=== PATIENT | female | born 1940 | race Caucasian/White ===

== ENCOUNTER 2016-08-28 13:36 | Inpatient (IN) | payer OTHER ==
[2016-08-28 14:15] VITALS: BMI 33.8
[2016-08-28] MEDS ORDERED: SODIUM CHLORIDE 1,000 ML IV STA (15:21)
--- NOTE | 2016-08-28 15:21 | PDOC ---
History of Present Illness <Malcom Weaver - Last Filed: 08/28/16 16:48> - General History Source: Patient Exam Limitations: No Limitations - History of Present Illness Initial Comments: CHIEF COMPLAINT: 75 y/o afebrile female with PMH HTN, HLD, CAD with previous CABG (on coumadin) c/o fall last night. HISTORY OF PRESENT ILLNESS: The patient states last night she got up to use the bathroom from bed and her legs got weak and she fell. She thinks it happened around 2am. She states she couldn't move and was lying there until this afternoon when her adult son came to check on her. She states she still feels weak and had to lean on her son to walk. She admits to a cold the past few days of runny nose, nasal congestion and cough but denies all other symptoms including f/c, n/v/d, CP, SOB, abd pain, back pain, hematuria, dysuria. She does admit she hasn't drank any fluids in the past few days and since no one lives with her she has been too tired to get them herself. PCP is Dr. Morrow Thermo Cementing Folder Operator is Dr. Yuan Vital signs on arrival are within normal limits. REVIEW OF SYSTEMS: GENERAL/CONSTITUTIONAL: No fever/chills. + weakness. No weight change. HEAD, EYES, EARS, NOSE AND THROAT: No change in vision. No ear pain or discharge. No sore throat. +runny nose and nasal congestion CARDIOVASCULAR: No chest pain or shortness of breath. RESPIRATORY: +dry cough. No wheezing, or hemoptysis. GASTROINTESTINAL: No abd pain, nausea, vomiting, diarrhea. GENITOURINARY: No dysuria, frequency, or change in urination. MUSCULOSKELETAL: No joint or muscle swelling or pain. No neck or back pain. SKIN: No rash or easy bruising. NEUROLOGIC: No headache, vertigo, loss of consciousness, or loss of sensation. PHYSICAL EXAM: GENERAL: The patient is awake, alert, and fully oriented, in no acute distress. She is well appearing. She walks with a cane. HEAD: Normal with no signs of trauma. ENT: Pupils equal, round and reactive to light, extraocular movements intact, sclera anicteric, conjunctiva clear. Neck supple. Lips dry and cracked. LUNGS: Clear to auscultation bilaterally. Normal excursion. No respiratory distress or use of accessory muscles. CV: Irregular rhythm, regular rate. S1/S2, no MRG. Cap refill < 2 sec. ABDOMEN: Soft, non-distended, non-tender even to deep palpation, no hepatomegaly or splenomegaly, no masses. EXTREMITIES: Normal range of motion, no edema. NEUROLOGICAL: Normal speech, normal gait. CN II-XII grossly intact. PSYCH: Normal mood, normal affect. SKIN: Warm, dry, normal turgor, no rashes or lesions noted. <Britany Rolon - Last Filed: 08/28/16 17:48> - General Chief Complaint: Injury Stated Complaint: FALL, BODY ACHES Time Seen by Provider: 08/28/16 14:43 Past History <Malcom Weaver - Last Filed: 08/28/16 16:48> - Past Medical History Cardiac Disorders: Yes (AFIB) CVA: Yes (TIA) GI Disorders: Yes HTN: Yes Hypercholesterolemia: Yes - Surgical History Appendectomy: Yes Cardiac Surgery: Yes (BYPASS) Orthopedic Surgery: Yes (Bilateral Knee Replacement) - Psycho/Social/Smoking Cessation Hx Suicidal Ideation: No Smoking Status: No Smoking History: Never smoked Have you smoked in the past 12 months: No Number of Cigarettes Smoked Daily: 0 If you are a former smoker, when did you quit?: Over 10 years ago Information on smoking cessation initiated: No Hx Alcohol Use: No Drug/Substance Use Hx: No Substance Use Type: None Hx Substance Use Treatment: No <Britany Rolon - Last Filed: 08/28/16 17:48> - Past Medical History Allergies/Adverse Reactions: Allergies Allergy/AdvReac Type Severity Reaction Status Date / Time No Known Allergies Allergy Verified 08/28/16 14:15 Home Medications: Ambulatory Orders Aspirin [ASA -] 81 mg PO DAILY #0 tab.chew 08/06/13 Atorvastatin Ca [Lipitor] 10 mg PO HS #0 tablet 08/06/13 Felodipine [Felodipine ER] 2.5 mg PO DAILY #0 tab.er.24h 08/06/13 Ranolazine [Ranexa -] 1,000 mg PO BID #0 tab 08/06/13 Metoprolol Succinate [Toprol XL -] 100 mg PO BID 08/28/16 Warfarin Na [Coumadin] 4.5 mg PO HS 08/28/16 *Physical Exam - Vital Signs Last Vital Signs Temp Pulse Resp BP Pulse Ox 98.9 F 89 18 145/72 99 08/28/16 14:10 08/28/16 14:10 08/28/16 14:10 08/28/16 14:10 08/28/16 14:10 <Malcom Weaver - Last Filed: 08/28/16 16:48> - Vital Signs Last Vital Signs Temp Pulse Resp BP Pulse Ox 98.9 F 89 18 145/72 99 08/28/16 14:10 08/28/16 14:10 08/28/16 14:10 08/28/16 14:10 08/28/16 14:10 <Britany Rolon - Last Filed: 08/28/16 17:48> ED Treatment Course - LABORATORY CBC & Chemistry Diagram: 08/28/16 15:23 08/28/16 15:23 - ADDITIONAL ORDERS Additional order review: Laboratory Results 08/28/16 08/28/16 15:23 15:21 Sodium 140 Potassium 3.7 Chloride 103 Carbon Dioxide 27 Anion Gap 10 BUN 8 D Creatinine 0.9 Creat Clearance w eGFR > 60 Random Glucose 119 H Calcium 9.1 Total Bilirubin 1.3 H D AST 57 H D ALT 31 D Alkaline Phosphatase 100 D Creatine Kinase 2035 H D CK-MB (CK-2) 6.843 H Troponin I 0.34 H B-Natriuretic Peptide 7922.92 H Total Protein 7.3 Albumin 4.0 Urine Color Yellow Urine Appearance Slcloudy Urine pH 5.0 D Ur Specific [place] 1.014 Urine Protein 1+ H Urine Glucose (UA) Negative Urine Ketones Negative Urine Blood 2+ H Urine Nitrite Negative Urine Bilirubin Negative Urine Urobilinogen Negative Ur Leukocyte Esterase 2+ H Urine RBC 4 Urine WBC 70 Ur Epithelial Cells Rare Hyaline Casts 1 Urine Mucus Rare 08/28/16 15:23 RBC 4.85 MCV 85.5 MCHC 32.5 RDW 13.9 MPV 11.9 H Neutrophils % 70.8 D Lymphocytes % 16.9 D Monocytes % 11.6 H Eosinophils % 0.1 D Basophils % 0.6 - Medications Given in the ED: ED Medications Discontinued Medications Generic Name Dose Route Start Last Admin Trade Name Freq PRN Reason Stop Dose Admin Sodium Chloride 1,000 mls @ 1,000 mls/hr 08/28/16 15:21 08/28/16 15:35 Normal Saline - IV 08/28/16 16:20 1,000 mls/hr ASDIR STA Administration <Malcom Weavere - Last Filed: 08/28/16 16:48> - LABORATORY CBC & Chemistry Diagram: 08/28/16 15:23 08/28/16 15:23 <Britany Rolon - Last Filed: 08/28/16 17:48> Medical Decision Making - Medical Decision Making 08/28/16 16:48 Dr. Morrow was called regarding the patient at 4:40pm <Malcom Weaver - Last Filed: 08/28/16 16:48> - Medical Decision Making A/P: 75 y/o afebrile female whose legs gave out on her yesterday from weakness c/o feeling weak. Plan is as follows: 1. EKG 2. CXR 3. Labs 4. UA/culture 5. IV fluids EkG shows AFIB - unchanged from prior. Laboratory Tests 08/28/16 08/28/16 08/28/16 15:21 15:23 15:23 WBC 10.6 H D Hgb 13.5 D Hct 41.5 Neutrophils % 70.8 D Lymphocytes % 16.9 D Monocytes % 11.6 H Sodium 140 Potassium 3.7 Chloride 103 Carbon Dioxide 27 BUN 8 D Creatinine 0.9 Random Glucose 119 H Total Bilirubin 1.3 H D AST 57 H D Creatine Kinase 2035 H D CK-MB (CK-2) 6.843 H Troponin I 0.34 H B-Natriuretic Peptide 7922.92 H Urine Protein 1+ H Urine Glucose (UA) Negative Urine Ketones Negative Urine Blood 2+ H Urine Nitrite Negative Urine Bilirubin Negative Urine Urobilinogen Negative Ur Leukocyte Esterase 2+ H Urine RBC [address] U[address] Morrow for admission. He states admit to obs with Hospitalist alex in service and he will see her in the morning. SPoke with Dr. Gardner, hospitalist, and she accepts admission but wants full admission to tele. Spoke with Dr. Vargas, covering for patient's print decorator, Dr. Locke, and he will consult. WIll give dose of keflex in the ER for UTI. Informed the patient and her son of the plan and they are amenable. <Britany Rolon - Last Filed: 08/28/16 17:48> *DC/Admit/Observation/Transfer <OwenMalcom Haylie - Last Filed: 08/28/16 16:48> - Discharge Dispostion Admit: Yes <Britany Rolon - Last Filed: 08/28/16 17:48> Diagnosis at time of Disposition: Elevated troponin UTI (urinary tract infection) Qualifiers: Urinary tract infection type: acute cystitis Hematuria presence: with hematuria Qualified Code(s): N30.01 - Acute cystitis with hematuria CHF exacerbation Qualifiers: Congestive heart failure type: unspecified congestive heart failure type Qualified Code(s): I50.9 - Heart failure, unspecified - Discharge Dispostion Condition at time of disposition: Stable - Referrals Referrals: Clemente Morrow MD [Primary Care Provider] -
[2016-08-28 15:29] LABS: BASOPHIL 0.6 % (0-2.0); EOSINOPHIL 0.1 % (0-4.5); MCH 27.8 pg (25.7-33.7); MCHC 32.5 g/dl (32.0-36.0); MEAN CELL VOLUME 85.5 fl (80-96); MEAN PLT VOLUME 11.9 fl (7.5-11.1); NEUTROPHILS 70.8 % (42.8-82.8); PLATELET COUNT 153 K/MM3 (134-434); RDW 13.9 % (11.6-15.6); WHITE BLOOD COUNT 10.6 K/mm3 (4.0-10.0)
[2016-08-28 15:34] LABS: URINE APPEARANCE SLCLOUDY; URINE BILIRUBIN NEGATIVE (NEGATIVE); URINE COLOR YELLOW; URINE GLUCOSE (UA) NEGATIVE (NEGATIVE); URINE KETONE NEGATIVE (NEGATIVE); URINE NITRITE NEGATIVE (NEGATIVE); URINE UROBILINOGEN NEGATIVE E.U./dl (0.2-1.0)
[2016-08-28 15:40] LABS: URINE BLOOD 2+ (NEGATIVE); URINE LEUK ESTERASE 2+ (NEGATIVE); URINE PROTEIN 1+ (NEGATIVE)
[2016-08-28 15:41] LABS: URINE HYALINE CAST 1 /lpf; URINE MUCUS RARE; URINE RBC 4 /hpf (0-3); URINE WBC 70 /hpf (3-5)
[2016-08-28 15:53] LABS: ANION GAP 10 (8-16); BILIRUBIN,TOTAL 1.3 mg/dL (0.2-1.0); CALCIUM 9.1 mg/dL (8.5-10.1); CO2 27 mmol/L (21-32); CREATININE 0.9 mg/dL (0.55-1.02); GLUCOSE,RANDOM 119 mg/dL (74-106); SGOT/AST 57 U/L (15-37); SGPT/ALT 31 U/L (12-78); TOT PROT 7.3 g/dl (6.4-8.2)
[2016-08-28 16:05] LABS: ALK PHOS 100 U/L (45-117); TROPONIN I 0.34 ng/ml (0.00-0.05)
[2016-08-28] MEDS ORDERED: CEPHALEXIN MONOHYDRATE 500 MG CAPSULE (UD) PO ONE (17:34)
[2016-08-28] MEDS ORDERED: CEPHALEXIN MONOHYDRATE 250 MG CAPSULE (FP) ONE (17:42)
--- NOTE | 2016-08-28 19:05 | PN ---
<Julia Perez - Last Filed: 08/28/16 19:05> Teaching Attending Note Name of Resident: Susi Gupta ATTENDING PHYSICIAN STATEMENT I saw and evaluated the patient. I reviewed the resident's note and discussed the case with the resident. I agree with the resident's findings and plan as documented. SUBJECTIVE: OBJECTIVE: ASSESSMENT AND PLAN: <Erlin Ramirezyna - Last Filed: 08/29/16 00:52> Teaching Attending Note ATTENDING PHYSICIAN STATEMENT I saw and evaluated the patient. I reviewed the resident's note and discussed the case with the resident. I agree with the resident's findings and plan as documented. SUBJECTIVE: Patient is a 75 year old female, former smoker(quit 10 years ago, 1-2 packs a day) with significant past medical history of Afib (on Coumadin), HTN, HLD, CAD with previous CABG who presents with fall secondary to weakness. Fall happened at 6 pm last night 08/27 and she was found by her son at 12 pm on 08/28. Patient notes that she fell down because she felt weak she was sitting on the floor. She denies any head trauma or LOC. She reports generalized weakness and muscle pain. She also reports an upper respiratory infection with runny nose, congestion and cough. She denies any cp, SOB, palpitation, dizziness, lightheadedness. She denies urinating on herself. Batter Depositor - Dr. Augustine PCP - Dr. Morrow OBJECTIVE: Physical: VS: Last Vital Signs Temp Pulse Resp BP Pulse Ox 98.9 F 96 H 22 111/61 97 08/28/16 14:10 08/28/16 18:44 08/28/16 18:44 08/28/16 18:44 08/28/16 18:44 GEN: morbidly obese, NAD HEENT: NCAT, PERRL CARD: RRR, S1 S2 RESP: decreased breath sounds at bases ABD: NT, BWS x4 EXT: - CCE LABS: CBCD WBC 10.6 K/mm3 (4.0-10.0) H D 08/28/16 15:23 RBC 4.85 M/mm3 (3.60-5.2) 08/28/16 15:23 Hgb 13.5 GM/dL (10.7-15.3) D 08/28/16 15:23 Hct 41.5 % (32.4-45.2) 08/28/16 15:23 MCV 85.5 fl (80-96) 08/28/16 15:23 MCHC 32.5 g/dl (32.0-36.0) 08/28/16 15:23 RDW 13.9 % (11.6-15.6) 08/28/16 15:23 Plt Count 153 K/MM3 (134-434) 08/28/16 15:23 MPV 11.9 fl (7.5-11.1) H 08/28/16 15:23 CMP Sodium 140 mmol/L (136-145) 08/28/16 15:23 Potassium 3.7 mmol/L (3.5-5.1) 08/28/16 15:23 Chloride 103 mmol/L (98-107) 08/28/16 15:23 Carbon Dioxide 27 mmol/L (21-32) 08/28/16 15:23 Anion Gap 10 (8-16) 08/28/16 15:23 BUN 8 mg/dL (7-18) D 08/28/16 15:23 Creatinine 0.9 mg/dL (0.55-1.02) 08/28/16 15:23 Creat Clearance w eGFR > 60 (>60) 08/28/16 15:23 Calcium 9.1 mg/dL (8.5-10.1) 08/28/16 15:23 Total Bilirubin 1.3 mg/dL (0.2-1.0) H D 08/28/16 15:23 AST 57 U/L (15-37) H D 08/28/16 15:23 ALT 31 U/L (12-78) D 08/28/16 15:23 Alkaline Phosphatase 100 U/L (45-117) D 08/28/16 15:23 Total Protein 7.3 g/dl (6.4-8.2) 08/28/16 15:23 Albumin 4.0 g/dl (3.4-5.0) 08/28/16 15:23 EKG:Rate 89 Afib ASSESSMENT AND PLAN: Patient is a 75 year old female with significant past medical history of Afib ( on Coumadin), HTN, HLD, CAD with previous CABG who presents s/p fall being admitted for rhabdomyolysis and CHF 1. Troponin elevation/Nstemi - Most likely due to demand but with heart score 5 trend troponin - Heart score is 5 - Trend troponin/ ECG - Batter Depositor consult - O2 2L NC - ECHO in AM - Aspirin - Statin - Nitro/Morphine PRN 2.Generalized weakness /rhabdo - Trend CK - Receive 1 L of fluid in ED - Would hold off for further hydration due to CHF 3. CHF - Echo complete - Sodium restrict - Daily weights - Fluid restrict 4. Afib - Continue beta ludmila - Continue Coumadin - Follow up INR - Goal INR 2-3 hold Coumadin 5. CAD/CABG - Continue home meds 6. UTI - Continue Keflex 7. HTN - Continue home meds 8. HLD - Continue home meds 9. DVT ppx - Heparin gtt Admit to Tele. Documentation prepared by Mary Ramirez, acting as biomedical engineering supervisor for Julia Perez D.O.
[2016-08-28 20:51] LABS: INR 2.24 (0.82-1.09)
--- NOTE | 2016-08-28 20:51 | HP ---
CHIEF COMPLAINT: S/p fall, weakness PCP: Dr. Clemente Morrow HISTORY OF PRESENT ILLNESS: 75 year old female with a PMH of ASaulo ( on Coumadin), CAD, CABG, TIA, HTN, HLD presents s/p fall that happened yesterday at 6 PM. She fell down on the floor but was very weak and couldn't get up. She was found by her son at 12 PM today. She denies drinking anything or urinating during that time. She denies feeling dizzy before or after the incident. She didn't hit her head or had any injuries. She denies seizures, urinating, LOC, chest pain, palpitation. The pt is also complaining of having runny nose, cough and throat pain for 2-3 days. She denies burning with urination, urgency, frequency, N/V, diarrhea, constipation. ER course was notable for: (1)Chest X ray (2)Troponins, WBC, CK, CK-MB (3)UA 2+ PAST MEDICAL HISTORY: A.Wili ( on Coumadin), CAD, CABG, TIA, HTN, HLD PAST SURGICAL HISTORY: B/L knee replacement CABG Social History: Smoking:Former smoker, quit 10 years ago, smoked 1-2 packs/day for many years Alcohol: Denies Drugs: Denies Family History: Mother: DM Father:HTN Allergies No Known Allergies Allergy (Verified 08/28/16 14:15) HOME MEDICATIONS: Medication Instructions Recorded Aspirin [ASA -] 81 mg PO DAILY #0 tab.chew 08/06/13 Atorvastatin Ca [Lipitor] 10 mg PO HS #0 tablet 08/06/13 Felodipine [Felodipine ER] 2.5 mg PO DAILY #0 tab.er.24h 08/06/13 Ranolazine [Ranexa -] 1,000 mg PO BID #0 tab 08/06/13 Metoprolol Succinate [Toprol XL -] 100 mg PO BID 08/28/16 Warfarin Na [Coumadin] 4.5 mg PO HS 08/28/16 REVIEW OF SYSTEMS CONSTITUTIONAL: generalized weakness Absent: fever, chills, diaphoresis, malaise, weight change HEENT: rhinorrhea, nasal congestion, throat pain Absent: throat swelling, difficulty swallowing, mouth swelling, ear pain, eye pain, visual changes CARDIOVASCULAR: Absent: chest pain, syncope, palpitations, irregular heart rate, lightheadedness , peripheral edema RESPIRATORY: cough Absent: shortness of breath, dyspnea with exertion, orthopnea, wheezing, stridor , hemoptysis GASTROINTESTINAL: Absent: abdominal pain, abdominal distension, nausea, vomiting, diarrhea, constipation, melena, hematochezia GENITOURINARY: Absent: dysuria, frequency, urgency, hesitancy, hematuria, flank pain, genital pain MUSCULOSKELETAL: myalgia lower extremities Absent: arthralgia, joint swelling, back pain, neck pain SKIN: Absent: rash, itching, pallor HEMATOLOGIC/IMMUNOLOGIC: Absent: easy bleeding, easy bruising, lymphadenopathy, frequent infections ENDOCRINE: Absent: unexplained weight gain, unexplained weight loss, heat intolerance, cold intolerance NEUROLOGIC: Absent: headache, focal weakness or paresthesias, dizziness, seizure, mental status changes, bladder or bowel incontinence PSYCHIATRIC: Absent: anxiety, PHYSICAL EXAMINATION Vital Signs - 24 hr 08/28/16 18:44 Pulse Rate [ 96 H Left Radial] Respiratory 22 Rate Blood Pressure 111/61 [Right Arm] O2 Sat by Pulse 97 Oximetry (%) GENERAL: Awake, alert, and fully oriented, in no acute distress. HEAD: Normal with no signs of trauma. EYES: Pupils equal, round and reactive to light, extraocular movements intact, sclera anicteric, conjunctiva clear. No lid lag. EARS, NOSE, THROAT: Ears normal, nares congested, oropharynx clear without exudates. Moist mucous membranes. NECK: Normal range of motion, supple without lymphadenopathy, JVD, or masses. LUNGS: Breath sounds equal, clear to auscultation bilaterally. No wheezes, and no crackles. No accessory muscle use. HEART: Regular rate and rhythm, normal S1 and S2 without murmur, rub or gallop. ABDOMEN: Obese, soft, nontender, not distended, normoactive bowel sounds, no guarding, no rebound, no masses. No hepatomegaly or splenomegaly. MUSCULOSKELETAL: Normal range of motion at all joints. No bony deformities or tenderness. UPPER EXTREMITIES: 2+ pulses, warm, well-perfused. No cyanosis. No clubbing. Cap refill <2 seconds. No peripheral edema. LOWER EXTREMITIES: 2+ pulses, warm, well-perfused. No calf tenderness. No peripheral edema. NEUROLOGICAL: Cranial nerves II-XII intact. Normal speech. Normal gait. PSYCHIATRIC: Cooperative. Good eye contact. Appropriate mood and affect. SKIN: Warm, dry, normal turgor, no rashes, midline scar in chest. ASSESSMENT/PLAN: 75 year old female with a PMH of [place] ( on Coumadin), CAD, CABG, TIA, HTN, HLD presents s/p fall that happened yesterday at 6 PM. She fell down on the floor. She sat down and was found by her son at 12 PM today. She denies drinking anything or urinating during that time. She denies feeling dizzy before or after the incident. She didn't hit her head or had any injuries. She denies seizures, urinating, LOC, chest pain, palpitation. She is admitted to telemetry for s/p fall, r/o NSTEMI. S/P fall r/o NSTEMI/elevated troponins -HEART score 5 -admission to telemetry -cardiac monitoring -trend troponins -trend EKG -Oxygen Supplementation -BBlockers, Aspirin, Nitro PRN -f/u troponins -Plavix 75 mg starting tomorrow -Heparin UTI: -continue Keflex 500 mg BID -Urine cultures Elevated CK/Rhabdo: -hold fluids due to CHF -observe CHF exacerbation: -hold more fluids, one Liter given in ED -daily weights, -strict I&O A.Fib -hold Coumadin -INR goal 2-3 -f/u PTT CAD/CABG: -continue home medications HLD: -continue Lipitor 10 mg HTN: -continue Metoprolol 100mg BID DVT prophylaxis: -Heparin drip F/E/N; no/no/Low sodium diet Disposition: -admission to telemetry Problem List - Problem (1) CHF exacerbation Code(s): I50.9 - HEART FAILURE, UNSPECIFIED Qualifiers: Congestive heart failure type: unspecified congestive heart failure type Qualified Code(s): I50.9 - Heart failure, unspecified (2) Elevated troponin Code(s): R79.89 - OTHER SPECIFIED ABNORMAL FINDINGS OF BLOOD CHEMISTRY (3) UTI (urinary tract infection) Code(s): N39.0 - URINARY TRACT INFECTION, SITE NOT SPECIFIED Qualifiers: Urinary tract infection type: acute cystitis Hematuria presence: with hematuria Qualified Code(s): N30.01 - Acute cystitis with hematuria Visit type - Emergency Visit Emergency Visit: Yes ED Registration Date: 08/28/16 Care time: The patient presented to the Emergency Department on the above date and was hospitalized for further evaluation of their emergent condition. - New Patient This patient is new to me today: Yes Date on this admission: 08/29/16 - Critical Care Critical Care patient: No
[2016-08-28 20:53] LABS: ACTIVATED PTT 45.1 SECONDS (26.9-34.4)
[2016-08-28] MEDS ORDERED: HEPARIN NA (PORCINE) 5,000 UNITS/ML 1ML VIAL SQ SCH (22:00)
[2016-08-28] MEDS ORDERED: METOPROLOL SUCCINATE 100 MG TAB.SR.24H (FP) PO SCH (23:45)
[2016-08-28] MEDS ORDERED: RANOLAZINE E.R. 1,000 MG TABLET (FP) PO SCH (23:45)
[2016-08-28] MEDS ORDERED: ASPIRIN 81 MG CHEWABLE TABLETS PO ONE (23:55)
[2016-08-29] MEDS ORDERED: ASPIRIN 81 MG CHEWABLE TABLETS ONE (00:08)
[2016-08-29] MEDS ORDERED: amLODIPine BESYLATE 2.5 MG TABLET (FP) PO ONE (00:15)
[2016-08-29] MEDS ORDERED: amLODIPine BESYLATE 5 MG TABLET (FP) ONE (00:34)
[2016-08-29] MEDS ORDERED: HEPARIN NA (PORCINE) 5,000 UNITS/ML 1ML VIAL IVPUSH PRN ×2 (00:49)
[2016-08-29] MEDS ORDERED: HEPARIN INFUSION - 500 ML IVPB SCH (01:00)
[2016-08-29] MEDS ORDERED: HEPARIN INFUSION - 500 ML IVPB ONE (01:18)
[2016-08-29] MEDS ORDERED: CEPHALEXIN MONOHYDRATE 250 MG CAPSULE (FP) ONE (05:33)
[2016-08-29] MEDS: CEPHALEXIN MONOHYDRATE 500 MG CAPSULE (UD) PO SCH ×3 (05:36→22:40)
[2016-08-29 07:58] LABS: INR 2.12 (0.82-1.09); PROTHROMBIN TIME (PATIENT) 23.7 SEC (9.98-11.88)
[2016-08-29 08:22] LABS: ACTIVATED PTT 130.5 SECONDS (26.9-34.4)
[2016-08-29 08:45] LABS: CALCIUM 8.3 mg/dL (8.5-10.1)
[2016-08-29 08:51] LABS: CREATININE 0.7 mg/dL (0.55-1.02)
--- NOTE | 2016-08-29 09:48 | EKG ---
Test Reason : Blood Pressure : / mmHG Vent. Rate : 089 BPM Atrial Rate : 098 BPM P-R Int : 000 ms QRS Dur : 122 ms QT Int : 384 ms P-R-T Axes : 000 053 010 degrees QTc Int : 467 ms ATRIAL FIBRILLATION RIGHT BUNDLE BRANCH BLOCK ABNORMAL ECG WHEN COMPARED WITH ECG OF 05-AUG-2013 08:56, RIGHT BUNDLE BRANCH BLOCK HAS REPLACED RSR' PATTERN IN V1 QRS DURATION HAS WIDENED Confirmed by TEDDY WILKES, CESAR ([id number]) on 08/29/2016 9:48:46 AM Referred By: Overread By: CESAR ESPINAL MD
[2016-08-29] MEDS ORDERED: ENOXAPARIN NA (PORCINE) 80 MG/0.8 ML DISP.SYRIN SQ SCH (10:00)
[2016-08-29] MEDS ORDERED: CLOPIDOGREL BISULFATE 75 MG TABLET (FP) PO SCH (10:00)
[2016-08-29] MEDS ORDERED: METOPROLOL SUCCINATE 100 MG TAB.SR.24H (FP) PO SCH (10:00)
[2016-08-29] MEDS: ASPIRIN COATED 81 MG TABLET.EC PO SCH (10:56)
[2016-08-29] MEDS: RANOLAZINE E.R. 1,000 MG TABLET (FP) PO SCH ×2 (10:57→22:27)
[2016-08-29] MEDS: METOPROLOL SUCCINATE 100 MG TAB.SR.24H (FP) PO SCH ×2 (10:57→22:26)
[2016-08-29] MEDS: amLODIPine BESYLATE 2.5 MG TABLET (FP) PO SCH (10:58)
--- NOTE | 2016-08-29 11:44 | PN ---
Progress Note (short form) - Note Progress Note: Chief Complaint: Events noted notes reviewed, progressive weakness, increasing dyspnea, remains in atrial fibrillation History of Present Illness: Seen and examined in the ER as a telemetry hold. Full consult dictated Medications: Current Medications Amlodipine Besylate (Norvasc -) 2.5 mg PO DAILY [facility] Last Admin: 08/29/16 10:58 Dose: 2.5 mg Aspirin (Ecotrin -) 81 mg PO DAILY [facility] Last Admin: 08/29/16 10:56 Dose: 81 mg Atorvastatin Calcium (Lipitor -) 10 mg PO [facility] Cephalexin HCl (Keflex -) 500 mg PO BID [facility] Last Admin: 08/29/16 10:59 Dose: 500 mg Clopidogrel Bisulfate (Plavix -) 75 mg PO DAILY [facility] Last Admin: 08/29/16 10:55 Dose: 75 mg Metoprolol Succinate (Toprol Xl -) 100 mg PO BID [facility] Last Admin: 08/29/16 10:57 Dose: 100 mg Ranolazine (Ranexa -) 1,000 mg PO BID [facility] Last Admin: 08/29/16 10:57 Dose: 1,000 mg Review of Systems - Review of Systems Constitutional: No symptoms reported Respiratory: denies: Cough or Sputum Production Cardiovascular: As noted above Gastrointestinal: denies Nausea, Vomiting, Diarrhea, Constipation or Abdominal Pain Genitourinary: No symptoms reported Musculoskeletal: Degenerative Joint Disease Endocrine: No symptoms reported Vital Signs: Last Vital Signs Temp Pulse Resp BP Pulse Ox 98.7 F 110 H 24 142/89 100 08/29/16 10:00 08/29/16 10:00 08/29/16 10:00 08/29/16 10:00 08/29/16 06:55 Constitutional: No Distress Neck: Supple Negative JVD No Bruit Respiratory: Clear to A&P Bilaterally Cardiovascular: S1 S2 Irregularly Irregular Gard[place] 1-2/6 LEONID Gastrointestinal: Soft Benign Normal Bowel Sounds Ext: Negative Edema Labs: Troponin, BNP 08/28/16 08/28/16 08/29/16 15:23 21:10 03:00 Troponin I 0.34 H 0.35 H 0.37 H B-Natriuretic Peptide 7922.92 H CBC, BMP 08/28/16 15:23 08/29/16 07:10 Hepatic Panel Total Bilirubin 1.3 mg/dL (0.2-1.0) H D 08/28/16 15:23 AST 57 U/L (15-37) H D 08/28/16 15:23 ALT 31 U/L (12-78) D 08/28/16 15:23 Alkaline Phosphatase 100 U/L (45-117) D 08/28/16 15:23 Albumin 4.0 g/dl (3.4-5.0) 08/28/16 15:23 INR, PTT INR 2.12 (0.82-1.09) H 08/29/16 07:10 Assessment/Plan ASSESSMENT: 1. Dyspnea consistent with acute on chronic diastolic LV dysfunction with class II NYHA classification LV failure 2. CAD post CABG, angina pectoris with evidence of demand ischemic injury 3. Persistent atrial fibrillation [id number] score of 5 on chronic A/C with Coumadin 4. HTN 5. Hypercholesterolemia 6. History of CVA 7. Hypokalemia 8. Progressive lower extremity weakness etiology to be determined PLAN: 1. Continue Lopressor titrate dosage as tolerated 2. Continue Ranexa 3. Add ACEI or ARBS 4. Continue Norvasc 5. Continue Lipitor 6. Add Lasix 7. K supplementation 8. Continue Coumadin and ASA therapies with caution, no indication for Heparin since patient has a therapeutic INR, no indication for Plavix since there is no clinical indication for ACS 9. Echocardiography for evaluation of LV systolic function 10. Neurology evaluation for the above noted presentation with progressive lower extremity weakness Shannan Molina M.D.
[2016-08-29] MEDS ORDERED: POTASSIUM CHLORIDE TABS 20 MEQ TABLET.ER (FP) PO ONE ×2 (11:45→12:37)
--- NOTE | 2016-08-29 12:21 | CONS ---
DATE OF CONSULTATION: 08/29/2016 REQUESTING PHYSICIAN: Clemente Morrow MD CHIEF COMPLAINT: Progressive weakness, dyspnea, cardiovascular evaluation. HISTORY: A 75-year-old morbidly obese female of descent with known history of coronary artery disease status post coronary artery bypass grafting, angina pectoris, diastolic left ventricular dysfunction with chronic class 1 [place] [employer] classification left ventricle failure, persistent atrial fibrillation on chronic anticoagulation therapy with Coumadin, hypertensive cardiovascular disease, hypercholesterolemia, cerebrovascular disease with no residual deficit, and degenerative joint disease who presented to [facility] after sustaining a fall at home subsequent to which she was unable to ambulate. The patient was found by her son stating that she has been reporting increasing bilateral lower extremity weakness, which has been noted since her bypass surgery 2 years ago. The patient in addition reported increasing dyspnea, which is predominantly noted with physical exertion. The patient denied any orthopnea or paroxysmal or nocturnal dyspnea. The patient reported intermittent retrosternal chest discomfort, which is noted at rest and with physical activity. The patient denied any palpitations, dizziness, lightheadedness, or syncope. The patient has been reporting fatigue and tiredness. PAST MEDICAL HISTORY: Coronary artery disease status post coronary artery bypass grafting, angina pectoris, diastolic left ventricular dysfunction with chronic class 1 [place] [employer] classification left ventricular failure, persistent atrial fibrillation, [id number] score of 5 on chronic anticoagulation therapy, hypertensive cardiovascular disease, hypercholesterolemia, cerebrovascular disease with no significant residual deficit, degenerative joint disease, post bilateral knee replacement surgery. SOCIAL HISTORY: Denies smoking. Denies alcohol intake. FAMILY HISTORY: Positive coronary artery disease. ALLERGIES: None reported. MEDICAL THERAPY: Currently includes amlodipine 2.5 mg once a day, Ecotrin 81 mg once a day, Lipitor 10 mg once a day, Plavix 75 mg once a day initiated in the emergency room, Toprol XL 100 mg twice a day, Ranexa 1000 mg twice a day, heparin drip initiated in the emergency room. REVIEW OF SYSTEMS: Head and Neck: Denies headache, photophobia, blurring of vision. Respiratory: Denies cough or sputum production. Cardiovascular: As noted above. Gastrointestinal: Denies nausea, vomiting, diarrhea, abdominal discomfort. Genitourinary: No symptoms reported. Musculoskeletal: History of degenerative joint disease and progressive lower extremity weakness. PHYSICAL EXAMINATION: Vital Signs: Blood pressure 142/89 mmHg, pulse rate 110 beats per minute. Head and Neck: Pupils equal and reactive to light and accommodation. Extraocular muscles are intact. Anicteric sclerae. Negative JVD. No bruits appreciated. Chest: Clear to auscultation and percussion. Cardiovascular: S1, S2. Irregularly irregular. Grade 1/6 to 2/6 systolic ejection murmur. No clicks or gallops. Abdomen: Soft, benign. Normoactive bowel sounds. Extremities: Negative edema. Intact distal pulses. No calf tenderness. Electrocardiogram reveals atrial fibrillation, nonspecific T-wave abnormality. Chest x-ray, increased basal marking. BNP 7922. Troponin I level was noted at 0.34, 0.35, and 0.37. Basic metabolic profile revealed sodium 142, potassium 3.2, BUN 10, creatinine 0.7, glucose 105. CBC revealed white blood cell count 10.6, hemoglobin 13.5, platelets 153. AST 56, ALT 31. ASSESSMENT: 1. Dyspnea consistent with acute on chronic diastolic left ventricular dysfunction with class 2 [place] [employer] classification left ventricle failure. 2. Coronary artery disease post coronary artery bypass grafting and angina pectoris with evidence of demand ischemic injury. 3. Persistent atrial fibrillation, [id number] score of 5 on chronic anticoagulation therapy with Coumadin. 4. Hypertensive cardiovascular disease. 5. Hypercholesterolemia. 6. History of cerebrovascular disease. 7. Hypokalemia. 8. Progressive lower extremity weakness, etiology to be determined. RECOMMENDATION: 1. Continuation of beta-blockers and titration of dosage as tolerated. 2. Continuation of Ranexa therapy. 3. Addition of RAJEEV inhibitors angiotensin receptor blockers. 4. Continuation of Norvasc. 5. Continuation of Lipitor. 6. Addition of Lasix. 7. Potassium supplementation. 8. Continuation of Coumadin and aspirin therapies with caution. No indication for heparin since the patient had a therapeutic exercise INR. In addition, no indication for Plavix since there is no clinical indication for acute coronary syndrome. 9. Echocardiography for evaluation of left ventricular systolic function. 10. Neurology evaluation for the above noted presentation with progressive lower extremity weakness. Thank you for the kind referral. JEN GARDNER M.D. [id number]
[2016-08-29] MEDS ORDERED: FUROSEMIDE 40 MG TABLET (FP) ONE (12:36)
[2016-08-29] MEDS ORDERED: VALSARTAN 80 MG TABLET (UD) ONE (12:37)
[2016-08-29] MEDS: VALSARTAN 80 MG TABLET (UD) PO SCH (12:38)
[2016-08-29] MEDS: FUROSEMIDE 40 MG TABLET (FP) PO SCH (12:38)
--- NOTE | 2016-08-29 12:52 | CONSULT ---
Consult Consult Specialty:: PULMONARY Referred by:: Dr. Perez Reason for Consultation:: shortness of breath - History of Present Illness Chief Complaint: leg weakness History of Present Illness: 75yo female with h/o HTN, hyperlipidemia, atrial fibrillation on anticoagulation , CAD, former smoker who was admitted after a fall from bilateral leg weakness. She denies any numbness or tingling sensation. She does report lower back pain for the past 2-3 months, has not seen a neurologist before. She also reports dyspnea on exertion without chest pain or palpitations. No fevrs, chills or sweats but has a nonproductive cough. - History Source History Provided By: Patient, Medical Record Limitations to Obtaining History: No Limitations - Past Medical History Cardio/Vascular: Yes: AFIB, CAD, HTN, Hyperlipdemia - Alcohol/Substance Use Hx Alcohol Use: No - Smoking History Smoking history: Never smoked Have you smoked in the past 12 months: No Aproximately how many cigarettes per day: 0 If you are a former smoker, when did you quit?: Over 10 years ago Home Medications - Allergies Allergies/Adverse Reactions: Allergies Allergy/AdvReac Type Severity Reaction Status Date / Time No Known Allergies Allergy Verified 08/28/16 14:15 - Home Medications Home Medications: Ambulatory Orders Aspirin [ASA -] 81 mg PO DAILY #0 tab.chew 08/06/13 Atorvastatin Ca [Lipitor] 10 mg PO HS #0 tablet 08/06/13 Felodipine [Felodipine ER] 2.5 mg PO DAILY #0 tab.er.24h 08/06/13 Ranolazine [Ranexa -] 1,000 mg PO BID #0 tab 08/06/13 Metoprolol Succinate [Toprol XL -] 100 mg PO BID 08/28/16 Warfarin Na [Coumadin] 4.5 mg PO HS 08/28/16 Family Disease History - Family Disease History Other Family History: non-contributory Review of Systems - Review of Systems Constitutional: denies: Chills, Fever Eyes: denies: Recent Change in Vision HENT: denies: Nasal Congestion, Throat Pain Neck: denies: Stiffness, Tenderness Cardiovascular: reports: Shortness of Breath. denies: Chest Pain, Edema, Palpitations Respiratory: reports: Cough, Exercise Intolerance, SOB on Exertion. denies: Hemoptysis, Wheezing Gastrointestinal: denies: Abdominal Pain, Nausea, Vomiting Genitourinary: denies: Dysuria, Hematuria Neurological: reports: Weakness (lower extremity). denies: Dizziness, Headache Physical Exam Vital Sings: Vital Signs Temperature 98.7 F 08/29/16 10:00 Pulse Rate 110 H 08/29/16 10:00 Respiratory Rate 24 08/29/16 10:00 Blood Pressure 142/89 08/29/16 10:00 O2 Sat by Pulse Oximetry (%) 100 08/29/16 09:00 Constitutional: Yes: No Distress, Calm Eyes: Yes: Conjunctiva Clear, EOM Intact HENT: Yes: Atraumatic, Normocephalic Neck: Yes: Supple, Trachea Midline Cardiovascular: Yes: Pulse Irregular Respiratory: Yes: Regular, Diminished (decreased breath sounds at the bases) ...Clubbing: No Gastrointestinal: Yes: Normal Bowel Sounds, Soft, Abdomen, Obese. No: Tenderness Edema: No Neurological: Yes: Alert, Oriented Labs: CBC, BMP 08/29/16 07:10 Imaging - Results Chest X-ray: Report Reviewed, Image Reviewed (no infiltrates) Problem List - Problems (1) UTI (urinary tract infection) Code(s): N39.0 - URINARY TRACT INFECTION, SITE NOT SPECIFIED Qualifiers: Urinary tract infection type: acute cystitis Hematuria presence: with hematuria Qualified Code(s): N30.01 - Acute cystitis with hematuria (2) Elevated troponin Code(s): R79.89 - OTHER SPECIFIED ABNORMAL FINDINGS OF BLOOD CHEMISTRY (3) Acute on chronic congestive heart failure with left ventricular diastolic dysfunction Code(s): I50.33 - ACUTE ON CHRONIC DIASTOLIC (CONGESTIVE) HEART FAILURE (4) Bilateral leg weakness Code(s): M62.81 - MUSCLE WEAKNESS (GENERALIZED) (5) Atrial fibrillation Code(s): I48.91 - UNSPECIFIED ATRIAL FIBRILLATION (6) CAD (coronary artery disease) Code(s): I25.10 - ATHSCL HEART DISEASE OF [place] CORONARY ARTERY W/O ANG PCTRS Assessment/Plan Bilateral Leg Weakness r/o Disc disease Acute on Chronic LV Diastolic Heart Failure +Troponins from above CAD s/p CABG Atrial Fibrillation HTN Hyperlipidemia h/o CVA - neurology evaluation - will defer mode of imaging to neuro - lasix - monitor urine output, creatinine - daily weights, I/Os - rate control with metoprolol - echocardiogram - continue anticoagulation Thank you for this consult Matthew Baxter MD
[2016-08-29] MEDS ORDERED: RANOLAZINE E.R. 500 MG TABLET (FP) ONE (21:58)
[2016-08-29] MEDS ORDERED: ATORVASTATIN CA 10 MG TABLET (FP) PO SCH (22:00)
[2016-08-29] MEDS: ATORVASTATIN CA 10 MG TABLET (FP) PO SCH (22:27)
[2016-08-30] MEDS: METOPROLOL SUCCINATE 100 MG TAB.SR.24H (FP) PO SCH ×3 (03:10→22:14)
[2016-08-30 08:21] LABS: ALK PHOS 73 U/L (45-117); ANION GAP 6 (8-16); BILIRUBIN,TOTAL 1.4 mg/dL (0.2-1.0); CALCIUM 8.6 mg/dL (8.5-10.1); CO2 30 mmol/L (21-32); CREATININE 0.9 mg/dL (0.55-1.02); GLUCOSE,RANDOM 92 mg/dL (74-106); MAGNESIUM 1.8 mg/dL (1.8-2.4); PHOSPHOROUS 3.2 mg/dL (2.5-4.9); SGOT/AST 81 U/L (15-37); SGPT/ALT 33 U/L (12-78); TOT PROT 5.7 g/dl (6.4-8.2)
[2016-08-30] MEDS ORDERED: RANOLAZINE E.R. 500 MG TABLET (FP) ONE ×2 (10:04→22:10)
--- NOTE | 2016-08-30 10:06 | CONSULT ---
Consult Consult Specialty:: Neurology Reason for Consultation:: LE weakness with fall - History of Present Illness History of Present Illness: The history provided by the patient and her daughter in law was found to be reliable. The patient noted over the past two weeks her legs have become progressively weaker and was associated with feeling very fatigued. The day of admission she was found on the floor, having been there for nearly 24 hours after falling. She has a history of chronic low back pain but denies radicular pain into the lower extremities and there is no objective sensory loss. - History Source History Provided By: Patient, Family Member Limitations to Obtaining History: No Limitations - Past Medical History Cardio/Vascular: Yes: AFIB, CAD, HTN, Hyperlipdemia - Alcohol/Substance Use Hx Alcohol Use: No - Smoking History Smoking history: Never smoked Have you smoked in the past 12 months: No Aproximately how many cigarettes per day: 0 If you are a former smoker, when did you quit?: Over 10 years ago Home Medications - Allergies Allergies/Adverse Reactions: Allergies Allergy/AdvReac Type Severity Reaction Status Date / Time No Known Allergies Allergy Verified 08/28/16 14:15 - Home Medications Home Medications: Ambulatory Orders Aspirin [ASA -] 81 mg PO DAILY #0 tab.chew 08/06/13 Atorvastatin Ca [Lipitor] 10 mg PO HS #0 tablet 08/06/13 Felodipine [Felodipine ER] 2.5 mg PO DAILY #0 tab.er.24h 08/06/13 Ranolazine [Ranexa -] 1,000 mg PO BID #0 tab 08/06/13 Metoprolol Succinate [Toprol XL -] 100 mg PO BID 08/28/16 Warfarin Na [Coumadin] 4.5 mg PO HS 08/28/16 Family Disease History - Family Disease History Other Family History: non-contributory Physical Exam Vital Signs: Vital Signs Temperature 98 F 08/30/16 08:24 Pulse Rate 111 H 08/30/16 08:24 Respiratory Rate 20 08/30/16 08:24 Blood Pressure 110/63 08/30/16 08:24 O2 Sat by Pulse Oximetry (%) 96 08/29/16 21:00 Constitutional: Yes: Well Nourished, No Distress, Calm Eyes: Yes: WNL, EOM Intact, PERRL. No: Diplopia, Ptosis HENT: Yes: Atraumatic, Normocephalic Neck: Yes: Supple Cardiovascular: Yes: Pulse Irregular Respiratory: Yes: Regular Gastrointestinal: Yes: Soft Neurological: Yes: Alert, Oriented, Cran Nerves II-XII Intact. No: Aphasia, Ataxia, Dysarthria, Facial Droop, Loss of Sensation, Weakness (DTR 1/4 with absent ankle jerks and gait not observed.) Labs: CBC, BMP 08/30/16 05:35 Assessment/Plan Chronic low back pain with documented multi-level disc disease with progressive generalized and lower extremity weakness associated with UTI and CHF with unlikely acute spinal cord etiology with poor general medical conditioning and acute medical problems a likely contributing factor to generalized weakness and fall. MRI of the lumbar spine to evaluate for acute spinal stenosis with increase in subjective LE weakness reported by pt and absent ankle DTR's Have suggested the patient extend the evaluation of lower extremity weakness with EMG/NCVs once discharged from the hospital.
[2016-08-30] MEDS: ASPIRIN COATED 81 MG TABLET.EC PO SCH (10:11)
[2016-08-30] MEDS: amLODIPine BESYLATE 2.5 MG TABLET (FP) PO SCH (10:11)
[2016-08-30] MEDS: FUROSEMIDE 40 MG TABLET (FP) PO SCH (10:13)
[2016-08-30] MEDS: RANOLAZINE E.R. 1,000 MG TABLET (FP) PO SCH ×2 (10:14→22:15)
[2016-08-30] MEDS ORDERED: PT OWN MED DRAWER 7, Y5N ONE (10:17)
[2016-08-30] MEDS: CEPHALEXIN MONOHYDRATE 500 MG CAPSULE (UD) PO SCH ×2 (10:18→22:14)
--- NOTE | 2016-08-30 12:18 | PN ---
Progress Note, Physician History of Present Illness: PULMONARY ALERT,NAD,+WEAKNESS,+CHAMBERS,-CP - Current Medication List Current Medications: Active Medications Amlodipine Besylate (Norvasc -) 2.5 mg PO DAILY [facility] Last Admin: 08/30/16 10:11 Dose: 2.5 mg Aspirin (Ecotrin -) 81 mg PO DAILY [facility] Last Admin: 08/30/16 10:11 Dose: 81 mg Atorvastatin Calcium (Lipitor -) 10 mg PO HS [facility] Last Admin: 08/29/16 22:27 Dose: 10 mg Cephalexin HCl (Keflex -) 500 mg PO BID [facility] Last Admin: 08/30/16 10:18 Dose: 500 mg Furosemide (Lasix -) 40 mg PO DAILY [facility] Last Admin: 08/30/16 10:13 Dose: 40 mg Metoprolol Succinate (Toprol Xl -) 100 mg PO BID [facility] Last Admin: 08/30/16 10:12 Dose: 100 mg Ranolazine (Ranexa -) 1,000 mg PO BID [facility] Last Admin: 08/30/16 10:14 Dose: Not Given Valsartan (Diovan -) 80 mg PO DAILY [facility] Last Admin: 08/29/16 12:38 Dose: 80 mg - Objective Vital Signs: Vital Signs Temperature 98 F 08/30/16 08:24 Pulse Rate 111 H 08/30/16 08:24 Respiratory Rate 20 08/30/16 08:24 Blood Pressure 110/63 08/30/16 08:24 O2 Sat by Pulse Oximetry (%) 96 08/29/16 21:00 Constitutional: Yes: Well Nourished, Calm Eyes: Yes: WNL HENT: Yes: WNL Neck: Yes: WNL Cardiovascular: Yes: Pulse Irregular, S1, S2 Respiratory: Yes: Rales (BIBASILAR CRACKLES) Gastrointestinal: Yes: Normal Bowel Sounds, Soft Extremities: Yes: WNL Edema: No Labs: CBC, BMP 08/30/16 05:35 INR, PTT INR 2.12 (0.82-1.09) H 08/29/16 07:10 Assessment/Plan Problem List - Problems (1) UTI (urinary tract infection) Code(s): N39.0 - URINARY TRACT INFECTION, SITE NOT SPECIFIED Qualifiers: Urinary tract infection type: acute cystitis Hematuria presence: with hematuria Qualified Code(s): N30.01 - Acute cystitis with hematuria (2) Elevated troponin Code(s): R79.89 - OTHER SPECIFIED ABNORMAL FINDINGS OF BLOOD CHEMISTRY (3) Acute on chronic congestive heart failure with left ventricular diastolic dysfunction Code(s): I50.33 - ACUTE ON CHRONIC DIASTOLIC (CONGESTIVE) HEART FAILURE (4) Bilateral leg weakness Code(s): M62.81 - MUSCLE WEAKNESS (GENERALIZED) (5) Atrial fibrillation Code(s): I48.91 - UNSPECIFIED ATRIAL FIBRILLATION (6) CAD (coronary artery disease) Code(s): I25.10 - ATHSCL HEART DISEASE OF [place] CORONARY ARTERY W/O ANG PCTRS Assessment/Plan Bilateral Leg Weakness r/o Disc disease Acute on Chronic LV Diastolic Heart Failure +Troponins from above CAD s/p CABG Atrial Fibrillation HTN Hyperlipidemia h/o CVA - neurology eval pending - imaging as per neuro - lasix - monitor urine output, creatinine - daily weights, I/Os - rate control with metoprolol - continue anticoagulation DR DENG
--- NOTE | 2016-08-30 12:22 | PN ---
Progress Note (short form) - Note Progress Note: S: 75 year old female, with longstanding history of CAD, s/p CABG, angina pectoris , permanent a-fib, s/p CVA, hypercholesterolemia, and hypertension. Was admitted with progressive dyspnea, pedal edema, progressive weakness, especially involving both lower extremities, and history of fall on the day of admission. Admits to poor dietary compliance. No hx of chest pain or discomfort reported. On admission, was found to have elevated CK and Troponin levels. Also had significant elevation of BMP. On admission, she was normotensive, afebrile, and was noted to be in afib with moderate ventricular response. Patient denies having any further dyspnea, still complains of weakness in both lower extremities. No hx of chest pain or discomfort, denies having lightheaded , dizziness, pre-syncope, or syncope. Patient, according to nurse, was noted to have low blood pressure, and refused to take Ranexa. Home Medication List Medication Instructions Recorded Confirmed Type Metoprolol Succinate [Toprol XL -] 100 mg PO BID 08/28/16 08/28/16 History Warfarin Na [Coumadin] 4.5 mg PO HS 08/28/16 08/28/16 History Active Medications Generic Name Dose Route Start Last Admin Trade Name Freq PRN Reason Stop Dose Admin Amlodipine Besylate 2.5 mg 08/29/16 10:00 08/30/16 10:11 Norvasc - PO 2.5 mg DAILY THI Administration Aspirin 81 mg 08/29/16 10:00 08/30/16 10:11 Ecotrin - PO 81 mg DAILY THI Administration Atorvastatin Calcium 10 mg 08/29/16 22:00 08/29/16 22:27 Lipitor - PO 10 mg HS THI Administration Cephalexin HCl 500 mg 08/29/16 05:00 08/30/16 10:18 Keflex - PO 500 mg BID THI Administration Furosemide 40 mg 08/29/16 12:15 08/30/16 10:13 Lasix - PO 40 mg DAILY THI Administration Metoprolol Succinate 100 mg 08/29/16 10:00 08/30/16 10:12 Toprol Xl - PO 100 mg BID THI Administration Ranolazine 1,000 mg 08/29/16 10:00 08/30/16 10:14 Ranexa - PO Not Given BID THI Valsartan 80 mg 08/29/16 12:15 08/29/16 12:38 Diovan - PO 80 mg DAILY THI Administration O: 75 year old obese female was in no distress, no pallor, cyanosis, clubbing or jaundice. Last Vital Signs Temp Pulse Resp BP Pulse Ox 98 F 111 H- Irregularly Irregular 20 110/63 96 08/30/16 08:24 08/30/16 08:24 08/30/16 08:24 08/30/16 08:24 08/29/16 21:00 NECK: Supple, no JVD, negative HJR, carotids were equal and upstrokes were normal, no thyromegaly appreciated. HEART: PMI was in the 5th intercostal space, no heaves or thrills, S1 and S2 were normal. No murmurs or gallops were appreciated. LUNGS: Clear on auscultation bilaterally. ABDOMEN: Soft, nontender, no hepatosplenomegaly appreciated, and no palpable masses were felt. EXTREMITIES: No calf tenderness or dependent edema. Pulses are normal. CBC, BMP 08/28/16 15:23 08/30/16 05:35 Laboratory Results - last 24 hr 08/29/16 08/30/16 14:43 05:35 PTT (Actin FS) 36.6 H D Sodium 141 Potassium 4.4 D Chloride 105 Carbon Dioxide 30 Anion Gap 6 L BUN 14 D Creatinine 0.9 D Creat Clearance w eGFR > 60 Random Glucose 92 Calcium 8.6 Phosphorus 3.2 Magnesium 1.8 Total Bilirubin 1.4 H AST 81 H D ALT 33 Alkaline Phosphatase 73 D Total Protein 5.7 L D Albumin 3.0 L D Impression: 1. CHF, presently compensated. 2. Coronary artery disease, s/p CABG. 3. Elevated Troponin, etiology: A. Secondary to acute coronary event. B. CHF. C. Permanent atrial fibrillation with periods of rapid ventricular response. 4. S/p CVA without residual sequelae. 5. Weakness involving lower extremities, etiology to be determined. 6. Exogenous obesity. 7. Poor compliance. Recommendations: 1. Consider neurological evaluation. 2. In view of low blood pressure, consider reducing dose of diavan to 40 mg PO daily and check BP both supine and standing. 3. Follow CK levels. Prognosis: Guarded. Documentation prepared by Harriet Andino, acting as certified medical aide for Dorian Locke MD. Problem List - Problems (1) Acute on chronic congestive heart failure with left ventricular diastolic dysfunction Code(s): I50.33 - ACUTE ON CHRONIC DIASTOLIC (CONGESTIVE) HEART FAILURE (2) Atrial fibrillation Code(s): I48.91 - UNSPECIFIED ATRIAL FIBRILLATION (3) Bilateral leg weakness Code(s): M62.81 - MUSCLE WEAKNESS (GENERALIZED) (4) CAD (coronary artery disease) Code(s): I25.10 - ATHSCL HEART DISEASE OF [place] CORONARY ARTERY W/O ANG PCTRS (5) CHF exacerbation Code(s): I50.9 - HEART FAILURE, UNSPECIFIED Qualifiers: Congestive heart failure type: unspecified congestive heart failure type Qualified Code(s): I50.9 - Heart failure, unspecified
[2016-08-30] MEDS: VALSARTAN 80 MG TABLET (UD) PO SCH (14:20)
--- NOTE | 2016-08-30 18:56 | PN ---
Physical Exam: SUBJECTIVE: Patient seen and examined. She is oob to chair. She stats her bi lateral groin is tender. Denies back pain OBJECTIVE: Vital Signs Period Temp Pulse Resp BP Sys/Yeager Pulse Ox Last 24 Hr 97.8 F-98.4 F 98-116 20-20 96-120/44-71 94-96 PE Neuro: alert, awake, cn 2-12intact Pulm: CTAB CV: irregular rhythm regular rate sternal scan healed Abd: S nt nd + bs Ext: warm, trace le edema le tenderness to palpation Laboratory Results - last 24 hr 08/30/16 05:35 Sodium 141 Potassium 4.4 D Chloride 105 Carbon Dioxide 30 Anion Gap 6 L BUN 14 D Creatinine 0.9 D Creat Clearance w eGFR > 60 Random Glucose 92 Calcium 8.6 Phosphorus 3.2 Magnesium 1.8 Total Bilirubin 1.4 H AST 81 H D ALT 33 Alkaline Phosphatase 73 D Total Protein 5.7 L D Albumin 3.0 L D Active Medications Generic Name Dose Route Start Last Admin Trade Name Kennethq PRN Reason Stop Dose Admin Amlodipine Besylate 2.5 mg 08/29/16 10:00 08/30/16 10:11 Norvasc - PO 2.5 mg DAILY THI Administration Aspirin 81 mg 08/29/16 10:00 08/30/16 10:11 Ecotrin - PO 81 mg DAILY THI Administration Atorvastatin Calcium 10 mg 08/29/16 22:00 08/29/16 22:27 Lipitor - PO 10 mg HS THI Administration Cephalexin HCl 500 mg 08/29/16 05:00 08/30/16 10:18 Keflex - PO 500 mg BID THI Administration Furosemide 40 mg 08/29/16 12:15 08/30/16 10:13 Lasix - PO 40 mg DAILY THI Administration Metoprolol Succinate 100 mg 08/29/16 10:00 08/30/16 10:12 Toprol Xl - PO 100 mg BID THI Administration Ranolazine 1,000 mg 08/29/16 10:00 08/30/16 10:14 Ranexa - PO Not Given BID [facility] Valsartan 40 mg 08/31/16 10:00 Diovan - PO DAILY [facility] Warfarin Sodium 4.5 mg 08/31/16 18:00 Coumadin - PO DAILY@1800 THI Assessment: 75 year old female with a PMH of A.Fib (on Coumadin), CAD, CABG, TIA , HTN, HLD admitted s/p fall. Plan: 1. s/p fall - Possible due to worsening chronic back pain - MRI lumbar spine - Neuro following 2. Rhabdomylosis - Start NS 75/hr x1L - Monitor resp status d/t chf - CPK in AM 3. Elevated trop - Likely d/t demand ischemia, elevated bnp - Check trop in am 3. UTI - Repeat urine cx - Cont keflex po BID (day 2) 4. Acute on chronic diastolic CHF - ECHO noted, normal LV - Decreased diovan 40mg daily - Cont lasix 40mg daily - Cardiology seeing 5. A fib - INR daily - Coumadn 4.5mg HS 6. CAD s/p CABG/angina pectoris - Cont ASA/lipitor - Cont Renexa 7. HTN - Cont Norvasc 8. DVT - On AC Visit type - Emergency Visit Emergency Visit: Yes ED Registration Date: 08/28/16 Care time: The patient presented to the Emergency Department on the above date and was hospitalized for further evaluation of their emergent condition. - New Patient This patient is new to me today: Yes Date on this admission: 08/30/16 - Critical Care Critical Care patient: No - Discharge Referral Referred to [facility] No
[2016-08-30] MEDS ORDERED: WARFARIN NA 2 MG TABLET (UD) ONE (20:13)
[2016-08-30] MEDS ORDERED: WARFARIN NA 2.5 MG TABLET (FP) ONE (20:14)
[2016-08-30] MEDS: WARFARIN NA 2.5 MG, WARFARIN NA 2 MG PO SCH (20:21)
[2016-08-30] MEDS ORDERED: SODIUM CHLORIDE 1,000 ML IV SCH ×3 (21:15→21:23)
[2016-08-30] MEDS: ATORVASTATIN CA 10 MG TABLET (FP) PO SCH (22:14)
[2016-08-31 07:26] LABS: BASOPHIL 0.4 % (0-2.0); EOSINOPHIL 3.5 % (0-4.5); MCH 28.5 pg (25.7-33.7); MEAN CELL VOLUME 86.2 fl (80-96); NEUTROPHILS 52.1 % (42.8-82.8); PLATELET COUNT 141 K/MM3 (134-434); RDW 14.2 % (11.6-15.6); WHITE BLOOD COUNT 6.5 K/mm3 (4.0-10.0)
[2016-08-31 07:47] LABS: INR 1.54 (0.82-1.09); PROTHROMBIN TIME (PATIENT) 17.1 SEC (9.98-11.88)
[2016-08-31 08:05] LABS: ALBUMIN 2.8 g/dl (3.4-5.0); ANION GAP 7 (8-16); CALCIUM 8.5 mg/dL (8.5-10.1); CO2 29 mmol/L (21-32); CREATININE 0.9 mg/dL (0.55-1.02); GLUCOSE,RANDOM 97 mg/dL (74-106); SGOT/AST 130 U/L (15-37); SGPT/ALT 44 U/L (12-78); TOT PROT 5.6 g/dl (6.4-8.2)
[2016-08-31 08:17] LABS: ALK PHOS 70 U/L (45-117); TROPONIN I 0.33 ng/ml (0.00-0.05)
[2016-08-31] MEDS ORDERED: RANOLAZINE E.R. 500 MG TABLET (FP) ONE (08:43)
--- NOTE | 2016-08-31 09:32 | PN ---
Progress Note, Physician Chief Complaint: Events noted Complains of groin pain and weakness History of Present Illness: Patient was seen and examined. Awake and alert. Chart was reviewed Denies chest pain or palpitation Note elevated CPK - Current Medication List Current Medications: Active Medications Amlodipine Besylate (Norvasc -) 2.5 mg PO DAILY [facility] Last Admin: 08/30/16 10:11 Dose: 2.5 mg Aspirin (Ecotrin -) 81 mg PO DAILY [facility] Last Admin: 08/30/16 10:11 Dose: 81 mg Atorvastatin Calcium (Lipitor -) 10 mg PO HS [facility] Last Admin: 08/30/16 22:14 Dose: 10 mg Cephalexin HCl (Keflex -) 500 mg PO BID [facility] Last Admin: 08/30/16 22:14 Dose: 500 mg Furosemide (Lasix -) 40 mg PO DAILY [facility] Last Admin: 08/30/16 10:13 Dose: 40 mg Sodium Chloride (Normal Saline -) 1,000 mls @ 75 mls/hr IV ASDIR [facility] Stop: 08/31/16 10:36 Last Admin: 08/30/16 22:18 Dose: 75 mls/hr Metoprolol Succinate (Toprol Xl -) 100 mg PO BID [facility] Last Admin: 08/30/16 22:14 Dose: 100 mg Ranolazine (Ranexa -) 1,000 mg PO BID [facility] Last Admin: 08/30/16 22:15 Dose: 1,000 mg Valsartan (Diovan -) 40 mg PO DAILY [facility] Warfarin Sodium 2.5 mg/ (Warfarin Sodium 2 mg) 4.5 mg PO DAILY@1800 [facility] Last Admin: 08/30/16 20:21 Dose: 4.5 mg - Objective Vital Signs: Vital Signs Temperature 98.2 F 08/31/16 06:00 Pulse Rate 88 08/31/16 06:00 Respiratory Rate 18 08/31/16 06:00 Blood Pressure 99/62 08/31/16 06:00 O2 Sat by Pulse Oximetry (%) 96 08/31/16 06:00 Neck: Yes: Supple Cardiovascular: Yes: Pulse Irregular, Murmur (Soft SM), S1, S2 Respiratory: Yes: Diminished Edema: No Additional Findings/Remarks: - Review of Systems Constitutional: No symptoms reported Respiratory: denies: Cough or Sputum Production Cardiovascular: As noted above Gastrointestinal: denies Nausea, Vomiting, Diarrhea, Constipation or Abdominal Pain Genitourinary: No symptoms reported Musculoskeletal: Degenerative Joint Disease Endocrine: No symptoms reported Labs: CBC, BMP 08/31/16 05:35 08/31/16 05:35 INR, PTT INR 1.54 (0.82-1.09) H 08/31/16 05:35 Problem List - Problems (1) Acute on chronic congestive heart failure with left ventricular diastolic dysfunction Code(s): I50.33 - ACUTE ON CHRONIC DIASTOLIC (CONGESTIVE) HEART FAILURE (2) Atrial fibrillation Code(s): I48.91 - UNSPECIFIED ATRIAL FIBRILLATION Qualifiers: Atrial fibrillation type: permanent Qualified Code(s): I48.2 - Chronic atrial fibrillation (3) CAD (coronary artery disease) Code(s): I25.10 - ATHSCL HEART DISEASE OF [place] CORONARY ARTERY W/O ANG PCTRS Qualifiers: Coronary Disease-Associated Artery/Lesion type: [place] artery [place] vs. transplanted heart: [place] heart Associated angina: without angina Qualified Code(s): I25.10 - Atherosclerotic heart disease of [place] coronary artery without angina pectoris (4) CHF exacerbation Code(s): I50.9 - HEART FAILURE, UNSPECIFIED Qualifiers: Congestive heart failure type: unspecified congestive heart failure type Qualified Code(s): I50.9 - Heart failure, unspecified (5) Elevated troponin Code(s): R79.89 - OTHER SPECIFIED ABNORMAL FINDINGS OF BLOOD CHEMISTRY (6) HTN (hypertension) Code(s): I10 - ESSENTIAL (PRIMARY) HYPERTENSION Qualifiers: Hypertension type: essential hypertension Qualified Code(s): I10 - Essential (primary) hypertension (7) Hypercholesterolemia Code(s): E78.0 - PURE HYPERCHOLESTEROLEMIA * DO NOT USE * (8) CVA (cerebral vascular accident) Code(s): I63.9 - CEREBRAL INFARCTION, UNSPECIFIED Qualifiers: CVA mechanism: unspecified Qualified Code(s): I63.9 - Cerebral infarction, unspecified (9) Status post aorto-coronary artery bypass graft Code(s): Z95.1 - PRESENCE OF AORTOCORONARY BYPASS GRAFT Assessment/Plan 1. Dyspnea consistent with acute on chronic diastolic LV dysfunction with class II NYHA classification LV failure 2. CAD post CABG, angina pectoris with evidence of demand ischemic injury 3. Persistent atrial fibrillation [id number] score of 5 on chronic A/C with Coumadin 4. HTN 5. Hypercholesterolemia 6. History of CVA 7. Hypokalemia 8. Progressive lower extremity weakness + elevated CPK due to fall, rule out rhabdo PLAN: 1. Continue Metoprolol ER and Amlodipine 2. Continue Ranexa 3. Continue Valsartan 4. Hold Lipitor until further instruction 5. Continue Furosemide 8. Continue Coumadin and ASA therapies with caution. 9. Neuro input noted 10. Transthoracic echocardiography shows normal left ventricular systolic function, mild MR and mild to moderate TR 11. Lumber MRI noted 12. Gentle fluids with caution and monitor CPK Jm Vargas MD
[2016-08-31] MEDS: VALSARTAN 40 MG TABLET (FP) PO SCH (10:04)
[2016-08-31] MEDS: ASPIRIN COATED 81 MG TABLET.EC PO SCH (10:04)
[2016-08-31] MEDS: RANOLAZINE E.R. 1,000 MG TABLET (FP) PO SCH ×2 (10:05→21:37)
[2016-08-31] MEDS: CEPHALEXIN MONOHYDRATE 500 MG CAPSULE (UD) PO SCH ×2 (10:05→21:37)
[2016-08-31] MEDS: FUROSEMIDE 40 MG TABLET (FP) PO SCH (10:05)
[2016-08-31] MEDS: amLODIPine BESYLATE 2.5 MG TABLET (FP) PO SCH (10:05)
[2016-08-31] MEDS: METOPROLOL SUCCINATE 100 MG TAB.SR.24H (FP) PO SCH (10:05)
[2016-08-31] MEDS ORDERED: SODIUM CHLORIDE 0.45% 1,000 ML IV SCH (11:15)
--- NOTE | 2016-08-31 14:23 | PN ---
Physical Exam: SUBJECTIVE: Patient seen and examined. She still has bilateral groin pain and states she has been urinating since 6am. OBJECTIVE: Vital Signs Period Temp Pulse Resp BP Sys/Yeager Pulse Ox Last 24 Hr 97.5 F-98.2 F 88-106 18-20 99-130/58-85 96-97 PE Neuro: alert, awake, cn 2-12intact Pulm: CTAB CV: Irregular rhythm regular rate sternal scan healed no mrg Abd: s nt nd + bs Ext: warm, no edema MSK: groin tenderness Laboratory Results - last 24 hr 08/31/16 08/31/16 08/31/16 05:35 05:35 05:35 WBC 6.5 D RBC 4.14 Hgb 11.8 D Hct 35.7 MCV 86.2 MCHC 33.0 RDW 14.2 Plt Count 141 MPV 12.0 H Neutrophils % 52.1 D Lymphocytes % 31.8 D Monocytes % 12.2 H Eosinophils % 3.5 D Basophils % 0.4 INR Sodium 141 Potassium 4.3 Chloride 105 Carbon Dioxide 29 Anion Gap 7 L BUN 17 D Creatinine 0.9 Creat Clearance w eGFR > 60 Random Glucose 97 Calcium 8.5 Total Bilirubin 1.0 D Direct Bilirubin AST 130 H D ALT 44 D Alkaline Phosphatase 70 Creatine Kinase Cancelled 3935 H D CK-MB (CK-2) 11.866 H Troponin I 0.33 H Total Protein 5.6 L Albumin 2.8 L 08/31/16 08/31/16 05:35 05:35 WBC RBC Hgb Hct MCV MCHC RDW Plt Count MPV Neutrophils % Lymphocytes % Monocytes % Eosinophils % Basophils % INR 1.54 H Sodium Potassium Chloride Carbon Dioxide Anion Gap BUN Creatinine Creat Clearance w eGFR Random Glucose Calcium Total Bilirubin Direct Bilirubin 0.3 H AST ALT Alkaline Phosphatase Creatine Kinase CK-MB (CK-2) Troponin I Total Protein Albumin Active Medications Generic Name Dose Route Start Last Admin Trade Name Freq PRN Reason Stop Dose Admin Amlodipine Besylate 2.5 mg 08/29/16 10:00 08/31/16 10:05 Norvasc - PO 2.5 mg DAILY [facility] Administration Aspirin 81 mg 08/29/16 10:00 08/31/16 10:04 Ecotrin - PO 81 mg DAILY [facility] Administration Atorvastatin Calcium 10 mg 08/29/16 22:00 08/30/16 22:14 Lipitor - PO 10 mg HS [facility]I Administration Cephalexin HCl 500 mg 08/29/16 05:00 08/31/16 10:05 Keflex - PO 500 mg BID [facility] Administration Furosemide 40 mg 08/29/16 12:15 08/31/16 10:05 Lasix - PO 40 mg DAILY [facility] Administration Sodium Chloride 1,000 mls @ 60 mls/hr 08/31/16 11:15 1/2 Normal Saline IV ASDIR [facility] Metoprolol Succinate 100 mg 08/29/16 10:00 08/31/16 10:05 Toprol Xl - PO 100 mg BID [facility] Administration Ranolazine 1,000 mg 08/29/16 10:00 08/31/16 10:05 Ranexa - PO 1,000 mg BID [facility] Administration Valsartan 40 mg 08/31/16 10:00 08/31/16 10:04 Diovan - PO 40 mg DAILY [facility] Administration Warfarin Sodium 2.5 mg/ 4.5 mg 08/30/16 19:00 08/30/16 20:21 Warfarin Sodium 2 mg PO 4.5 mg DAILY@1800 [facility] Administration Assessment: 75 year old female with a PMH of A.Fib (on Coumadin), CAD, CABG, TIA , HTN, HLD admitted s/p fall. Plan: 1. s/p fall - Possible due to worsening chronic back pain - MRI lumbar spine noted - Neuro recs to follow 2. Sleep Apnea - Pt does report she uses CPAP machine at home, she goes to a sleep clinic 3. Rhabdomylosis - CPK elevated - UA with 4 RBC, +2 blood - Start 1/2 NS 60cc/hr - d/w cardiology, will continue with lasix, will need to find a fine balance d/ t CHF - Trend CPK 3. Elevated trop - Likely d/t demand ischemia, elevated bnp - Trop down trending 3. UTI - Repeat urine cx- uncollected - Cont keflex po BID (day 3) 4. Acute on chronic diastolic CHF - ECHO noted, normal LV - Cont Diovan 40mg daily - Cont Lasix 40mg daily 5. A fib - INR sub therapeutic; monitor INR daily - Coumadn 4.5mg HS 6. CAD s/p CABG/angina pectoris - Cont ASA/lipitor - Cont Renexa 7. HTN - Hypotensive this AM - Decrease toprol xl to 100mg daily - Cont Norvasc 2.5mg daily 8. DVT - On AC Visit type - Emergency Visit Emergency Visit: Yes ED Registration Date: 08/28/16 Care time: The patient presented to the Emergency Department on the above date and was hospitalized for further evaluation of their emergent condition. - New Patient This patient is new to me today: No - Critical Care Critical Care patient: No - Discharge Referral Referred to [facility] Med P.C.: No
--- NOTE | 2016-08-31 15:02 | PN ---
Progress Note (short form) - Note Progress Note: No CP or SOB. Some CHAMBERS. No acute events overnight. Intake & Output 08/28/16 08/29/16 08/30/16 08/31/16 23:59 23:59 23:59 23:59 Intake Total 300 540 720 Balance 300 540 720 Weight 185 lb 185 lb Last Vital Signs Temp Pulse Resp BP Pulse Ox 97.9 F 110 H 20 122/57 97 08/31/16 14:00 08/31/16 14:00 08/31/16 14:00 08/31/16 14:00 08/31/16 09:00 Active Medications Amlodipine Besylate (Norvasc -) 2.5 mg PO DAILY [facility] Last Admin: 08/31/16 10:05 Dose: 2.5 mg Aspirin (Ecotrin -) 81 mg PO DAILY [facility] Last Admin: 08/31/16 10:04 Dose: 81 mg Atorvastatin Calcium (Lipitor -) 10 mg PO HS [facility] Last Admin: 08/30/16 22:14 Dose: 10 mg Cephalexin HCl (Keflex -) 500 mg PO BID [facility] Last Admin: 08/31/16 10:05 Dose: 500 mg Furosemide (Lasix -) 40 mg PO DAILY [facility] Last Admin: 08/31/16 10:05 Dose: 40 mg Sodium Chloride (1/2 Normal Saline) 1,000 mls @ 60 mls/hr IV ASDIR [facility] Metoprolol Succinate (Toprol Xl -) 100 mg PO DAILY [facility] Ranolazine (Ranexa -) 1,000 mg PO BID [facility] Last Admin: 08/31/16 10:05 Dose: 1,000 mg Valsartan (Diovan -) 40 mg PO DAILY [facility] Last Admin: 08/31/16 10:04 Dose: 40 mg Warfarin Sodium 2.5 mg/ (Warfarin Sodium 2 mg) 4.5 mg PO DAILY@1800 [facility] Last Admin: 08/30/16 20:21 Dose: 4.5 mg Constitutional: Yes: NAD Eyes: Yes: WNL HENT: Yes: WNL Neck: Yes: WNL Cardiovascular: Yes: Pulse Irregular, S1, S2 Respiratory: Yes: basilar Rales/rhonchi Gastrointestinal: Yes: Normal Bowel Sounds, Soft Extremities: Yes: WNL Edema: No Labs: Laboratory Results - last 24 hr 08/31/16 08/31/16 08/31/16 05:35 05:35 05:35 WBC 6.5 D RBC 4.14 Hgb 11.8 D Hct 35.7 MCV 86.2 MCHC 33.0 RDW 14.2 Plt Count 141 MPV 12.0 H Neutrophils % 52.1 D Lymphocytes % 31.8 D Monocytes % 12.2 H Eosinophils % 3.5 D Basophils % 0.4 INR Sodium 141 Potassium 4.3 Chloride 105 Carbon Dioxide 29 Anion Gap 7 L BUN 17 D Creatinine 0.9 Creat Clearance w eGFR > 60 Random Glucose 97 Calcium 8.5 Total Bilirubin 1.0 D Direct Bilirubin AST 130 H D ALT 44 D Alkaline Phosphatase 70 Creatine Kinase Cancelled 3935 H D CK-MB (CK-2) 11.866 H Troponin I 0.33 H Total Protein 5.6 L Albumin 2.8 L 08/31/16 08/31/16 05:35 05:35 WBC RBC Hgb Hct MCV MCHC RDW Plt Count MPV Neutrophils % Lymphocytes % Monocytes % Eosinophils % Basophils % INR 1.54 H Sodium Potassium Chloride Carbon Dioxide Anion Gap BUN Creatinine Creat Clearance w eGFR Random Glucose Calcium Total Bilirubin Direct Bilirubin 0.3 H AST ALT Alkaline Phosphatase Creatine Kinase CK-MB (CK-2) Troponin I Total Protein Albumin Assessment/Plan Problem List - Problems (1) UTI (urinary tract infection) Code(s): N39.0 - URINARY TRACT INFECTION, SITE NOT SPECIFIED Qualifiers: Urinary tract infection type: acute cystitis Hematuria presence: with hematuria Qualified Code(s): N30.01 - Acute cystitis with hematuria (2) Elevated troponin Code(s): R79.89 - OTHER SPECIFIED ABNORMAL FINDINGS OF BLOOD CHEMISTRY (3) Acute on chronic congestive heart failure with left ventricular diastolic dysfunction Code(s): I50.33 - ACUTE ON CHRONIC DIASTOLIC (CONGESTIVE) HEART FAILURE (4) Bilateral leg weakness Code(s): M62.81 - MUSCLE WEAKNESS (GENERALIZED) (5) Atrial fibrillation Code(s): I48.91 - UNSPECIFIED ATRIAL FIBRILLATION (6) CAD (coronary artery disease) Code(s): I25.10 - ATHSCL HEART DISEASE OF [place] CORONARY ARTERY W/O ANG PCTRS Assessment/Plan Bilateral Leg Weakness Acute on Chronic LV Diastolic Heart Failure +Troponins from above CAD s/p CABG Atrial Fibrillation HTN Hyperlipidemia h/o CVA - lasix - monitor urine output, creatinine - daily weights, I/Os - Metoprolol - AC Dr Lazar
--- NOTE | 2016-08-31 15:06 | PN ---
Progress Note, Physician History of Present Illness: No complaints at present while sitting in chair, however upon standing felt lightheaded. Cardiac evaluation in process. - Current Medication List Current Medications: Active Medications Amlodipine Besylate (Norvasc -) 2.5 mg PO DAILY [facility] Last Admin: 08/31/16 10:05 Dose: 2.5 mg Aspirin (Ecotrin -) 81 mg PO DAILY [facility] Last Admin: 08/31/16 10:04 Dose: 81 mg Atorvastatin Calcium (Lipitor -) 10 mg PO HS [facility] Last Admin: 08/30/16 22:14 Dose: 10 mg Cephalexin HCl (Keflex -) 500 mg PO BID [facility] Last Admin: 08/31/16 10:05 Dose: 500 mg Furosemide (Lasix -) 40 mg PO DAILY [facility] Last Admin: 08/31/16 10:05 Dose: 40 mg Sodium Chloride (1/2 Normal Saline) 1,000 mls @ 60 mls/hr IV ASDIR [facility] Metoprolol Succinate (Toprol Xl -) 100 mg PO DAILY [facility] Ranolazine (Ranexa -) 1,000 mg PO BID [facility] Last Admin: 08/31/16 10:05 Dose: 1,000 mg Valsartan (Diovan -) 40 mg PO DAILY [facility] Last Admin: 08/31/16 10:04 Dose: 40 mg Warfarin Sodium 2.5 mg/ (Warfarin Sodium 2 mg) 4.5 mg PO DAILY@1800 [facility] Last Admin: 08/30/16 20:21 Dose: 4.5 mg - Objective Vital Signs: Vital Signs Temperature 97.9 F 08/31/16 14:00 Pulse Rate 110 H 08/31/16 14:00 Respiratory Rate 20 08/31/16 14:00 Blood Pressure 122/57 08/31/16 14:00 O2 Sat by Pulse Oximetry (%) 97 08/31/16 09:00 Constitutional: Yes: Well Nourished, No Distress Eyes: Yes: EOM Intact, PERRL. No: Ptosis HENT: Yes: Atraumatic Neck: Yes: Supple Cardiovascular: Yes: Regular Rate and Rhythm Respiratory: Yes: Regular Gastrointestinal: Yes: Soft Neurological: Yes: Alert, Oriented, Cran Nerves II-XII Intact (DTR absent in LE no radicular senosory loss.). No: Aphasia, Dysarthria Labs: CBC, BMP 08/31/16 05:35 08/31/16 05:35 INR, PTT INR 1.54 (0.82-1.09) H 08/31/16 05:35 Assessment/Plan Chronic low back pain with documented multi-level disc disease with progressive generalized and lower extremity weakness associated with UTI and CHF with MRI of the lumbar spine demonstrating multi-facet disease but no disc herniation or nerve impingement. Have suggested the patient extend the evaluation of lower extremity weakness with EMG/NCVs once discharged from the hospital. No evidence of an acute neurological etiology for the patients complaint of lightheadedness and near syncope with cardiac evaluation ongoing.
[2016-08-31] MEDS ORDERED: WARFARIN NA 2.5 MG TABLET (FP) ONE (16:44)
[2016-08-31] MEDS ORDERED: WARFARIN NA 2 MG TABLET (UD) ONE (16:44)
[2016-08-31] MEDS: WARFARIN NA 2.5 MG, WARFARIN NA 2 MG PO SCH (17:23)
[2016-08-31] MEDS ORDERED: WARFARIN NA 2 MG TABLET (UD) PO SCH (18:00)
--- NOTE | 2016-09-01 08:52 | PN ---
Progress Note, Physician Chief Complaint: Events noted Complains of groin pain and weakness otherwise appears comfortable History of Present Illness: Patient was seen and examined. Awake and alert. Chart was reviewed Denies chest pain or palpitation Note elevated CPK - Current Medication List Current Medications: Active Medications Amlodipine Besylate (Norvasc -) 2.5 mg PO DAILY [facility] Last Admin: 08/31/16 10:05 Dose: 2.5 mg Aspirin (Ecotrin -) 81 mg PO DAILY [facility] Last Admin: 08/31/16 10:04 Dose: 81 mg Cephalexin HCl (Keflex -) 500 mg PO BID [facility] Last Admin: 08/31/16 21:37 Dose: 500 mg Furosemide (Lasix -) 40 mg PO DAILY [facility] Last Admin: 08/31/16 10:05 Dose: 40 mg Sodium Chloride (1/2 Normal Saline) 1,000 mls @ 60 mls/hr IV ASDIR [facility] Last Admin: 08/31/16 11:30 Dose: 60 mls/hr Metoprolol Succinate (Toprol Xl -) 100 mg PO DAILY [facility] Ranolazine (Ranexa -) 1,000 mg PO BID [facility] Last Admin: 08/31/16 21:37 Dose: 1,000 mg Valsartan (Diovan -) 40 mg PO DAILY [facility] Last Admin: 08/31/16 10:04 Dose: 40 mg Warfarin Sodium 2.5 mg/ (Warfarin Sodium 2 mg) 4.5 mg PO DAILY@1800 [facility] Last Admin: 08/31/16 17:23 Dose: 4.5 mg - Objective Vital Signs: Vital Signs Temperature 98.1 F 09/01/16 06:00 Pulse Rate 106 H 09/01/16 06:00 Respiratory Rate 20 09/01/16 06:00 Blood Pressure 111/77 09/01/16 06:00 O2 Sat by Pulse Oximetry (%) 95 09/01/16 06:00 Neck: Yes: Supple Cardiovascular: Yes: Tachycardia, Pulse Irregular, Murmur (Soft SM), S1, S2 Respiratory: Yes: Diminished Edema: No Additional Findings/Remarks: - Review of Systems Constitutional: No symptoms reported Respiratory: denies: Cough or Sputum Production Cardiovascular: As noted above Gastrointestinal: denies Nausea, Vomiting, Diarrhea, Constipation or Abdominal Pain Genitourinary: No symptoms reported Musculoskeletal: Degenerative Joint Disease Endocrine: No symptoms reported Labs: CBC, BMP 08/31/16 05:35 INR, PTT INR 1.54 (0.82-1.09) H 08/31/16 05:35 CPK, BMP pending today Problem List - Problems (1) Acute on chronic congestive heart failure with left ventricular diastolic dysfunction Code(s): I50.33 - ACUTE ON CHRONIC DIASTOLIC (CONGESTIVE) HEART FAILURE (2) Atrial fibrillation Code(s): I48.91 - UNSPECIFIED ATRIAL FIBRILLATION Qualifiers: Atrial fibrillation type: permanent Qualified Code(s): I48.2 - Chronic atrial fibrillation (3) CAD (coronary artery disease) Code(s): I25.10 - ATHSCL HEART DISEASE OF [place] CORONARY ARTERY W/O ANG PCTRS Qualifiers: Coronary Disease-Associated Artery/Lesion type: [place] artery [place] vs. transplanted heart: [place] heart Associated angina: without angina Qualified Code(s): I25.10 - Atherosclerotic heart disease of [place] coronary artery without angina pectoris (4) CHF exacerbation Code(s): I50.9 - HEART FAILURE, UNSPECIFIED Qualifiers: Congestive heart failure type: unspecified congestive heart failure type Qualified Code(s): I50.9 - Heart failure, unspecified (5) Elevated troponin Code(s): R79.89 - OTHER SPECIFIED ABNORMAL FINDINGS OF BLOOD CHEMISTRY (6) HTN (hypertension) Code(s): I10 - ESSENTIAL (PRIMARY) HYPERTENSION Qualifiers: Hypertension type: essential hypertension Qualified Code(s): I10 - Essential (primary) hypertension (7) Hypercholesterolemia Code(s): E78.0 - PURE HYPERCHOLESTEROLEMIA * DO NOT USE * (8) CVA (cerebral vascular accident) Code(s): I63.9 - CEREBRAL INFARCTION, UNSPECIFIED Qualifiers: CVA mechanism: unspecified Qualified Code(s): I63.9 - Cerebral infarction, unspecified (9) Status post aorto-coronary artery bypass graft Code(s): Z95.1 - PRESENCE OF AORTOCORONARY BYPASS GRAFT Assessment/Plan 1. Dyspnea consistent with acute on chronic diastolic LV dysfunction with class II NYHA classification LV failure 2. CAD post CABG, angina pectoris with evidence of demand ischemic injury 3. Persistent atrial fibrillation [id number] score of 5 on chronic A/C with Coumadin 4. HTN 5. Hypercholesterolemia 6. History of CVA 7. Hypokalemia 8. Progressive lower extremity weakness + elevated CPK due to fall, rule out rhabdo PLAN: 1. Continue Metoprolol ER and Amlodipine 2. Continue Ranexa 3. Continue Valsartan 4. Hold Lipitor until further instruction 5. Continue Furosemide 8. Continue Coumadin and ASA therapies with caution. 9. Gentle fluids with caution and monitor CPK Jm Vargas MD
[2016-09-01 08:53] LABS: CALCIUM 9.2 mg/dL (8.5-10.1)
[2016-09-01 09:02] LABS: INR 1.91 (0.82-1.09); PROTHROMBIN TIME (PATIENT) 21.3 SEC (9.98-11.88)
[2016-09-01] MEDS: CEPHALEXIN MONOHYDRATE 500 MG CAPSULE (UD) PO SCH ×2 (09:20→21:22)
[2016-09-01] MEDS: FUROSEMIDE 40 MG TABLET (FP) PO SCH (09:20)
[2016-09-01] MEDS: ASPIRIN COATED 81 MG TABLET.EC PO SCH (09:20)
[2016-09-01] MEDS: VALSARTAN 40 MG TABLET (FP) PO SCH (09:20)
[2016-09-01] MEDS: amLODIPine BESYLATE 2.5 MG TABLET (FP) PO SCH (09:21)
[2016-09-01] MEDS: RANOLAZINE E.R. 1,000 MG TABLET (FP) PO SCH ×2 (09:21→21:22)
[2016-09-01] MEDS ORDERED: METOPROLOL SUCCINATE 100 MG TAB.SR.24H (FP) PO SCH (10:00)
[2016-09-01] MEDS ORDERED: SODIUM CHLORIDE 1,000 ML IV SCH (10:30)
--- NOTE | 2016-09-01 11:52 | PN ---
Progress Note, Physician History of Present Illness: PULMONARY ALERT,OOB-CHAIR,+CHAMBERS,-CP - Current Medication List Current Medications: Active Medications Amlodipine Besylate (Norvasc -) 2.5 mg PO DAILY [facility] Last Admin: 09/01/16 09:21 Dose: 2.5 mg Aspirin (Ecotrin -) 81 mg PO DAILY [facility] Last Admin: 09/01/16 09:20 Dose: 81 mg Cephalexin HCl (Keflex -) 500 mg PO BID [facility] Last Admin: 09/01/16 09:20 Dose: 500 mg Furosemide (Lasix -) 40 mg PO DAILY [facility] Last Admin: 09/01/16 09:20 Dose: 40 mg Sodium Chloride (Normal Saline -) 1,000 mls @ 83 mls/hr IV ASDIR [facility] Metoprolol Succinate (Toprol Xl -) 100 mg PO DAILY [facility] Last Admin: 09/01/16 09:21 Dose: 100 mg Ranolazine (Ranexa -) 1,000 mg PO BID [facility] Last Admin: 09/01/16 09:21 Dose: 1,000 mg Valsartan (Diovan -) 40 mg PO DAILY [facility] Last Admin: 09/01/16 09:20 Dose: 40 mg Warfarin Sodium 2.5 mg/ (Warfarin Sodium 2 mg) 4.5 mg PO DAILY@1800 [facility] Last Admin: 08/31/16 17:23 Dose: 4.5 mg - Objective Vital Signs: Vital Signs Temperature 98 F 09/01/16 10:00 Pulse Rate 110 H 09/01/16 10:00 Respiratory Rate 18 09/01/16 10:00 Blood Pressure 96/60 09/01/16 10:00 O2 Sat by Pulse Oximetry (%) 97 09/01/16 09:00 Constitutional: Yes: Well Nourished, Calm Eyes: Yes: WNL HENT: Yes: WNL Neck: Yes: WNL Cardiovascular: Yes: Pulse Irregular, S1, S2 Respiratory: Yes: Rales (FEW BIBASILAR RALES) Gastrointestinal: Yes: Normal Bowel Sounds, Soft Extremities: Yes: WNL Edema: No Labs: CBC, BMP 08/31/16 05:35 09/01/16 06:05 INR, PTT INR 1.91 (0.82-1.09) H 09/01/16 06:05 Assessment/Plan Problem List - Problems (1) UTI (urinary tract infection) Code(s): N39.0 - URINARY TRACT INFECTION, SITE NOT SPECIFIED Qualifiers: Urinary tract infection type: acute cystitis Hematuria presence: with hematuria Qualified Code(s): N30.01 - Acute cystitis with hematuria (2) Elevated troponin Code(s): R79.89 - OTHER SPECIFIED ABNORMAL FINDINGS OF BLOOD CHEMISTRY (3) Acute on chronic congestive heart failure with left ventricular diastolic dysfunction Code(s): I50.33 - ACUTE ON CHRONIC DIASTOLIC (CONGESTIVE) HEART FAILURE (4) Bilateral leg weakness Code(s): M62.81 - MUSCLE WEAKNESS (GENERALIZED) (5) Atrial fibrillation Code(s): I48.91 - UNSPECIFIED ATRIAL FIBRILLATION (6) CAD (coronary artery disease) Code(s): I25.10 - ATHSCL HEART DISEASE OF [place] CORONARY ARTERY W/O ANG PCTRS Assessment/Plan Bilateral Leg Weakness r/o Disc disease Acute on Chronic LV Diastolic Heart Failure +Troponins from above CAD s/p CABG Atrial Fibrillation HTN Hyperlipidemia h/o CVA - lasix - monitor urine output, creatinine - daily weights, I/Os - rate control with metoprolol - continue anticoagulation DR DENG
--- NOTE | 2016-09-01 12:00 | FALL ---
Fall Exam - Event Witnessed fall: No Location of Fall: Bathroom Fall from: While ambulating (stood after using toilet, then felt dizzy and fell) - Pre-Fall Fall Risk: High Risk Current Medications: Current Medications Generic Name Dose Route Start Last Admin Trade Name Tariq PRN Reason Stop Dose Admin Amlodipine Besylate 2.5 mg 08/29/16 10:00 09/01/16 09:21 Norvasc - PO 2.5 mg DAILY THI Administration Aspirin 81 mg 08/29/16 10:00 09/01/16 09:20 Ecotrin - PO 81 mg DAILY THI Administration Cephalexin HCl 500 mg 08/29/16 05:00 09/01/16 09:20 Keflex - PO 500 mg BID THI Administration Furosemide 40 mg 08/29/16 12:15 09/01/16 09:20 Lasix - PO 40 mg DAILY THI Administration Sodium Chloride 1,000 mls @ 83 mls/hr 09/01/16 10:30 Normal Saline - IV ASDIR THI Metoprolol Succinate 100 mg 09/01/16 10:00 09/01/16 09:21 Toprol Xl - PO 100 mg DAILY THI Administration Ranolazine 1,000 mg 08/29/16 10:00 09/01/16 09:21 Ranexa - PO 1,000 mg BID THI Administration Valsartan 40 mg 08/31/16 10:00 09/01/16 09:20 Diovan - PO 40 mg DAILY THI Administration Warfarin Sodium 2.5 mg/ 4.5 mg 08/30/16 19:00 08/31/16 17:23 Warfarin Sodium 2 mg PO 4.5 mg DAILY@1800 THI Administration - Post-Fall Patient Outcome: Pain Only Vital Signs: Vital Signs Temperature 98 F 09/01/16 10:00 Pulse Rate 110 H 09/01/16 10:00 Respiratory Rate 18 09/01/16 10:00 Blood Pressure 96/60 09/01/16 10:00 O2 Sat by Pulse Oximetry (%) 97 09/01/16 09:00 Identify factors for HIGH RISK for Head Injury: Pt on anticoagulant
--- NOTE | 2016-09-01 13:05 | PN ---
Physical Exam: SUBJECTIVE: Patient seen and examined s/p fall. Per pt she finished urinating, and stool to return to bed, she felt dizzy and then fell. Per RN pt was told not to stand on her own OBJECTIVE: Vital Signs Period Temp Pulse Resp BP Sys/Yeager Pulse Ox Last 24 Hr 97.9 F-98.2 F 106-114 18-20 96-128/57-77 95-97 PE Neuro: alert, awake, cn 2-12intact Pulm: CTAB CV: Irregular rhythm, regular rate Abd: s nt nd + bs Ext: warm, no edema MSK: groin tenderness, b/l le weakness Laboratory Results - last 24 hr 09/01/16 09/01/16 09/01/16 06:05 06:05 06:05 INR 1.91 H Sodium 133 L Potassium 4.3 Chloride 102 Carbon Dioxide 29 Anion Gap 2 L BUN 15 Creatinine 1.0 Random Glucose 109 H Calcium 9.2 Creatine Kinase 4031 H CK-MB (CK-2) 8.052 H Active Medications Generic Name Dose Route Start Last Admin Trade Name Tariq PRN Reason Stop Dose Admin Amlodipine Besylate 2.5 mg 08/29/16 10:00 09/01/16 09:21 Norvasc - PO 2.5 mg DAILY THI Administration Aspirin 81 mg 08/29/16 10:00 09/01/16 09:20 Ecotrin - PO 81 mg DAILY THI Administration Cephalexin HCl 500 mg 08/29/16 05:00 09/01/16 09:20 Keflex - PO 500 mg BID THI Administration Furosemide 40 mg 08/29/16 12:15 09/01/16 09:20 Lasix - PO 40 mg DAILY THI Administration Sodium Chloride 1,000 mls @ 83 mls/hr 09/01/16 10:30 Normal Saline - IV ASDIR THI Metoprolol Succinate 75 mg 09/01/16 12:03 Toprol Xl - PO DAILY THI Ranolazine 1,000 mg 08/29/16 10:00 09/01/16 09:21 Ranexa - PO 1,000 mg BID THI Administration Valsartan 40 mg 08/31/16 10:00 09/01/16 09:20 Diovan - PO 40 mg DAILY THI Administration Warfarin Sodium 2.5 mg/ 4.5 mg 08/30/16 19:00 08/31/16 17:23 Warfarin Sodium 2 mg PO 4.5 mg DAILY@1800 [facility] Administration Assessment: 75 year old female with a PMH of A.Fib (on Coumadin), CAD, CABG, CVA (x2), HTN, HLD admitted s/p fall. Plan: 1. s/p fall - Head CT - XRAY lumbar/sacral/coccyx - MRI lumbar spine shows multi-facet disease but no disc herniation or nerve impingement 2. Syncope - Pt felt weak and then dizzy after using toilet, then fell - Carotid dopplers - Neuro aware will see 3. Rhabdomylosis - CPK rising, less that 5k - Will repeat UA monitor for pigment injury - Change fluids NS @83/hr, if worsening resp status will redose lasix this evening - Trend CPK - Renal consult 4. Elevated trop - Likely d/t demand ischemia, elevated bnp 5. UTI - Repeat urine cx pending - Cont keflex po BID (day 4) 6. Acute on chronic diastolic CHF - ECHO noted, normal LV - Cont Diovan 40mg daily - Cont Lasix 40mg daily 7. A fib - INR sub therapeutic; monitor INR daily - Coumadn 4.5mg HS 8. CAD s/p CABG/angina pectoris - Cont ASA/lipitor - Cont Renexa 9. HTN - Hypotensive this AM - Decrease toprol xl to 100mg daily - Cont Norvasc 2.5mg daily 10. DVT - On AC Visit type - Emergency Visit Emergency Visit: Yes ED Registration Date: 08/28/16 Care time: The patient presented to the Emergency Department on the above date and was hospitalized for further evaluation of their emergent condition. - New Patient This patient is new to me today: No - Critical Care Critical Care patient: No
--- NOTE | 2016-09-01 14:20 | PN ---
Progress Note (short form) - Note Progress Note: Renal Consult for Rhabdomyolysis/Pigment injury prophylaxis This is a 75 year old woman with PMhx of CAD s/p CABG, HTN, HLD who presented s/ p fall and found to have rhabdomyolysis. Pt states the had lost her balance and cell. Denies being on floor for prolonged period of time. Was on Lipitor at home ?. Denies any chest pain, sob, abd pain, N/V/D, fever or chills. Pt reports second call as inpatient today. Denies any hx of ckd. No dark urine. No flank pain. PMhx: as above Allergies: NKDA Family Hx: NC Social Hx:No T/A/D ROS: as per HPI, all other ros negative Home Meds: Medication Instructions Recorded Aspirin [ASA -] 81 mg PO DAILY #0 tab.chew 08/06/13 Atorvastatin Ca [Lipitor] 10 mg PO HS #0 tablet 08/06/13 Felodipine [Felodipine ER] 2.5 mg PO DAILY #0 tab.er.24h 08/06/13 Ranolazine [Ranexa -] 1,000 mg PO BID #0 tab 08/06/13 Metoprolol Succinate [Toprol XL -] 100 mg PO BID 08/28/16 Warfarin Na [Coumadin] 4.5 mg PO HS 08/28/16 Vital Signs Temperature 97.9 F 09/01/16 13:55 Pulse Rate 98 H 09/01/16 13:55 Respiratory Rate 20 09/01/16 13:55 Blood Pressure 106/62 09/01/16 13:55 O2 Sat by Pulse Oximetry (%) 97 09/01/16 09:00 Intake & Output 08/29/16 08/30/16 08/31/16 09/01/16 23:59 23:59 23:59 23:59 Intake Total 300 540 960 840 Balance 300 540 960 840 Weight 185 lb Gen: NAD, awake and alert HEENT: NC/AT, MMM, No JVD CVS: RRR, no M/R Lungs: CTA, no rales or wheeze Abd: soft NT/ND Ext: No edema, clubbing or cyanosis : No bladder distension Neuro: AAOx3, no focal defects CBC, BMP 08/31/16 05:35 09/01/16 06:05 Current Medications Amlodipine Besylate (Norvasc -) 2.5 mg PO DAILY [facility] Last Admin: 09/01/16 09:21 Dose: 2.5 mg Aspirin (Ecotrin -) 81 mg PO DAILY [facility] Last Admin: 09/01/16 09:20 Dose: 81 mg Cephalexin HCl (Keflex -) 500 mg PO BID [facility] Last Admin: 09/01/16 09:20 Dose: 500 mg Furosemide (Lasix -) 40 mg PO DAILY [facility] Last Admin: 09/01/16 09:20 Dose: 40 mg Sodium Chloride (Normal Saline -) 1,000 mls @ 83 mls/hr IV ASDIR [facility] Last Admin: 09/01/16 10:30 Dose: 83 mls/hr Metoprolol Succinate (Toprol Xl -) 75 mg PO DAILY [facility] Ranolazine (Ranexa -) 1,000 mg PO BID [facility] Last Admin: 09/01/16 09:21 Dose: 1,000 mg Valsartan (Diovan -) 40 mg PO DAILY [facility] Last Admin: 09/01/16 09:20 Dose: 40 mg Warfarin Sodium 2.5 mg/ (Warfarin Sodium 2 mg) 4.5 mg PO DAILY@1800 [facility] Last Admin: 08/31/16 17:23 Dose: 4.5 mg A/P 75 year old woman with PMhx of CAD s/p CABG, HTN, HLD who presented s/p fall and found to have rhabdomyolysis. #Rhabdomyolysis in setting of recent falls and LE weakness CK less then 5000 so less likely to have pigment injury however CK has been uptrending -> monitor for now off statin on IV NS at this time, could continue for now but if CK downtrends can discontinue and do oral hydration Lasix PRN for SOB Check repeat UA in the am for monitoring of heme pigment No indication for bicarbonate at this time Renal function stable at this time Neurology following for LE weakness #Hx of CHF Appears evolemic at this time on Lasix 40mg Daily Cardiology following #Suspected UTI UA showed elevated WBC and LE Initial Urine culture contaminated, repeat pending Thank you Will follow Terry Peralta DO
[2016-09-01 14:22] LABS: INR 2.15 (0.82-1.09)
[2016-09-01] MEDS ORDERED: WARFARIN NA 2 MG TABLET (UD) ONE (16:54)
[2016-09-01] MEDS ORDERED: WARFARIN NA 2.5 MG TABLET (FP) ONE (16:54)
[2016-09-01] MEDS: WARFARIN NA 2.5 MG, WARFARIN NA 2 MG PO SCH (17:18)
--- NOTE | 2016-09-01 17:50 | PN ---
Progress Note, Physician History of Present Illness: Discussed with hospitalist, the patient while standing in bathroom after urination, became very dizzy and fell. The pat informed me her back hurt and pointed to her coccyx. She had no warning of the event. She described a spinning sensation. She had previous reported the spinning sensation upon standing, and continues to deny any spinning sensation while sitting - Current Medication List Current Medications: Active Medications Amlodipine Besylate (Norvasc -) 2.5 mg PO DAILY [facility] Last Admin: 09/01/16 09:21 Dose: 2.5 mg Aspirin (Ecotrin -) 81 mg PO DAILY [facility] Last Admin: 09/01/16 09:20 Dose: 81 mg Cephalexin HCl (Keflex -) 500 mg PO BID [facility] Last Admin: 09/01/16 09:20 Dose: 500 mg Furosemide (Lasix -) 40 mg PO DAILY [facility] Last Admin: 09/01/16 09:20 Dose: 40 mg Sodium Chloride (Normal Saline -) 1,000 mls @ 83 mls/hr IV ASDIR [facility] Last Admin: 09/01/16 10:30 Dose: 83 mls/hr Metoprolol Succinate (Toprol Xl -) 75 mg PO DAILY [facility] Ranolazine (Ranexa -) 1,000 mg PO BID [facility] Last Admin: 09/01/16 09:21 Dose: 1,000 mg Valsartan (Diovan -) 40 mg PO DAILY [facility] Last Admin: 09/01/16 09:20 Dose: 40 mg Warfarin Sodium 2.5 mg/ (Warfarin Sodium 2 mg) 4.5 mg PO DAILY@1800 [facility] Last Admin: 09/01/16 17:18 Dose: 4.5 mg - Objective Vital Signs: Vital Signs Temperature 97.9 F 09/01/16 13:55 Pulse Rate 98 H 09/01/16 13:55 Respiratory Rate 20 09/01/16 13:55 Blood Pressure 106/62 09/01/16 13:55 O2 Sat by Pulse Oximetry (%) 97 09/01/16 09:00 Constitutional: Yes: No Distress Eyes: Yes: EOM Intact HENT: Yes: Atraumatic Gastrointestinal: Yes: Soft Neurological: Yes: Alert, Oriented, Cran Nerves II-XII Intact. No: Aphasia, Ataxia, Facial Droop, Loss of Sensation Labs: CBC, BMP 08/31/16 05:35 09/01/16 06:05 INR, PTT INR 2.15 (0.82-1.09) H 09/01/16 13:52 Assessment/Plan A Have suggested the patient extend the evaluation of lower extremity weakness with EMG/NCVs once discharged from the hospital. No evidence of an acute neurological etiology for the patients complaint of lightheadedness and near syncope with cardiac evaluation ongoing. Will need evaluation for vasovagal syncope with tilt test and ENT evaluation for peripheral vertigo once discharged and will need evaluated for possible rehab for gait and balance therapy for falls
[2016-09-02] MEDS: VALSARTAN 40 MG TABLET (FP) PO SCH (09:16)
[2016-09-02] MEDS: ASPIRIN COATED 81 MG TABLET.EC PO SCH (09:16)
[2016-09-02] MEDS: CEPHALEXIN MONOHYDRATE 500 MG CAPSULE (UD) PO SCH (09:16)
[2016-09-02] MEDS: FUROSEMIDE 40 MG TABLET (FP) PO SCH (09:16)
[2016-09-02] MEDS: RANOLAZINE E.R. 1,000 MG TABLET (FP) PO SCH ×2 (09:16→22:00)
[2016-09-02] MEDS: amLODIPine BESYLATE 2.5 MG TABLET (FP) PO SCH (09:16)
[2016-09-02] MEDS ORDERED: METOPROLOL SUCCINATE 25 MG TAB.SR.24H (FP) PO SCH (10:00)
--- NOTE | 2016-09-02 10:02 | PN ---
Progress Note, Physician History of Present Illness: PULMONARY ALERT,STILL HAVING EPISODES OF DIZZINESS,FELL YESTERDAY. - Current Medication List Current Medications: Active Medications Acetaminophen (Tylenol -) 650 mg PO Q6H PRN PRN Reason: FEVER OR PAIN Amlodipine Besylate (Norvasc -) 2.5 mg PO DAILY [facility] Last Admin: 09/02/16 09:16 Dose: 2.5 mg Aspirin (Ecotrin -) 81 mg PO DAILY [facility] Last Admin: 09/02/16 09:16 Dose: 81 mg Cephalexin HCl (Keflex -) 500 mg PO BID [facility] Last Admin: 09/02/16 09:16 Dose: 500 mg Furosemide (Lasix -) 40 mg PO DAILY [facility] Last Admin: 09/02/16 09:16 Dose: 40 mg Sodium Chloride (Normal Saline -) 1,000 mls @ 83 mls/hr IV ASDIR [facility] Last Admin: 09/01/16 10:30 Dose: 83 mls/hr Metoprolol Succinate (Toprol Xl -) 75 mg PO DAILY [facility] Last Admin: 09/02/16 09:16 Dose: 75 mg Oxycodone HCl (Roxicodone -) 5 mg PO Q4H PRN PRN Reason: PAIN Ranolazine (Ranexa -) 1,000 mg PO BID [facility] Last Admin: 09/02/16 09:16 Dose: 1,000 mg Valsartan (Diovan -) 40 mg PO DAILY [facility] Last Admin: 09/02/16 09:16 Dose: 40 mg Warfarin Sodium 2.5 mg/ (Warfarin Sodium 2 mg) 4.5 mg PO DAILY@1800 [facility] Last Admin: 09/01/16 17:18 Dose: 4.5 mg - Objective Vital Signs: Vital Signs Temperature 98.6 F 09/02/16 09:00 Pulse Rate 112 H 09/02/16 09:02 Respiratory Rate 18 09/02/16 09:00 Blood Pressure 118/80 09/02/16 09:02 O2 Sat by Pulse Oximetry (%) 97 09/01/16 20:58 Constitutional: Yes: Well Nourished, Calm Eyes: Yes: WNL HENT: Yes: WNL Neck: Yes: WNL Cardiovascular: Yes: Pulse Irregular, S1, S2 Respiratory: Yes: Diminished Gastrointestinal: Yes: Normal Bowel Sounds, Soft Extremities: Yes: WNL Edema: Yes Labs: CBC, BMP 08/31/16 05:35 09/01/16 06:05 INR, PTT INR 2.15 (0.82-1.09) H 09/01/16 13:52 Laboratory Tests 09/02/16 05:00 Creatine Kinase 1817 H D Assessment/Plan Problem List - Problems (1) UTI (urinary tract infection) Code(s): N39.0 - URINARY TRACT INFECTION, SITE NOT SPECIFIED Qualifiers: Urinary tract infection type: acute cystitis Hematuria presence: with hematuria Qualified Code(s): N30.01 - Acute cystitis with hematuria (2) Elevated troponin Code(s): R79.89 - OTHER SPECIFIED ABNORMAL FINDINGS OF BLOOD CHEMISTRY (3) Acute on chronic congestive heart failure with left ventricular diastolic dysfunction Code(s): I50.33 - ACUTE ON CHRONIC DIASTOLIC (CONGESTIVE) HEART FAILURE (4) Bilateral leg weakness Code(s): M62.81 - MUSCLE WEAKNESS (GENERALIZED) (5) Atrial fibrillation Code(s): I48.91 - UNSPECIFIED ATRIAL FIBRILLATION (6) CAD (coronary artery disease) Code(s): I25.10 - ATHSCL HEART DISEASE OF [place] CORONARY ARTERY W/O ANG PCTRS Assessment/Plan Bilateral Leg Weakness r/o Disc disease Acute on Chronic LV Diastolic Heart Failure +Troponins from above CAD s/p CABG Atrial Fibrillation HTN Hyperlipidemia h/o CVA Rhabdomyolysis - lasix - monitor urine output, creatinine - daily weights, I/Os - rate control with metoprolol - continue anticoagulation - orthostatics - monitor ck DR DENG
[2016-09-02 10:38] LABS: URINE APPEARANCE CLEAR; URINE BILIRUBIN NEGATIVE (NEGATIVE); URINE BLOOD NEGATIVE (NEGATIVE); URINE COLOR LTYELLOW; URINE GLUCOSE (UA) NEGATIVE (NEGATIVE); URINE KETONE NEGATIVE (NEGATIVE); URINE LEUK ESTERASE NEGATIVE (NEGATIVE); URINE NITRITE NEGATIVE (NEGATIVE); URINE PROTEIN NEGATIVE (NEGATIVE); URINE UROBILINOGEN NEGATIVE E.U./dl (0.2-1.0)
--- NOTE | 2016-09-02 10:42 | PN ---
Progress Note (short form) - Note Progress Note: Chief Complaint: Events noted notes reviewed, intermittent dizziness with postural changes, dyspnea resolved denies any chest pain, remains in atrial fibrillation History of Present Illness: Seen and examined on telemetry. Events noted notes reviewed, intermittent dizziness with postural changes, dyspnea resolved denies any chest pain, remains in atrial fibrillation Echocardiography revealed normal LV systolic function, mild MR, mild to moderate TR, RVSP of 32 mmHg, and LA dilatation Medications: Current Medications Acetaminophen (Tylenol -) 650 mg PO Q6H PRN PRN Reason: FEVER OR PAIN Amlodipine Besylate (Norvasc -) 2.5 mg PO DAILY [facility] Last Admin: 09/02/16 09:16 Dose: 2.5 mg Aspirin (Ecotrin -) 81 mg PO DAILY [facility] Last Admin: 09/02/16 09:16 Dose: 81 mg Cephalexin HCl (Keflex -) 500 mg PO BID [facility] Last Admin: 09/02/16 09:16 Dose: 500 mg Furosemide (Lasix -) 40 mg PO DAILY [facility] Last Admin: 09/02/16 09:16 Dose: 40 mg Sodium Chloride (Normal Saline -) 1,000 mls @ 83 mls/hr IV ASDIR [facility] Last Admin: 09/01/16 10:30 Dose: 83 mls/hr Metoprolol Succinate (Toprol Xl -) 75 mg PO DAILY [facility] Last Admin: 09/02/16 09:16 Dose: 75 mg Oxycodone HCl (Roxicodone -) 5 mg PO Q4H PRN PRN Reason: PAIN Ranolazine (Ranexa -) 1,000 mg PO BID [facility] Last Admin: 09/02/16 09:16 Dose: 1,000 mg Valsartan (Diovan -) 40 mg PO DAILY [facility] Last Admin: 09/02/16 09:16 Dose: 40 mg Warfarin Sodium 2.5 mg/ (Warfarin Sodium 2 mg) 4.5 mg PO DAILY@1800 [facility] Last Admin: 09/01/16 17:18 Dose: 4.5 mg Review of Systems - Review of Systems Constitutional: No symptoms reported Respiratory: denies: Cough or Sputum Production Cardiovascular: As noted above Gastrointestinal: denies Nausea, Vomiting, Diarrhea, Constipation or Abdominal Pain Genitourinary: No symptoms reported Musculoskeletal: Degenerative Joint Disease Endocrine: No symptoms reported Vital Signs: Last Vital Signs Temp Pulse Resp BP Pulse Ox 98.6 F 112 H 18 118/80 97 09/02/16 09:00 09/02/16 09:02 09/02/16 09:00 09/02/16 09:02 09/01/16 20:58 Constitutional: No Distress Neck: Supple Negative JVD No Bruit Respiratory: Clear to A&P Bilaterally Cardiovascular: S1 S2 Irregularly Irregular [place] 1-2/6 LEONID Gastrointestinal: Soft Benign Normal Bowel Sounds Ext: Negative Edema Labs: CBC, BMP 08/31/16 05:35 09/01/16 06:05 INR, PTT INR 2.15 (0.82-1.09) H 09/01/16 13:52 Assessment/Plan ASSESSMENT: 1. Dyspnea consistent with acute on chronic diastolic LV dysfunction with class II NYHA classification LV failure, resolved 2. CAD post CABG, angina pectoris with evidence of demand ischemic injury 3. Persistent atrial fibrillation [id number] score of 5 on chronic A/C with Coumadin, therapeutic INR 4. HTN 5. Hypercholesterolemia 6. History of CVA 7. Postural dizziness, postural hypotension to be excluded 8. Progressive lower extremity weakness etiology to be determined PLAN: 1. Continue Toprol XL and titrate dosage as tolerated 2. Continue Ranexa 3. Continue Diovan 4. D/C Norvasc 5. Continue Lipitor 6. Continue Lasix 7. Continue Coumadin and ASA 8. Obtain orthostatic measurements 9. D/C planning as per primary team Shannan Molina M.D.
[2016-09-02] MEDS ORDERED: SODIUM CHLORIDE 1,000 ML IV SCH (10:59)
[2016-09-02 11:31] LABS: CALCIUM 9.2 mg/dL (8.5-10.1); CREATININE 0.9 mg/dL (0.55-1.02)
[2016-09-02] MEDS: oxyCODONE HCL 5 MG TABLET PO PRN (13:20)
[2016-09-02] MEDS: ACETAMINOPHEN 325 MG TABLET (FP) PO PRN (13:21)
--- NOTE | 2016-09-02 15:48 | PN ---
Physical Exam: SUBJECTIVE: Patient seen and examined. Per RN she was dizzy with palor this afternoon. States she normally takes 50mg of toprol. Placed back to bed. c/o groin pain continues OBJECTIVE: Vital Signs Period Temp Pulse Resp BP Sys/Yeager Pulse Ox Last 24 Hr 98.1 F-98.6 F 96-112 16-20 100-130/57-84 97 PE Neuro: alert, awake, cn 2-12intact Pulm: CTAB CV: Irregular rhythm, regular rate Abd: s nt nd + bs Ext: warm, no edema MSK: groin tenderness, b/l le weakness Laboratory Results - last 24 hr 09/01/16 09/02/16 09/02/16 02:00 05:00 10:45 Sodium 141 Potassium 4.2 Chloride 101 Carbon Dioxide 30 Anion Gap 10 BUN 9 D Creatinine 0.9 Random Glucose 109 H Calcium 9.2 Creatine Kinase 1817 H D Urine Color Ltyellow Urine Appearance Clear Urine pH 5.0 Ur Specific [place] 1.005 Urine Protein Negative Urine Glucose (UA) Negative Urine Ketones Negative Urine Blood Negative Urine Nitrite Negative Urine Bilirubin Negative Urine Urobilinogen Negative Ur Leukocyte Esterase Negative Active Medications Generic Name Dose Route Start Last Admin Trade Name Freq PRN Reason Stop Dose Admin Acetaminophen 650 mg 09/02/16 09:27 09/02/16 13:21 Tylenol - PO 650 mg Q6H PRN Administration FEVER OR PAIN Aspirin 81 mg 08/29/16 10:00 09/02/16 09:16 Ecotrin - PO 81 mg DAILY [facility] Administration Cephalexin HCl 500 mg 08/29/16 05:00 09/02/16 09:16 Keflex - PO 500 mg BID [facility]I Administration Furosemide 40 mg 08/29/16 12:15 09/02/16 09:16 Lasix - PO 40 mg DAILY [facility] Administration Sodium Chloride 1,000 mls @ 75 mls/hr 09/02/16 10:59 09/02/16 12:12 Normal Saline - IV 75 mls/hr ASDIR [facility]I Administration Metoprolol Succinate 50 mg 09/03/16 10:00 Toprol Xl - PO DAILY [facility] Oxycodone HCl 5 mg 09/02/16 09:28 09/02/16 13:20 Roxicodone - PO 5 mg Q4H PRN Administration PAIN Ranolazine 1,000 mg 08/29/16 10:00 01/07/17 09:16 Ranexa - PO 1,000 mg BID [facility]I Administration Valsartan 40 mg 08/31/16 10:00 09/02/16 09:16 Diovan - PO 40 mg DAILY [facility] Administration Warfarin Sodium 2.5 mg/ 4.5 mg 08/30/16 19:00 09/01/16 17:18 Warfarin Sodium 2 mg PO 4.5 mg DAILY@1800 [facility] Administration Imaging: - MRI lumbar spine shows multi-facet disease but no disc herniation or nerve impingement Assessment: 75 year old female with a PMH of A.Fib (on Coumadin), CAD, CABG, CVA (x2), HTN, HLD admitted s/p fall. Plan: 1. s/p fall - Negative for orthostatics - Old sacral fracture noted in xrays, confirmed by son - Head CT negative for bleed 2. Syncope/dizziness - Dizziness this afternoon, hypotensive - Will decrease bb - Stop norvasc - Vertigo/EMG work up as outpt 3. Rhabdomylosis - CPK improved - UA negative - Continue NS @ 75cc/hr - Trend CPK 4. Elevated trop - Likely d/t demand ischemia, elevated bnp 5. UTI - Complete 5 day course keflex 6. Acute on chronic diastolic CHF - ECHO noted, normal LV - Cont Diovan 40mg daily - Cont Lasix 40mg daily 7. A fib - Coumadin 4.5mg HS 8. CAD s/p CABG/angina pectoris - Cont ASA/lipitor - Cont Renexa 9. HTN - Decrease toprol xl to 50mg daily 10. DVT - On AC Visit type - Emergency Visit Emergency Visit: Yes ED Registration Date: 08/28/16 Care time: The patient presented to the Emergency Department on the above date and was hospitalized for further evaluation of their emergent condition. - New Patient This patient is new to me today: No - Critical Care Critical Care patient: No
--- NOTE | 2016-09-02 16:11 | PN ---
Progress Note, Physician Chief Complaint: Patient in bed Comfortable Good urine output Good appetite. - Current Medication List Current Medications: Active Medications Acetaminophen (Tylenol -) 650 mg PO Q6H PRN PRN Reason: FEVER OR PAIN Last Admin: 09/02/16 13:21 Dose: 650 mg Aspirin (Ecotrin -) 81 mg PO DAILY [facility] Last Admin: 09/02/16 09:16 Dose: 81 mg Furosemide (Lasix -) 40 mg PO DAILY [facility] Last Admin: 09/02/16 09:16 Dose: 40 mg Sodium Chloride (Normal Saline -) 1,000 mls @ 75 mls/hr IV ASDIR [facility] Last Admin: 09/02/16 12:12 Dose: 75 mls/hr Metoprolol Succinate (Toprol Xl -) 50 mg PO DAILY [facility] Oxycodone HCl (Roxicodone -) 5 mg PO Q4H PRN PRN Reason: PAIN Last Admin: 09/02/16 13:20 Dose: 5 mg Ranolazine (Ranexa -) 1,000 mg PO BID [facility] Last Admin: 09/02/16 09:16 Dose: 1,000 mg Valsartan (Diovan -) 40 mg PO DAILY [facility] Last Admin: 09/02/16 09:16 Dose: 40 mg Warfarin Sodium 2.5 mg/ (Warfarin Sodium 2 mg) 4.5 mg PO DAILY@1800 [facility] Last Admin: 09/01/16 17:18 Dose: 4.5 mg - Objective Vital Signs: Vital Signs Temperature 98.2 F 09/02/16 15:10 Pulse Rate 108 H 09/02/16 15:10 Respiratory Rate 20 09/02/16 15:10 Blood Pressure 130/74 09/02/16 15:10 O2 Sat by Pulse Oximetry (%) 97 09/01/16 20:58 Constitutional: Yes: Well Nourished, No Distress, Calm Eyes: Yes: WNL Cardiovascular: Yes: WNL, Pulse Irregular Respiratory: Yes: CTA Bilaterally Gastrointestinal: Yes: Normal Bowel Sounds Musculoskeletal: Yes: Muscle Pain Labs: CBC, BMP 08/31/16 05:35 09/02/16 10:45 INR, PTT INR 2.15 (0.82-1.09) H 09/01/16 13:52 Problem List - Problems (1) Acute on chronic congestive heart failure with left ventricular diastolic dysfunction Code(s): I50.33 - ACUTE ON CHRONIC DIASTOLIC (CONGESTIVE) HEART FAILURE (2) Atrial fibrillation Code(s): I48.91 - UNSPECIFIED ATRIAL FIBRILLATION Qualifiers: Atrial fibrillation type: permanent Qualified Code(s): I48.2 - Chronic atrial fibrillation (3) Bilateral leg weakness Code(s): M62.81 - MUSCLE WEAKNESS (GENERALIZED) (4) CAD (coronary artery disease) Code(s): I25.10 - ATHSCL HEART DISEASE OF [place] CORONARY ARTERY W/O ANG PCTRS Qualifiers: Coronary Disease-Associated Artery/Lesion type: [place] artery [place] vs. transplanted heart: [place] heart Associated angina: without angina Qualified Code(s): I25.10 - Atherosclerotic heart disease of [place] coronary artery without angina pectoris (5) CHF exacerbation Code(s): I50.9 - HEART FAILURE, UNSPECIFIED Qualifiers: Congestive heart failure type: unspecified congestive heart failure type Qualified Code(s): I50.9 - Heart failure, unspecified (6) CVA (cerebral vascular accident) Code(s): I63.9 - CEREBRAL INFARCTION, UNSPECIFIED Qualifiers: CVA mechanism: unspecified Qualified Code(s): I63.9 - Cerebral infarction, unspecified (7) Elevated troponin Code(s): R79.89 - OTHER SPECIFIED ABNORMAL FINDINGS OF BLOOD CHEMISTRY (8) HTN (hypertension) Code(s): I10 - ESSENTIAL (PRIMARY) HYPERTENSION Qualifiers: Hypertension type: essential hypertension Qualified Code(s): I10 - Essential (primary) hypertension (9) Hypercholesterolemia Code(s): E78.0 - PURE HYPERCHOLESTEROLEMIA * DO NOT USE * (10) Status post aorto-coronary artery bypass graft Code(s): Z95.1 - PRESENCE OF AORTOCORONARY BYPASS GRAFT (11) UTI (urinary tract infection) Code(s): N39.0 - URINARY TRACT INFECTION, SITE NOT SPECIFIED Qualifiers: Urinary tract infection type: acute cystitis Hematuria presence: with hematuria Qualified Code(s): N30.01 - Acute cystitis with hematuria Assessment/Plan Patient with h/o syncope/ dizziness. Acute Rhabdomyolysis Good urine output CPK improving Azotemia improving IV fluids to continue. Kelley Barth MD
--- NOTE | 2016-09-02 17:11 | PN ---
Progress Note, Physician History of Present Illness: no new complaints, has not been out of bed so no vertigo son concerned about the patient's cognitive decline over the past year IMP Vertigo and cognitive decline Need rehab placement Need outpatient neurocognitive evaluation prior to treating for dementia - Current Medication List Current Medications: Active Medications Acetaminophen (Tylenol -) 650 mg PO Q6H PRN PRN Reason: FEVER OR PAIN Last Admin: 09/02/16 13:21 Dose: 650 mg Aspirin (Ecotrin -) 81 mg PO DAILY [facility] Last Admin: 09/02/16 09:16 Dose: 81 mg Furosemide (Lasix -) 40 mg PO DAILY [facility] Last Admin: 09/02/16 09:16 Dose: 40 mg Sodium Chloride (Normal Saline -) 1,000 mls @ 75 mls/hr IV ASDIR [facility] Last Admin: 09/02/16 12:12 Dose: 75 mls/hr Metoprolol Succinate (Toprol Xl -) 50 mg PO DAILY [facility] Oxycodone HCl (Roxicodone -) 5 mg PO Q4H PRN PRN Reason: PAIN Last Admin: 09/02/16 13:20 Dose: 5 mg Ranolazine (Ranexa -) 1,000 mg PO BID [facility] Last Admin: 09/02/16 09:16 Dose: 1,000 mg Valsartan (Diovan -) 40 mg PO DAILY [facility] Last Admin: 09/02/16 09:16 Dose: 40 mg Warfarin Sodium 2.5 mg/ (Warfarin Sodium 2 mg) 4.5 mg PO DAILY@1800 [facility] Last Admin: 09/01/16 17:18 Dose: 4.5 mg - Objective Vital Signs: Vital Signs Temperature 98.2 F 09/02/16 15:10 Pulse Rate 100 H 09/02/16 16:00 Respiratory Rate 19 09/02/16 16:00 Blood Pressure 92/50 09/02/16 16:00 O2 Sat by Pulse Oximetry (%) 96 09/02/16 09:00 Labs: CBC, BMP 08/31/16 05:35 09/02/16 10:45 INR, PTT INR 2.15 (0.82-1.09) H 09/01/16 13:52
[2016-09-02 17:14] LABS: URINE APPEARANCE CLEAR; URINE BILIRUBIN NEGATIVE (NEGATIVE); URINE BLOOD NEGATIVE (NEGATIVE); URINE COLOR LTYELLOW; URINE GLUCOSE (UA) NEGATIVE (NEGATIVE); URINE KETONE NEGATIVE (NEGATIVE); URINE LEUK ESTERASE NEGATIVE (NEGATIVE); URINE NITRITE NEGATIVE (NEGATIVE); URINE PROTEIN NEGATIVE (NEGATIVE); URINE UROBILINOGEN NEGATIVE E.U./dl (0.2-1.0)
[2016-09-02] MEDS ORDERED: WARFARIN NA 2.5 MG TABLET (FP) ONE (17:37)
[2016-09-02] MEDS ORDERED: WARFARIN NA 2 MG TABLET (UD) ONE (17:37)
[2016-09-02] MEDS: WARFARIN NA 2.5 MG, WARFARIN NA 2 MG PO SCH (17:44)
--- NOTE | 2016-09-03 10:01 | PN ---
Progress Note, Physician History of Present Illness: pulmonary alert,-resp distress,+vertigo - Current Medication List Current Medications: Active Medications Acetaminophen (Tylenol -) 650 mg PO Q6H PRN PRN Reason: FEVER OR PAIN Last Admin: 09/02/16 13:21 Dose: 650 mg Aspirin (Ecotrin -) 81 mg PO DAILY [facility] Last Admin: 09/02/16 09:16 Dose: 81 mg Furosemide (Lasix -) 40 mg PO DAILY [facility] Last Admin: 09/02/16 09:16 Dose: 40 mg Sodium Chloride (Normal Saline -) 1,000 mls @ 75 mls/hr IV ASDIR [facility] Last Admin: 09/02/16 12:12 Dose: 75 mls/hr Metoprolol Succinate (Toprol Xl -) 50 mg PO DAILY [facility] Oxycodone HCl (Roxicodone -) 5 mg PO Q4H PRN PRN Reason: PAIN Last Admin: 09/02/16 13:20 Dose: 5 mg Ranolazine (Ranexa -) 1,000 mg PO BID [facility] Last Admin: 09/02/16 22:00 Dose: 1,000 mg Valsartan (Diovan -) 40 mg PO DAILY [facility] Last Admin: 09/02/16 09:16 Dose: 40 mg Warfarin Sodium 2.5 mg/ (Warfarin Sodium 2 mg) 4.5 mg PO DAILY@1800 [facility] Last Admin: 09/02/16 17:44 Dose: 4.5 mg - Objective Vital Signs: Vital Signs Temperature 98.1 F 09/03/16 08:58 Pulse Rate 100 H 09/03/16 08:58 Respiratory Rate 20 09/03/16 08:58 Blood Pressure 103/57 09/03/16 08:58 O2 Sat by Pulse Oximetry (%) 95 09/03/16 09:00 Constitutional: Yes: Well Nourished, Calm Eyes: Yes: WNL HENT: Yes: WNL Neck: Yes: WNL Cardiovascular: Yes: Pulse Irregular, S1, S2 Respiratory: Yes: CTA Bilaterally Gastrointestinal: Yes: WNL Extremities: Yes: WNL Edema: Yes Labs: CBC, BMP 08/31/16 05:35 09/02/16 10:45 INR, PTT INR 2.15 (0.82-1.09) H 09/01/16 13:52 Laboratory Tests 09/03/16 05:30 Creatine Kinase 1087 H D Assessment/Plan Problem List - Problems (1) UTI (urinary tract infection) Code(s): N39.0 - URINARY TRACT INFECTION, SITE NOT SPECIFIED Qualifiers: Urinary tract infection type: acute cystitis Hematuria presence: with hematuria Qualified Code(s): N30.01 - Acute cystitis with hematuria (2) Elevated troponin Code(s): R79.89 - OTHER SPECIFIED ABNORMAL FINDINGS OF BLOOD CHEMISTRY (3) Acute on chronic congestive heart failure with left ventricular diastolic dysfunction Code(s): I50.33 - ACUTE ON CHRONIC DIASTOLIC (CONGESTIVE) HEART FAILURE (4) Bilateral leg weakness Code(s): M62.81 - MUSCLE WEAKNESS (GENERALIZED) (5) Atrial fibrillation Code(s): I48.91 - UNSPECIFIED ATRIAL FIBRILLATION (6) CAD (coronary artery disease) Code(s): I25.10 - ATHSCL HEART DISEASE OF [place] CORONARY ARTERY W/O ANG PCTRS Assessment/Plan Bilateral Leg Weakness r/o Disc disease Acute on Chronic LV Diastolic Heart Failure +Troponins from above CAD s/p CABG Atrial Fibrillation HTN Hyperlipidemia h/o CVA Rhabdomyolysis Vertigo - lasix - monitor urine output, creatinine - daily weights, I/Os - rate control with metoprolol - continue anticoagulation - orthostatics - monitor ck DR DENG
--- NOTE | 2016-09-03 10:05 | PN ---
Progress Note (short form) - Note Progress Note: Chief Complaint: Events noted, notes reviewed, continues to report intermittent dizziness with certain movements and postural changes, denies any chest pain, remains in atrial flutter with variable AV-conduction History of Present Illness: Seen and examined on telemetry. Events noted, notes reviewed, continues to report intermittent dizziness with certain movements and postural changes, denies any chest pain, remains in atrial flutter with variable AV-conduction Echocardiography revealed normal LV systolic function, mild MR, mild to moderate TR, RVSP of 32 mmHg, and LA dilatation Medications: Current Medications Acetaminophen (Tylenol -) 650 mg PO Q6H PRN PRN Reason: FEVER OR PAIN Last Admin: 09/02/16 13:21 Dose: 650 mg Aspirin (Ecotrin -) 81 mg PO DAILY [facility] Last Admin: 09/02/16 09:16 Dose: 81 mg Furosemide (Lasix -) 40 mg PO DAILY [facility] Last Admin: 09/02/16 09:16 Dose: 40 mg Sodium Chloride (Normal Saline -) 1,000 mls @ 75 mls/hr IV ASDIR [facility] Last Admin: 09/02/16 12:12 Dose: 75 mls/hr Metoprolol Succinate (Toprol Xl -) 50 mg PO DAILY [facility] Oxycodone HCl (Roxicodone -) 5 mg PO Q4H PRN PRN Reason: PAIN Last Admin: 09/02/16 13:20 Dose: 5 mg Ranolazine (Ranexa -) 1,000 mg PO BID [facility] Last Admin: 09/02/16 22:00 Dose: 1,000 mg Valsartan (Diovan -) 40 mg PO DAILY [facility] Last Admin: 09/02/16 09:16 Dose: 40 mg Warfarin Sodium 2.5 mg/ (Warfarin Sodium 2 mg) 4.5 mg PO DAILY@1800 [facility] Last Admin: 09/02/16 17:44 Dose: 4.5 mg Review of Systems - Review of Systems Constitutional: No symptoms reported Respiratory: denies: Cough or Sputum Production Cardiovascular: As noted above Gastrointestinal: denies Nausea, Vomiting, Diarrhea, Constipation or Abdominal Pain Genitourinary: No symptoms reported Musculoskeletal: Degenerative Joint Disease Endocrine: No symptoms reported Vital Signs: Last Vital Signs Temp Pulse Resp BP Pulse Ox 98.1 F 100 H 20 103/57 95 09/03/16 08:58 09/03/16 08:58 09/03/16 08:58 09/03/16 08:58 09/03/16 09:00 Constitutional: No Distress Neck: Supple Negative JVD No Bruit Respiratory: Clear to A&P Bilaterally Cardiovascular: S1 S2 Irregularly Irregular [place] 1-2/6 LEONID Gastrointestinal: Soft Benign Normal Bowel Sounds Ext: Negative Edema Labs: CBC, BMP 08/31/16 05:35 09/02/16 10:45 INR, PTT INR 2.15 (0.82-1.09) H 09/01/16 13:52 Assessment/Plan ASSESSMENT: 1. Acute on chronic diastolic LV dysfunction with class II NYHA classification LV failure, resolved 2. CAD post CABG, angina pectoris with evidence of demand ischemic injury 3. Persistent atrial fibrillation/atrial flutter [id number] score of 5 on chronic A/C with Coumadin, therapeutic INR 4. HTN 5. Hypercholesterolemia 6. History of CVA 7. Postural dizziness, related to vertigo 8. Progressive lower extremity weakness etiology to be determined PLAN: 1. Continue Toprol XL 2. Continue Ranexa 3. Continue Diovan 4. Continue Lipitor 5. Continue Lasix but decrease dosage 6. Continue Coumadin and ASA with close monitoring of CBC and INR 7. D/C planning as per primary team Shannan Molina M.D.
[2016-09-03] MEDS: ASPIRIN COATED 81 MG TABLET.EC PO SCH (10:46)
[2016-09-03] MEDS: RANOLAZINE E.R. 1,000 MG TABLET (FP) PO SCH ×2 (10:47→21:36)
[2016-09-03] MEDS: METOPROLOL SUCCINATE 50 MG TAB.SR.24H (FP) PO SCH (10:47)
[2016-09-03] MEDS: FUROSEMIDE 20 MG TABLET (FP) PO SCH (10:47)
[2016-09-03] MEDS: VALSARTAN 40 MG TABLET (FP) PO SCH (10:47)
[2016-09-03 11:13] LABS: INR 2.94 (0.82-1.09); PROTHROMBIN TIME (PATIENT) 33.1 SEC (9.98-11.88)
[2016-09-03] MEDS ORDERED: MECLIZINE HCL 12.5 MG TABLET PO PRN (11:35)
[2016-09-03] MEDS: FUROSEMIDE 40 MG TABLET (FP) PO SCH (13:07)
--- NOTE | 2016-09-03 13:15 | PN ---
Progress Note, Physician Chief Complaint: Patient in bed Comfortable Good urine output Good appetite. No specific complaints - Current Medication List Current Medications: Active Medications Acetaminophen (Tylenol -) 650 mg PO Q6H PRN PRN Reason: FEVER OR PAIN Last Admin: 09/02/16 13:21 Dose: 650 mg Aspirin (Ecotrin -) 81 mg PO DAILY [facility] Last Admin: 09/03/16 10:46 Dose: 81 mg Furosemide (Lasix -) 20 mg PO DAILY [facility] Last Admin: 09/03/16 10:47 Dose: 20 mg Sodium Chloride (Normal Saline -) 1,000 mls @ 75 mls/hr IV ASDIR [facility] Last Admin: 09/02/16 12:12 Dose: 75 mls/hr Meclizine HCl (Antivert -) 12.5 mg PO BID [facility] Metoprolol Succinate (Toprol Xl -) 50 mg PO DAILY [facility] Last Admin: 09/03/16 10:47 Dose: 50 mg Oxycodone HCl (Roxicodone -) 5 mg PO Q4H PRN PRN Reason: PAIN Last Admin: 09/02/16 13:20 Dose: 5 mg Ranolazine (Ranexa -) 1,000 mg PO BID [facility] Last Admin: 09/03/16 10:47 Dose: 1,000 mg Valsartan (Diovan -) 40 mg PO DAILY [facility] Last Admin: 09/03/16 10:47 Dose: 40 mg Warfarin Sodium 2.5 mg/ (Warfarin Sodium 2 mg) 4.5 mg PO DAILY@1800 [facility] Last Admin: 09/02/16 17:44 Dose: 4.5 mg - Objective Vital Signs: Vital Signs Temperature 98.1 F 09/03/16 08:58 Pulse Rate 100 H 09/03/16 08:58 Respiratory Rate 20 09/03/16 08:58 Blood Pressure 103/57 09/03/16 08:58 O2 Sat by Pulse Oximetry (%) 95 09/03/16 09:00 Constitutional: Yes: Well Nourished, No Distress, Anxious Eyes: Yes: WNL, Conjunctiva Clear HENT: Yes: WNL Cardiovascular: Yes: WNL Respiratory: Yes: WNL, CTA Bilaterally Gastrointestinal: Yes: WNL, Normal Bowel Sounds Edema: No Neurological: Yes: Alert, Oriented Labs: CBC, BMP 08/31/16 05:35 09/02/16 10:45 INR, PTT INR 2.94 (0.82-1.09) H D 09/03/16 10:46 Problem List - Problems (1) Acute on chronic congestive heart failure with left ventricular diastolic dysfunction Code(s): I50.33 - ACUTE ON CHRONIC DIASTOLIC (CONGESTIVE) HEART FAILURE (2) Atrial fibrillation Code(s): I48.91 - UNSPECIFIED ATRIAL FIBRILLATION Qualifiers: Atrial fibrillation type: permanent Qualified Code(s): I48.2 - Chronic atrial fibrillation (3) Bilateral leg weakness Code(s): M62.81 - MUSCLE WEAKNESS (GENERALIZED) (4) CAD (coronary artery disease) Code(s): I25.10 - ATHSCL HEART DISEASE OF [place] CORONARY ARTERY W/O ANG PCTRS Qualifiers: Coronary Disease-Associated Artery/Lesion type: [place] artery [place] vs. transplanted heart: [place] heart Associated angina: without angina Qualified Code(s): I25.10 - Atherosclerotic heart disease of [place] coronary artery without angina pectoris (5) CHF exacerbation Code(s): I50.9 - HEART FAILURE, UNSPECIFIED Qualifiers: Congestive heart failure type: unspecified congestive heart failure type Qualified Code(s): I50.9 - Heart failure, unspecified (6) CVA (cerebral vascular accident) Code(s): I63.9 - CEREBRAL INFARCTION, UNSPECIFIED Qualifiers: CVA mechanism: unspecified Qualified Code(s): I63.9 - Cerebral infarction, unspecified (7) Elevated troponin Code(s): R79.89 - OTHER SPECIFIED ABNORMAL FINDINGS OF BLOOD CHEMISTRY (8) HTN (hypertension) Code(s): I10 - ESSENTIAL (PRIMARY) HYPERTENSION Qualifiers: Hypertension type: essential hypertension Qualified Code(s): I10 - Essential (primary) hypertension (9) Hypercholesterolemia Code(s): E78.0 - PURE HYPERCHOLESTEROLEMIA * DO NOT USE * (10) Status post aorto-coronary artery bypass graft Code(s): Z95.1 - PRESENCE OF AORTOCORONARY BYPASS GRAFT (11) UTI (urinary tract infection) Code(s): N39.0 - URINARY TRACT INFECTION, SITE NOT SPECIFIED Qualifiers: Urinary tract infection type: acute cystitis Hematuria presence: with hematuria Qualified Code(s): N30.01 - Acute cystitis with hematuria Assessment/Plan Patient with h/o syncope/ dizziness. Acute Rhabdomyolysis. Serum CPK improving Good urine output Azotemia improving and at baseline normal. Will order labs for tomorrow. Kelley Barth MD
--- NOTE | 2016-09-03 14:00 | PN ---
Physical Exam: SUBJECTIVE: Patient seen and examined. She still feels when she changes direction, linda siting to standing. She also has sacral pain and le weakness. OBJECTIVE: Vital Signs Period Temp Pulse Resp BP Sys/Yeager Pulse Ox Last 24 Hr 97.8 F-98.6 F 91-108 16-20 91-130/50-74 95-96 PE Neuro: alert, awake, cn 2-12intact Pulm: CTAB CV: Irregular rhythm, regular rate Abd: s nt nd + bs Ext: warm, no edema MSK: groin tenderness, b/l le weakness Laboratory Results - last 24 hr 09/02/16 09/03/16 09/03/16 02:00 05:30 10:46 INR 2.94 H D Creatine Kinase 1087 H D CK-MB (CK-2) 3.373 Urine Color Ltyellow Urine Appearance Clear Urine pH 5.0 Ur Specific [place] 1.005 Urine Protein Negative Urine Glucose (UA) Negative Urine Ketones Negative Urine Blood Negative Urine Nitrite Negative Urine Bilirubin Negative Urine Urobilinogen Negative Ur Leukocyte Esterase Negative Active Medications Generic Name Dose Route Start Last Admin Trade Name Freq PRN Reason Stop Dose Admin Acetaminophen 650 mg 09/02/16 09:27 09/02/16 13:21 Tylenol - PO 650 mg Q6H PRN Administration FEVER OR PAIN Aspirin 81 mg 08/29/16 10:00 09/03/16 10:46 Ecotrin - PO 81 mg DAILY [facility] Administration Furosemide 20 mg 09/03/16 10:45 09/03/16 10:47 Lasix - PO 20 mg DAILY [facility] Administration Meclizine HCl 12.5 mg 09/03/16 11:36 Antivert - PO BID [facility] Metoprolol Succinate 50 mg 09/03/16 10:00 09/03/16 10:47 Toprol Xl - PO 50 mg DAILY [facility] Administration Oxycodone HCl 5 mg 09/02/16 09:28 09/02/16 13:20 Roxicodone - PO 5 mg Q4H PRN Administration PAIN Ranolazine 1,000 mg 08/29/16 10:00 09/03/16 10:47 Ranexa - PO 1,000 mg BID [facility] Administration Valsartan 40 mg 08/31/16 10:00 09/03/16 10:47 Diovan - PO 40 mg DAILY [facility] Administration Warfarin Sodium 2.5 mg/ 4.5 mg 08/30/16 19:00 09/02/16 17:44 Warfarin Sodium 2 mg PO 4.5 mg DAILY@1800 [facility] Administration Imaging: - MRI lumbar spine shows multi-facet disease but no disc herniation or nerve impingement - Old sacral fracture noted in xrays, confirmed by son Tele: a flutter Assessment: 75 year old female with a PMHx of A.Fib (on Coumadin), CAD, CABG, CVA (x2), HTN, HLD admitted s/p fall. Plan: 1. s/p fall - Consider neuromuscular etiology - Will order EMG as pt still w/ LE weakness - Neuro following 2. Syncope/dizziness - Possibly vertigo, cardiology note reviewed re postural changes - Trial meclazine 12.5mg BID 3. Rhabdomylosis - CPK conitnues to improve - Decrease fluids 60cc/hr - Trend CPK 4. Elevated trop - Likely d/t demand ischemia, elevated bnp 5. UTI - Complete 5 day course keflex 6. Acute on chronic diastolic CHF - ECHO noted, normal LV - Cont Diovan 40mg daily - Cont Lasix 40mg daily 7. A fib - Coumadin 4.5mg HS 8. CAD s/p CABG/angina pectoris - Cont ASA/lipitor - Cont Renexa 9. HTN - Decrease toprol xl to 50mg daily 10. DVT - On AC Visit type - Emergency Visit Emergency Visit: Yes ED Registration Date: 08/28/16 Care time: The patient presented to the Emergency Department on the above date and was hospitalized for further evaluation of their emergent condition. - New Patient This patient is new to me today: No - Critical Care Critical Care patient: No
[2016-09-03] MEDS: SODIUM CHLORIDE 1,000 ML IV SCH (14:54)
[2016-09-03] MEDS ORDERED: WARFARIN NA 2.5 MG TABLET (FP) ONE (17:03)
[2016-09-03] MEDS ORDERED: WARFARIN NA 2 MG TABLET (UD) ONE (17:03)
[2016-09-03] MEDS: WARFARIN NA 2.5 MG, WARFARIN NA 2 MG PO SCH (17:05)
[2016-09-03] MEDS: MECLIZINE HCL 12.5 MG TABLET PO SCH (21:36)
[2016-09-04 07:24] LABS: BASOPHIL 0.4 % (0-2.0); EOSINOPHIL 1.4 % (0-4.5); MCH 28.8 pg (25.7-33.7); MCHC 33.9 g/dl (32.0-36.0); MEAN CELL VOLUME 85.1 fl (80-96); MEAN PLT VOLUME 12.2 fl (7.5-11.1); NEUTROPHILS 61.5 % (42.8-82.8); PLATELET COUNT 171 K/MM3 (134-434); RDW 14.4 % (11.6-15.6); WHITE BLOOD COUNT 7.8 K/mm3 (4.0-10.0)
[2016-09-04 07:35] LABS: INR 3.75 (0.82-1.09); PROTHROMBIN TIME (PATIENT) 42.4 SEC (9.98-11.88)
[2016-09-04 07:47] LABS: CALCIUM 8.7 mg/dL (8.5-10.1); CREATININE 0.8 mg/dL (0.55-1.02)
[2016-09-04] MEDS: VALSARTAN 40 MG TABLET (FP) PO SCH (10:20)
[2016-09-04] MEDS: ASPIRIN COATED 81 MG TABLET.EC PO SCH (10:20)
[2016-09-04] MEDS: RANOLAZINE E.R. 1,000 MG TABLET (FP) PO SCH ×2 (10:20→21:28)
[2016-09-04] MEDS: MECLIZINE HCL 12.5 MG TABLET PO SCH ×2 (10:21→21:28)
[2016-09-04] MEDS: METOPROLOL SUCCINATE 50 MG TAB.SR.24H (FP) PO SCH (10:21)
[2016-09-04] MEDS: FUROSEMIDE 20 MG TABLET (FP) PO SCH (10:21)
--- NOTE | 2016-09-04 10:34 | PN ---
Progress Note, Physician History of Present Illness: PULMONARY ALERT,-SOB,+DIZZINESS WHEN STANDING - Current Medication List Current Medications: Active Medications Acetaminophen (Tylenol -) 650 mg PO Q6H PRN PRN Reason: FEVER OR PAIN Last Admin: 09/02/16 13:21 Dose: 650 mg Aspirin (Ecotrin -) 81 mg PO DAILY [facility] Last Admin: 09/04/16 10:20 Dose: 81 mg Furosemide (Lasix -) 20 mg PO DAILY [facility] Last Admin: 09/04/16 10:21 Dose: 20 mg Sodium Chloride (Normal Saline -) 1,000 mls @ 60 mls/hr IV ASDIR [facility] Last Admin: 09/03/16 14:54 Dose: 60 mls/hr Meclizine HCl (Antivert -) 12.5 mg PO BID [facility] Last Admin: 09/04/16 10:21 Dose: 12.5 mg Metoprolol Succinate (Toprol Xl -) 50 mg PO DAILY [facility] Last Admin: 09/04/16 10:21 Dose: 50 mg Oxycodone HCl (Roxicodone -) 5 mg PO Q4H PRN PRN Reason: PAIN Last Admin: 09/02/16 13:20 Dose: 5 mg Ranolazine (Ranexa -) 1,000 mg PO BID [facility] Last Admin: 09/04/16 10:20 Dose: 1,000 mg Valsartan (Diovan -) 40 mg PO DAILY [facility] Last Admin: 09/04/16 10:20 Dose: 40 mg Warfarin Sodium 2.5 mg/ (Warfarin Sodium 2 mg) 4.5 mg PO DAILY@1800 [facility] Last Admin: 09/03/16 17:05 Dose: 4.5 mg - Objective Vital Signs: Vital Signs Temperature 98.2 F 09/04/16 10:00 Pulse Rate 106 H 09/04/16 10:00 Respiratory Rate 16 09/04/16 10:00 Blood Pressure 104/56 09/04/16 10:00 O2 Sat by Pulse Oximetry (%) 97 09/03/16 21:00 Constitutional: Yes: Well Nourished, Calm Eyes: Yes: WNL HENT: Yes: WNL Neck: Yes: WNL Cardiovascular: Yes: Pulse Irregular, S1, S2 Respiratory: Yes: Diminished Gastrointestinal: Yes: Normal Bowel Sounds, Soft Extremities: Yes: WNL Edema: No Labs: CBC, BMP 09/04/16 05:35 09/04/16 05:35 INR, PTT INR 3.75 (0.82-1.09) H 09/04/16 05:35 Assessment/Plan Problem List - Problems (1) UTI (urinary tract infection) Code(s): N39.0 - URINARY TRACT INFECTION, SITE NOT SPECIFIED Qualifiers: Urinary tract infection type: acute cystitis Hematuria presence: with hematuria Qualified Code(s): N30.01 - Acute cystitis with hematuria (2) Elevated troponin Code(s): R79.89 - OTHER SPECIFIED ABNORMAL FINDINGS OF BLOOD CHEMISTRY (3) Acute on chronic congestive heart failure with left ventricular diastolic dysfunction Code(s): I50.33 - ACUTE ON CHRONIC DIASTOLIC (CONGESTIVE) HEART FAILURE (4) Bilateral leg weakness Code(s): M62.81 - MUSCLE WEAKNESS (GENERALIZED) (5) Atrial fibrillation Code(s): I48.91 - UNSPECIFIED ATRIAL FIBRILLATION (6) CAD (coronary artery disease) Code(s): I25.10 - ATHSCL HEART DISEASE OF [place] CORONARY ARTERY W/O ANG PCTRS Assessment/Plan Bilateral Leg Weakness r/o Disc disease Acute on Chronic LV Diastolic Heart Failure +Troponins from above CAD s/p CABG Atrial Fibrillation HTN Hyperlipidemia h/o CVA Rhabdomyolysis Vertigo - lasix - monitor urine output, creatinine - daily weights, I/Os - rate control with metoprolol - continue anticoagulation - orthostatics - monitor ck DR DENG
--- NOTE | 2016-09-04 10:42 | PN ---
Progress Note, Physician Chief Complaint: Events noted Complains of groin pain otherwise appears comfortable Wanting to go home History of Present Illness: Patient was seen and examined. Awake and alert. Chart was reviewed Denies chest pain or palpitation - Current Medication List Current Medications: Active Medications Acetaminophen (Tylenol -) 650 mg PO Q6H PRN PRN Reason: FEVER OR PAIN Last Admin: 09/02/16 13:21 Dose: 650 mg Aspirin (Ecotrin -) 81 mg PO DAILY [facility] Last Admin: 09/04/16 10:20 Dose: 81 mg Furosemide (Lasix -) 20 mg PO DAILY [facility] Last Admin: 09/04/16 10:21 Dose: 20 mg Sodium Chloride (Normal Saline -) 1,000 mls @ 60 mls/hr IV ASDIR [facility] Last Admin: 09/03/16 14:54 Dose: 60 mls/hr Meclizine HCl (Antivert -) 12.5 mg PO BID [facility] Last Admin: 09/04/16 10:21 Dose: 12.5 mg Metoprolol Succinate (Toprol Xl -) 50 mg PO DAILY [facility] Last Admin: 09/04/16 10:21 Dose: 50 mg Oxycodone HCl (Roxicodone -) 5 mg PO Q4H PRN PRN Reason: PAIN Last Admin: 09/02/16 13:20 Dose: 5 mg Ranolazine (Ranexa -) 1,000 mg PO BID [facility] Last Admin: 09/04/16 10:20 Dose: 1,000 mg Valsartan (Diovan -) 40 mg PO DAILY [facility] Last Admin: 09/04/16 10:20 Dose: 40 mg Warfarin Sodium 2.5 mg/ (Warfarin Sodium 2 mg) 4.5 mg PO DAILY@1800 [facility] Last Admin: 09/03/16 17:05 Dose: 4.5 mg - Objective Vital Signs: Vital Signs Temperature 98.2 F 09/04/16 10:00 Pulse Rate 106 H 09/04/16 10:00 Respiratory Rate 16 09/04/16 10:00 Blood Pressure 104/56 09/04/16 10:00 O2 Sat by Pulse Oximetry (%) 97 09/03/16 21:00 Neck: Yes: Supple Cardiovascular: Yes: Pulse Irregular, Murmur (Soft SM), S1, S2 Respiratory: Yes: CTA Bilaterally Gastrointestinal: Yes: Normal Bowel Sounds, Soft. No: Tenderness Edema: No Additional Findings/Remarks: - Review of Systems Constitutional: No symptoms reported Respiratory: denies: Cough or Sputum Production Cardiovascular: As noted above Gastrointestinal: denies Nausea, Vomiting, Diarrhea, Constipation or Abdominal Pain Genitourinary: No symptoms reported Musculoskeletal: Degenerative Joint Disease Endocrine: No symptoms reported Labs: CBC, BMP 09/04/16 05:35 09/04/16 05:35 INR, PTT INR 3.75 (0.82-1.09) H 09/04/16 05:35 Problem List - Problems (1) Acute on chronic congestive heart failure with left ventricular diastolic dysfunction Code(s): I50.33 - ACUTE ON CHRONIC DIASTOLIC (CONGESTIVE) HEART FAILURE (2) Atrial fibrillation Code(s): I48.91 - UNSPECIFIED ATRIAL FIBRILLATION Qualifiers: Atrial fibrillation type: permanent Qualified Code(s): I48.2 - Chronic atrial fibrillation (3) CAD (coronary artery disease) Code(s): I25.10 - ATHSCL HEART DISEASE OF [place] CORONARY ARTERY W/O ANG PCTRS Qualifiers: Coronary Disease-Associated Artery/Lesion type: [place] artery Circle vs. transplanted heart: [place] heart Associated angina: without angina Qualified Code(s): I25.10 - Atherosclerotic heart disease of [place] coronary artery without angina pectoris (4) CHF exacerbation Code(s): I50.9 - HEART FAILURE, UNSPECIFIED Qualifiers: Congestive heart failure type: unspecified congestive heart failure type Qualified Code(s): I50.9 - Heart failure, unspecified (5) Elevated troponin Code(s): R79.89 - OTHER SPECIFIED ABNORMAL FINDINGS OF BLOOD CHEMISTRY (6) HTN (hypertension) Code(s): I10 - ESSENTIAL (PRIMARY) HYPERTENSION Qualifiers: Hypertension type: essential hypertension Qualified Code(s): I10 - Essential (primary) hypertension (7) Hypercholesterolemia Code(s): E78.0 - PURE HYPERCHOLESTEROLEMIA * DO NOT USE * (8) CVA (cerebral vascular accident) Code(s): I63.9 - CEREBRAL INFARCTION, UNSPECIFIED Qualifiers: CVA mechanism: unspecified Qualified Code(s): I63.9 - Cerebral infarction, unspecified (9) Status post aorto-coronary artery bypass graft Code(s): Z95.1 - PRESENCE OF AORTOCORONARY BYPASS GRAFT Assessment/Plan 1. Dyspnea consistent with acute on chronic diastolic LV dysfunction with class II NYHA classification LV failure 2. CAD post CABG, angina pectoris with evidence of demand ischemic injury 3. Persistent atrial fibrillation/flutter [id number] score of 5 on chronic A/C with Coumadin 4. HTN 5. Hypercholesterolemia 6. History of CVA 7. Hypokalemia 8. Progressive lower extremity weakness + elevated CPK due to fall PLAN: 1. Continue Metoprolol ER 2. Continue Ranexa 3. Continue Valsartan 4. Restart Lipitor once CK improves 5. Continue Furosemide 6. Continue Coumadin and ASA therapies with caution. Discharge planning Jm Vargas MD
--- NOTE | 2016-09-04 11:15 | PN ---
Progress Note (short form) - Note Progress Note: Neurology Progress Note, Physician History of Present Illness: Patient previously seen by Dr. Lan No new complaints, has not been out of bed so no vertigo symptoms On ASA 81mg for CVA prevention Advised slow head movements Active Medications Acetaminophen (Tylenol -) 650 mg PO Q6H PRN PRN Reason: FEVER OR PAIN Last Admin: 09/02/16 13:21 Dose: 650 mg Aspirin (Ecotrin -) 81 mg PO DAILY [facility] Last Admin: 09/04/16 10:20 Dose: 81 mg Furosemide (Lasix -) 20 mg PO DAILY [facility] Last Admin: 09/04/16 10:21 Dose: 20 mg Sodium Chloride (Normal Saline -) 1,000 mls @ 60 mls/hr IV ASDIR [facility] Last Admin: 09/03/16 14:54 Dose: 60 mls/hr Meclizine HCl (Antivert -) 12.5 mg PO BID [facility] Last Admin: 09/04/16 10:21 Dose: 12.5 mg Metoprolol Succinate (Toprol Xl -) 50 mg PO DAILY [facility] Last Admin: 09/04/16 10:21 Dose: 50 mg Oxycodone HCl (Roxicodone -) 5 mg PO Q4H PRN PRN Reason: PAIN Last Admin: 09/02/16 13:20 Dose: 5 mg Ranolazine (Ranexa -) 1,000 mg PO BID [facility] Last Admin: 09/04/16 10:20 Dose: 1,000 mg Valsartan (Diovan -) 40 mg PO DAILY [facility] Last Admin: 09/04/16 10:20 Dose: 40 mg Warfarin Sodium 2.5 mg/ (Warfarin Sodium 2 mg) 4.5 mg PO DAILY@1800 [facility] Last Admin: 09/03/16 17:05 Dose: 4.5 mg - Objective Vital Signs: Vital Signs Temperature 98.2 F 09/02/16 15:10 Pulse Rate 100 H 09/02/16 16:00 Respiratory Rate 19 09/02/16 16:00 Blood Pressure 92/50 09/02/16 16:00 O2 Sat by Pulse Oximetry (%) 96 09/02/16 09:00 Labs: CBCD WBC 7.8 K/mm3 (4.0-10.0) 09/04/16 05:35 RBC 3.79 M/mm3 (3.60-5.2) 09/04/16 05:35 Hgb 10.9 GM/dL (10.7-15.3) 09/04/16 05:35 Hct 32.3 % (32.4-45.2) L 09/04/16 05:35 MCV 85.1 fl (80-96) 09/04/16 05:35 MCHC 33.9 g/dl (32.0-36.0) 09/04/16 05:35 RDW 14.4 % (11.6-15.6) 09/04/16 05:35 Plt Count 171 K/MM3 (134-434) D 09/04/16 05:35 MPV 12.2 fl (7.5-11.1) H 09/04/16 05:35 CMP Sodium 141 mmol/L (136-145) 09/04/16 05:35 Potassium 3.9 mmol/L (3.5-5.1) 09/04/16 05:35 Chloride 104 mmol/L (98-107) 09/04/16 05:35 Carbon Dioxide 30 mmol/L (21-32) 09/04/16 05:35 Anion Gap 7 (8-16) L 09/04/16 05:35 BUN 6 mg/dL (7-18) L D 09/04/16 05:35 Creatinine 0.8 mg/dL (0.55-1.02) 09/04/16 05:35 Creat Clearance w eGFR > 60 (>60) 08/31/16 05:35 Calcium 8.7 mg/dL (8.5-10.1) 09/04/16 05:35 Total Bilirubin 1.0 mg/dL (0.2-1.0) D 08/31/16 05:35 AST 130 U/L (15-37) H D 08/31/16 05:35 ALT 44 U/L (12-78) D 08/31/16 05:35 Alkaline Phosphatase 70 U/L (45-117) 08/31/16 05:35 Total Protein 5.6 g/dl (6.4-8.2) L 08/31/16 05:35 Albumin 2.8 g/dl (3.4-5.0) L 08/31/16 05:35 plan: Vertigo Meclezine as needed Advised slow head movements Increased hydration On ASA 81mg for CVA prevention Can follow up outpatient
[2016-09-04] MEDS: POLYETHYLENE GLYCOL 3350 119 GM BTL PO SCH (12:56)
[2016-09-04] MEDS: DOCUSATE SODIUM 100 MG CAPSULE (FP) PO SCH ×2 (12:57→21:28)
--- NOTE | 2016-09-04 13:44 | PN ---
Physical Exam: SUBJECTIVE: Patient seen and examined. She was sitting in the chair, in no acute distress. She was later seen walking with physical therapy using a rolling walker. She denied dizziness when ambulating but did need the support of the rolling walker for balance. Her gait was steady. She states she wants to go to short term rehab to get stronger. Her family, whom I also spoke to. is in agreement about short term rehab. OBJECTIVE: Vital Signs Period Temp Pulse Resp BP Sys/Yeager Pulse Ox Last 24 Hr 97.8 F-98.8 F 100-107 16-22 104-132/56-89 97 GENERAL: The patient is awake, alert, and fully oriented, in no acute distress. HEAD: Normal with no signs of trauma. EYES: PERRL, extraocular movements intact, sclera anicteric, conjunctiva clear. No ptosis. ENT: Ears normal, nares patent, moist mucous membranes. NECK: Trachea midline, full range of motion, supple. LUNGS: Breath sounds equal, clear to auscultation bilaterally HEART: site monitor: sinus tachycardia 115 ABDOMEN: Soft, nontender, nondistended, normoactive bowel sounds, no guarding, no rebound, no hepatosplenomegaly, no masses. EXTREMITIES: 2+ pulses, warm, well-perfused, no edema, LE weakness, relies on walker for support, fall risk NEUROLOGICAL: Normal speech, steady gait with rolling walker PSYCH: Normal mood, normal affect. SKIN: Warm, dry, normal turgor, no rashes or lesions noted Laboratory Results - last 24 hr 09/04/16 09/04/16 09/04/16 05:35 05:35 05:35 WBC 7.8 RBC 3.79 Hgb 10.9 Hct 32.3 L MCV 85.1 MCHC 33.9 RDW 14.4 Plt Count 171 D MPV 12.2 H Neutrophils % 61.5 Lymphocytes % 28.2 Monocytes % 8.5 Eosinophils % 1.4 Basophils % 0.4 INR 3.75 H Sodium 141 Potassium 3.9 Chloride 104 Carbon Dioxide 30 Anion Gap 7 L BUN 6 L D Creatinine 0.8 Random Glucose 91 Calcium 8.7 Active Medications Generic Name Dose Route Start Last Admin Trade Name Freq PRN Reason Stop Dose Admin Acetaminophen 650 mg 09/02/16 09:27 09/02/16 13:21 Tylenol - PO 650 mg Q6H PRN Administration FEVER OR PAIN Aspirin 81 mg 08/29/16 10:00 09/04/16 10:20 Ecotrin - PO 81 mg DAILY [facility] Administration Docusate Sodium 100 mg 09/04/16 12:30 09/04/16 12:57 Colace - PO 100 mg BID [facility] Administration Furosemide 20 mg 09/03/16 10:45 09/04/16 10:21 Lasix - PO 20 mg DAILY [facility] Administration Sodium Chloride 1,000 mls @ 60 mls/hr 09/03/16 13:59 09/03/16 14:54 Normal Saline - IV 60 mls/hr ASDIR [facility] Administration Meclizine HCl 12.5 mg 09/03/16 11:36 09/04/16 10:21 Antivert - PO 12.5 mg BID [facility] Administration Metoprolol Succinate 50 mg 09/03/16 10:00 09/04/16 10:21 Toprol Xl - PO 50 mg DAILY [facility] Administration Oxycodone HCl 5 mg 09/02/16 09:28 09/02/16 13:20 Roxicodone - PO 5 mg Q4H PRN Administration PAIN Polyethylene Glycol 17 gm 09/04/16 12:30 09/04/16 12:56 Miralax (For Daily Use) - PO Not Given DAILY [facility] Ranolazine 1,000 mg 08/29/16 10:00 09/04/16 10:20 Ranexa - PO 1,000 mg BID [facility] Administration Valsartan 40 mg 08/31/16 10:00 09/04/16 10:20 Diovan - PO 40 mg DAILY [facility] Administration Warfarin Sodium 2.5 mg/ 4.5 mg 08/30/16 19:00 09/03/16 17:05 Warfarin Sodium 2 mg PO 4.5 mg DAILY@1800 [facility] Administration ASSESSMENT/PLAN: Patient is a 75 year old female with a significant past medical history of atrial fibrillation (On Coumadin), CAD, CABG, CVA, hypertension, and hyperlipidemia. She presented to the ER on 08/28/2016 with a fall at home. Muscular Skeletal Fall - acute Assessment/Plan: S/p fall at home and also had a another fall during hospitalization. She is at high risk for injury secondary to her history of falls and being on an anticoagulant. She also lives alone. She has agreed to a short term rehab for lower ext. weakness. She denies hitting her head when she fell at home and during hospitalization. During the home fall, she denied feeling dizzy before or after the incident and denies hitting her head or any other injuries. She denied chest pain, palpitations or shortness of breath. Physical therapy following Fall precuations with bed alarm to avoid any further falls, Rhabdo - acute Assessment/Plan: CPK trending down with gentle hydration CPK 1087, BUN and Creatinine stable, Good urine output Monitor I&O, Monitor closely Gentle IV hydration of NS @ 60cc/hr, avoid fluid overload with CHF Monitor CPK with a.m. labs Neurology: Syncope after dizziness - acute Assessment/Plan: Cat scan 09/01/16 no evidence of acute intracranial pathology Carotid doppler with some moderate sized plaques and the left common carotid bifur. and bulb as well as mod sized plaques. Continue Meclizine BID and monitor for response Cardiology: CHF - chronic Assessment/Plan: On Lasix 20mg daily, monitor intake and output Echo with moderate mv thickening, mod to severe mitral calcifications, mod to sev. aortic sclerosis, mild to mod tricuspid regurg. Elevated Troponins: 0.34, 0.35, 0.37, 0.33, likely due to demand ischemia? Cardiology following Continue beta blockers, ASA 81mg and cardiac monitoring Atrial Fibrillation - chronic Assessment/Plan: On Coumadin 4.5mg daily. Coumadin on hold today for elevated INR On Metoprolol 50mg daily which was reduced form home dose of Metoprolol 100mg BID Monitor response to reduced Metoprolol with atrial fib. Hypertension - chronic Assessment/Plan: Hypertension controlled on Metoprolol, was hypotensive today Monitor BPs Hypotension - acute Assessment/Plan: Noted to be hypotensive today Monitor BPs F.E.N. Fluid: NS @60cc/hr Electrolytes: within normal limits Nutrition: Ensure TID, low sodium diet Prophylaxis: DVT Proph: ambulation with rolling walker, fall risk On Coumadin GI: Colace, Miralax Physical therapy following Disposition: Requires inpatient hospitalization. Anticipate discharge to [facility] tomorrow. Full Code. Visit type - Emergency Visit Emergency Visit: Yes ED Registration Date: 08/28/16 Care time: The patient presented to the Emergency Department on the above date and was hospitalized for further evaluation of their emergent condition. - New Patient This patient is new to me today: Yes Date on this admission: 09/04/16 - Critical Care Critical Care patient: No - Discharge Referral Referred to [facility] No
[2016-09-04] MEDS: SODIUM CHLORIDE 1,000 ML IV SCH (14:05)
[2016-09-04] MEDS ORDERED: LIDOCAINE 5% TOPICAL PATCH TP ONE (15:22)
--- NOTE | 2016-09-04 18:10 | PN ---
Progress Note (short form) - Note Progress Note: Renal Follow up for Rhabdomyolysis Pt seen and examined at the bedside complains of lower back pain no chest pain, fever, chills, N/V/D Vital Signs Temperature 98.0 F 09/04/16 14:45 Pulse Rate 113 H 09/04/16 14:45 Respiratory Rate 20 09/04/16 14:45 Blood Pressure 98/66 09/04/16 14:45 O2 Sat by Pulse Oximetry (%) 96 09/04/16 09:00 Gen: NAD, awake and alert CVS: RRR, no M/R Lungs: CTA, no rales or wheeze Abd: soft NT/ND Ext: No edema, clubbing or cyanosis CBC, BMP 09/04/16 05:35 09/04/16 05:35 Current Medications Acetaminophen (Tylenol -) 650 mg PO Q6H PRN PRN Reason: FEVER OR PAIN Last Admin: 09/02/16 13:21 Dose: 650 mg Aspirin (Ecotrin -) 81 mg PO DAILY [facility] Last Admin: 09/04/16 10:20 Dose: 81 mg Docusate Sodium (Colace -) 100 mg PO BID [facility] Last Admin: 09/04/16 12:57 Dose: 100 mg Furosemide (Lasix -) 20 mg PO DAILY [facility] Last Admin: 09/04/16 10:21 Dose: 20 mg Meclizine HCl (Antivert -) 12.5 mg PO BID [facility] Last Admin: 09/04/16 10:21 Dose: 12.5 mg Metoprolol Succinate (Toprol Xl -) 50 mg PO DAILY [facility] Last Admin: 09/04/16 10:21 Dose: 50 mg Oxycodone HCl (Roxicodone -) 5 mg PO Q4H PRN PRN Reason: PAIN Last Admin: 09/02/16 13:20 Dose: 5 mg Polyethylene Glycol (Miralax (For Daily Use) -) 17 gm PO DAILY [facility] Last Admin: 09/04/16 12:56 Dose: Not Given Ranolazine (Ranexa -) 1,000 mg PO BID [facility] Last Admin: 09/04/16 10:20 Dose: 1,000 mg Valsartan (Diovan -) 40 mg PO DAILY [facility] Last Admin: 09/04/16 10:20 Dose: 40 mg A/P 75 year old woman with PMhx of CAD s/p CABG, HTN, HLD who presented s/p fall and found to have rhabdomyolysis. #Rhabdomyolysis in setting of recent falls and LE weakness CK levels improving encorged oral hydation can d/c IVF in am if ck continues to improve #Hx of CHF Appears evolemic at this time on Lasix 20g daily Terry Peralta DO
[2016-09-05 07:16] LABS: EOSINOPHIL 1.7 % (0-4.5); MCH 28.3 pg (25.7-33.7); MCHC 33.3 g/dl (32.0-36.0); MEAN CELL VOLUME 85.1 fl (80-96); MEAN PLT VOLUME 12.2 fl (7.5-11.1); NEUTROPHILS 50.8 % (42.8-82.8); PLATELET COUNT 178 K/MM3 (134-434); RDW 14.3 % (11.6-15.6); WHITE BLOOD COUNT 6.3 K/mm3 (4.0-10.0)
[2016-09-05 07:30] LABS: INR 3.27 (0.82-1.09); PROTHROMBIN TIME (PATIENT) 36.8 SEC (9.98-11.88)
--- NOTE | 2016-09-05 07:39 | PN ---
Progress Note (short form) - Note Progress Note: Chief Complaint: Events noted, notes reviewed, dizziness with certain movements and postural changes have improved, denies any chest pain, remains in atrial flutter with variable AV-conduction History of Present Illness: Seen and examined on telemetry. Events noted, notes reviewed, dizziness with certain movements and postural changes have improved, denies any chest pain, remains in atrial flutter with variable AV-conduction Echocardiography revealed normal LV systolic function, mild MR, mild to moderate TR, RVSP of 32 mmHg, and LA dilatation Medications: Current Medications Acetaminophen (Tylenol -) 650 mg PO Q6H PRN PRN Reason: FEVER OR PAIN Last Admin: 09/05/16 09:33 Dose: 650 mg Aspirin (Ecotrin -) 81 mg PO DAILY [facility] Last Admin: 09/05/16 09:28 Dose: 81 mg Atorvastatin Calcium (Lipitor -) 80 mg PO HS [facility] Docusate Sodium (Colace -) 100 mg PO BID [facility] Last Admin: 09/05/16 09:27 Dose: 100 mg Furosemide (Lasix -) 20 mg PO DAILY [facility] Last Admin: 09/05/16 09:28 Dose: 20 mg Meclizine HCl (Antivert -) 12.5 mg PO BID [facility] Last Admin: 09/05/16 09:27 Dose: 12.5 mg Metoprolol Succinate (Toprol Xl -) 50 mg PO DAILY [facility] Last Admin: 09/05/16 09:27 Dose: 50 mg Oxycodone HCl (Roxicodone -) 5 mg PO Q4H PRN PRN Reason: PAIN Last Admin: 09/05/16 09:35 Dose: 5 mg Polyethylene Glycol (Miralax (For Daily Use) -) 17 gm PO DAILY [facility] Last Admin: 09/05/16 09:28 Dose: 17 gm Ranolazine (Ranexa -) 1,000 mg PO BID [facility] Last Admin: 09/05/16 09:28 Dose: 1,000 mg Valsartan (Diovan -) 40 mg PO DAILY [facility] Last Admin: 09/05/16 09:27 Dose: 40 mg Review of Systems - Review of Systems Constitutional: No symptoms reported Respiratory: denies: Cough or Sputum Production Cardiovascular: As noted above Gastrointestinal: denies Nausea, Vomiting, Diarrhea, Constipation or Abdominal Pain Genitourinary: No symptoms reported Musculoskeletal: Degenerative Joint Disease Endocrine: No symptoms reported Vital Signs: Last Vital Signs Temp Pulse Resp BP Pulse Ox 97.9 F 110 H 19 126/72 96 09/05/16 06:55 09/05/16 06:55 09/05/16 06:55 09/05/16 06:55 09/05/16 06:55 Constitutional: No Distress Neck: Supple Negative JVD No Bruit Respiratory: Clear to A&P Bilaterally Cardiovascular: S1 S2 Irregularly Irregular Gard[place] 1-2/6 LEONID Gastrointestinal: Soft Benign Normal Bowel Sounds Ext: Negative Edema Labs: CBC, BMP 09/05/16 05:35 09/05/16 05:35 INR, PTT INR 3.27 (0.82-1.09) H 09/05/16 05:35 Assessment/Plan ASSESSMENT: 1. Acute on chronic diastolic LV dysfunction with class I-II NYHA classification LV failure, resolved 2. CAD post CABG, angina pectoris with evidence of demand ischemic injury 3. Persistent atrial fibrillation/atrial flutter [id number] score of 5 on chronic A/C with Coumadin, supra-therapeutic INR 4. HTN 5. Hypercholesterolemia 6. History of CVA 7. Postural dizziness, related to vertigo 8. Progressive lower extremity weakness etiology to be determined PLAN: 1. Continue Toprol XL 2. Continue Ranexa 3. Continue Diovan 4. Continue Lipitor 5. Continue Lasix 6. Continue Coumadin and ASA with close monitoring of CBC and INR 7. D/C planning as per primary team Advised to F/U in the office post D/C from acute rehab Shannan Molina M.D.
[2016-09-05 07:56] LABS: ALBUMIN 2.9 g/dl (3.4-5.0); ALK PHOS 66 U/L (45-117); ANION GAP 8 (8-16); CALCIUM 8.6 mg/dL (8.5-10.1); CO2 30 mmol/L (21-32); CREATININE 0.8 mg/dL (0.55-1.02); GLUCOSE,RANDOM 90 mg/dL (74-106); MAGNESIUM 1.6 mg/dL (1.8-2.4); SGOT/AST 46 U/L (15-37); SGPT/ALT 37 U/L (12-78); TOT PROT 5.3 g/dl (6.4-8.2)
[2016-09-05] MEDS ORDERED: MAGNESIUM SULF 50% (8.12 MEQ/2 ML-1 GM VIAL) IVPB ONE ×2 (08:21)
[2016-09-05] MEDS ORDERED: LIDOCAINE 5% TOPICAL PATCH TP ONE ×2 (08:40→09:00)
[2016-09-05] MEDS ORDERED: MAGNESIUM OXIDE 400 MG TABLET (FP) PO ONE (09:00)
[2016-09-05] MEDS ORDERED: ATORVASTATIN CA 80 MG TABLET (FP) PO ONE (09:00)
--- NOTE | 2016-09-05 09:05 | DS ---
Physical Exam: SUBJECTIVE: Patient seen and examined. She states that the dizziness/vertigo is improving with slower postural movements. She denies chest pain, shortness of breath. Verbalizes pain on coccyx area. OBJECTIVE: GENERAL: The patient is awake, alert, and fully oriented, in no acute distress. HEAD: Normal with no signs of trauma - intermittent dizziness/vertigo EYES: PERRL, extraocular movements intact, sclera anicteric, conjunctiva clear. No ptosis. ENT: Ears normal, nares patent, moist mucous membranes. NECK: Trachea midline, full range of motion, supple. LUNGS: Breath sounds equal, clear to auscultation bilaterally HEART: pantomimist: atrial flutter 98-115 ABDOMEN: Soft, nontender, nondistended, normoactive bowel sounds, no guarding, no rebound, no hepatosplenomegaly, no masses. EXTREMITIES: 2+ pulses, warm, well-perfused, no edema, LE weakness, relies on walker for support, fall risk NEUROLOGICAL: Normal speech, steady gait with rolling walker PSYCH: Normal mood, normal affect. SKIN: Warm, dry, normal turgor, no rashes or lesions noted Vital Signs Period Temp Pulse Resp BP Sys/Yeager Pulse Ox Last 24 Hr 97.4 F-98.2 F 104-121 16-20 93-141/53-74 95-96 PHYSICAL EXAM LABS Laboratory Results - last 24 hr 09/05/16 09/05/16 09/05/16 05:35 05:35 05:35 WBC 6.3 RBC 3.87 Hgb 11.0 Hct 32.9 MCV 85.1 MCHC 33.3 RDW 14.3 Plt Count 178 MPV 12.2 H Neutrophils % 50.8 Lymphocytes % 36.4 D Monocytes % 10.1 Eosinophils % 1.7 Basophils % 1.0 INR 3.27 H Sodium 142 Potassium 4.0 Chloride 104 Carbon Dioxide 30 Anion Gap 8 BUN 7 Creatinine 0.8 Creat Clearance w eGFR > 60 Random Glucose 90 Calcium 8.6 Magnesium 1.6 L Total Bilirubin 1.0 AST 46 H D ALT 37 Alkaline Phosphatase 66 Creatine Kinase 631 H D Total Protein 5.3 L Albumin 2.9 L 09/05/16 07:15 WBC RBC Hgb Hct MCV MCHC RDW Plt Count MPV Neutrophils % Lymphocytes % Monocytes % Eosinophils % Basophils % INR Sodium Potassium Chloride Carbon Dioxide Anion Gap BUN Creatinine Creat Clearance w eGFR Random Glucose Calcium Magnesium Total Bilirubin AST ALT Alkaline Phosphatase Creatine Kinase Cancelled Total Protein Albumin HOSPITAL COURSE: Date of Admission:08/28/16 Date of Discharge: 09/05/16 ASSESSMENT/PLAN: Patient is a 75 year old female with a significant past medical history of atrial fibrillation (On Coumadin), CAD, CABG, CVA, hypertension, and hyperlipidemia. She presented to the ER on 08/28/2016 with a fall at home. Her hospitalization was further complicated with another fall during hospitalization as well as intermittent episodes of vertigo. Heart rate remains in Atrial flutter between 98-115. Muscular Skeletal Rhabdomyolysis in the setting of multiple falls and lower extremity weakness - improving Assessment/Plan: CPK improving now 631, encourage PO hydration, BUN/Creatinine stable, adequate I&Os S/p fall at home and also had a another fall during hospitalization. She has agreed to a short term rehab for lower ext. weakness. Lumbar spine MRI: L3-L4 with no evidence of disc herniation - mod degen. facet joint anthropathy L4-L5 - Moderate severe deg. facet joint anthropath. enlarged facet joints L5-S1 - No evidence of disc herniation Needs EMG/NCVs as outpatient ENT evaluation as outpatient Cardiology and Neurology follow up as outpatient Neurology: Syncope after dizziness - improving Assessment/Plan: Cat scan 09/01/16 no evidence of acute intracranial pathology Carotid doppler with some moderate sized plaques and the left common carotid bifur. and bulb as well as mod sized plaques. Continue Meclizine BID and monitor for response Started on Lipitor 80mg @[facility] Cardiology: CHF - chronic Assessment/Plan: On Lasix 20mg daily, monitor intake and output Echo with moderate mv thickening, mod to severe mitral calcifications, mod to sev. aortic sclerosis, mild to mod tricuspid regurg. Elevated Troponins: 0.34, 0.35, 0.37, 0.33, likely due to demand ischemia? Cardiology following, Continue beta blockers, ASA 81mg and cardiac monitoring Atrial Fibrillation/Atrial flutter - chronic Assessment/Plan: On Coumadin 4.5mg daily. Coumadin on hold again today for elevated INR On Metoprolol 50mg daily which was reduced form home dose of Metoprolol 100mg BID To follow up with her House Builder as outpt for close monitoring Hypertension - chronic Hypotension - acute vs. chronic Assessment/Plan: Hypertension controlled on Metoprolol, was mildly hypotensive overnight Monitor BPs F.E.N. Fluid: Tolerating PO intake Electrolytes: Hypomagnesium repleted with PO Mag 800mg x 1 Nutrition: Ensure TID, low sodium diet Prophylaxis: DVT Proph: ambulation with rolling walker, fall risk On Coumadin - HOLD today for elevated INR. Restart on 09/06/2015 GI: Colace, Miralax Physical therapy following Disposition: Discharge today to short term rehab. Full Code. Minutes to complete discharge: 45 Discharge Summary Reason For Visit: UTI, CHF Current Active Problems Acute on chronic congestive heart failure with left ventricular diastolic dysfunction (Acute) Atrial fibrillation (Acute) Bilateral leg weakness (Acute) CAD (coronary artery disease) (Acute) CHF exacerbation (Acute) CVA (cerebral vascular accident) (Acute) Elevated troponin (Acute) HTN (hypertension) (Acute) Hypercholesterolemia (Acute) Status post aorto-coronary artery bypass graft (Acute) UTI (urinary tract infection) (Acute) Condition: Stable - Instructions Diet, Activity, Other Instructions: Please follow up with Dr Lan as outpatient for further workup. I have also referred you to another neurologist: Dr. Hector Hill DO [phone]. Please follow up with Dr. Morrow within 3-5 days of discharge for discharge follow up as well as follow up of INR. You were also referred for an ENT evaluation as outpt as well as an EMG/NCVs test with the neurologist. Your INR (3.27) is still elevated today; do not start Coumadin until tomorrow 06/2016 and please have your INR checked with Dr. Morrow. Please return to the ER if you experience any of the following: Chest pain Racing heart Shortness of breath Worsening dizziness Referrals: Clemente Morrow MD [Primary Care Provider] - Muna Lan MD [Staff Physician] - Francisco Hill DO [Staff Physician] - - Home Medications Comprehensive Discharge Medication List: Ambulatory Orders Aspirin [ASA -] 81 mg PO DAILY #0 tab.chew 08/06/13 Felodipine [Felodipine ER] 2.5 mg PO DAILY #0 tab.er.24h 08/06/13 Ranolazine [Ranexa -] 1,000 mg PO BID #0 tab 08/06/13 Warfarin Na [Coumadin] 4.5 mg PO HS 08/28/16 Atorvastatin Ca [Lipitor] 80 mg PO HS #30 tablet 09/05/16 Furosemide [Lasix -] 20 mg PO DAILY #30 tablet 09/05/16 Meclizine HCl [Antivert -] 12.5 mg PO BID #60 tablet 09/05/16 Metoprolol Succinate [Toprol XL -] 50 mg PO DAILY #30 tab.sr.24h 09/05/16 Valsartan [Diovan] 40 mg PO DAILY #30 tablet 09/05/16 This patient is new to me today: No Emergency Visit: Yes ED Registration Date: 08/28/16 Care time: The patient presented to the Emergency Department on the above date and was hospitalized for further evaluation of their emergent condition. Critical Care patient: No - Discharge Referral Referred to [facility] Med [facility].: No
[2016-09-05] MEDS: METOPROLOL SUCCINATE 50 MG TAB.SR.24H (FP) PO SCH (09:27)
[2016-09-05] MEDS: DOCUSATE SODIUM 100 MG CAPSULE (FP) PO SCH (09:27)
[2016-09-05] MEDS: MECLIZINE HCL 12.5 MG TABLET PO SCH (09:27)
[2016-09-05] MEDS: VALSARTAN 40 MG TABLET (FP) PO SCH (09:27)
[2016-09-05] MEDS: ASPIRIN COATED 81 MG TABLET.EC PO SCH (09:28)
[2016-09-05] MEDS: RANOLAZINE E.R. 1,000 MG TABLET (FP) PO SCH (09:28)
[2016-09-05] MEDS: POLYETHYLENE GLYCOL 3350 119 GM BTL PO SCH (09:28)
[2016-09-05] MEDS: FUROSEMIDE 20 MG TABLET (FP) PO SCH (09:28)
[2016-09-05] MEDS: ACETAMINOPHEN 325 MG TABLET (FP) PO PRN (09:33)
[2016-09-05] MEDS: oxyCODONE HCL 5 MG TABLET PO PRN (09:35)
[2016-09-05 10:34] VITALS: BP 107/65; PULSE 106; TEMP 97.7
--- NOTE | 2016-09-05 10:42 | PN ---
Progress Note (short form) - Note Progress Note: Neurology Progress Note, Physician History of Present Illness: Patient previously seen by Dr. Lan No new complaints, has not been out of bed so no vertigo symptoms On ASA 81mg for CVA prevention Advised slow head movements Ambulating and getting PT during my visit Having some knee discomfort but neurologically appears at baseline Active Medications Acetaminophen (Tylenol -) 650 mg PO Q6H PRN PRN Reason: FEVER OR PAIN Last Admin: 09/05/16 09:33 Dose: 650 mg Aspirin (Ecotrin -) 81 mg PO DAILY [facility] Last Admin: 09/05/16 09:28 Dose: 81 mg Atorvastatin Calcium (Lipitor -) 80 mg PO [facility] Docusate Sodium (Colace -) 100 mg PO BID [facility] Last Admin: 09/05/16 09:27 Dose: 100 mg Furosemide (Lasix -) 20 mg PO DAILY [facility] Last Admin: 09/05/16 09:28 Dose: 20 mg Meclizine HCl (Antivert -) 12.5 mg PO BID [facility] Last Admin: 09/05/16 09:27 Dose: 12.5 mg Metoprolol Succinate (Toprol Xl -) 50 mg PO DAILY [facility] Last Admin: 09/05/16 09:27 Dose: 50 mg Oxycodone HCl (Roxicodone -) 5 mg PO Q4H PRN PRN Reason: PAIN Last Admin: 09/05/16 09:35 Dose: 5 mg Polyethylene Glycol (Miralax (For Daily Use) -) 17 gm PO DAILY [facility] Last Admin: 09/05/16 09:28 Dose: 17 gm Ranolazine (Ranexa -) 1,000 mg PO BID [facility] Last Admin: 09/05/16 09:28 Dose: 1,000 mg Valsartan (Diovan -) 40 mg PO DAILY [facility] Last Admin: 09/05/16 09:27 Dose: 40 mg Vital Signs Period Temp Pulse Resp BP Sys/Yeager Pulse Ox Last 24 Hr 97.4 F-98.2 F 104-121 18-20 93-141/53-74 95-96 Labs: CBCD WBC 7.8 K/mm3 (4.0-10.0) 09/04/16 05:35 RBC 3.79 M/mm3 (3.60-5.2) 09/04/16 05:35 Hgb 10.9 GM/dL (10.7-15.3) 09/04/16 05:35 Hct 32.3 % (32.4-45.2) L 09/04/16 05:35 MCV 85.1 fl (80-96) 09/04/16 05:35 MCHC 33.9 g/dl (32.0-36.0) 09/04/16 05:35 RDW 14.4 % (11.6-15.6) 09/04/16 05:35 Plt Count 171 K/MM3 (134-434) D 09/04/16 05:35 MPV 12.2 fl (7.5-11.1) H 09/04/16 05:35 CMP Sodium 141 mmol/L (136-145) 09/04/16 05:35 Potassium 3.9 mmol/L (3.5-5.1) 09/04/16 05:35 Chloride 104 mmol/L (98-107) 09/04/16 05:35 Carbon Dioxide 30 mmol/L (21-32) 09/04/16 05:35 Anion Gap 7 (8-16) L 09/04/16 05:35 BUN 6 mg/dL (7-18) L D 09/04/16 05:35 Creatinine 0.8 mg/dL (0.55-1.02) 09/04/16 05:35 Creat Clearance w eGFR > 60 (>60) 08/31/16 05:35 Calcium 8.7 mg/dL (8.5-10.1) 09/04/16 05:35 Total Bilirubin 1.0 mg/dL (0.2-1.0) D 08/31/16 05:35 AST 130 U/L (15-37) H D 08/31/16 05:35 ALT 44 U/L (12-78) D 08/31/16 05:35 Alkaline Phosphatase 70 U/L (45-117) 08/31/16 05:35 Total Protein 5.6 g/dl (6.4-8.2) L 08/31/16 05:35 Albumin 2.8 g/dl (3.4-5.0) L 08/31/16 05:35 plan: Vertigo Meclezine as needed Advised slow head movements Increased hydration On ASA 81mg for CVA prevention Ambulating and getting PT during my visit Having some knee discomfort but neurologically appears at baseline Can follow up outpatient
[2016-09-06] MEDS ORDERED: ATORVASTATIN CA 80 MG TABLET (FP) PO SCH (22:00)
== END 2016-09-05 11:54 | DRG 557 ==
LOC: JER 13:36 → UNDOADMIN 18:12 → JERBED 18:12 → J4W 08-29 15:13
PROVIDERS: ADMIT Internal Medicine; ATTEND Nurse Practitioner Family
DX: M62.82 Rhabdomyolysis (principal); I50.33 Acute on chronic diastolic (congestive) heart failure; N30.01 Acute cystitis with hematuria; I48.1 Persistent atrial fibrillation; I48.92 Unspecified atrial flutter; I24.8 Other forms of acute ischemic heart disease; I10 Essential (primary) hypertension; E78.5 Hyperlipidemia, unspecified; I25.119 Atherosclerotic heart disease of native coronary artery with unspecified angina pectoris; Z95.1 Presence of aortocoronary bypass graft; I48.91 Unspecified atrial fibrillation; Z86.73 Personal history of transient ischemic attack (TIA), and cerebral infarction without residual deficits; Z96.653 Presence of artificial knee joint, bilateral; Z79.01 Long term (current) use of anticoagulants; E87.6 Hypokalemia; E86.0 Dehydration; M54.5 Low back pain; Z87.891 Personal history of nicotine dependence; W18.39XA Other fall on same level, initial encounter; Y92.002 Bathroom of unspecified non-institutional (private) residence as the place of occurrence of the external cause; R79.89 Other specified abnormal findings of blood chemistry; E66.09 Other obesity due to excess calories; Z68.33 Body mass index [BMI] 33.0-33.9, adult; H81.399 Other peripheral vertigo, unspecified ear
CPT/HCPCS: 36415; 70450-TC; 71020-TC; 72100-TC; 72148-TC; 72220-TC; 80048; 80053; 80061; 81003; 81015; 82248; 82550; 82553; 83721; 83735; 83880; 84100; 84484; 85025; 85610; 85730; 87086; 93005; 93010; 93306-TC; 93880-TC; 97116-GP; 97163-GP; 99285-25; J1644

== ENCOUNTER 2017-11-04 17:48 | Inpatient (IN) | payer OTHER ==
[2017-11-04 17:55] VITALS: BMI 29.9
[2017-11-04] MEDS ORDERED: MECLIZINE HCL 25 MG TABLET (FP) PO ONE (18:13)
--- NOTE | 2017-11-04 18:13 | PDOC ---
History of Present Illness - General History Source: Patient Exam Limitations: No Limitations - History of Present Illness Initial Comments: 11/04/17 18:14 The patient is a 77 year old female with history of hypertension, hyperlipidemia , a. fib, CAD s/p NM s/p CABG, stroke, brought in by her son for approximately 1 week of altered mental status. The son reports he first noticed that the patient seemed confused approximately 2 days ago. She has appeared to have not taken her home medications for approximately 1 week. He also believes she has not been eating well. Today, the patient complains of some lower back pain. No fever or chills. No headache or numbness or tingling. No chest pain or shortness of breath. No urinary complaints. PCP: Dr. Clemente Morrow <Rachel Joyner - Last Filed: 11/04/17 23:02> <Afua Soto - Last Filed: 11/04/17 23:59> - General Chief Complaint: Altered Mental Status Stated Complaint: SHORTNESS OF BREATH Time Seen by Provider: 11/04/17 18:07 Past History <Rachel Joyner - Last Filed: 11/04/17 23:02> - Past Medical History Cardiac Disorders: Yes (AFIB) CVA: Yes (TIA) COPD: No GI Disorders: Yes HTN: Yes Hypercholesterolemia: Yes - Surgical History Appendectomy: Yes Cardiac Surgery: Yes (BYPASS) Orthopedic Surgery: Yes (Bilateral Knee Replacement) - Suicide/Smoking/Psychosocial Hx Smoking Status: No Smoking History: Never smoked Have you smoked in the past 12 months: No Number of Cigarettes Smoked Daily: 0 If you are a former smoker, when did you quit?: Over 10 years ago Hx Alcohol Use: No Drug/Substance Use Hx: No Substance Use Type: None Hx Substance Use Treatment: No <Afua Soto - Last Filed: 11/04/17 23:59> - Past Medical History Allergies/Adverse Reactions: Allergies Allergy/AdvReac Type Severity Reaction Status Date / Time No Known Allergies Allergy Verified 11/04/17 17:55 Home Medications: Ambulatory Orders Aspirin [ASA -] 81 mg PO DAILY #0 tab.chew 08/06/13 Atorvastatin Ca [Lipitor] 80 mg PO HS #30 tablet 09/05/16 Apixaban [Eliquis] 5 mg PO DAILY 11/04/17 Digoxin [Lanoxin -] 0.125 mg PO ASDIR 11/04/17 Digoxin [Lanoxin -] 0.25 mg PO Q3D 11/04/17 Metoprolol Succinate [Toprol XL -] 25 mg PO DAILY 11/04/17 Review of Systems - Review of Systems Able to Perform ROS?: Yes Comments:: 11/04/17 18:25 GENERAL/CONSTITUTIONAL: No fever or chills. No weakness. HEAD, EYES, EARS, NOSE AND THROAT: No change in vision. No ear pain or discharge. No sore throat. CARDIOVASCULAR: No chest pain or shortness of breath. RESPIRATORY: No cough, wheezing, or hemoptysis. GASTROINTESTINAL: No nausea, vomiting, diarrhea or constipation. GENITOURINARY: No dysuria, frequency, or change in urination. MUSCULOSKELETAL: +Lower back pain. No joint or muscle swelling or pain. No neck pain. SKIN: No rash NEUROLOGIC: No headache, vertigo, loss of consciousness, or change in strength/ sensation. ENDOCRINE: No increased thirst. No abnormal weight change. HEMATOLOGIC/LYMPHATIC: No anemia, easy bleeding, or history of blood clots. ALLERGIC/IMMUNOLOGIC: No hives or skin allergy. <Rachel Joyner - Last Filed: 11/04/17 23:02> *Physical Exam - Vital Signs Last Vital Signs Temp Pulse Resp BP Pulse Ox 98.1 F 39 L 18 189/64 99 11/04/17 17:50 11/04/17 17:50 11/04/17 17:50 11/04/17 17:50 11/04/17 17:50 - Physical Exam Comments: 11/04/17 20:00 GENERAL: Awake, alert. Oriented to self and place but not time. No acute distress. HEAD: No signs of trauma EYES: PERRLA, EOMI, sclera anicteric, conjunctiva clear ENT: Auricles normal inspection, nares patent. Moist mucosa NECK: Normal ROM, supple, no JVD, or masses LUNGS: Breath sounds equal, clear to auscultation bilaterally. No wheezes, and no crackles HEART: Irregularly irregular rate and rhythm. +murmur. ABDOMEN: Soft, nontender, normoactive bowel sounds. No guarding, no rebound. No masses. +L flank ttp. EXTREMITIES: Normal range of motion, no edema. No clubbing or cyanosis. No cords, erythema, or tenderness NEUROLOGICAL: Alert and oriented x 3. Moves all extremities. Face is symmetric. See NIHSS. SKIN: Warm, Dry, normal turgor, no rashes or lesions noted. <Rachel Joyner - Last Filed: 11/04/17 23:02> - Vital Signs Last Vital Signs Temp Pulse Resp BP Pulse Ox 98.1 F 39 L 18 189/64 99 11/04/17 17:50 11/04/17 17:50 11/04/17 17:50 11/04/17 17:50 11/04/17 17:50 <Afua Soto - Last Filed: 11/04/17 23:59> Heart Score/ECG Review #1 11/04/17 20:21 EKG obtained 18:33. Idioventricular rhythm at 40 bpm. Right bundle branch block. T wave abnormality, consider inferolateral ischemia. Comparison study obtained 11/03/2016. Atrial fibrillation at 62 bpm. Right bundle branch block. T wave abnormality, consider lateral ischemia. Abnormal EKG. <Rachel Joyner - Last Filed: 11/04/17 23:02> - History History: Slightly suspicious - Electrocardiogram EKG: Non specific repolarization disturbance - Age Age: >/= 65 - Risk Factors Risk Factors Heart Score: Yes Hx Hypertension, Yes Hx Diabetes Based on the list above the patient has:: 1-2 risk factors - Troponin Troponin: </= normal limit - Score Heart Score - Total: 4 - ECG Intrepretation Rhythm: Irregularly Irregular - P and SC Delta Wave(s) Present: No WPW: No - QRS Widened: RBBB - ECG Impressions Bradycardia: Yes <Afua Soto - Last Filed: 11/04/17 23:59> ED Treatment Course - LABORATORY CBC & Chemistry Diagram: 11/04/17 18:40 11/04/17 18:40 <Rachel Joyner - Last Filed: 11/04/17 23:02> - LABORATORY CBC & Chemistry Diagram: 11/04/17 18:40 11/04/17 18:40 <Afua Soto - Last Filed: 11/04/17 23:59> Medical Decision Making - Medical Decision Making 11/04/17 22:[address], read and reviewed by Imaging Automobile Mechanic Radiator. IMPRESSION: No acute intracranial abnormality. Age related involutional changes. Micro- angiopathic changes: Severe. THIS DOCUMENT HAS BEEN ELECTRONICALLY SIGNED Florida Olson MD 11/04/17 23:03 Placed call to patient's overhead cleaner maintainer, Dr. Locke, at [phone]. Awaiting call back from Dr. Silva 11/04/17 23:[address] Silva. <Rachel Joyner - Last Filed: 11/04/17 23:02> - Medical Decision Making 11/04/17 23:07 77-year-old female brought in by son because she seems to be altered. She is not taking any medications since last Sunday and they feel that she's not been eating. It was noted that she was very bradycardic with a pulse of 39 upon arrival. Patient denied any chest pain. Patient has a history of atrial fibrillation and is and is on [place]. Past medical history includes hypertension, hyperlipidemia, A. fib, coronary artery disease status post NM, status post CABG, stroke CAT scan of the head was negative for any acute intracranial pathology First troponin was 0.12 and will be trended Pipe Jeeper is Dr. Locke and Dr. Leyva was covering and I spoke with her dig level was notified of the patient's ER visit 11/04/17 23:58 <Afua Soto - Last Filed: 11/04/17 23:59> *DC/Admit/Observation/Transfer - Attestations Scribe Attestion: 11/04/17 18:25 Documentation prepared by Rachel Joyner, acting as emergency medical technician/driver for Afua Soto MD. <Rachel Joyner - Last Filed: 11/04/17 23:02> - Discharge Dispostion Admit: Yes <Afua Soto - Last Filed: 11/04/17 23:59> Diagnosis at time of Disposition: Bradycardia Atrial fibrillation Qualifiers: Atrial fibrillation type: chronic Qualified Code(s): I48.2 - Chronic atrial fibrillation CAD (coronary artery disease) Qualifiers: Coronary Disease-Associated Artery/Lesion type: unspecified vessel or lesion type [place] vs. transplanted heart: [place] heart Associated angina: without angina Qualified Code(s): I25.10 - Atherosclerotic heart disease of [place] coronary artery without angina pectoris HTN (hypertension) Qualifiers: Hypertension type: essential hypertension Qualified Code(s): I10 - Essential ( primary) hypertension - Referrals Referrals: Clemente Morrow MD [Primary Care Provider] - NIH Stroke Scale - Last Known Well Date/Time & Onset Date Last Known Well: 10/30/17 Time Last Known Well: 12:00 - Initial Evaluation Level of consciousness: Alert Ask patient the month and their age: Answers one correctly Ask patient to open & close eyes; make fist and let go: Obeys both correctly Best gaze (horizontal eye movement): Normal Visual field testing: No visual field loss Facial paresis (Show teeth/raise eyebrows/close eyes tight): Normal symmetrical movement Motor Function: Left Arm: Normal Motor Function: Right Arm: Normal (extends arm 90 (or 45) degrees for 10 seconds without drift Motor Function: Left Leg: Normal (extends leg 30 degrees for 5 seconds without drift) Motor Function: Right Leg: Normal (extends leg 30 degrees for 5 seconds without drift) Limb Ataxia: No ataxia Sensory(Use pinprick test arms,legs,trunk,face/side to side): Normal Best language (Describe picture, name items, read sentences): No Aphasia Dysarthria (read several words): Normal articulation Extinction and Inattention: No abnormality - Total Score NIH Stroke Scale Score: 1 <Rachel Joyner - Last Filed: 11/04/17 23:02>
[2017-11-04] MEDS ORDERED: MECLIZINE HCL 25 MG TABLET (FP) ONE (18:37)
[2017-11-04 18:45] LABS: BASO % 1.1 % (0-2.0); HEMATOCRIT 35.2 % (32.4-45.2); HEMOGLOBIN 11.9 GM/dL (10.7-15.3); LYMPH % 30.6 % (8-40); MCH 29.2 pg (25.7-33.7); MCHC 33.8 g/dl (32.0-36.0); MEAN CELL VOLUME 86.4 fl (80-96); MEAN PLT VOLUME 12.2 fl (7.5-11.1); MONO % 8.1 % (3.8-10.2); NEUT % 59.2 % (42.8-82.8); PLATELET COUNT 163 K/MM3 (134-434); RBC 4.07 M/mm3 (3.60-5.2); RDW 14.6 % (11.6-15.6); WHITE BLOOD COUNT 8.8 K/mm3 (4.0-10.0)
[2017-11-04 19:32] LABS: URINE APPEARANCE CLEAR; URINE BILIRUBIN NEGATIVE (NEGATIVE); URINE BLOOD 1+ (NEGATIVE); URINE COLOR YELLOW; URINE GLUCOSE (UA) NEGATIVE (NEGATIVE); URINE KETONE NEGATIVE (NEGATIVE); URINE LEUK ESTERASE NEGATIVE (NEGATIVE); URINE NITRITE NEGATIVE (NEGATIVE); URINE UROBILINOGEN NEGATIVE mg/dL (0.2-1.0)
[2017-11-04 19:33] LABS: URINE PROTEIN 1+ (NEGATIVE)
[2017-11-04 19:35] LABS: ALBUMIN 3.7 g/dl (3.4-5.0); ANION GAP 10 (8-16); BILIRUBIN,TOTAL 1.2 mg/dL (0.2-1.0); BLOOD UREA NITROGEN 15 mg/dL (7-18); CALCIUM 8.6 mg/dL (8.5-10.1); CHLORIDE 105 mmol/L (98-107); CO2 23 mmol/L (21-32); CREATININE 1.1 mg/dL (0.55-1.02); GLUCOSE,RANDOM 104 mg/dL (74-106); LIPASE 76 U/L (73-393); POTASSIUM 4.1 mmol/L (3.5-5.1); SGOT/AST 17 U/L (15-37); SGPT/ALT 25 U/L (12-78); SODIUM 138 mmol/L (136-145); TOT PROT 6.7 g/dl (6.4-8.2)
[2017-11-04 19:37] LABS: ALK PHOS 88 U/L (45-117)
[2017-11-04 19:47] LABS: EPI CELLS RARE /HPF (FEW); GRANULAR CASTS 6 /lpf; URINE BACTERIA RARE /hpf (NONE SEEN); URINE HYALINE CAST 2 /lpf; URINE MUCUS RARE
[2017-11-04 22:47] LABS: INR 1.26 (0.82-1.09); PROTHROMBIN TIME (PATIENT) 14.2 SEC (9.98-11.88)
--- NOTE | 2017-11-04 23:28 | PN ---
Teaching Attending Note Name of Resident: Avis Leong ATTENDING PHYSICIAN STATEMENT I saw and evaluated the patient. I reviewed the resident's note and discussed the case with the resident. I agree with the resident's findings and plan as documented. SUBJECTIVE: 77 F with pmhx of smoking (quit 10 years ago, 1-2ppd), A-Fib (on Coumadin), HTN , HLD, CAD hx. of CABG, who is brought in by son for 1 week history of altered mental status. Her son noticed she did not take her meds for one week duration. He also reports she has been confused around two days agp. States she has low back pain. No fevers or chills. No chest pain or pressure. ED Course: Found to be Bradycardic OBJECTIVE: Physical: VS: Vital Signs Period Temp Pulse Resp BP Sys/Yeager Pulse Ox Last 24 Hr 98.1 F 39 18 189/64 99 GEN: NAD, Resting in bed, AA0X3 HEENT: NCAT, PERRL, Throat without erythema or exudates CARD: Sinus Kevyn S1, S2 RESP: CTAB ABD: BSX4, NTD to palpation EXT: - C/C/E CBCD WBC 8.8 K/mm3 (4.0-10.0) 11/04/17 18:40 RBC 4.07 M/mm3 (3.60-5.2) 11/04/17 18:40 Hgb 11.9 GM/dL (10.7-15.3) 11/04/17 18:40 Hct 35.2 % (32.4-45.2) 11/04/17 18:40 MCV 86.4 fl (80-96) 11/04/17 18:40 MCHC 33.8 g/dl (32.0-36.0) 11/04/17 18:40 RDW 14.6 % (11.6-15.6) 11/04/17 18:40 Plt Count 163 K/MM3 (134-434) 11/04/17 18:40 MPV 12.2 fl (7.5-11.1) H 11/04/17 18:40 CMP Sodium 138 mmol/L (136-145) 11/04/17 18:40 Potassium 4.1 mmol/L (3.5-5.1) 11/04/17 18:40 Chloride 105 mmol/L (98-107) 11/04/17 18:40 Carbon Dioxide 23 mmol/L (21-32) 11/04/17 18:40 Anion Gap 10 (8-16) 11/04/17 18:40 BUN 15 mg/dL (7-18) 11/04/17 18:40 Creatinine 1.1 mg/dL (0.55-1.02) H 11/04/17 18:40 Creat Clearance w eGFR 48.29 (>60) 11/04/17 18:40 Random Glucose 104 mg/dL (74-106) 11/04/17 18:40 Calcium 8.6 mg/dL (8.5-10.1) 11/04/17 18:40 Total Bilirubin 1.2 mg/dL (0.2-1.0) H 11/04/17 18:40 AST 17 U/L (15-37) 11/04/17 18:40 ALT 25 U/L (12-78) 11/04/17 18:40 Alkaline Phosphatase 88 U/L (45-117) 11/04/17 18:40 Total Protein 6.7 g/dl (6.4-8.2) 11/04/17 18:40 Albumin 3.7 g/dl (3.4-5.0) 11/04/17 18:40 CARDIAC ENZYMES Creatine Kinase 113 IU/L (26-192) 11/04/17 18:40 Troponin I 0.12 ng/ml (0.00-0.05) H 11/04/17 18:40 CXR: No Acute Proces EKG: Idioventricular Rythem 40 Qtc 449 Ambulatory Orders Aspirin [ASA -] 81 mg PO DAILY #0 tab.chew 08/06/13 Atorvastatin Ca [Lipitor] 80 mg PO HS #30 tablet 09/05/16 Apixaban [Eliquis] 5 mg PO DAILY 11/04/17 Digoxin [Lanoxin -] 0.125 mg PO ASDIR 11/04/17 Digoxin [Lanoxin -] 0.25 mg PO Q3D 11/04/17 Metoprolol Succinate [Toprol XL -] 25 mg PO DAILY 11/04/17 CT HEAD- No Acute Process ASSESSMENT AND PLAN: 77 F with pmhx of smoking (quit 10 years ago, 1-2ppd), A-Fib (on Eliquis), HTN, HLD, CAD hx. of CABG, who is brought in by son for 1 week history of altered mental status. 1.) Altered Mental Status - DDx: Acute Metbolic Encephalopathy, TGA (less likley given timefram), CVA/TIA - U tox - Digoxin level - B12, Folate, TSH - UCx - Neuro consult- consider MRI/MRA tomorrow 2.) Sinus Kveyn - Hold BB - Echo - Transcutaneus pacer pads - Trend Trop/EKG - Cardio Consult 3.) A-Fib - Hold BB - C/W Eliquis - Hold Digoxin, Await Level 4.) CAD s/P CABG - C/W Asa - Statin 5.) HTN Urgency - Hold BB - Amlodipine 6.) HLD - C?W Statin 7.) ARF - U lytes - Avoid nephrotoxins - Trend 8.) Dvt Ppx - On Eliquis Place [place]
--- NOTE | 2017-11-04 23:32 | HP ---
CHIEF COMPLAINT: AMS x 1 week PCP: Dr Corbett Cardiol: Dr Locke HISTORY OF PRESENT ILLNESS: 77 yo F with PMHx of HTN, HLD, Afib, CAD s/p AL s/ p CABG, stroke, spondylosis, brought in by son for AMS. The pt lives alone, and has her son visit her several times a week. At baseline, the pt had independent ADLs, cooked, walked mostly without a walker and was able to administer her medications by herself from her pill box. This week, the son seemed to notice that she had not taken any of her medications, and had not been eating well and had started to be "disconnected from reality". For instance she was "chasing after her young children that were missing"- she currently has no young children and would not be chasing her grandchildren. Also she appears to be having conversations he described as "non existent" or with people that were not there. Pt's son noted that she had a similar presentation of bizarre conversations, about a year ago, when she was also noted to be bradycardic. Over the years though, pt's son notes that she has become increasingly forgetful but with this dramatic downward trend in the last week. It is unknown if she had a fall, ingested any substances or wrongly took her medications. No hx of fevers, no cough, SOB, syncopal attacks, or recent weakness of body prior to presentation. Pt says she feels fine and only has pain in back and knees today. She assumed she had been brought to get an EKG done. Pt was found to be bradycardic in the ED ER course was notable for: (1) HR-39, BP-189/64, trops-0.12, BNP-2638.79, cr-1.1 (2) UA-1+ Pr, Urine -1+, (3) EKG- Not formally read-idioventricular rhythm, Vent 40, RBBB, QTc-449 (4) CT Head: No acute intracranial abnormality. Age related microangioangiopathy changes Recent Travel: None PAST MEDICAL HISTORY: HTN, HLD, Afib, CAD s/p AL s/p CABG, stroke, spondylosis PAST SURGICAL HISTORY: CABG Bilateral knee surgery Social History: Smoking:Quit 20 years ago Alcohol: Never Drugs: Family History: Allergies No Known Allergies Allergy (Verified 11/04/17 17:55) HOME MEDICATIONS: Home Medications Medication Instructions Recorded Aspirin [ASA -] 81 mg PO DAILY #0 tab.chew 08/06/13 Atorvastatin Ca [Lipitor] 80 mg PO HS #30 tablet 09/05/16 Apixaban [Eliquis] 5 mg PO DAILY 11/04/17 Digoxin [Lanoxin -] 0.125 mg PO ASDIR 11/04/17 Digoxin [Lanoxin -] 0.25 mg PO Q3D 11/04/17 Metoprolol Succinate [Toprol XL -] 25 mg PO DAILY 11/04/17 REVIEW OF SYSTEMS CONSTITUTIONAL: Absent: fever, chills, diaphoresis, generalized weakness, malaise, loss of appetite, weight change HEENT: Absent: rhinorrhea, nasal congestion, throat pain, throat swelling, difficulty swallowing, mouth swelling, ear pain, eye pain, visual changes CARDIOVASCULAR: Absent: chest pain, syncope, palpitations, irregular heart rate, lightheadedness , peripheral edema RESPIRATORY: Absent: cough, shortness of breath, dyspnea with exertion, orthopnea, wheezing, stridor, hemoptysis GASTROINTESTINAL: Absent: abdominal pain, abdominal distension, nausea, vomiting, diarrhea, constipation, melena, hematochezia GENITOURINARY: Absent: dysuria, frequency, urgency, hesitancy, hematuria, flank pain, genital pain MUSCULOSKELETAL: Absent: myalgia, arthralgia, joint swelling, back pain, neck pain SKIN: Absent: rash, itching, pallor HEMATOLOGIC/IMMUNOLOGIC: Absent: easy bleeding, easy bruising, lymphadenopathy, frequent infections ENDOCRINE: Absent: unexplained weight gain, unexplained weight loss, heat intolerance, cold intolerance NEUROLOGIC: Absent: headache, focal weakness or paresthesias, dizziness, unsteady gait, seizure, mental status changes, bladder or bowel incontinence PSYCHIATRIC: Absent: anxiety, depression, suicidal or homicidal ideation, hallucinations. PHYSICAL EXAMINATION Vital Signs - 24 hr 11/04/17 17:50 Temperature 98.1 F Pulse Rate 39 L Respiratory 18 Rate Blood Pressure 189/64 O2 Sat by Pulse 99 Oximetry (%) GENERAL: Pleasant lady, Awake, alert, confused, oriented to person but not to place and time, in no acute distress. HEAD: Normal with no signs of trauma. EYES: Pupils equal, round and reactive to light, extraocular movements intact, sclera anicteric, conjunctiva clear. EARS, NOSE, THROAT: Oropharynx clear without exudates. Moist mucous membranes. NECK: Normal range of motion, supple without lymphadenopathy, JVD, or masses. LUNGS: Breath sounds equal, clear to auscultation bilaterally. No wheezes, and no crackles. HEART: Bradycardic, irregular, S1 and S2 ABDOMEN: Soft, nontender, not distended, normoactive bowel sounds, no guarding, no rebound, no masses. MUSCULOSKELETAL: Normal range of motion at all joints. No bony deformities or tenderness. No CVA tenderness. UPPER EXTREMITIES: 2+ pulses, warm, well-perfused. No cyanosis. No clubbing. No peripheral edema. LOWER EXTREMITIES: 2+ pulses, warm, well-perfused. No calf tenderness. No peripheral edema. NEUROLOGICAL: Cranial nerves II-XII intact. Normal speech. gait not observed. PSYCHIATRIC: Cooperative. Good eye contact. Confused Laboratory Results - last 24 hr 11/04/17 11/04/17 11/04/17 18:10 18:21 18:40 WBC 8.8 RBC 4.07 Hgb 11.9 Hct 35.2 MCV 86.4 MCH 29.2 MCHC 33.8 RDW 14.6 Plt Count 163 MPV 12.2 H Neutrophils % 59.2 D Lymphocytes % 30.6 D Monocytes % 8.1 Eosinophils % 1.0 D Basophils % 1.1 PT with INR INR Sodium Potassium Chloride Carbon Dioxide Anion Gap BUN Creatinine Creat Clearance w eGFR Random Glucose Calcium Total Bilirubin AST ALT Alkaline Phosphatase Creatine Kinase Troponin I B-Natriuretic Peptide 2638.79 H Total Protein Albumin Lipase Urine Color Yellow Urine Appearance Clear Urine pH 5.0 Ur Specific Jewett 1.018 Urine Protein 1+ H Urine Glucose (UA) Negative Urine Ketones Negative Urine Blood 1+ H Urine Nitrite Negative Urine Bilirubin Negative Urine Urobilinogen Negative Ur Leukocyte Esterase Negative Urine WBC (Auto) 2 Urine RBC (Auto) 4 Ur Epithelial Cells Rare Urine Bacteria Rare Hyaline Casts 2 Granular Casts 6 Urine Mucus Rare 11/04/17 11/04/17 18:40 22:20 WBC RBC Hgb Hct MCV MCH MCHC RDW Plt Count MPV Neutrophils % Lymphocytes % Monocytes % Eosinophils % Basophils % PT with INR 14.20 H INR 1.26 H D Sodium 138 Potassium 4.1 Chloride 105 Carbon Dioxide 23 Anion Gap 10 BUN 15 Creatinine 1.1 H Creat Clearance w eGFR 48.29 Random Glucose 104 Calcium 8.6 Total Bilirubin 1.2 H AST 17 ALT 25 Alkaline Phosphatase 88 Creatine Kinase 113 Troponin I 0.12 H B-Natriuretic Peptide Total Protein 6.7 Albumin 3.7 Lipase 76 Urine Color Urine Appearance Urine pH Ur Specific Jewett Urine Protein Urine Glucose (UA) Urine Ketones Urine Blood Urine Nitrite Urine Bilirubin Urine Urobilinogen Ur Leukocyte Esterase Urine WBC (Auto) Urine RBC (Auto) Ur Epithelial Cells Urine Bacteria Hyaline Casts Granular Casts Urine Mucus ASSESSMENT/PLAN: 77 yo F with PMHx of HTN, HLD, Afib, CAD s/p AL s/p CABG, stroke, spondylosis brought in by son for AMS and found to be bradycardic in the ED. AMS: R/O Drug overdose vs poor perfusion 2/2 bradycarda vs dementia (likely vascular) Chronic forgetfulness Digoxin level Utox EKG Folate, B12, TSH, Ammonia CT head- no acute pathology Neurology consult- Dr Gregorio UA, Ucx, CXR Bradycardia: HR <40 Repeat EKG ECHO Percutaneous pacemaker Cardiac monitoring Cardiology consult-Dr Locke Trend trops Digoxin level Hypertension: Hold toprolol with bradycardia Tabs amlodipine Cardiac monitoring Afib hx: Now in idioventricular rhythm Cont eliquis Hold toprol CAD s/p AL s/p CABG/Stroke: Cont Eliquis- No acute intracranial pathology on CT head ASA 81 daily ALLISON: Could be prerenal due to dehydration from reduced intake liberal oral fluids HLD: Atorvastatin 80 HS Spondylosis: Monitor may benefit from tylenol PO FEN: No IV fluids at this time Monitor lytes and replete as needed Low sodium diet PPx: Continue eliquis Dispo: Tele Visit type - Emergency Visit Emergency Visit: Yes ED Registration Date: 11/04/17 Care time: The patient presented to the Emergency Department on the above date and was hospitalized for further evaluation of their emergent condition. - New Patient This patient is new to me today: Yes Date on this admission: 11/05/17 - Critical Care Critical Care patient: No Hospitalist Screening - Colonoscopy Questionnaire Colonoscopy Questionnaire: Colonoscopy Questionnaire - Patient: 50 - 75 years old and never had a screening colonoscopy: No History of colon or rectal polyps, or CA: Unknown History of IBD, Crohn's disease or UC: Unknown History of abdominal radiation therapy as a child: Unknown - Relative: 1 with colon or rectal CA, or polyps at age 60 or younger: Unknown Colon or rectal CA diagnosed at age 45 or younger: Unknown Multiple relatives with colon or rectal CA: Unknown - Outcome: Screening Result: Negative Screen
[2017-11-05] MEDS ORDERED: amLODIPine BESYLATE 5 MG TABLET (FP) PO ONE (00:47)
[2017-11-05 07:16] LABS: COCAINE, UR NEGATIVE ng/ml (CUTOFF=300); METHADONE, UR NEGATIVE ng/ml (CUTOFF=300); OPIATES, URI NEGATIVE ng/ml (CUTOFF=300); PHENCYCLIDINE,URINE NEGATIVE ng/ml (CUTOFF=25); URINE AMPHETAMINES NEGATIVE ng/ml (CUTOFF=500); URINE BARBITURATES NEGATIVE ng/ml (CUTOFF=200); URINE BENZODIAZEPINES NEGATIVE ng/ml (CUTOFF=200)
[2017-11-05 07:20] LABS: BASO % 0.5 % (0-2.0); EOS % 1.1 % (0-4.5); HEMATOCRIT 35.7 % (32.4-45.2); HEMOGLOBIN 11.9 GM/dL (10.7-15.3); LYMPH % 36.3 % (8-40); MCH 28.8 pg (25.7-33.7); MCHC 33.3 g/dl (32.0-36.0); MEAN CELL VOLUME 86.4 fl (80-96); MEAN PLT VOLUME 12.6 fl (7.5-11.1); MONO % 9.5 % (3.8-10.2); NEUT % 52.6 % (42.8-82.8); PLATELET COUNT 155 K/MM3 (134-434); RBC 4.13 M/mm3 (3.60-5.2); RDW 15.1 % (11.6-15.6); WHITE BLOOD COUNT 8.5 K/mm3 (4.0-10.0)
[2017-11-05 07:29] LABS: INR 1.22 (0.82-1.09); PROTHROMBIN TIME (PATIENT) 13.8 SEC (9.98-11.88)
[2017-11-05 07:30] LABS: ALBUMIN 3.5 g/dl (3.4-5.0); ANION GAP 7 (8-16); BLOOD UREA NITROGEN 13 mg/dL (7-18); CALCIUM 8.6 mg/dL (8.5-10.1); CHLORIDE 106 mmol/L (98-107); CO2 27 mmol/L (21-32); GLUCOSE,RANDOM 93 mg/dL (74-106); POTASSIUM 4.2 mmol/L (3.5-5.1); SODIUM 140 mmol/L (136-145)
[2017-11-05 07:32] LABS: ACTIVATED PTT 33.2 SECONDS (26.9-34.4)
[2017-11-05 07:36] LABS: ALK PHOS 83 U/L (45-117); BILIRUBIN,TOTAL 1.3 mg/dL (0.2-1.0); CREATININE 0.9 mg/dL (0.55-1.02); PHOSPHOROUS 3.1 mg/dL (2.5-4.9); SGOT/AST 18 U/L (15-37); SGPT/ALT 27 U/L (12-78); TOT PROT 6.4 g/dl (6.4-8.2)
--- NOTE | 2017-11-05 08:14 | PN ---
Physical Exam: SUBJECTIVE: Patient seen and examined. Offers on complaints. Denies sob, cp, chest palpitations, dizziness, fever, chills, n/v. OBJECTIVE: Vital Signs Period Temp Pulse Resp BP Sys/Yeager Pulse Ox Last 24 Hr 98 F-98.4 F 35-58 18-18 152-189/64-82 99-99 GENERAL: aaox1, nad HEENT: EOMI, sclera anicteric, conjunctiva clear, MMM, neck supple LUNGS: CTAB HEART: bradycardia, irregular, normal s1/s2, no m/r/g ABDOMEN: soft, ntnd, normoactive BS LOWER EXTREMITIES: 2+ DP pulses, wwp, no edema NEUROLOGICAL: Cranial nerves II through XII grossly intact. Normal speech, gait not observed. CBC, BMP 11/05/17 06:34 11/05/17 06:34 Troponin, BNP 11/05/17 11/05/17 06:34 14:40 Troponin I 0.13 H 0.11 H INR 1.22 (0.82-1.09) H 11/05/17 06:34 Digoxin: 0.2842 L TSH: 5.04 H Utox: Negative IMAGING: Head CT (11/04): No e/o acute intracranial hemorrhage, edema, midline shift, mass effect or skull fracture; chronic R occipital lobe cortical infarct, moderate degree supratentorial chronic white matter microangiopathic ischemic changes, gliosis CXR (11/04): enlarged cardiac silhouette, no focal consolidations or pleural effusions Active Medications Apixaban (Eliquis -) 5 mg PO DAILY [facility] Aspirin (Asa -) 81 mg PO DAILY [facility] Last Admin: 11/05/17 09:10 Dose: 81 mg Atorvastatin Calcium (Lipitor -) 80 mg PO HS [facility] ASSESSMENT/PLAN: 77yo F with PMH of Afib (onn Eliquis), HTN, HLD, CAD s/p MS, CABG, and prior TIA who was brought in by son for AMS and found to be in bradycardia. #acute AMS of unclear etiology, neg w/u thus far (Head CT neg, UA neg for UTI, UTox neg, digoxin level low) -Neuro consulted -f/u TSH -f/u ECHO #bradycardia, idioventricular rhythm on tele, Troponins trending flat w/o EKG ischemic changes or CP -Cardiology consulted, appreciate recomendations -ECHO completed, results pending -possible consideration for pacemaker #HTN -Norvasc -hold home BB while bradycardic #CAD s/p MS s/p CABG - c/w ASA and Lipitor #Afib - c/w Eliquis #FEN: PO fluids/ lytes wnl / Na controlled diet #DVT PPX- on Eliquis #Dispo: continue tele d/w Dr. Mason Mitchell MD PGY1 - Internal Medicine Visit type - Emergency Visit Emergency Visit: No - New Patient This patient is new to me today: Yes Date on this admission: 11/05/17 - Critical Care Critical Care patient: No
[2017-11-05] MEDS ORDERED: PT OWN MED DRAWER 7, Y5N ONE (08:49)
--- NOTE | 2017-11-05 09:43 | CONSULT ---
Consult - text type - Consultation Consultation Note: Neurology HISTORY OF PRESENT ILLNESS: 77 yo F with PMHx of HTN, HLD, Afib, CAD s/p MS s/ p CABG, stroke, spondylosis, brought in by son for AMS. The pt lives alone, and has her son visit her several times a week. At baseline, the pt has independent ADLs, cooks, walks mostly without a walker and was able to administer her medications by herself from her pill box. Reported week prior to admission, the son seemed to notice that she had not taken any of her medications, and had not been eating well and had started to be "disconnected from reality". For instance she was "chasing after her young children that were missing"- she currently has no young children and would not be chasing her grandchildren. Also she appeared to be having conversations he described as "non existent" or with people that were not there. Pt's son noted that she had a similar presentation of bizarre conversations, about a year ago, when she was also noted to be bradycardic. Over the years though, pt's son notes that she has become increasingly forgetful and with this dramatic downward trend in the last week. Pt was found to be bradycardic in the ED. CT head compelted and reviewed and no acute changes not, old R occipital infarct noted. Microvascular disease and atrophy noted. During my eval, she was able to tell me it's October and at first said 2009 but then said 2018. Caroline Torres is President. Recent Travel: None PAST MEDICAL HISTORY: HTN, HLD, Afib, CAD s/p MS s/p CABG, stroke, spondylosis PAST SURGICAL HISTORY: CABG Bilateral knee surgery Social History: Smoking:Quit 20 years ago Alcohol: Never Drugs: Family History: Allergies No Known Allergies Allergy (Verified 11/04/17 17:55) HOME MEDICATIONS: Home Medications Medication Instructions Recorded Aspirin [ASA -] 81 mg PO DAILY #0 tab.chew 08/06/13 Atorvastatin Ca [Lipitor] 80 mg PO HS #30 tablet 09/05/16 Apixaban [Eliquis] 5 mg PO DAILY 11/04/17 Digoxin [Lanoxin -] 0.125 mg PO ASDIR 11/04/17 Digoxin [Lanoxin -] 0.25 mg PO Q3D 11/04/17 Metoprolol Succinate [Toprol XL -] 25 mg PO DAILY 11/04/17 REVIEW OF SYSTEMS CONSTITUTIONAL: Absent: fever, chills, diaphoresis, generalized weakness, malaise, loss of appetite, weight change HEENT: Absent: rhinorrhea, nasal congestion, throat pain, throat swelling, difficulty swallowing, mouth swelling, ear pain, eye pain, visual changes CARDIOVASCULAR: Absent: chest pain, syncope, palpitations, irregular heart rate, lightheadedness , peripheral edema RESPIRATORY: Absent: cough, shortness of breath, dyspnea with exertion, orthopnea, wheezing, stridor, hemoptysis GASTROINTESTINAL: Absent: abdominal pain, abdominal distension, nausea, vomiting, diarrhea, constipation, melena, hematochezia GENITOURINARY: Absent: dysuria, frequency, urgency, hesitancy, hematuria, flank pain, genital pain MUSCULOSKELETAL: Absent: myalgia, arthralgia, joint swelling, back pain, neck pain SKIN: Absent: rash, itching, pallor HEMATOLOGIC/IMMUNOLOGIC: Absent: easy bleeding, easy bruising, lymphadenopathy, frequent infections ENDOCRINE: Absent: unexplained weight gain, unexplained weight loss, heat intolerance, cold intolerance NEUROLOGIC: Absent: headache, focal weakness or paresthesias, dizziness, unsteady gait, seizure, mental status changes, bladder or bowel incontinence PSYCHIATRIC: Absent: anxiety, depression, suicidal or homicidal ideation, hallucinations. PHYSICAL EXAMINATION Vital Signs Period Temp Pulse Resp BP Sys/Yeager Pulse Ox Last 24 Hr 98 F-98.4 F 35-58 18-18 152-189/64-82 99-99 GENERAL: Pleasant lady, Awake, alert, confused, oriented to person but not to place and time ,in no acute distress. HEAD: Normal with no signs of trauma. EYES: Pupils equal, round and reactive to light, extraocular movements intact, sclera anicteric, conjunctiva clear. EARS, NOSE, THROAT: Oropharynx clear without exudates. Moist mucous membranes. NECK: Normal range of motion, supple without lymphadenopathy, JVD, or masses. LUNGS: Breath sounds equal, clear to auscultation bilaterally. No wheezes, and no crackles. HEART: Bradycardic, irregular, S1 and S2 ABDOMEN: Soft, nontender, not distended, normoactive bowel sounds, no guarding, no rebound, no masses. MUSCULOSKELETAL: Normal range of motion at all joints. No bony deformities or tenderness. No CVA tenderness. UPPER EXTREMITIES: 2+ pulses, warm, well-perfused. No cyanosis. No clubbing. No peripheral edema. LOWER EXTREMITIES: 2+ pulses, warm, well-perfused. No calf tenderness. No peripheral edema. NEUROLOGICAL: Cranial nerves II-XII intact. Normal speech. Normal gait. PSYCHIATRIC: Cooperative. Good eye contact. Confused CBCD WBC 8.5 K/mm3 (4.0-10.0) 11/05/17 06:34 RBC 4.13 M/mm3 (3.60-5.2) 11/05/17 06:34 Hgb 11.9 GM/dL (10.7-15.3) 11/05/17 06:34 Hct 35.7 % (32.4-45.2) 11/05/17 06:34 MCV 86.4 fl (80-96) 11/05/17 06:34 MCHC 33.3 g/dl (32.0-36.0) 11/05/17 06:34 RDW 15.1 % (11.6-15.6) 11/05/17 06:34 Plt Count 155 K/MM3 (134-434) 11/05/17 06:34 MPV 12.6 fl (7.5-11.1) H 11/05/17 06:34 CMP Sodium 140 mmol/L (136-145) 11/05/17 06:34 Potassium 4.2 mmol/L (3.5-5.1) 11/05/17 06:34 Chloride 106 mmol/L (98-107) 11/05/17 06:34 Carbon Dioxide 27 mmol/L (21-32) 11/05/17 06:34 Anion Gap 7 (8-16) L 11/05/17 06:34 BUN 13 mg/dL (7-18) 11/05/17 06:34 Creatinine 0.9 mg/dL (0.55-1.02) 11/05/17 06:34 Creat Clearance w eGFR > 60 (>60) 11/05/17 06:34 Calcium 8.6 mg/dL (8.5-10.1) 11/05/17 06:34 Total Bilirubin 1.3 mg/dL (0.2-1.0) H 11/05/17 06:34 AST 18 U/L (15-37) 11/05/17 06:34 ALT 27 U/L (12-78) 11/05/17 06:34 Alkaline Phosphatase 83 U/L (45-117) 11/05/17 06:34 Total Protein 6.4 g/dl (6.4-8.2) 11/05/17 06:34 Albumin 3.5 g/dl (3.4-5.0) 11/05/17 06:34 ASSESSMENT/PLAN: 77 yo F with PMHx of HTN, HLD, Afib, CAD s/p MS s/p CABG, stroke, spondylosis, brought in by son for AMS. Pt's son noted that she had a similar presentation of bizarre conversations, about a year ago, when she was also noted to be bradycardic. Over the years though, pt's son notes that she has become increasingly forgetful and with this dramatic downward trend in the last week. CT head compelted and reviewed and no acute changes not, old R occipital infarct noted. Microvascular disease and atrophy noted. During my eval, she was able to tell me it's October and at first said 2009 but then said 2017. Knows Brian is President. Would continue cardiac evaluation and mgmt, on malariologist heart rate, continue anti-HTN medication Stroke prevention on ASA and Eliquis LDL < 70 for patient with CVA, continue Statin Tx for reversible causes such as infection Possibly mild coginitive impairment (beyond normal aging but does not seem to be in dementia spectrum yet) Would hold off on Aricept or Namenda for now Would recommended re-eval as outpatient once closer to her baseline and can have further cognitive testing Consider pysych for hallucinations, delusions, not occuring during my encounter Maintain adequate hydration and PO intake Monitor mental status, frequent reorientation
[2017-11-05] MEDS ORDERED: APIXABAN 5 MG TABLET PO SCH (10:00)
[2017-11-05] MEDS ORDERED: ASPIRIN 81 MG CHEWABLE TABLETS PO SCH (10:00)
--- NOTE | 2017-11-05 14:13 | CON.CARD ---
Cardiology Consult (text) - Consultation Consultation Note: covernig for Dr. Locke CC: bradycardia/ams 77 yo F with PMHx of HTN, HLD, Afib, CAD s/p HI s/p CABG, prior tia, spondylosis who p/w ams and found to have bradycardia and elevated troponin. The pt lives alone, and has her son visit her several times a week. At baseline , the pt had independent ADLs, cooked, walked mostly without a walker and was able to administer her medications by herself from her pill box. This week, the son seemed to notice that she had not taken any of her medications, and had not been eating well and was confused with possible visual hallucinations. It is unknown if she had a fall, ingested any substances or wrongly took her medications. No hx of fevers, no cough, SOB, syncopal attacks, or recent weakness of body prior to presentation. Ambulatory Orders Aspirin [ASA -] 81 mg PO DAILY #0 tab.chew 08/06/13 Atorvastatin Ca [Lipitor] 80 mg PO HS #30 tablet 09/05/16 Apixaban [Eliquis] 5 mg PO DAILY 11/04/17 Digoxin [Lanoxin -] 0.125 mg PO ASDIR 11/04/17 Digoxin [Lanoxin -] 0.25 mg PO Q3D 11/04/17 Metoprolol Succinate [Toprol XL -] 25 mg PO DAILY 11/04/17 Current Medications Apixaban (Eliquis -) 5 mg PO DAILY [facility] Aspirin (Asa -) 81 mg PO DAILY [facility] Last Admin: 11/05/17 09:10 Dose: 81 mg Atorvastatin Calcium (Lipitor -) 80 mg PO [facility] Vital Signs - 24 hr 11/04/17 11/05/17 11/05/17 17:50 01:40 05:59 Temperature 98.1 F 98 F 98.4 F Pulse Rate 39 L 35 L 58 L Respiratory 18 18 18 Rate Blood Pressure 189/64 178/82 152/82 O2 Sat by Pulse 99 99 Oximetry (%) 11/05/17 11/05/17 09:00 10:00 Temperature 97.7 F Pulse Rate 38 L Respiratory 22 22 Rate Blood Pressure 170/69 O2 Sat by Pulse 97 Oximetry (%) Intake & Output 03/10/18 03/11/18 03/12/18 03/13/18 06:59 07:59 07:59 07:59 Intake Total 120 200 Balance 120 200 Weight 164 lb CBC, BMP 11/05/17 06:34 11/05/17 06:34 Laboratory Tests 08/28/16 10/11/17 11/04/17 15:23 10:27 18:10 Magnesium Total Bilirubin AST ALT Alkaline Phosphatase Ammonia Creatine Kinase B-Natriuretic Peptide 7922.92 H 2638.79 H Troponin I TSH 4.17 H Digoxin 11/04/17 11/05/17 11/05/17 18:40 00:25 06:24 Magnesium Total Bilirubin 1.2 H AST ALT Alkaline Phosphatase Ammonia 29.75 Creatine Kinase 113 B-Natriuretic Peptide Troponin I 0.12 H TSH Digoxin 0.2842 L 11/05/17 06:34 Magnesium 2.0 Total Bilirubin 1.3 H AST 18 ALT 27 Alkaline Phosphatase 83 Ammonia Creatine Kinase 84 B-Natriuretic Peptide Troponin I 0.13 H TSH Digoxin cxr: no acute pathology
--- NOTE | 2017-11-05 15:56 | EKG ---
Test Reason : Blood Pressure : / mmHG Vent. Rate : 037 BPM Atrial Rate : 111 BPM P-R Int : 000 ms QRS Dur : 136 ms QT Int : 640 ms P-R-T Axes : 000 072 062 degrees QTc Int : 502 ms IDIOVENTRICULAR RHYTHM RIGHT BUNDLE BRANCH BLOCK ABNORMAL ECG WHEN COMPARED WITH ECG OF 04-NOV-2017 22:21, NO SIGNIFICANT CHANGE WAS FOUND Confirmed by ANNE DHALIWAL MD ([id number]) on 11/05/2017 3:55:50 PM Referred By: Confirmed By:ANNE DHALIWAL MD
--- NOTE | 2017-11-05 16:03 | EKG ---
Test Reason : Blood Pressure : / mmHG Vent. Rate : 036 BPM Atrial Rate : 267 BPM P-R Int : 000 ms QRS Dur : 146 ms QT Int : 554 ms P-R-T Axes : 000 085 -67 degrees QTc Int : 428 ms IDIOVENTRICULAR RHYTHM RIGHT BUNDLE BRANCH BLOCK T WAVE ABNORMALITY, CONSIDER INFEROLATERAL ISCHEMIA ABNORMAL ECG WHEN COMPARED WITH ECG OF 04-NOV-2017 18:33, NO SIGNIFICANT CHANGE WAS FOUND Confirmed by ANNE DHALIWAL MD ([id number]) on 11/05/2017 4:02:48 PM Referred By: Confirmed By:ANNE DHALIWAL MD
--- NOTE | 2017-11-05 16:04 | EKG ---
Test Reason : Blood Pressure : / mmHG Vent. Rate : 040 BPM Atrial Rate : 340 BPM P-R Int : 000 ms QRS Dur : 124 ms QT Int : 552 ms P-R-T Axes : 000 075 -15 degrees QTc Int : 449 ms IDIOVENTRICULAR RHYTHM RIGHT BUNDLE BRANCH BLOCK T WAVE ABNORMALITY, CONSIDER INFEROLATERAL ISCHEMIA ABNORMAL ECG WHEN COMPARED WITH ECG OF 03-NOV-2016 18:19, IDIOVENTRICULAR RHYTHM HAS REPLACED ATRIAL FIBRILLATION VENT. RATE HAS DECREASED BY 22 BPM Confirmed by ANNE DHALIWAL MD ([id number]) on 11/05/2017 4:04:37 PM Referred By: Confirmed By:ANNE DHALIWAL MD
--- NOTE | 2017-11-05 17:13 | PN ---
Teaching Attending Note Name of Resident: Denae Mitchell ATTENDING PHYSICIAN STATEMENT I saw and evaluated the patient. I reviewed the resident's note and discussed the case with the resident. I agree with the resident's findings and plan as documented. SUBJECTIVE:asymptomatic. states she came to the hospital due to palpitations which she occasionally gets at rest. denies CP, SOB< fever, chills, N/V/C/D, dysuria, LOC, dizzyness, claims she is complaint with medications, claims she been eating well with no recent infections. OBJECTIVE: Last Vital Signs Temp Pulse Resp BP Pulse Ox 98.8 F 39 L 22 146/69 97 11/05/17 14:00 11/05/17 14:00 11/05/17 10:00 11/05/17 14:00 11/05/17 09:00 General NAD A&O x3 CV S1 S2 bradycardic Lungs CTA B/L no wheezing/rales/rhonchi Abdomen soft NT/ND Extremities no pedal edema ASSESSMENT AND PLAN: 77 yo F with PMHx of HTN, HLD, Afib, CAD s/p ID s/p CABG, prior tia, spondylosis presented to the ER [facility] acute metabolic encephalopathy 1. Acute metabolic encephalopathy- as per son present at bedside she is worse than presentation. states she lives alone and completes all her own ADL's. he has noticed she is not as sharp as she was a year ago but was still able to fully function and very organized. he went to go see her sunday and noticed she did not take 5 days worth of medications and that pill container was not in typical spot. also had hallucinations and was running through her building looking for her children, when there are no children that she would watch alone. had similar episode a year ago and was told HR was low but then nothing else was adjusted. possible due to hypoperfusion and bradycardia. no signs of infection. Head CT is negative of acute pathology. check TSH. rest of workup is currently negative. Neuro consulted 2. Bradycardia- noted junctional rhythm on EKG. remains bradycardic. echo pending. cardio consulted. may be candidate for PPM insertion if remains low. awaiting cardio recommendations. cont to hold betablocker (has not taken for 5 days) 3. HTN- above goal. responded well to norvasc. will monitor while betablocker is held 4. CVA- no deficits. on asa/statin 5. Afib- currently in sinus rhythm. hold betablocker. cont eliquis. 6. DVT ppx-eliquis
[2017-11-05 20:54] VITALS: BP 125/66; PULSE 41; TEMP 97.9
[2017-11-05] MEDS ORDERED: ATORVASTATIN CA 80 MG TABLET (FP) PO SCH (22:00)
--- NOTE | 2017-11-05 22:50 | DS ---
Physical Exam: SUBJECTIVE: Patient seen and examined OBJECTIVE: Vital Signs Period Temp Pulse Resp BP Sys/Yeager Pulse Ox Last 24 Hr 97.7 F-98.8 F 35-58 18-22 125-178/61-82 97-99 PHYSICAL EXAM GENERAL: The patient is awake, alert, and fully oriented, in no acute distress. HEAD: Normal with no signs of trauma. EYES: PERRL, extraocular movements intact, sclera anicteric, conjunctiva clear. ENT: Ears normal, nares patent, oropharynx clear without exudates, moist mucous membranes. NECK: Trachea midline, full range of motion, supple. LUNGS: Breath sounds equal, clear to auscultation bilaterally, no wheezes, no crackles, no accessory muscle use. HEART: Regular rate and rhythm, S1, S2 without murmur, rub or gallop. ABDOMEN: Soft, nontender, nondistended, normoactive bowel sounds, no guarding, no rebound, no hepatosplenomegaly, no masses. EXTREMITIES: 2+ pulses, warm, well-perfused, no edema. NEUROLOGICAL: Cranial nerves II through XII grossly intact. Normal speech, gait not observed. PSYCH: Normal mood, normal affect. SKIN: Warm, dry, normal turgor, no rashes or lesions noted. LABS Laboratory Results - last 24 hr 11/05/17 11/05/17 11/05/17 00:25 06:00 06:24 WBC RBC Hgb Hct MCV MCH MCHC RDW Plt Count MPV Neutrophils % Lymphocytes % Monocytes % Eosinophils % Basophils % PT with INR INR PTT (Actin FS) Sodium Potassium Chloride Carbon Dioxide Anion Gap BUN Creatinine Creat Clearance w eGFR Random Glucose Calcium Phosphorus Magnesium Total Bilirubin AST ALT Alkaline Phosphatase Ammonia 29.75 Creatine Kinase Troponin I Total Protein Albumin Vitamin B12 TSH Digoxin 0.2842 L Opiates Screen Negative Methadone Screen Negative Barbiturate Screen Negative Phencyclidine Screen Negative Ur Amphetamines Screen Negative MDMA (Ecstasy) Screen Negative Benzodiazepines Screen Negative Cocaine Screen Negative U Marijuana (THC) Screen Negative 11/05/17 11/05/17 11/05/17 06:34 06:34 06:34 WBC 8.5 RBC 4.13 Hgb 11.9 Hct 35.7 MCV 86.4 MCH 28.8 MCHC 33.3 RDW 15.1 Plt Count 155 MPV 12.6 H Neutrophils % 52.6 Lymphocytes % 36.3 Monocytes % 9.5 Eosinophils % 1.1 Basophils % 0.5 PT with INR 13.80 H INR 1.22 H PTT (Actin FS) 33.2 Sodium 140 Potassium 4.2 Chloride 106 Carbon Dioxide 27 Anion Gap 7 L BUN 13 Creatinine 0.9 Creat Clearance w eGFR > 60 Random Glucose 93 Calcium 8.6 Phosphorus 3.1 Magnesium 2.0 Total Bilirubin 1.3 H AST 18 ALT 27 Alkaline Phosphatase 83 Ammonia Creatine Kinase 84 Troponin I 0.13 H Total Protein 6.4 Albumin 3.5 Vitamin B12 TSH Digoxin Opiates Screen Methadone Screen Barbiturate Screen Phencyclidine Screen Ur Amphetamines Screen MDMA (Ecstasy) Screen Benzodiazepines Screen Cocaine Screen U Marijuana (THC) Screen 11/05/17 11/05/17 06:34 14:40 WBC RBC Hgb Hct MCV MCH MCHC RDW Plt Count MPV Neutrophils % Lymphocytes % Monocytes % Eosinophils % Basophils % PT with INR INR PTT (Actin FS) Sodium Potassium Chloride Carbon Dioxide Anion Gap BUN Creatinine Creat Clearance w eGFR Random Glucose Calcium Phosphorus Magnesium Total Bilirubin AST ALT Alkaline Phosphatase Ammonia Creatine Kinase 73 Troponin I 0.11 H Total Protein Albumin Vitamin B12 360 TSH 5.04 H Digoxin Opiates Screen Methadone Screen Barbiturate Screen Phencyclidine Screen Ur Amphetamines Screen MDMA (Ecstasy) Screen Benzodiazepines Screen Cocaine Screen U Marijuana (THC) Screen HOSPITAL COURSE: Date of Admission:11/04/17 Date of Discharge: 11/05/17 Discharge Summary Reason For Visit: ATRIAL FIBRILLATION BRADYCARDIA N CARDIAC - Instructions Referrals: Clemente Morrow MD [Primary Care Provider] - Disposition: TRANSFER ACUTE CARE/OTHER HOSP - Home Medications Comprehensive Discharge Medication List: Ambulatory Orders Aspirin [ASA -] 81 mg PO DAILY #0 tab.chew 08/06/13 Atorvastatin Ca [Lipitor] 80 mg PO HS #30 tablet 09/05/16 Apixaban [Eliquis] 5 mg PO DAILY 11/04/17 Digoxin [Lanoxin -] 0.125 mg PO ASDIR 11/04/17 Digoxin [Lanoxin -] 0.25 mg PO Q3D 11/04/17 Metoprolol Succinate [Toprol XL -] 25 mg PO DAILY 11/04/17
== END 2017-11-05 21:19 | disposition short-term general hospital (02) | DRG 302 ==
LOC: JER 17:48 → SUPCPDRO 17:48 → JERBED 23:21 → J4W 11-05 05:52
PROVIDERS: ADMIT Internal Medicine; ATTEND Internal Medicine
DX: I25.10 Atherosclerotic heart disease of native coronary artery without angina pectoris (principal); G93.41 Metabolic encephalopathy; N17.9 Acute kidney failure, unspecified; R00.1 Bradycardia, unspecified; Z95.1 Presence of aortocoronary bypass graft; I48.91 Unspecified atrial fibrillation; E78.5 Hyperlipidemia, unspecified; R41.82 Altered mental status, unspecified; I16.0 Hypertensive urgency; I45.10 Unspecified right bundle-branch block
CPT/HCPCS: 36415; 70450-TC; 71045-TC-FY; 80053; 80162; 80307; 81003; 81015; 82140; 82550; 82607; 82747; 83690; 83735; 83880; 84100; 84443; 84484; 85014; 85025; 85610; 85730; 87086; 93005; 93010; 93306-TC; 99285-25

== ENCOUNTER 2019-03-18 15:47 | Inpatient (IN) | payer OTHER ==
--- NOTE | 2019-03-18 16:01 | PDOC ---
History of Present Illness - General Chief Complaint: Injury Stated Complaint: FALL Time Seen by Provider: 03/18/19 16:00 History Source: Patient, Family (Son) Exam Limitations: No Limitations - History of Present Illness Initial Comments: 03/18/19 17:01 Amy Valle is a 78yM with PMHx a fib on eliquis and pacemaker, CAD w stent, HTN, HLD, dementia, arthritis presenting with fall. Yesterday evening, she attempted to stand up from a sitting position after 3hrs, felt lightheaded, and slid down the back of her chair onto the ground. Unknown length of time on ground. No reported head trauma or loss of consciousness. Firefighters found her at 230a on the ground this morning. Denies any head, neck, muscle or joint pain. Denies fevers, nausea, vomiting, SOB, chest/AB pain, urinary/bowel changes. Per her PCP Dr. Clemente Corbett, she has a history of frequent falls and waxing/ waning dementia. Past History - Past Medical History Allergies/Adverse Reactions: Allergies Allergy/AdvReac Type Severity Reaction Status Date / Time No Known Allergies Allergy Verified 03/18/19 16:04 Home Medications: Ambulatory Orders Aspirin [ASA -] 81 mg PO DAILY #0 tab.chew 08/06/13 Atorvastatin Ca [Lipitor] 80 mg PO HS #30 tablet 09/05/16 Apixaban [Eliquis] 5 mg PO ASDIR 11/04/17 Metoprolol Succinate [Toprol XL -] 25 mg PO DAILY 11/04/17 Cardiac Disorders: Yes (AFIB.NV.CAD,[id number],pacemaker) CVA: Yes (TIA) COPD: No Diabetes: Yes GI Disorders: Yes HTN: Yes Hypercholesterolemia: Yes - Surgical History Appendectomy: Yes Cardiac Surgery: Yes ([facility]PASS) Orthopedic Surgery: Yes (Bilateral Knee Replacement) - Suicide/Smoking/Psychosocial Hx Smoking Status: No Smoking History: Never smoked Have you smoked in the past 12 months: No Number of Cigarettes Smoked Daily: 0 If you are a former smoker, when did you quit?: Over 10 years ago Hx Alcohol Use: No Drug/Substance Use Hx: No Substance Use Type: None Hx Substance Use Treatment: No Review of Systems - Review of Systems Constitutional: No: Chills, Fever, Malaise, Weakness HEENTM: No: Eye Pain, Recent change in vision, Ear Pain, Nose Pain, Throat Pain , Mouth Pain Respiratory: No: Cough, Shortness of Breath Cardiac (ROS): No: Chest Pain, Edema, Palpitations, Syncope, Chest Tightness ABD/GI: No: Abdominal Distended, Constipated, Diarrhea, Nausea, Vomiting, Indigestion : No: Burning, Dysuria, Discharge, Frequency, Flank Pain, Hematuria, Incontinence, Pain, Urgency Musculoskeletal: No: Back Pain, Joint Pain, Joint Swelling, Muscle Pain, Muscle Weakness, Neck Pain Integumentary: No: Bruising, Erythema, Lesions, Lumps Neurological: No: Headache, Numbness, Seizure, Tingling, Tremors Psychiatric: No: Anxiety, Depression Endocrine: No: Excessive Sweating, Flushing, Intolerance to Cold, Intolerance to Heat Hematologic/Lymphatic: No: Anemia, Blood Clots *Physical Exam - Physical Exam General Appearance: Yes: Nourished, Appropriately Dressed. No: Apparent Distress HEENT: positive: EOMI, JAY, Normal Voice, Hearing Grossly Normal. negative: Pale Conjunctivae, Rhinorrhea, Sinus Tenderness Neck: positive: Trachea midline, Other (full neck ROM). negative: Tender, Rigid Respiratory/Chest: positive: Lungs Clear, Normal Breath Sounds. negative: Chest Tender, Respiratory Distress, Accessory Muscle Use, Decreased Breath Sounds, Crackles, Rales, Rhonchi, Stridor, Wheezing Cardiovascular: positive: Regular Rate, S1, S2, Systolic Murmur, Irregular. negative: Edema Gastrointestinal/Abdominal: positive: Normal Bowel Sounds, Flat, Soft. negative : Tender, Organomegaly, Distended, Guarding, Rebound, Hernia, Mass Musculoskeletal: positive: Normal Inspection. negative: CVA Tenderness, Muscle Spasm, Vertebral Tenderness Integumentary: positive: Normal Color. negative: Rash, Swelling, Ecchymosis, Bruising Neurologic: positive: optimization consultant II-XII NML intact, Alert, Normal Mood/Affect, Normal Response, Motor Strength 5/5, Responsive. negative: Fully Oriented (oriented to name, place, not date), Numbness, Sensory Deficit, Confused, Disoriented ED Treatment Course - LABORATORY CBC & Chemistry Diagram: 03/18/19 16:46 03/18/19 16:46 Medical Decision Making - Medical Decision Making 03/18/19 16:59 CBC CMP coags trop EKG CXR CPK lactate Head/c-spine CT showed chronic infarcts, no acute bleed, no C-spine fracture WBC 10, lactate 1.2 trop 0.15 (baseline), ALP 140, CK 210 Amy Valle is a 78yM with PMHx a fib on eliquis and pacemaker, CAD w stent, HTN, HLD, dementia, arthritis presenting with fall. Not oriented to date but otherwise neuro intact. CT showed interval development of new chronic infarct, no acute bleed, no C-spine fracture. Consider cardiac syncope based on cardiac hx. Unlikely stroke d/t absence of localizing features, normal neuro exam. Elevated wbc 10, trop 0.15 (baseline), ALP 140, CK 210. Given aspirin for trop. Lactate normal Admitted to Dr Garcia inpatient med/surg for presycope workup in setting of frequent falls, cardiac history on eliquis, development of chronic brain infarcts, systolic murmur. *DC/Admit/Observation/Transfer Diagnosis at time of Disposition: Pre-syncope - Discharge Dispostion Condition at time of disposition: Stable Decision to Admit order: Yes - Referrals - Patient Instructions - Post Discharge Activity
[2019-03-18 17:10] LABS: BASO % 0.4 % (0-2.0); EOS % 0.1 % (0-4.5); HEMATOCRIT 41.3 % (32.4-45.2); HEMOGLOBIN 13.8 GM/dL (10.7-15.3); MCH 29.4 pg (25.7-33.7); MCHC 33.3 g/dl (32.0-36.0); MEAN CELL VOLUME 88.3 fl (80-96); MONO % 7.9 % (3.8-10.2); NEUT % 77.6 % (42.8-82.8); PLATELET COUNT 153 K/MM3 (134-434); RBC 4.68 M/mm3 (3.60-5.2); WHITE BLOOD COUNT 10.4 K/mm3 (4.0-10.0)
[2019-03-18 17:41] LABS: ALBUMIN 3.8 g/dl (3.4-5.0); BILIRUBIN,TOTAL 1.3 mg/dL (0.2-1); BLOOD UREA NITROGEN 10.1 mg/dL (7-18); CALCIUM 9.3 mg/dL (8.5-10.1); CREATININE 0.8 mg/dL (0.55-1.3); TOT PROT 6.8 g/dl (6.4-8.2)
[2019-03-18 17:42] LABS: POTASSIUM 3.7 mmol/L (3.5-5.1)
[2019-03-18 18:30] LABS: INR 1.19 (0.83-1.09); PROTHROMBIN TIME (PATIENT) 14.1 SEC (9.7-13.0)
--- NOTE | 2019-03-18 18:59 | PDOC ---
Documentation entered by Gilson Marshall SCRIBE, acting as scribe for Linnea May MD. Linnea May MD: This documentation has been prepared by the Rolando turner Collisia, SCRIBE, under my direction and personally reviewed by me in its entirety. I confirm that the documentation accurately reflects all work, treatment, procedures, and medical decision making performed by me. Attending Attestation - Resident Resident Name: Haider Cardona - HPI HPI: 03/18/19 17:12 The patient is a 78 year old female with a significant past medical history of afib( on coumadin), CA, CVA, CABG, pacemaker, diabetes, hypertension, hypercholesterolemia and dementia who presents to the emergency department s/p a fall yesterday. The patient states that she was at home last night getting out of her chair when her legs gave her and she subsequently slid to the floor and fell, unable to get up. She states that she was on the floor throughout the night and was found this morning and brought in. the patient states that she lives alone at home. She denies any head injury, chest pain, neck or back pain, bruising, weakness, numbness, shortness of breath, lightheadedness. The patient denies any fever, chills, nausea, vomiting, diarrhea, constipation or urinary symptoms. The patient denies any other complaints. - Physicial Exam PE: 03/18/19 18:30 ADULT EXAM GENERAL: Awake, alert, and fully oriented, in no acute distress HEAD: No signs of trauma EYES: PERRLA, EOMI, sclera anicteric, conjunctiva clear ENT: Auricles normal inspection, hearing grossly normal, nares patent, oropharynx clear without exudates. Moist mucosa NECK: Normal ROM, supple, no lymphadenopathy, JVD, or masses LUNGS: Breath sounds equal, clear to auscultation bilaterally. No wheezes, and no crackles HEART: Regular rate and rhythm, normal S1 and S2, no murmurs, rubs or gallops ABDOMEN: Soft, nontender, normoactive bowel sounds. No guarding, no rebound. No masses EXTREMITIES: Normal range of motion, no edema. No clubbing or cyanosis. No cords, erythema, or tenderness NEUROLOGICAL: Cranial nerves II through XII grossly intact. Normal speech. SKIN: Warm, Dry, normal turgor, no rashes or lesions noted. - Medical Decision Making 03/21/19 07:42 Pt presents to the ED for frequent falls. Fell last night and was unable to get up. on eliquis for A fib. Patient lives alone and PMD and son believe that it is not safe for her to live alone. Will check CT head to rule out intracranial bleed. Will check labs and EKG to evaluate for presyncope. Will admit for presyncope and for placement.
[2019-03-18] MEDS ORDERED: ASPIRIN 81 MG CHEWABLE TABLETS PO ONE (19:03)
[2019-03-18] MEDS ORDERED: POTASSIUM CHLORIDE ORAL LIQUID 20 MEQ/15 ML PO ONE (19:16)
[2019-03-18] MEDS ORDERED: ASPIRIN 81 MG CHEWABLE TABLETS ONE (19:18)
[2019-03-18] MEDS ORDERED: APIXABAN 5 MG TABLET PO SCH (19:30)
[2019-03-18] MEDS ORDERED: POTASSIUM CHLORIDE ORAL LIQUID 20 MEQ/15 ML ONE (20:19)
[2019-03-18] MEDS ORDERED: ACETAMINOPHEN 325 MG TABLET (FP) PO PRN (22:29)
--- NOTE | 2019-03-18 22:33 | HP ---
Admitting History and Physical - Primary Care Physician PCP: Clemente Morrow - Admission Chief Complaint: s/p fall History of Present Illness: 78 year old F with h/o A.Fib (on eliquis), CAD s/p PCI and CABG, TIA, HTN, HLD, spondylosis, dementia presents s/p fall that happened overnight. She reports ambulating to the bathroom from bedroom when she suddenly fell, she was unable to lift herself from the ground but after several hours she was able to activate an alarm in her apartment around 10am for assistance from the [employer]. She denies any prodromal symptoms prior to fall and did not lose consciousness during fall. She denies CP, SOB, dizziness, fever, chills, nausea , vomiting, diarrhea. Pt transported to ED by EMS after being found down. At baseline, she lives alone, mostly uses a wheelchair and is able to perform basic ADLs. 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: Dementia Cardiovascular: Yes: AFIB, CAD, HTN, Hyperlipdemia Reproductive: Yes: Postmenopausal Musculoskeletal: Yes: Osteoarthritis - Past Surgical History Additional Past Surgical History: B/L knee replacement CABG PPM placement - Advance Directives Advance Directives: Yes: Health Care Proxy (son Matthew Logan) - Smoking History Smoking history: Never smoked Have you smoked in the past 12 months: No Aproximately how many cigarettes per day: 0 (1PPD x 20yrs) If you are a former smoker, when did you quit?: 66 - Alcohol/Substance Use Hx Alcohol Use: No History of Substance Use: reports: None - Social History Usual Living Arrangement: Yes: Alone ADL: Independent History of Recent Travel: No Other Social History: Born in [place], emigrated at age 14 Home Medications - Allergies Allergies/Adverse Reactions: Allergies Allergy/AdvReac Type Severity Reaction Status Date / Time No Known Allergies Allergy Verified 03/18/19 16:04 - Home Medications Home Medications: Ambulatory Orders Aspirin [ASA -] 81 mg PO DAILY #0 tab.chew 08/06/13 Atorvastatin Ca [Lipitor] 80 mg PO HS #30 tablet 09/05/16 Apixaban [Eliquis] 5 mg PO ASDIR 11/04/17 Metoprolol Succinate [Toprol XL -] 25 mg PO DAILY 11/04/17 Family Disease History - Family Disease History Family History: Unable to Obtain (dementia) Review of Systems - Review of Systems Constitutional: reports: Weakness Eyes: reports: No Symptoms HENT: reports: No Symptoms Neck: reports: No Symptoms Cardiovascular: reports: No Symptoms Respiratory: reports: No Symptoms Gastrointestinal: reports: No Symptoms Genitourinary: reports: No Symptoms Breasts: reports: No Symptoms Reported Musculoskeletal: reports: No Symptoms Integumentary: reports: No Symptoms Neurological: reports: Confusion, Unsteady Gait, Weakness Endocrine: reports: No Symptoms Hematology/Lymphatic: reports: No Symptoms Psychiatric: reports: No Symptoms Physical Examination Vital Signs: Vital Signs Temperature 98.6 F 03/18/19 20:36 Pulse Rate 60 03/18/19 20:36 Respiratory Rate 18 03/18/19 20:36 Blood Pressure 149/81 03/18/19 20:36 O2 Sat by Pulse Oximetry (%) 98 03/18/19 20:36 Constitutional: Yes: Well Nourished, No Distress Eyes: Yes: Conjunctiva Clear, PERRL (2mm) HENT: Yes: Atraumatic, Normocephalic Neck: Yes: Supple, Trachea Midline Cardiovascular: Yes: Regular Rate and Rhythm Respiratory: Yes: Regular, CTA Bilaterally Gastrointestinal: Yes: Normal Bowel Sounds ...Rectal Exam: Yes: Deferred Musculoskeletal: Yes: WNL Extremities: Yes: WNL Edema: No Peripheral Pulses WNL: Yes Peripheral Pulses: Left Radial: 2+, Right Radial: 2+ Integumentary: Yes: WNL Neurological: Yes: Alert, Confusion, Unsteady Gait ...Motor Strength: WNL Psychiatric: Yes: Alert Labs: CBC, BMP 03/18/19 16:46 03/18/19 16:46 Imaging - Results Chest X-ray: Report Reviewed (CXR 03/18/2019 Impression: AP view of the chest reveals a large heart, sternal sutures, loop recorder device, sclerotic knob, normal maisha and clear lung mendoza. The angles are sharp. The soft tissues are intact. Degenerative spine and shoulder changes are noted. There may be slight AC separation on the right. Correlation recommended. Reported By: Brent Seymour MD 03/18/[id number]) Cat Scan: Report Reviewed (CT C-spine 03/18/2019 Impression: No fracture is identified. Rorted By: Onofre Skaggs MD) Other: Report Reviewed (CT head 03/18/2019 Impression: No definite CT evidence of acute intracranial pathology. In comparison to a CT exam of 11/04/2017 interval development of a small left basal ganglia infarct posteriorly is noted which is probably chronic at this time. Correlate clinically. A small chronic left basal again infarct is again noted medially. A chronic right occipital cortical infarct is again seen. Moderate to marked periventricular and subcortical chronic microvascular ischemic changes are noted.Reported By: Onofre Skaggs MD) Problem List - Problems (1) Prophylactic measure Assessment/Plan: OOB to chair pt on eliquis fall precautions bleeding precautions bowel regimen with senna/colace Code(s): Z29.9 - ENCOUNTER FOR PROPHYLACTIC MEASURES, UNSPECIFIED (2) Atrial fibrillation Assessment/Plan: continue eliquis, BB telemetry Code(s): I48.91 - UNSPECIFIED ATRIAL FIBRILLATION Qualifiers: Atrial fibrillation type: chronic Qualified Code(s): I48.2 - Chronic atrial fibrillation (3) CAD (coronary artery disease) Assessment/Plan: continue aspirin 81mg and lipitor Code(s): I25.10 - ATHSCL HEART DISEASE OF [place] CORONARY ARTERY W/O ANG PCTRS Qualifiers: Coronary Disease-Associated Artery/Lesion type: unspecified vessel or lesion type [place] vs. transplanted heart: red devil heart Associated angina: without angina Qualified Code(s): I25.10 - Atherosclerotic heart disease of [place] coronary artery without angina pectoris (4) HTN (hypertension) Assessment/Plan: BP not well controlled start norvasc 5mg daily cardiac diet toprol XL 25mg daily Code(s): I10 - ESSENTIAL (PRIMARY) HYPERTENSION Qualifiers: Hypertension type: essential hypertension Qualified Code(s): I10 - Essential (primary) hypertension (5) Hypercholesterolemia Assessment/Plan: lipitor 80mg qhs Code(s): E78.0 - PURE HYPERCHOLESTEROLEMIA * DO NOT USE * (6) Foul smelling urine Assessment/Plan: f/u ua and urine culture trend WBC and temps Code(s): R82.90 - UNSPECIFIED ABNORMAL FINDINGS IN URINE Assessment/Plan Code Status: Full Visit type - Emergency Visit Emergency Visit: Yes ED Registration Date: 03/18/19 Care time: The patient presented to the Emergency Department on the above date and was hospitalized for further evaluation of their emergent condition. - New Patient This patient is new to me today: Yes Date on this admission: 03/19/19 - Critical Care Critical Care patient: No
[2019-03-18] MEDS: ATORVASTATIN CA 80 MG TABLET (FP) PO SCH (23:03)
[2019-03-18 23:33] VITALS: BMI 30.2
[2019-03-19] MEDS ORDERED: amLODIPine BESYLATE 5 MG TABLET (FP) PO STA (00:02)
[2019-03-19] MEDS: APIXABAN 5 MG TABLET PO SCH ×3 (03:39→22:39)
[2019-03-19] MEDS ORDERED: HEPARIN NA (PORCINE) 5,000 UNITS/ML 1ML VIAL SQ SCH (06:00)
[2019-03-19 06:14] LABS: BASO % 0.7 % (0-2.0); EOS % 0.8 % (0-4.5); HEMATOCRIT 40.8 % (32.4-45.2); HEMOGLOBIN 13.5 GM/dL (10.7-15.3); LYMPH % 30.2 % (8-40); MCH 29.3 pg (25.7-33.7); MEAN CELL VOLUME 88.7 fl (80-96); MONO % 9.1 % (3.8-10.2); NEUT % 59.2 % (42.8-82.8); PLATELET COUNT 141 K/MM3 (134-434); RBC 4.59 M/mm3 (3.60-5.2); WHITE BLOOD COUNT 7.2 K/mm3 (4.0-10.0)
[2019-03-19 06:49] LABS: ALBUMIN 3.5 g/dl (3.4-5.0); BILIRUBIN,TOTAL 1.7 mg/dL (0.2-1); BLOOD UREA NITROGEN 7.4 mg/dL (7-18); CALCIUM 9.4 mg/dL (8.5-10.1); CREATININE 0.8 mg/dL (0.55-1.3); MAGNESIUM 2.2 mg/dL (1.8-2.4); PHOSPHOROUS 3.1 mg/dL (2.5-4.9); POTASSIUM 4.2 mmol/L (3.5-5.1); TOT PROT 6.6 g/dl (6.4-8.2)
--- NOTE | 2019-03-19 08:15 | EKG ---
Test Reason : Blood Pressure : / mmHG Vent. Rate : 060 BPM Atrial Rate : 153 BPM P-R Int : 000 ms QRS Dur : 148 ms QT Int : 508 ms P-R-T Axes : 000 113 081 degrees QTc Int : 508 ms Ventricular-paced rhythm ABNORMAL ECG WHEN COMPARED WITH ECG OF 05-NOV-2017 07:40, ELECTRONIC VENTRICULAR PACEMAKER HAS REPLACED IDIOVENTRICULAR RHYTHM VENT. RATE HAS INCREASED BY 23 BPM Confirmed by AVIVA FIGUEROA MD ([id number]) on 03/19/2019 8:15:04 AM Referred By: Confirmed By:AVIVA FIGUEROA MD
--- NOTE | 2019-03-19 09:10 | PN ---
Progress Note, Physician History of Present Illness: 78 year old F with h/o A.Fib (on eliquis), CAD s/p PCI and CABG, TIA, HTN, HLD, spondylosis, dementia presents s/p fall that happened overnight. She reports ambulating to the bathroom from bedroom when she suddenly fell, she was unable to lift herself from the ground - Current Medication List Current Medications: Active Medications Acetaminophen (Tylenol -) 650 mg PO Q6H PRN PRN Reason: PAIN LEVEL 4 - 6 Amlodipine Besylate (Norvasc -) 5 mg PO DAILY [facility] Apixaban (Eliquis -) 5 mg PO BID [facility] Last Admin: 03/19/19 03:39 Dose: 5 mg Aspirin (Asa -) 81 mg PO DAILY [facility] Atorvastatin Calcium (Lipitor -) 80 mg PO HS [facility] Last Admin: 03/18/19 23:03 Dose: 80 mg Docusate Sodium (Colace -) 100 mg PO BID [facility] Metoprolol Succinate (Toprol Xl -) 25 mg PO DAILY [facility] Senna (Senna -) 2 tab PO HS [facility] - Objective Vital Signs: Vital Signs Temperature 98.0 F 03/19/19 03:44 Pulse Rate 60 03/19/19 04:00 Respiratory Rate 18 03/19/19 04:00 Blood Pressure 152/79 03/19/19 04:00 O2 Sat by Pulse Oximetry (%) 100 03/18/19 22:29 Labs: CBC, BMP 03/19/19 05:33 03/19/19 05:33 INR, PTT INR 1.19 (0.83-1.09) H 03/18/19 16:46 Problem List - Problems (1) Fall Assessment/Plan: Physical Therapy OOB to chair fall precautions Neuro Code(s): W19.XXXA - UNSPECIFIED FALL, INITIAL ENCOUNTER (2) Atrial fibrillation Assessment/Plan: continue eliquis, BB telemetry Code(s): I48.91 - UNSPECIFIED ATRIAL FIBRILLATION Qualifiers: Atrial fibrillation type: chronic Qualified Code(s): I48.2 - Chronic atrial fibrillation (3) CAD (coronary artery disease) Assessment/Plan: continue aspirin 81mg and lipitor Code(s): I25.10 - ATHSCL HEART DISEASE OF [place] CORONARY ARTERY W/O ANG PCTRS Qualifiers: Coronary Disease-Associated Artery/Lesion type: unspecified vessel or lesion type [place] vs. transplanted heart: [place] heart Associated angina: without angina Qualified Code(s): I25.10 - Atherosclerotic heart disease of [place] coronary artery without angina pectoris (4) CHF exacerbation Code(s): I50.9 - HEART FAILURE, UNSPECIFIED (5) CVA (cerebral vascular accident) Assessment/Plan: old on ct \Neuro Code(s): I63.9 - CEREBRAL INFARCTION, UNSPECIFIED Qualifiers: CVA mechanism: unspecified Qualified Code(s): I63.9 - Cerebral infarction, unspecified (6) UTI (urinary tract infection) Assessment/Plan: f/u ua and urine culture trend WBC and temps Code(s): N39.0 - URINARY TRACT INFECTION, SITE NOT SPECIFIED Qualifiers: Urinary tract infection type: site unspecified Hematuria presence: without hematuria Qualified Code(s): N39.0 - Urinary tract infection, site not specified (7) HTN (hypertension) Assessment/Plan: norvasc 5mg daily added cardiac diet toprol XL 25mg daily Code(s): I10 - ESSENTIAL (PRIMARY) HYPERTENSION Qualifiers: Hypertension type: essential hypertension Qualified Code(s): I10 - Essential (primary) hypertension (8) Elevated troponin Assessment/Plan: follow trends denies any cp cardio Code(s): R79.89 - OTHER SPECIFIED ABNORMAL FINDINGS OF BLOOD CHEMISTRY
[2019-03-19] MEDS: DOCUSATE SODIUM 100 MG CAPSULE (FP) PO SCH ×2 (09:38→22:38)
[2019-03-19] MEDS: ASPIRIN 81 MG CHEWABLE TABLETS PO SCH (09:39)
[2019-03-19 10:45] LABS: URINE APPEARANCE CLEAR; URINE BILIRUBIN NEGATIVE (NEGATIVE); URINE COLOR YELLOW; URINE GLUCOSE (UA) NEGATIVE (NEGATIVE); URINE KETONE NEGATIVE (NEGATIVE); URINE LEUK ESTERASE NEGATIVE (NEGATIVE); URINE NITRITE NEGATIVE (NEGATIVE); URINE PROTEIN NEGATIVE (NEGATIVE)
--- NOTE | 2019-03-19 12:49 | CONSULT ---
Consult - text type - Consultation Consultation Note: NEUROLOGY CONSULT GREATLY APPRECIATED: Events reviewed and discussed with Matthew, her son, at bedside aides in history. This 78 yo RH woman lives in independent assisted living. Ambulates with walker. Independent in ADL's and self-medication. PMHx afib, CAD s/p CABG, PPM HTN, HLD, dementia, "arthritis" and chronic low back pain. Surgical hx: B/L TKR On: ASA 81, atorvastatin, apixaban, metoprolol. Progressive memory decline approximately 1 1/2 years ago after pacemaker placement per son. Also with recurrent falls. Admitted after unwitnessed fall while ambulating from bed to bathroom. Uncertain how long on floor but was able to activate alarm for super to help at 10 am. BP on admission= 177/86. Review of systems sig for chronic knee and back "pains" after knee surgeries for approximately 20 years, worse in evening hours and awakening her from sleep. Son notes similar complaints as well. Son also notes "paranoia", to which he attributes his mom refusing to take medications or eat. Head CT (reviewed): Moderate diffuse cerebral atrophy with ex vacuo ventricular dilation. Scattered, chronic cortical and periventricular ischemic changes. WBC 10.4-> 7.2 MCV 88.3 I67=243 pg%; TSH=2.11 VJ=576 IU UA neg LAST: BP 177/86. P 60s. Cor reg. No bruit. Neck supple. Neg SLR. S/P B/L TKR. No evidence of external head trauma. NEURO: Awake, alert, cooperative. Ox [facility]. "November" "" "2001" TRUMP. No reversal. No recall. + glabella, snout, suck, grasp, Palmomentals B/L CNII-CNXII: EOM's full without nystagmus. Full mendoza. No facial. Gag ok. Motor: No drift. Decreased CARMEN's. No cogwheel. Strength normal. Reflexes brisk throughout. Plantars silent. Coordination: No FTN dystaxia Sensation: Normal to vibration. Romberg + Gait: Variable, unsteady, retropulsive, lists to the right Impression: Mod B/L cerebral dysfunction (OMS) c/w Alzheimer's disease (AD). Senile gait dysfunction due to above and BEAN DUMPER microvascular Worsened by Toxic-Metabolic Encephalopathy (HTN encephalopathy?) Suggest: Await RPR, Check Fe++, TIBC, Ferritin Reduce systolic BP's < 130s. Orthostatic BP's. Continue telemetry. Cardiology consultation (R/O Syncope) Try Donepezil 5 mg po qAM (ordered). Pt eval for gait training with walker library services assistant eval Neuro f/u as out patient Thank you very much, Vijay Jon MD
[2019-03-19] MEDS: amLODIPine BESYLATE 5 MG TABLET (FP) PO SCH (13:12)
--- NOTE | 2019-03-19 14:12 | CON.PULM ---
Consult Consult Specialty:: PULM/CCM Referred by:: KWABENA Reason for Consultation:: COPD - History of Present Illness History of Present Illness: 78 F, A.Fib on eliquis, questionable history of COPD (remote smoking), CAD s/p PCI and CABG, TIA, HTN, HLD, spondylosis, and dementia. Admitted via the ER S/ P fall. Apparently she was ambulating to the bathroom when she suddenly fell and was unable to lift herself from the ground. After several hours she was able to activate an alarm in her apartment for assistance from the [employer]. No LOC. No CP, SOB, or dizziness. No recent history of fever or chills. No recent travel history or sick contacts. CXR: No acute process. Loop recorder noted. 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 Cardio/Vascular: Yes: AFIB, CAD, HTN, Hyperlipdemia Pulmonary: No: Asthma, Bronchitis, COPD, O2 Dependent, Pneumonia, Previously Intubated, Pulmonary Embolus, Pulmonary Fibrosis, Sleep Apnea Musculoskeletal: Yes: Osteoarthritis - Alcohol/Substance Use Hx Alcohol Use: No History of Substance Use: reports: None - Smoking History Smoking history: Never smoked Have you smoked in the past 12 months: No Aproximately how many cigarettes per day: 0 (1PPD x 20yrs) If you are a former smoker, when did you quit?: 65 - Social History ADL: Independent History of Recent Travel: No Home Medications - Allergies Allergies/Adverse Reactions: Allergies Allergy/AdvReac Type Severity Reaction Status Date / Time No Known Allergies Allergy Verified 03/18/19 16:04 - Home Medications Home Medications: Ambulatory Orders Aspirin [ASA -] 81 mg PO DAILY #0 tab.chew 08/06/13 Atorvastatin Ca [Lipitor] 80 mg PO HS #30 tablet 09/05/16 Apixaban [Eliquis] 5 mg PO ASDIR 11/04/17 Metoprolol Succinate [Toprol XL -] 25 mg PO DAILY 11/04/17 Review of Systems - Review of Systems Constitutional: denies: Chills, Fever, Night Sweats, Unintentional Wgt. Loss Eyes: reports: No Symptoms HENT: reports: No Symptoms Neck: reports: No Symptoms Cardiovascular: denies: Chest Pain, Edema, Palpitations, Shortness of Breath Respiratory: denies: No Symptoms, Cough, Exercise Intolerance, Hemoptysis, Orthopnea, Snoring, SOB, SOB on Exertion, Wheezing Gastrointestinal: reports: No Symptoms Genitourinary: reports: No Symptoms Breasts: reports: No Symptoms Reported Musculoskeletal: reports: No Symptoms Integumentary: reports: No Symptoms Neurological: denies: Change in LOC, Change in Speech, Confusion, Dizziness, Headache, Pre-Existing Deficit, Seizure, Weakness Endocrine: reports: No Symptoms Hematology/Lymphatic: reports: No Symptoms Psychiatric: reports: No Symptoms Physical Exam Vital Sings: Vital Signs Temperature 98.0 F 03/19/19 03:44 Pulse Rate 60 03/19/19 12:00 Respiratory Rate 18 03/19/19 12:00 Blood Pressure 120/90 03/19/19 12:00 O2 Sat by Pulse Oximetry (%) 100 03/18/19 22:29 Constitutional: Yes: No Distress, Calm Eyes: Yes: Conjunctiva Clear, EOM Intact HENT: Yes: Atraumatic, Normocephalic Neck: Yes: Supple, Trachea Midline Cardiovascular: Yes: Regular Rate and Rhythm Respiratory: Yes: Diminished. No: Accessory Muscle Use, Cough, Rales, Rhonchi, SOB, SOB on Exertion, Stridor, Tachypnea, Wheezes ...Inspection: Yes: WNL ...Clubbing: No Gastrointestinal: Yes: Normal Bowel Sounds, Soft, Abdomen, Obese Renal/: Yes: WNL Musculoskeletal: Yes: WNL Extremities: Yes: WNL Edema: No Peripheral Pulses WNL: Yes Integumentary: Yes: WNL Neurological: Yes: WNL, Alert, Oriented ...Motor Strength: WNL Psychiatric: Yes: WNL, Alert, Oriented Labs: CBC, BMP 03/19/19 05:33 03/19/19 05:33 Imaging - Results Chest X-ray: Report Reviewed, Image Reviewed Problem List - Problems (1) Fall Code(s): W19.XXXA - UNSPECIFIED FALL, INITIAL ENCOUNTER (2) Atrial fibrillation Code(s): I48.91 - UNSPECIFIED ATRIAL FIBRILLATION Qualifiers: Atrial fibrillation type: chronic Qualified Code(s): I48.2 - Chronic atrial fibrillation (3) CAD (coronary artery disease) Code(s): I25.10 - ATHSCL HEART DISEASE OF [place] CORONARY ARTERY W/O ANG PCTRS Qualifiers: Coronary Disease-Associated Artery/Lesion type: unspecified vessel or lesion type [place] vs. transplanted heart: [place] heart Associated angina: without angina Qualified Code(s): I25.10 - Atherosclerotic heart disease of [place] coronary artery without angina pectoris (4) HTN (hypertension) Code(s): I10 - ESSENTIAL (PRIMARY) HYPERTENSION Qualifiers: Hypertension type: essential hypertension Qualified Code(s): I10 - Essential (primary) hypertension (5) Hypercholesterolemia Code(s): E78.0 - PURE HYPERCHOLESTEROLEMIA * DO NOT USE * Assessment/Plan IMP: R/O Obstructive Airways Disease / COPD: currently she appears stable PLAN: Fall work up Fall precautions O2 as needed PFTs once stable as an outpatient No smoking VTE prophylaxis Thank you. Dr Lazar
--- NOTE | 2019-03-19 20:35 | CONS ---
CARDIOLOGY CONSULTATION DATE OF CONSULTATION: 03/19/2019 TIME OF CONSULTATION: 7:10 p.m. REQUESTING PHYSICIAN: Wind Operations Supervisor. CHIEF COMPLAINT: History of a fall. The patient is a 78-year-old female with history of coronary artery disease, status post PCI, status post coronary artery bypass grafting; angina pectoris; permanent atrial fibrillation; status post embolic cerebrovascular accident; history of left ventricular diastolic dysfunction; hypertension; hypertensive cardiovascular disease; history of congestive heart failure. Patient was brought to the hospital. She apparently slid off the chair and fell to the ground and was unable to stand up and apparently laid on the floor all during the night. The following day, her friends and the rn house supervisor of the building were able to go to her apartment, and she was brought to the hospital. Patient is unable to give a proper history because of confusion. She denies any chest pain or discomfort. There is no history of palpitations, lightheadedness, dizziness, presyncope, or documented syncope. There is no history of loss of control over her bodily functions. PAST HISTORY: As mentioned in the history of present illness. 1. History of dementia. 2. 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 3. History of bronchial pneumonia. 4. Status post pulmonary embolic disease. 5. History of pulmonary fibrosis. 6. Patient apparently has had sleep apnea. 7. History of osteoarthritis. SURGICAL HISTORY: 1. Status post bilateral knee replacement. 2. Status post coronary artery bypass grafting. MEDICATIONS: Current medications are as follows: 1. Eliquis 5 mg p.o. b.i.d. 2. Tylenol 650 mg p.o. q.6 hours p.r.n. 3. Metoprolol succinate 25 mg p.o. daily. 4. Colace 100 mg p.o. b.i.d. 5. Senna 2 tablets p.o. nightly. 6. Amlodipine 5 mg p.o. daily. 7. Atorvastatin 80 mg p.o. daily. 8. Aspirin 81 mg p.o. daily. 9. Aricept 5 mg p.o. daily. REVIEW OF SYSTEMS: Constitutional: No history of chills, fever, night sweats, or weight loss is available. HEENT: Patient is unable to communicate regarding headaches, visual disturbances, tinnitus, deafness, epistaxis, etc. Cardiovascular: See history of present illness. Respiratory: No history of cough, expectoration, or hemoptysis available. Gastrointestinal: No history of nausea, vomiting, melena, or hematemesis available. Neurological: See history of present illness. Musculoskeletal: History of bilateral knee replacement. Endocrine: No history of endocrine disorder was available. PHYSICAL EXAMINATION: General: A 78-year-old pleasant female who was confused in time and space, but was able to recognize me by name. Vital Signs: Blood pressure 118/66 mmHg. Pulse 60 beats per minute and irregularly irregular. Respirations 17 per minute. Temperature 98.2 degrees Fahrenheit. Weight 74.933 kg. Neck: Supple. No jugular venous distention. Carotids were 2+. Upstrokes were normal. No bruits were heard, and no thyromegaly was present. Heart: No heaves or thrills. PMI was in the fifth intercostal space. S1 was variable. S2 was normal. A grade 2/6 decrescendo systolic murmur was heard along the left sternal border, ending in [id number]. There was an ejection systolic murmur, grade 1/6, heard at the second right intercostal space and ending in early systole. No diastolic murmur or gallops were heard. Lungs: Clear on auscultation. Abdomen: Soft, protuberant, nontender. No hepatosplenomegaly or palpable masses were felt. Extremities: No calf tenderness or dependent edema. Pulses were equal except dorsalis pedis and posterior tibial pulses could not be palpated. LABORATORY DATA: CBC March 19, 2019: WBC 7200. Hemoglobin was 13.5 g/dL. Platelet count was 141,000. Chemistry: Sodium 143, potassium 4.2, chloride 108, CO2 of 29. BUN 7.4, creatinine 0.8 mg/dL. Random glucose 193 mg/dL. CK was 73 and 216. Troponins were elevated at 0.11 and 0.15. Third troponin was 0.20. TSH on March 19, 2019 was 2.11. Free T4 was normal at 1.08. CT of the head March 18, 2019, impression: No definite CT evidence of acute intracranial pathology. Comparison to a CT exam of November 04, 2017: Interval development of a small left basal ganglia infarct posteriorly is noted which is probably chronic at this time; correlate clinically. A small chronic, left basal infarct is again noted medially. A chronic right occipital cortical infarct is again seen. A [id number] periventricular and subcortical chronic microvascular. X-ray of chest March 18, 2019: AP view of the chest reveals a large heart, sternal sutures, loop recorder device, sclerotic knob, normal hilar, and clear lung mendoza. The angles are sharp. The soft tissues are intact. Degenerative spine and shoulder changes are noted. There may be slight AC separation on the right; correlation recommended. Electrocardiogram: Atrial fibrillation, permanent pacemaker is functioning appropriately with consistent ventricular capture. Baseline artifacts were recorded. IMPRESSION: 1. History of a fall without documented injury. 2. Atherosclerotic heart disease, status post coronary artery bypass grafting. 3. Status post permanent pacemaker. 4. Permanent atrial fibrillation, sick sinus syndrome. 5. Left ventricular diastolic dysfunction. 6. History of syndrome. 7. Hypercholesterolemia. 8. History of left ventricular diastolic dysfunction. 9. Elevated CK and troponin levels, possibility of an acute cardiac event. RECOMMENDATIONS: 1. Consider adding Ranexa 500 mg p.o. q.12 hours. 2. Continue cardiac medications as outlined. 3. Echocardiogram. 4. Lipid profile. 5. BNP. PROGNOSIS: Guarded. Thank you for your referral. Yours sincerely, DEMETRIA HERRERA M.D. [id number]
[2019-03-19] MEDS: DONEPEZIL HCL 5 MG TABLET (FP) PO SCH (22:38)
[2019-03-19] MEDS: SENNOSIDES 8.6MG TABLET (FP) PO SCH (22:39)
[2019-03-19] MEDS: ATORVASTATIN CA 80 MG TABLET (FP) PO SCH (22:39)
[2019-03-20 06:42] LABS: BASO % 0.5 % (0-2.0); EOS % 1.1 % (0-4.5); HEMATOCRIT 40.4 % (32.4-45.2); HEMOGLOBIN 13.4 GM/dL (10.7-15.3); LYMPH % 35.7 % (8-40); MCH 29.5 pg (25.7-33.7); MCHC 33.2 g/dl (32.0-36.0); MEAN CELL VOLUME 88.7 fl (80-96); MONO % 11.6 % (3.8-10.2); NEUT % 51.1 % (42.8-82.8); PLATELET COUNT 140 K/MM3 (134-434); RBC 4.56 M/mm3 (3.60-5.2); WHITE BLOOD COUNT 6.7 K/mm3 (4.0-10.0)
[2019-03-20 07:10] LABS: ALBUMIN 3.4 g/dl (3.4-5.0); BLOOD UREA NITROGEN 21.4 mg/dL (7-18); CALCIUM 9.3 mg/dL (8.5-10.1); POTASSIUM 4.1 mmol/L (3.5-5.1); TOT PROT 6.6 g/dl (6.4-8.2)
[2019-03-20] MEDS: ASPIRIN 81 MG CHEWABLE TABLETS PO SCH (09:40)
[2019-03-20] MEDS: amLODIPine BESYLATE 5 MG TABLET (FP) PO SCH (09:42)
[2019-03-20] MEDS: DOCUSATE SODIUM 100 MG CAPSULE (FP) PO SCH ×2 (09:42→21:34)
[2019-03-20] MEDS: APIXABAN 5 MG TABLET PO SCH ×2 (09:42→21:34)
--- NOTE | 2019-03-20 12:42 | PN ---
Progress Note, Physician Chief Complaint: awake confused spoke to son wants her placed at [facility] to see patient - Current Medication List Current Medications: Active Medications Acetaminophen (Tylenol -) 650 mg PO Q6H PRN PRN Reason: PAIN LEVEL 4 - 6 Amlodipine Besylate (Norvasc -) 5 mg PO DAILY [facility] Last Admin: 03/20/19 09:42 Dose: 5 mg Apixaban (Eliquis -) 5 mg PO BID [facility] Last Admin: 03/20/19 09:42 Dose: 5 mg Aspirin (Asa -) 81 mg PO DAILY [facility] Last Admin: 03/20/19 09:40 Dose: 81 mg Atorvastatin Calcium (Lipitor -) 80 mg PO HS [facility] Last Admin: 03/19/19 22:39 Dose: 80 mg Docusate Sodium (Colace -) 100 mg PO BID [facility] Last Admin: 03/20/19 09:42 Dose: 100 mg Donepezil HCl (Aricept -) 5 mg PO [facility] Last Admin: 03/19/19 22:38 Dose: 5 mg Metoprolol Succinate (Toprol Xl -) 25 mg PO DAILY [facility] Last Admin: 03/20/19 09:40 Dose: 25 mg Senna (Senna -) 2 tab PO [facility] Last Admin: 03/19/19 22:39 Dose: 2 tab - Objective Vital Signs: Vital Signs Temperature 98.3 F 03/20/19 06:00 Pulse Rate 60 03/20/19 06:00 Respiratory Rate 18 03/20/19 09:00 Blood Pressure 146/79 03/20/19 06:00 O2 Sat by Pulse Oximetry (%) 100 03/20/19 09:00 Constitutional: Yes: Calm Cardiovascular: Yes: Regular Rate and Rhythm, S1, S2 Respiratory: Yes: CTA Bilaterally Gastrointestinal: Yes: Normal Bowel Sounds, Soft Edema: No Neurological: Yes: Alert Labs: CBC, BMP 03/20/19 05:20 INR, PTT INR 1.19 (0.83-1.09) H 03/18/19 16:46 Assessment/Plan dementia donezipil stared by neurology psych eval ccm consult for SNF placement snf- [place] afib on eliquis and on metoprolol HLKD on statin
--- NOTE | 2019-03-20 12:43 | PN ---
Progress Note, Physician Chief Complaint: patient seen and examined spoke to her son wants her placed at [facility] awaiting case management director to come speak to patient patient is confused and ambulating hallway will have psych see patient as well - Current Medication List Current Medications: Active Medications Acetaminophen (Tylenol -) 650 mg PO Q6H PRN PRN Reason: PAIN LEVEL 4 - 6 Amlodipine Besylate (Norvasc -) 5 mg PO DAILY [facility] Last Admin: 03/20/19 09:42 Dose: 5 mg Apixaban (Eliquis -) 5 mg PO BID [facility] Last Admin: 03/20/19 09:42 Dose: 5 mg Aspirin (Asa -) 81 mg PO DAILY [facility] Last Admin: 03/20/19 09:40 Dose: 81 mg Atorvastatin Calcium (Lipitor -) 80 mg PO [facility] Last Admin: 03/19/19 22:39 Dose: 80 mg Docusate Sodium (Colace -) 100 mg PO BID [facility] Last Admin: 03/20/19 09:42 Dose: 100 mg Donepezil HCl (Aricept -) 5 mg PO [facility] Last Admin: 03/19/19 22:38 Dose: 5 mg Metoprolol Succinate (Toprol Xl -) 25 mg PO DAILY [facility] Last Admin: 03/20/19 09:40 Dose: 25 mg Senna (Senna -) 2 tab PO [facility] Last Admin: 03/19/19 22:39 Dose: 2 tab - [facility] Vital Signs: Vital Signs Temperature 98.3 F 03/20/19 06:00 Pulse Rate 60 03/20/19 06:00 Respiratory Rate 18 03/20/19 09:00 Blood Pressure 146/79 03/20/19 06:00 O2 Sat by Pulse Oximetry (%) 100 03/20/19 09:00 Constitutional: Yes: Calm Cardiovascular: Yes: Regular Rate and Rhythm, S1, S2 Respiratory: Yes: CTA Bilaterally Gastrointestinal: Yes: Normal Bowel Sounds, Soft Edema: No Neurological: Yes: Alert, Confusion Labs: CBC, BMP 03/20/19 05:20 INR, PTT INR 1.19 (0.83-1.09) H 03/18/19 16:46 Problem List - Problems (1) Atrial fibrillation Assessment/Plan: ca gibbs Code(s): I48.91 - UNSPECIFIED ATRIAL FIBRILLATION Qualifiers: Atrial fibrillation type: chronic Qualified Code(s): I48.2 - Chronic atrial fibrillation (2) Alzheimer disease Assessment/Plan: neurolog apprciated donezipil psych eval as well son wants placement at [facility] Code(s): G30.9 - ALZHEIMER'S DISEASE, UNSPECIFIED; F02.80 - DEMENTIA IN OTH DISEASES CLASSD ELSWHR W/O BEHAVRL DISTURB
[2019-03-20 12:47] LABS: ALBUMIN 3.8 g/dl (3.4-5.0); BILIRUBIN,TOTAL 1.1 mg/dL (0.2-1); BLOOD UREA NITROGEN 19.8 mg/dL (7-18); CALCIUM 9.4 mg/dL (8.5-10.1); POTASSIUM 3.9 mmol/L (3.5-5.1); TOT PROT 7.1 g/dl (6.4-8.2)
--- NOTE | 2019-03-20 12:52 | PN ---
Progress Note (short form) - Note Progress Note: Resting in NAD. Confused. Breathing appears comfortable. No acute events overnight. Intake & Output 03/17/19 03/18/19 03/19/19 03/20/19 23:59 23:59 23:59 23:59 Intake Total 60 360 100 Balance 60 360 100 Weight 165 lb 3.2 oz 165 lb 8 oz Last Vital Signs Temp Pulse Resp BP Pulse Ox 98.3 F 60 18 146/79 100 03/20/19 06:00 03/20/19 06:00 03/20/19 09:00 03/20/19 06:00 03/20/19 09:00 Active Medications Acetaminophen (Tylenol -) 650 mg PO Q6H PRN PRN Reason: PAIN LEVEL 4 - 6 Amlodipine Besylate (Norvasc -) 5 mg PO [facility]ILY [facility] Last Admin: 03/20/19 09:42 Dose: 5 mg Apixaban (Eliquis -) 5 mg PO BID [facility] Last Admin: 03/20/19 09:42 Dose: 5 mg Aspirin (Asa -) 81 mg PO DAILY [facility] Last Admin: 03/20/19 09:40 Dose: 81 mg Atorvastatin Calcium (Lipitor -) 80 mg PO [facility] Last Admin: 03/19/19 22:39 Dose: 80 mg Docusate Sodium (Colace -) 100 mg PO BID [facility] Last Admin: 03/20/19 09:42 Dose: 100 mg Donepezil HCl (Aricept -) 5 mg PO [facility] Last Admin: 03/19/19 22:38 Dose: 5 mg Metoprolol Succinate (Toprol Xl -) 25 mg PO DAILY [facility] Last Admin: 03/20/19 09:40 Dose: 25 mg Senna (Senna -) 2 tab PO [facility] Last Admin: 03/19/19 22:39 Dose: 2 tab Constitutional: Yes: No Distress, Confused Eyes: Yes: Conjunctiva Clear, EOM Intact HENT: Yes: Atraumatic, Normocephalic Neck: Yes: Supple, Trachea Midline Cardiovascular: Yes: Regular Rate and Rhythm Respiratory: Yes: Diminished. No: Accessory Muscle Use, Cough, Rales, Rhonchi, SOB, SOB on Exertion, Stridor, Tachypnea, Wheezes ...Inspection: Yes: WNL ...Clubbing: No Gastrointestinal: Yes: Normal Bowel Sounds, Soft, Abdomen, Obese Renal/: Yes: WNL Musculoskeletal: Yes: WNL Extremities: Yes: WNL Edema: No Peripheral Pulses WNL: Yes Integumentary: Yes: WNL Neurological: Yes: Non-focal, confused ...Motor Strength: WNL Psychiatric: Yes: Confused Labs: Laboratory Results - last 24 hr 03/19/19 03/20/19 03/20/19 05:33 05:20 05:20 WBC 6.7 RBC 4.56 Hgb 13.4 Hct 40.4 MCV 88.7 MCH 29.5 MCHC 33.2 RDW 14.0 Plt Count 140 MPV 12.0 H Absolute Neuts (auto) 3.4 Neutrophils % 51.1 Lymphocytes % 35.7 Monocytes % 11.6 H Eosinophils % 1.1 Basophils % 0.5 Nucleated RBC % 0 Sodium 142 Potassium 4.1 Chloride 106 Carbon Dioxide 30 Anion Gap 6 L BUN 21.4 H Creatinine 1.0 Est GFR (CKD-EPI)AfAm 62.93 Est GFR (CKD-EPI)NonAf 54.30 Random Glucose 107 H Calcium 9.3 Total Bilirubin 1.0 AST 18 ALT 21 Alkaline Phosphatase 153 H Total Protein 6.6 Albumin 3.4 RPR Titer Nonreactive 03/20/19 10:45 WBC RBC Hgb Hct MCV MCH MCHC RDW Plt Count MPV Absolute Neuts (auto) Neutrophils % Lymphocytes % Monocytes % Eosinophils % Basophils % Nucleated RBC % Sodium 139 Potassium 3.9 Chloride 104 Carbon Dioxide 29 Anion Gap 6 L BUN 19.8 H Creatinine 1.0 Est GFR (CKD-EPI)AfAm 62.93 Est GFR (CKD-EPI)NonAf 54.30 Random Glucose 120 H Calcium 9.4 Total Bilirubin 1.1 H AST 17 ALT 24 Alkaline Phosphatase 159 H Total Protein 7.1 Albumin 3.8 RPR Titer Problem List - Problems (1) Fall Code(s): W19.XXXA - UNSPECIFIED FALL, INITIAL ENCOUNTER (2) Atrial fibrillation Code(s): I48.91 - UNSPECIFIED ATRIAL FIBRILLATION Qualifiers: Atrial fibrillation type: chronic Qualified Code(s): I48.2 - Chronic atrial fibrillation (3) CAD (coronary artery disease) Code(s): I25.10 - ATHSCL HEART DISEASE OF [place] CORONARY ARTERY W/O ANG PCTRS Qualifiers: Coronary Disease-Associated Artery/Lesion type: unspecified vessel or lesion type [place] vs. transplanted heart: [place] heart Associated angina: without angina Qualified Code(s): I25.10 - Atherosclerotic heart disease of [place] coronary artery without angina pectoris (4) HTN (hypertension) Code(s): I10 - ESSENTIAL (PRIMARY) HYPERTENSION Qualifiers: Hypertension type: essential hypertension Qualified Code(s): I10 - Essential (primary) hypertension (5) Hypercholesterolemia Code(s): E78.0 - PURE HYPERCHOLESTEROLEMIA * DO NOT USE * Assessment/Plan R/O Obstructive Airways Disease / COPD: currently she appears stable PLAN: Noted Psych consult was called Fall precautions O2 as needed PFTs once stable as an outpatient No smoking VTE prophylaxis Dr Lazar Problem List - Problems (1) Fall Code(s): W19.XXXA - UNSPECIFIED FALL, INITIAL ENCOUNTER (2) Atrial fibrillation Code(s): I48.91 - UNSPECIFIED ATRIAL FIBRILLATION Qualifiers: Atrial fibrillation type: chronic Qualified Code(s): I48.2 - Chronic atrial fibrillation (3) CAD (coronary artery disease) Code(s): I25.10 - ATHSCL HEART DISEASE OF [place] CORONARY ARTERY W/O ANG PCTRS Qualifiers: Coronary Disease-Associated Artery/Lesion type: unspecified vessel or lesion type [place] vs. transplanted heart: [place] heart Associated angina: without angina Qualified Code(s): I25.10 - Atherosclerotic heart disease of [place] coronary artery without angina pectoris (4) HTN (hypertension) Code(s): I10 - ESSENTIAL (PRIMARY) HYPERTENSION Qualifiers: Hypertension type: essential hypertension Qualified Code(s): I10 - Essential (primary) hypertension (5) Hypercholesterolemia Code(s): E78.0 - PURE HYPERCHOLESTEROLEMIA * DO NOT USE *
--- NOTE | 2019-03-20 18:19 | PN ---
Progress Note (short form) - Note Progress Note: The patient is a 78-year-old female with history of coronary artery disease,status post PCI, status post coronary artery bypass grafting; angina pectoris; permanent atrial fibrillation; status post embolic cerebrovascular accident; history of left ventricular diastolic dysfunction; hypertension; hypertensive cardiovascular disease; history of congestive heart failure. Patient was brought to the hospital. She apparently slid off the chair and fell to the ground and was unable to stand up and apparently laid on the floor all during the night. The following day, her friends and the supervisor boat outfitting of the building were able to go to her apartment, and she was brought to the hospital. Patient is unable to give a proper history because of confusion. She denies any chest pain or discomfort. There is no history of palpitations, lightheadedness, dizziness, presyncope, or documented syncope. There is no history of loss of control over her bodily functions. Active Medications Acetaminophen (Tylenol -) 650 mg PO Q6H PRN PRN Reason: PAIN LEVEL 4 - 6 Amlodipine Besylate (Norvasc -) 5 mg PO DAILY [facility] Last Admin: 03/20/19 09:42 Dose: 5 mg Apixaban (Eliquis -) 5 mg PO BID [facility] Last Admin: 03/20/19 09:42 Dose: 5 mg Aspirin (Asa -) 81 mg PO DAILY [facility] Last Admin: 03/20/19 09:40 Dose: 81 mg Atorvastatin Calcium (Lipitor -) [address] [facility] Last Admin: 03/19/19 22:39 Dose: 80 mg Docusate Sodium (Colace -) 100 mg PO BID [facility] Last Admin: 03/20/19 09:42 Dose: 100 mg Donepezil HCl (Aricept -) [address] [facility] Last Admin: 03/19/19 22:38 Dose: 5 mg Metoprolol Succinate (Toprol Xl -) 25 mg PO DAILY [facility] Last Admin: 03/20/19 09:40 Dose: 25 mg Senna (Senna -) [address] [facility] Last Admin: 03/19/19 22:39 Dose: 2 tab PHYSICAL EXAMINATION: Last Vital Signs Temp Pulse Resp BP Pulse Ox 98.2 F 60 18 115/62 100 03/20/19 14:00 03/20/19 14:00 03/20/19 14:00 03/20/19 14:00 03/20/19 09:00 General: A 78-year-old pleasant female who was confused in time and space, but was able to recognize me by name. Neck: Supple. No jugular venous distention. Carotids were 2+. Upstrokes werenormal. No bruits were heard, and no thyromegaly was present. Heart: No heaves or thrills. PMI was in the fifth intercostal space. S1 was variable. S2 was normal. A grade 2/6 decrescendo systolic murmur was heard along the left sternal border, ending in [id number]. There was an ejection systolic murmur, grade 1/6, heard at the second right intercostal space and ending in early systole. No diastolic murmur or gallops were heard. Lungs: Clear on auscultation. Abdomen: Soft, protuberant, nontender. No hepatosplenomegaly or palpable masses were felt. Extremities: No calf tenderness or dependent edema. Pulses were equal except dorsalis pedis and posterior tibial pulses could not be palpated. CBC, BMP 03/20/19 05:20 03/20/19 10:45 IMPRESSION: 1. History of a fall without documented injury. 2. Atherosclerotic heart disease, status post coronary artery bypass grafting. 3. Status post permanent pacemaker. 4. Permanent atrial fibrillation, sick sinus syndrome. 5. Left ventricular diastolic dysfunction. 6. History of syndrome. 7. Hypercholesterolemia. 8. History of left ventricular diastolic dysfunction. 9. Elevated CK and troponin levels, possibility of an acute cardiac event. RECOMMENDATIONS: 1. Consider adding Ranexa 500 mg p.o. q.12 hours. 2. Continue cardiac medications as outlined. 3. Echocardiogram. 4. Lipid profile. 5. BNP. PROGNOSIS: Guarded. DEMETRIA HERRERA M.D.
--- NOTE | 2019-03-20 18:38 | CON.PSY ---
Psychiatry Consult Chief Complaint: 78 Hany 9old female a Resident of an assiated living facility admitted following a fall. Patient is severly Demented and apperas to be hallucinating. She has been wandering around the unit and room. Thinks she is in her kitchen. Symptoms: reports: Memory Impairment, Disorganized/Disruptive Thoughts, Hallucinations - Previous Psychiatric Treatment Outpatient: None Inpatient: None - Previous Substance Abuse Treatment Outpatient: None Inpatient: None - Current Medications Current Medications: Active Medications Acetaminophen (Tylenol -) 650 mg PO Q6H PRN PRN Reason: PAIN LEVEL 4 - 6 Amlodipine Besylate (Norvasc -) 5 mg PO DAILY [facility] Last Admin: 03/20/19 09:42 Dose: 5 mg Apixaban (Eliquis -) 5 mg PO BID [facility] Last Admin: 03/20/19 09:42 Dose: 5 mg Aspirin (Asa -) 81 mg PO DAILY [facility] Last Admin: 03/20/19 09:40 Dose: 81 mg Atorvastatin Calcium (Lipitor -) 80 mg PO HS [facility] Last Admin: 03/19/19 22:39 Dose: 80 mg Docusate Sodium (Colace -) 100 mg PO BID [facility] Last Admin: 03/20/19 09:42 Dose: 100 mg Donepezil HCl (Aricept -) 5 mg PO HS [facility] Last Admin: 03/19/19 22:38 Dose: 5 mg Metoprolol Succinate (Toprol Xl -) 25 mg PO DAILY [facility] Last Admin: 03/20/19 09:40 Dose: 25 mg Senna (Senna -) 2 tab PO HS [facility] Last Admin: 03/19/19 22:39 Dose: 2 tab - Allergies Allergies: Allergies Allergy/AdvReac Type Severity Reaction Status Date / Time No Known Allergies Allergy Verified 03/18/19 16:04 - Current Living Status Usual Living Arrangement: Assisted Living - Current Mental Status Evaluation Appearance: Disheveled Attitude: Guarded - Affect Affect: Constrictive Appropriateness: Not Appropriate - Mood Mood: Anxious - Speech/Language Expressive: Coherent, Delayed - Psychomotor Activity Psychomotor Activity: Hyperactive - Thought Process Thought Process: Circumstantial - Thought Content Hallucinations: Present Type: Auditory Delusions: Absent - Self Perception Self Perception: Depersonalization - Cognition Attention: Diminished Memory, Immediate Recall: Impaired Memory, Short Term: 0/3 Memory, Remote with Promptin/3 - Concentration Serial Sevens Intact: No Simple Calculations Intact: No - Abstraction Proverb Interpretation: [place] Judgement: Moderately Impaired - Insight Insight: Impaired - Impulse Control Impulse Control: Minimally Impaired - Suicidal Ideation Suicidal Ideation: No - Homicidal Ideation Homicidal Ideation: No Assessment/Plan 1) [id number] po hs for hallucinations. 2) Might need -placement in SNF.
[2019-03-20] MEDS: ATORVASTATIN CA 80 MG TABLET (FP) PO SCH (21:34)
[2019-03-20] MEDS: SENNOSIDES 8.6MG TABLET (FP) PO SCH (21:34)
[2019-03-20] MEDS ORDERED: PT OWN MED DRAWER 7, Y5N ONE (21:36)
[2019-03-20] MEDS: OLANZapine 5 MG TABLET PO SCH (21:41)
[2019-03-20] MEDS: DONEPEZIL HCL 5 MG TABLET (FP) PO SCH (21:42)
[2019-03-21 06:25] LABS: BASO % 0.5 % (0-2.0); EOS % 1.4 % (0-4.5); HEMOGLOBIN 12.9 GM/dL (10.7-15.3); LYMPH % 38.7 % (8-40); MCH 29.5 pg (25.7-33.7); MCHC 33.1 g/dl (32.0-36.0); MEAN CELL VOLUME 89.1 fl (80-96); MEAN PLT VOLUME 12.3 fl (7.5-11.1); MONO % 8.9 % (3.8-10.2); NEUT % 50.5 % (42.8-82.8); PLATELET COUNT 142 K/MM3 (134-434); RBC 4.38 M/mm3 (3.60-5.2); WHITE BLOOD COUNT 6.9 K/mm3 (4.0-10.0)
[2019-03-21 07:00] LABS: ALBUMIN 3.4 g/dl (3.4-5.0); BILIRUBIN,TOTAL 0.6 mg/dL (0.2-1); BLOOD UREA NITROGEN 22.3 mg/dL (7-18); CALCIUM 9.1 mg/dL (8.5-10.1); CREATININE 0.9 mg/dL (0.55-1.3); TOT PROT 6.3 g/dl (6.4-8.2)
[2019-03-21] MEDS: APIXABAN 5 MG TABLET PO SCH ×2 (09:33→21:36)
[2019-03-21] MEDS: amLODIPine BESYLATE 5 MG TABLET (FP) PO SCH (09:33)
[2019-03-21] MEDS: ASPIRIN 81 MG CHEWABLE TABLETS PO SCH (09:33)
[2019-03-21] MEDS: DOCUSATE SODIUM 100 MG CAPSULE (FP) PO SCH ×2 (09:33→21:36)
--- NOTE | 2019-03-21 11:59 | DS ---
Physical Examination Vital Signs: Vital Signs Temperature 97.8 F 03/21/19 08:14 Pulse Rate 60 03/21/19 08:14 Respiratory Rate 14 03/21/19 08:14 Blood Pressure 168/75 03/21/19 08:14 O2 Sat by Pulse Oximetry (%) 100 03/21/19 08:14 Constitutional: Yes: Calm Cardiovascular: Yes: Regular Rate and Rhythm, S1, S2 Respiratory: Yes: CTA Bilaterally Gastrointestinal: Yes: Normal Bowel Sounds, Soft Edema: No Neurological: Yes: Alert, Oriented Labs: CBC, BMP 03/21/19 05:15 03/21/19 05:15 Discharge Summary Reason For Visit: SYSTOLIC MURMUR,PRE SYNCOPE Current Active Problems Alzheimer disease (Acute) Elevated TSH (Acute) Fall (Acute) Foul smelling urine (Acute) Pre-syncope (Acute) Prophylactic measure (Acute) Hospital Course: Primary Care Physician PCP: Clemente Morrow - Admission Chief Complaint: s/p fall History of Present Illness: 78 year old F with h/o A.Fib (on eliquis), CAD s/p PCI and CABG, TIA, HTN, HLD, spondylosis, dementia presents s/p fall that happened overnight. She reports ambulating to the bathroom from bedroom when she suddenly fell, she was unable to lift herself from the ground but after several hours she was able to activate an alarm in her apartment around 10am for assistance from the [employer]. She denies any prodromal symptoms prior to fall and did not lose consciousness during fall. She denies CP, SOB, dizziness, fever, chills, nausea , vomiting, diarrhea. Pt transported to ED by EMS after being found down. At baseline, she lives alone, mostly uses a wheelchair and is able to perform basic ADLs. In ED: vitals were BP 157/78, T 98.4, HR 60, RR 19, O2 sat 98 Head/c-spine CT showed chronic infarcts, no acute bleed, no C-spine fracture WBC 10, lactate 1.2 trop 0.15 (baseline), ALP 140, CK 210 patient seen by neurology for dementia and started on donezipil alsos seen by psych for dementia and hallucinations started on zyprexa inc bun to get renal sono and bladder scan patient is incontinent family wants placmeent to [facility] Condition: Stable - Instructions Referrals: Alicia Richards MD [Staff Physician] - [facility] - Home Medications Comprehensive Discharge Medication List: Ambulatory Orders Aspirin [ASA -] 81 mg PO DAILY #0 tab.chew 08/06/13 Atorvastatin Ca [Lipitor] 80 mg PO HS #30 tablet 09/05/16 Apixaban [Eliquis] 5 mg PO [facility] 11/04/17 Metoprolol Succinate [Toprol XL -] 25 mg PO DAILY 11/04/17
--- NOTE | 2019-03-21 12:15 | PN ---
Progress Note (short form) - Note Progress Note: Resting in NAD. Breathing appears comfortable. No acute events overnight. Intake & Output 03/18/19 03/19/19 03/20/19 03/21/19 23:59 23:59 23:59 23:59 Intake Total 60 360 300 Balance 60 360 300 Weight 165 lb 3.2 oz 165 lb 8 oz 166 lb 3.2 oz Last Vital Signs Temp Pulse Resp BP Pulse Ox 97.8 F 60 14 168/75 100 03/21/19 08:14 03/21/19 08:14 03/21/19 08:14 03/21/19 08:14 03/21/19 08:14 Active Medications Acetaminophen (Tylenol -) 650 mg PO Q6H PRN PRN Reason: PAIN LEVEL 4 - 6 Amlodipine Besylate (Norvasc -) 5 mg PO DAILY [facility] Last Admin: 03/21/19 09:33 Dose: 5 mg Apixaban (Eliquis -) 5 mg PO BID [facility] Last Admin: 03/21/19 09:33 Dose: 5 mg Aspirin (Asa -) 81 mg PO DAILY [facility] Last Admin: 03/21/19 09:33 Dose: 81 mg Atorvastatin Calcium (Lipitor -) 80 mg PO [facility] Last Admin: 03/20/19 21:34 Dose: 80 mg Docusate Sodium (Colace -) 100 mg PO BID [facility] Last Admin: 03/21/19 09:33 Dose: 100 mg Donepezil HCl (Aricept -) 5 mg PO [facility] Last Admin: 03/20/19 21:42 Dose: Not Given Metoprolol Succinate (Toprol Xl -) 25 mg PO DAILY [facility] Last Admin: 03/21/19 09:33 Dose: 25 mg Olanzapine (Zyprexa -) 5 mg PO [facility] Last Admin: 03/20/19 21:41 Dose: Not Given Senna (Senna -) 2 tab PO [facility] Last Admin: 03/20/19 21:34 Dose: 2 tab Constitutional: Yes: No Distress Eyes: Yes: Conjunctiva Clear, EOM Intact HENT: Yes: Atraumatic, Normocephalic Neck: Yes: Supple, Trachea Midline Cardiovascular: Yes: Regular Rate and Rhythm Respiratory: Yes: Diminished. No: Accessory Muscle Use, Cough, Rales, Rhonchi, SOB, SOB on Exertion, Stridor, Tachypnea, Wheezes ...Inspection: Yes: WNL ...Clubbing: No Gastrointestinal: Yes: Normal Bowel Sounds, Soft, Abdomen, Obese Renal/: Yes: WNL Musculoskeletal: Yes: WNL Extremities: Yes: WNL Edema: No Peripheral Pulses WNL: Yes Integumentary: Yes: WNL Neurological: Yes: Non-focal ...Motor Strength: WNL Psychiatric: Yes: alert Labs: Laboratory Results - last 24 hr 03/20/19 03/21/19 03/21/19 10:45 05:15 05:15 WBC 6.9 RBC 4.38 Hgb 12.9 Hct 39.0 MCV 89.1 MCH 29.5 MCHC 33.1 RDW 14.0 Plt Count 142 MPV 12.3 H Absolute Neuts (auto) 3.5 Neutrophils % 50.5 Lymphocytes % 38.7 Monocytes % 8.9 Eosinophils % 1.4 Basophils % 0.5 Nucleated RBC % 0 Sodium 139 141 Potassium 3.9 4.0 Chloride 104 107 Carbon Dioxide 29 30 Anion Gap 6 L 5 L BUN 19.8 H 22.3 H Creatinine 1.0 0.9 Est GFR (CKD-EPI)AfAm 62.93 71.48 Est GFR (CKD-EPI)NonAf 54.30 61.67 Random Glucose 120 H 101 Calcium 9.4 9.1 Total Bilirubin 1.1 H 0.6 AST 17 17 ALT 24 20 Alkaline Phosphatase 159 H 136 H Total Protein 7.1 6.3 L Albumin 3.8 3.4 Triglycerides 66 Cholesterol 132 Total LDL Cholesterol 69 HDL Cholesterol 55 Problem List - Problems (1) Fall Code(s): W19.XXXA - UNSPECIFIED FALL, INITIAL ENCOUNTER (2) Atrial fibrillation Code(s): I48.91 - UNSPECIFIED ATRIAL FIBRILLATION Qualifiers: Atrial fibrillation type: chronic Qualified Code(s): I48.2 - Chronic atrial fibrillation (3) CAD (coronary artery disease) Code(s): I25.10 - ATHSCL HEART DISEASE OF [place] CORONARY ARTERY W/O ANG PCTRS Qualifiers: Coronary Disease-Associated Artery/Lesion type: unspecified vessel or lesion type [place] vs. transplanted heart: [place] heart Associated angina: without angina Qualified Code(s): I25.10 - Atherosclerotic heart disease of [place] coronary artery without angina pectoris (4) HTN (hypertension) Code(s): I10 - ESSENTIAL (PRIMARY) HYPERTENSION Qualifiers: Hypertension type: essential hypertension Qualified Code(s): I10 - Essential (primary) hypertension (5) Hypercholesterolemia Code(s): E78.0 - PURE HYPERCHOLESTEROLEMIA * DO NOT USE * Assessment/Plan R/O Obstructive Airways Disease / COPD: currently she appears stable PLAN: Fall precautions PFTs once stable as an outpatient No smoking D/C planning Dr Lazar Problem List - Problems (1) Fall Code(s): W19.XXXA - UNSPECIFIED FALL, INITIAL ENCOUNTER (2) Atrial fibrillation Code(s): I48.91 - UNSPECIFIED ATRIAL FIBRILLATION Qualifiers: Atrial fibrillation type: chronic Qualified Code(s): I48.2 - Chronic atrial fibrillation (3) CAD (coronary artery disease) Code(s): I25.10 - ATHSCL HEART DISEASE OF [place] CORONARY ARTERY W/O ANG PCTRS Qualifiers: Coronary Disease-Associated Artery/Lesion type: unspecified vessel or lesion type [place] vs. transplanted heart: [place] heart Associated angina: without angina Qualified Code(s): I25.10 - Atherosclerotic heart disease of [place] coronary artery without angina pectoris (4) HTN (hypertension) Code(s): I10 - ESSENTIAL (PRIMARY) HYPERTENSION Qualifiers: Hypertension type: essential hypertension Qualified Code(s): I10 - Essential (primary) hypertension (5) Hypercholesterolemia Code(s): E78.0 - PURE HYPERCHOLESTEROLEMIA * DO NOT USE *
[2019-03-21] MEDS ORDERED: PT OWN MED DRAWER 7, Y5N ONE (12:54)
[2019-03-21] MEDS: DONEPEZIL HCL 5 MG TABLET (FP) PO SCH (13:08)
--- NOTE | 2019-03-21 13:46 | PN ---
Progress Note (short form) - Note Progress Note: NEUROLOGY PROGRESS: Events reviewed with nursing staff. Psychiatry consult read and appreciated. Family friend at bedside aiding in translation and history. Nurse reports that patient was wondering the halls, and talking to the intercom and herself when no one was around. Still with intermittent refusals of meds, meals and testing. Family friend note rapid decline within past year of memory, paranoia and seeing and hearing things that aren't there, as well as falls. Recently started on Zyprexa 5 mg HS per psychiatry. NEURO: Ox "Clinic" "February" 2019. TRUMP. No recall. + glabella, snout CNII-CNXII: Normal. Motor: Strength normal. Reflexes present with spread in arms. KJS present, AJ's absent. Sensation: Feels pinch in all fours Gait: Flexed, slight shuffle. Impression: Mod-Severe B/L Cerebral Dysfunction (OMS) c/w Alzheimer's Disease Senile Gait Dysfunction Suggest: Continue Donepezil 5 mg po QAM. Would avoid neuroleptics as this may worsen probability of falls and instead try quetiapine 12.5 mg HS -> 25 mg HS Neuro f/u in 1 month to increase Donepezil to 10 mg if tolerated. Thank you very much, Vijay Jon MD
[2019-03-21] MEDS: ATORVASTATIN CA 80 MG TABLET (FP) PO SCH (21:36)
[2019-03-21] MEDS: SENNOSIDES 8.6MG TABLET (FP) PO SCH (21:36)
[2019-03-21] MEDS: OLANZapine 5 MG TABLET PO SCH (21:36)
[2019-03-22 06:27] VITALS: TEMP 98.6
[2019-03-22] MEDS ORDERED: PT OWN MED DRAWER 7, Y5N ONE ×3 (09:40→14:54)
[2019-03-22] MEDS: ASPIRIN 81 MG CHEWABLE TABLETS PO SCH (09:43)
[2019-03-22] MEDS: DOCUSATE SODIUM 100 MG CAPSULE (FP) PO SCH (09:43)
[2019-03-22] MEDS: DONEPEZIL HCL 5 MG TABLET (FP) PO SCH (09:43)
[2019-03-22] MEDS: APIXABAN 5 MG TABLET PO SCH (09:44)
[2019-03-22] MEDS: amLODIPine BESYLATE 5 MG TABLET (FP) PO SCH (09:44)
--- NOTE | 2019-03-22 12:56 | DS ---
Physical Examination Vital Signs: Vital Signs Temperature 98.6 F 03/22/19 06:26 Pulse Rate 60 03/22/19 10:00 Respiratory Rate 18 03/22/19 10:00 Blood Pressure 109/64 03/22/19 10:00 O2 Sat by Pulse Oximetry (%) 100 03/22/19 09:00 Cardiovascular: Yes: S1, S2 Respiratory: Yes: Regular, CTA Bilaterally Gastrointestinal: Yes: Normal Bowel Sounds, Soft Labs: CBC, BMP 03/21/19 05:15 03/21/19 05:15 Discharge Summary Reason For Visit: SYSTOLIC MURMUR,PRE SYNCOPE Current Active Problems Alzheimer disease (Acute) Elevated TSH (Acute) Fall (Acute) Foul smelling urine (Acute) Pre-syncope (Acute) Prophylactic measure (Acute) Hospital Course: 78 year old F with h/o A.Fib (on eliquis), CAD s/p PCI and CABG, TIA, HTN, HLD, spondylosis, dementia presents s/p fall that happened overnight. She reports ambulating to the bathroom from bedroom when she suddenly fell, she was unable to lift herself from the ground but after several hours she was able to activate an alarm in her apartment around 10am for assistance from the [employer]. She denies any prodromal symptoms prior to fall and did not lose consciousness during fall. She denies CP, SOB, dizziness, fever, chills, nausea , vomiting, diarrhea. Pt transported to ED by EMS after being found down. At baseline, she lives alone, mostly uses a wheelchair and is able to perform basic ADLs. In ED: vitals were BP 157/78, T 98.4, HR 60, RR 19, O2 sat 98 Head/c-spine CT showed chronic infarcts, no acute bleed, no C-spine fracture WBC 10, lactate 1.2 trop 0.15 (baseline), ALP 140, CK 210 patient seen by neurology for dementia and started on donezipil alsos seen by psych for dementia and hallucinations started on zyprexa inc bun to get renal sono and bladder scan patient is incontinent family wants placmeent to [facility] dc to rehab follow closely echo as outpatient Condition: Stable - Instructions Diet, Activity, Other Instructions: superintendent container terminal placement for advanced dementia Referrals: Alicia Richards MD [Staff Physician] - Disposition: [facility] - Home Medications Comprehensive Discharge Medication List: Ambulatory Orders Aspirin [ASA -] 81 mg PO DAILY #0 tab.chew 08/06/13 Atorvastatin Ca [Lipitor] 80 mg PO HS #30 tablet 09/05/16 Apixaban [Eliquis] 5 mg PO [facility] 11/04/17 Metoprolol Succinate [Toprol XL -] 25 mg PO DAILY 11/04/17
--- NOTE | 2019-03-22 15:56 | PN ---
Progress Note (short form) - Note Progress Note: The patient is a 78-year-old female with history of coronary artery disease,status post PCI, status post coronary artery bypass grafting; angina pectoris; permanent atrial fibrillation; status post embolic cerebrovascular accident; history of left ventricular diastolic dysfunction; hypertension; hypertensive cardiovascular disease; history of congestive heart failure. Patient was brought to the hospital. She apparently slid off the chair and fell to the ground and was unable to stand up and apparently laid on the floor all during the night. The following day, her friends and the steffen house supervisor of the building were able to go to her apartment, and she was brought to the hospital. Patient is unable to give a proper history because of confusion. She denies any chest pain or discomfort. There is no history of palpitations, lightheadedness, dizziness, presyncope, or documented syncope. No chest pain or discomfort, noSOB Active Medications Generic Name Dose Route Start Last Admin Trade Name Freq PRN Reason Stop Dose Admin Acetaminophen 650 mg 03/18/19 22:29 Tylenol - PO Q6H PRN PAIN LEVEL 4 - 6 Amlodipine Besylate 5 mg 03/19/19 14:00 03/22/19 09:44 Norvasc - PO 5 mg DAILY THI Administration Apixaban 5 mg 03/18/19 23:55 03/22/19 09:44 Eliquis - PO 5 mg BID THI Administration Aspirin 81 mg 03/19/19 10:00 03/22/19 09:43 Asa - PO 81 mg DAILY THI Administration Atorvastatin Calcium 80 mg 03/18/19 22:00 03/21/19 21:36 Lipitor - PO 80 mg HS THI Administration Docusate Sodium 100 mg 03/19/19 10:00 03/22/19 09:43 Colace - PO 100 mg BID THI Administration Donepezil HCl 5 mg 03/21/19 12:30 03/22/19 09:43 Aricept - PO 5 mg DAILY THI Administration Levofloxacin 250 mg 03/22/19 12:15 03/22/19 14:56 Levaquin - PO 250 mg BID THI Administration Metoprolol Succinate 25 mg 03/19/19 10:00 03/22/19 09:44 Toprol Xl - PO 25 mg DAILY THI Administration Olanzapine 5 mg 03/20/19 22:00 03/21/19 21:36 Zyprexa - PO 5 mg HS THI Administration Senna 2 tab 03/19/19 22:00 03/21/19 21:36 Senna - PO 2 tab HS THI Administration PHYSICAL EXAMINATION: Last Vital Signs Temp Pulse Resp BP Pulse Ox 98.6 F 60 18 109/64 100 03/22/19 06:26 03/22/19 10:00 03/22/19 10:00 03/22/19 10:00 03/22/19 09:00 General: 78-year-old pleasant female who was confused in time and space, but was able to recognize me by name. Neck: Supple. No jugular venous distention. Carotids were 2+. Upstrokes werenormal. No bruits were heard, and no thyromegaly was present. Heart: No heaves or thrills. PMI was in the fifth intercostal space. S1 was variable. S2 was normal. A grade 2/6 decrescendo systolic murmur was heard along the left sternal border, ending in [id number]. There was an ejection systolic murmur, grade 1/6, heard at the second right intercostal space and ending in early systole. No diastolic murmur or gallops were heard. Lungs: Clear on auscultation. Abdomen: Soft, protuberant, nontender. No hepatosplenomegaly or palpable masses were felt. Extremities: No calf tenderness or tenderness left lower calf Pulses were equal except dorsalis pedis and posterior tibial pulses could not be palpated. CBC, BMP 03/21/19 05:15 03/21/19 05:15 Venous lower extremitiy duplex: No DVT reported. IMPRESSION: 1. History of a fall without documented injury. 2. Atherosclerotic heart disease, status post coronary artery bypass grafting. 3. Status post permanent pacemaker. 4. Permanent atrial fibrillation, sick sinus syndrome. 5. Left ventricular diastolic dysfunction. 6. Hypercholesterolemia. 7. History of left ventricular diastolic dysfunction. 8 . Elevated CK and troponin levels, possibility of an acute cardiac event. RECOMMENDATIONS: 1. Consider adding Ranexa 500 mg p.o. q.12 hours. 2. Continue current therapy. PROGNOSIS: Guarded. DEMETRIA HERRERA M.D.
[2019-03-22 17:13] VITALS: BP 100/77; PULSE 61
== END 2019-03-22 19:01 | DRG 56 ==
LOC: JER 15:47 → JERBED 19:01 → J2W 21:31
PROVIDERS: ADMIT Family Medicine; ATTEND Family Medicine
DX: G30.9 Alzheimer's disease, unspecified (principal); G93.41 Metabolic encephalopathy; I63.89 Other cerebral infarction; G45.9 Transient cerebral ischemic attack, unspecified; R44.3 Hallucinations, unspecified; I25.10 Atherosclerotic heart disease of native coronary artery without angina pectoris; E78.5 Hyperlipidemia, unspecified; I48.2 Chronic atrial fibrillation; F02.80 Dementia in other diseases classified elsewhere, unspecified severity, without behavioral disturbance, psychotic disturbance, mood disturbance, and anxiety; R82.90 Unspecified abnormal findings in urine; E11.9 Type 2 diabetes mellitus without complications; I11.0 Hypertensive heart disease with heart failure; I50.9 Heart failure, unspecified; R79.89 Other specified abnormal findings of blood chemistry; M47.899 Other spondylosis, site unspecified; Z95.0 Presence of cardiac pacemaker; Z95.5 Presence of coronary angioplasty implant and graft; I25.2 Old myocardial infarction; Z95.1 Presence of aortocoronary bypass graft; Z96.653 Presence of artificial knee joint, bilateral; Z78.0 Asymptomatic menopausal state; W18.39XA Other fall on same level, initial encounter; Y92.098 Other place in other non-institutional residence as the place of occurrence of the external cause; Z87.891 Personal history of nicotine dependence; Z99.3 Dependence on wheelchair
CPT/HCPCS: 36415; 70450-TC; 71045-TC-FY; 72125-TC; 76775-TC; 80053; 80061; 81003; 82550; 82553; 82607; 83605; 83721; 83735; 84100; 84439; 84443; 84484; 85025; 85610; 85730; 86593; 87086; 87186; 93005; 93010; 93970-TC; 97116-GP; 97162-GP; 99284-25

== ENCOUNTER 2019-08-05 08:57 | Inpatient (IN) | payer OTHER ==
--- NOTE | 2019-08-05 09:12 | PDOC ---
History of Present Illness - General Chief Complaint: Syncope/Near Syncope Stated Complaint: FALL Time Seen by Provider: 08/05/19 09:10 - History of Present Illness Initial Comments: 08/05/19 09:47 78 year old F with h/o A.Fib (on eliquis), CAD s/p PCI and CABG, TIA, HTN, HLD, spondylosis, dementia presents s/p fall. Per the patient, she was getting out of bed this morning and she felt very dizzy upon standing causing her to fall to the ground on her backside. She denies losing consciousness but does endorse hitting her head, though she says it was "on a soft surface". She denies CP, heart palpitations, SOB, new numbness or weakness, pain in her hips, knees, or wrists, abdominal pain, n/v/d/c, hematuria or dysuria. The patient states she took her BP meds this morning and says she is aware her BP is elevated. Past History - Travel Traveled outside of the country in the last 30 days: No Close contact w/someone who was outside of country & ill: No - Past Medical History Allergies/Adverse Reactions: Allergies Allergy/AdvReac Type Severity Reaction Status Date / Time No Known Allergies Allergy Verified 03/18/19 16:04 Home Medications: Ambulatory Orders Aspirin [ASA -] 81 mg PO DAILY #0 tab.chew 08/06/13 Atorvastatin Ca [Lipitor] 80 mg PO HS #30 tablet 09/05/16 Apixaban [Eliquis] 5 mg PO ASDIR 11/04/17 Metoprolol Succinate [Toprol XL -] 25 mg PO DAILY 11/04/17 Cardiac Disorders: Yes (AFIB.NH.CAD,[id number],pacemaker) CVA: Yes (TIA, stroke) COPD: No Diabetes: Yes GI Disorders: Yes HTN: Yes Hypercholesterolemia: Yes - Surgical History Appendectomy: Yes Cardiac Surgery: Yes (cabg) Orthopedic Surgery: Yes (Bilateral Knee Replacement) - Psycho Social/Smoking Cessation Hx Smoking Status: No Smoking History: Never smoked Have you smoked in the past 12 months: No Number of Cigarettes Smoked Daily: 0 (1PPD x 20yrs) If you are a former smoker, when did you quit?: 66 Hx Alcohol Use: No Drug/Substance Use Hx: No Substance Use Type: None Hx Substance Use Treatment: No Review of Systems - Review of Systems Able to Perform ROS?: Yes Is the patient limited Dominican proficient: No Constitutional: No: Chills, Diaphoresis, Fever, Malaise HEENTM: No: Eye Pain, Ear Pain, Nose Pain, Throat Pain Respiratory: No: Cough, Shortness of Breath Cardiac (ROS): Yes: Lightheadedness. No: Chest Pain, Irregular Heart Rate ABD/GI: No: Constipated, Diarrhea, Nausea, Vomiting, Abdominal cramping : No: Burning, Dysuria, Discharge, Hematuria Musculoskeletal: No: Back Pain, Muscle Pain, Neck Pain Integumentary: No: Erythema, Pruritus, Rash Neurological: No: Headache, Numbness, Paresthesia, Tingling Endocrine: No: Excessive Sweating, Intolerance to Cold, Intolerance to Heat All Other Systems: Reviewed and Negative *Physical Exam - Vital Signs Last Vital Signs Temp Pulse Resp BP Pulse Ox 98.1 F 60 16 190/73 H 97 08/05/19 08:59 08/05/19 08:59 08/05/19 08:59 08/05/19 08:59 08/05/19 08:59 - Physical Exam General Appearance: Yes: Nourished, Appropriately Dressed. No: Apparent Distress HEENT: positive: EOMI, JAY, Normal ENT Inspection, Pharynx Normal Neck: positive: Trachea midline, Supple. negative: Tender Respiratory/Chest: positive: Lungs Clear, Normal Breath Sounds. negative: Chest Tender, Respiratory Distress, Accessory Muscle Use Cardiovascular: positive: Regular Rhythm, Regular Rate, S1, S2, Murmur (3/6 systolic murmur). negative: Edema Gastrointestinal/Abdominal: positive: Normal Bowel Sounds, Soft. negative: Tender, Organomegaly Musculoskeletal: positive: Normal Inspection. 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 Will obtain: - CBC - CMP - EKG - CT head and cspine w/o contrast - CXR - Pelvis XR 08/05/19 13:10 - Pt EKG shows NSR with LA enlargement, QTc 447. - Pt also has mildly elevated troponin 0.09, will admit to tele- obs for syncope - imaging without evidence of acute pathology. 08/05/19 13:41 Discharge - Discharge Information Problems reviewed: Yes Clinical Impression/Diagnosis: Dizziness Condition: Stable - Admission Yes - Follow up/Referral Referrals: Alicia Richards MD [Primary Care Provider] - - Patient Discharge Instructions - Post Discharge Activity
[2019-08-05 10:33] LABS: BASO % 0.8 % (0-2.0); EOS % 0.9 % (0-4.5); HEMATOCRIT 41.4 % (32.4-45.2); HEMOGLOBIN 13.4 GM/dL (10.7-15.3); LYMPH % 32.5 % (8-40); MCH 28.5 pg (25.7-33.7); MCHC 32.4 g/dl (32.0-36.0); MEAN CELL VOLUME 88.1 fl (80-96); MEAN PLT VOLUME 12.5 fl (7.5-11.1); MONO % 9.6 % (3.8-10.2); NEUT % 56.2 % (42.8-82.8); PLATELET COUNT 164 K/MM3 (134-434); RBC 4.71 M/mm3 (3.60-5.2); RDW 14.6 % (11.6-15.6); WHITE BLOOD COUNT 6.9 K/mm3 (4.0-10.0)
--- NOTE | 2019-08-05 11:04 | PDOC ---
Attending Attestation - Resident Resident Name: Marissa Coronado - ED Attending Attestation I have performed the following: I have examined & evaluated the patient, The case was reviewed & discussed with the resident, I agree w/resident's findings & plan - HPI HPI: 08/05/19 10:58 78-year-old female with history of hypertension, CAD/CABG, dementia from [facility] presents brought in by EMS status post fall. Per patient's recollection, has been in good state of health, awoke this morning needing to use the restroom, at baseline ambulates with a walker and without assistance, and upon getting out of bed she slid off and landed on her bottom, was unable to get up on her own so the aids in the home assisted her, and activated EMS. Patient denies any head injury, denies any pain other than chronic left knee pain since surgery several years ago. Per EMS, patient was hypertensive and reported some lightheadedness, but patient is currently denying. - Physicial Exam PE: 08/05/19 11:00 Blood pressure 190 systolic, vitals otherwise normal including afebrile Well-appearing and pleasant elderly woman seated in stretcher, coherent and appropriate and following commands, mild dementia Exam is atraumatic Neck is supple with full range of motion Heart is regular to auscultation, midline chest incisional scar Lungs are clear Abdomen benign Left knee tender without swelling or deformity or bruising, full range of motion. Healed incisional scar. - Medical Decision Making 08/05/19 11:01 78-year-old female with low mechanism fall from bed this morning, no evidence of acute cardiopulmonary or neurological process, required assistance standing up so EMS was activated by halfway aides. She has no complaints here, no objective trauma findings, no evidence of sirs or acute cardiopulmonary or neurologic process. Check basic labs, urinalysis Trauma imaging Reassess, disposition accordingly with facility team Heart Score/ECG Review #1 ECG reviewed & interpreted by me at: 10:27 General ECG Interpretation: Normal Rate (v-paced at 60), Normal Intervals (qtc 484), No acute ischemic changes Compared to previous ECG there are: No significant change (c/w 03/18/19)
[2019-08-05 11:06] LABS: ALBUMIN 4.1 g/dl (3.4-5.0); BILIRUBIN,TOTAL 1.1 mg/dL (0.2-1); BLOOD UREA NITROGEN 12.9 mg/dL (7-18); CALCIUM 9.6 mg/dL (8.5-10.1); CREATININE 0.7 mg/dL (0.55-1.3); POTASSIUM 4.8 mmol/L (3.5-5.1); TOT PROT 7.7 g/dl (6.4-8.2)
[2019-08-05 11:12] LABS: INR 1.25 (0.83-1.09); PROTHROMBIN TIME (PATIENT) 14.8 SEC (9.7-13.0)
--- NOTE | 2019-08-05 12:43 | EKG ---
Test Reason : Blood Pressure : / mmHG Vent. Rate : 060 BPM Atrial Rate : 227 BPM P-R Int : 000 ms QRS Dur : 150 ms QT Int : 484 ms P-R-T Axes : 000 120 035 degrees QTc Int : 484 ms Ventricular-paced rhythm ABNORMAL ECG WHEN COMPARED WITH ECG OF 18-MAR-2019 16:42, NO SIGNIFICANT CHANGE WAS FOUND Confirmed by MD Gilbert Daniel ([id number]) on 08/05/2019 12:43:41 PM Referred By: Confirmed By:David Gilbert MD
[2019-08-05 17:19] VITALS: BMI 29.2
[2019-08-05] MEDS: metoPROLOL SUCCINATE 25 MG TAB.SR.24H (FP) PO SCH (18:15)
[2019-08-05 19:32] LABS: N-TERMINAL BNP 1584.3 pg/ml (5-450)
[2019-08-05] MEDS: APIXABAN 5 MG TABLET PO SCH (22:13)
[2019-08-05] MEDS: ATORVASTATIN CA 80 MG TABLET (FP) PO SCH (22:13)
[2019-08-05] MEDS ORDERED: LIDOCAINE 5% TOPICAL PATCH TP ONE (22:38)
[2019-08-05] MEDS: LIDOCAINE PATCH REMOVAL MC SCH (23:14)
[2019-08-06 07:51] LABS: BASO % 0.8 % (0-2.0); EOS % 1.1 % (0-4.5); HEMATOCRIT 35.9 % (32.4-45.2); HEMOGLOBIN 11.9 GM/dL (10.7-15.3); LYMPH % 34.1 % (8-40); MCH 29.1 pg (25.7-33.7); MCHC 33.3 g/dl (32.0-36.0); MEAN CELL VOLUME 87.3 fl (80-96); MEAN PLT VOLUME 12.9 fl (7.5-11.1); MONO % 10.4 % (3.8-10.2); NEUT % 53.6 % (42.8-82.8); PLATELET COUNT 137 K/MM3 (134-434); RBC 4.11 M/mm3 (3.60-5.2); RDW 14.1 % (11.6-15.6); WHITE BLOOD COUNT 7.8 K/mm3 (4.0-10.0)
[2019-08-06 08:50] LABS: ALBUMIN 3.7 g/dl (3.4-5.0); BILIRUBIN,TOTAL 1.2 mg/dL (0.2-1); CALCIUM 9.1 mg/dL (8.5-10.1); CREATININE 0.7 mg/dL (0.55-1.3); TOT PROT 6.4 g/dl (6.4-8.2)
--- NOTE | 2019-08-06 08:54 | HP ---
Admitting History and Physical - Admission History of Present Illness: 78-year-old female with history of hypertension, CAD/CABG, dementia from [facility] presents brought in by EMS status post fall - Past Medical History PRIMARY CARE NURSE PRACTITIONER: Yes: Dementia Cardiovascular: Yes: AFIB, CAD, HTN, Hyperlipdemia ...: No Musculoskeletal: Yes: Osteoarthritis - Smoking History Smoking history: Former smoker Have you smoked in the past 12 months: No Aproximately how many cigarettes per day: 0 If you are a former smoker, when did you quit?: 65 - Alcohol/Substance Use Hx Alcohol Use: No History of Substance Use: reports: None - Social History ADL: Independent History of Recent Travel: No Home Medications - Allergies Allergies/Adverse Reactions: Allergies Allergy/AdvReac Type Severity Reaction Status Date / Time No Known Allergies Allergy Verified 03/18/19 16:04 - Home Medications Home Medications: Ambulatory Orders Aspirin [ASA -] 81 mg PO DAILY #0 tab.chew 08/06/13 Atorvastatin Ca [Lipitor] 80 mg PO HS #30 tablet 09/05/16 Apixaban [Eliquis] 5 mg PO ASDIR 11/04/17 Metoprolol Succinate [Toprol XL -] 25 mg PO DAILY 11/04/17 Review of Systems - Review of Systems Cardiovascular: reports: No Symptoms Respiratory: reports: No Symptoms Gastrointestinal: reports: No Symptoms Musculoskeletal: reports: No Symptoms Neurological: reports: Confusion, Weakness Physical Examination Vital Signs: Vital Signs Temperature 98.7 F 08/06/19 05:00 Pulse Rate 60 08/06/19 05:00 Respiratory Rate 17 08/06/19 05:00 Blood Pressure 160/73 08/06/19 05:00 O2 Sat by Pulse Oximetry (%) 97 08/05/19 21:00 Cardiovascular: Yes: Regular Rate and Rhythm Respiratory: Yes: Regular, CTA Bilaterally Gastrointestinal: Yes: Normal Bowel Sounds, Soft Edema: No Labs: CBC, BMP 08/06/19 06:35 08/06/19 06:35 Problem List - Problems (1) Alzheimer disease Code(s): G30.9 - ALZHEIMER'S DISEASE, UNSPECIFIED; F02.80 - DEMENTIA IN OTH DISEASES CLASSD ELSWHR W/O BEHAVRL DISTURB (2) Atrial fibrillation Assessment/Plan: on eliquis and metoprolol Code(s): I48.91 - UNSPECIFIED ATRIAL FIBRILLATION Qualifiers: Atrial fibrillation type: chronic (3) Bilateral leg weakness Assessment/Plan: pt Code(s): M62.81 - MUSCLE WEAKNESS (GENERALIZED) (4) Foul smelling urine Assessment/Plan: stat UA and CS Code(s): R82.90 - UNSPECIFIED ABNORMAL FINDINGS IN URINE (5) HTN (hypertension) Assessment/Plan: same meds Code(s): I10 - ESSENTIAL (PRIMARY) HYPERTENSION Qualifiers: Hypertension type: essential hypertension Qualified Code(s): I10 - Essential (primary) hypertension
--- NOTE | 2019-08-06 10:42 | EKG ---
Test Reason : Blood Pressure : / mmHG Vent. Rate : 060 BPM Atrial Rate : 214 BPM P-R Int : 000 ms QRS Dur : 158 ms QT Int : 534 ms P-R-T Axes : 000 114 042 degrees QTc Int : 534 ms Ventricular-paced rhythm ABNORMAL ECG WHEN COMPARED WITH ECG OF 05-AUG-2019 10:27, NO SIGNIFICANT CHANGE WAS FOUND Confirmed by AVIVA FIGUEROA MD ([id number]) on 08/06/2019 10:41:31 AM Referred By: Kitty DEMPSEY Confirmed By:AVIVA FIGUEROA MD
[2019-08-06] MEDS: APIXABAN 5 MG TABLET PO SCH ×2 (11:11→22:52)
[2019-08-06] MEDS: metoPROLOL SUCCINATE 25 MG TAB.SR.24H (FP) PO SCH (11:12)
[2019-08-06] MEDS: ASPIRIN 81 MG CHEWABLE TABLETS PO SCH (11:12)
--- NOTE | 2019-08-06 21:14 | CONS ---
CARDIOLOGY CONSULTATION DATE OF CONSULTATION: 08/06/2019 REQUESTING PHYSICIAN: Alicia Richards MD CHIEF COMPLAINT: History of a fall. Patient is a 78-year-old female with longstanding history of coronary artery disease, status post PCI, status post CABG; angina pectoris; history of dementia; status post embolic cerebrovascular accident; permanent atrial fibrillation; a history of advanced AV block, status post permanent pacemaker. Patient also is known to have chronic obstructive pulmonary disease, hypertension, left ventricular diastolic dysfunction. History was obtained from the chart as patient is unable to provide a history. Apparently, patient slipped and fell without sustaining any injuries as noted in the emergency room records. There is no history of chest pain or discomfort. No history of dyspnea, paroxysmal nocturnal dyspnea, or orthopnea recorded. No history of loss of consciousness. No history of loss of sphincter control or seizures. PAST HISTORY: As mentioned in the history of present illness. ? History of obstructive sleep apnea syndrome. History of osteoarthritis. History of congestive heart failure. History of left ventricular diastolic dysfunction. SURGICAL HISTORY: Status post coronary artery bypass grafting. Status post bilateral knee replacement. SOCIAL HISTORY: Not available. FAMILY HISTORY: Not available. ALLERGIES: None documented. MEDICATIONS: 1. Lidoderm patch 1 daily. 2. Eliquis 5 mg p.o. b.i.d. 3. Metoprolol succinate 25 mg p.o. daily. 4. Atorvastatin 80 mg p.o. daily. 5. Aspirin 81 mg p.o. daily. REVIEW OF SYSTEMS: As noted in the emergency room records. PHYSICAL EXAMINATION: General: This 78-year-old female was in no acute distress. No pallor, cyanosis, clubbing, or jaundice. Vital Signs: At 1447, blood pressure was 139/63 mmHg. Pulse 62 beats per minute and regular. Temperature 98.1 degrees Fahrenheit. Neck: Supple. No jugular venous distention. Hepatojugular reflux was negative. Carotids were 2+. No bruits were appreciated. There was no thyromegaly. Heart: PMI was in the fifth intercostal space. No heaves or thrills. Heart sounds were distant. S1 was normal. S2 was split. Grade 2/6 ejection systolic murmur was heard along the second left intercostal space. There was a grade 1/6 decrescendo systolic murmur heard at the apex. No diastolic murmur or gallops were heard. Lungs: Clear on auscultation. Abdomen: Protuberant, soft, and nontender. No hepatosplenomegaly or palpable masses were felt. Bowel sounds were heard. Extremities: No calf tenderness or dependent edema. Pulses were equal. Dorsalis pedis and posterior tibial pulses were weak. LABORATORY DATA: August 06, 2019: CBC: WBC count 7800. Hemoglobin 11.9 g/dL. Normal cell indices. Platelet count 137,000. Chemistry August 06, 2019: Sodium 141, potassium 4.0, chloride 107, CO2 of 26 mmol/L. BUN 17 mg/dL, creatinine 0.7 mg/dL. Glucose 125 mg/dL. CK on August 05, 2019 was 197. Troponins were elevated at 0.09. Followup CK 111. Troponin was 0.09. On August 06, 2019, CK was 127, and troponins were 0.12. BNP was 1584.3 pg/mL. TSH 2.96. Total T4 was 11.2. X-ray chest August 05, 2019, impression: No acute changes in the lungs. No definite fracture or . ECG August 05, 2019: Underlying rhythm was atrial fibrillation. Permanent pacemaker was seen, functioning in a fixed rate mode with consistent ventricular capture. IMPRESSION: 1. Coronary artery disease, status post coronary artery bypass grafting, angina pectoris. 2. Elevated troponin levels, etiology: A. Secondary to ischemic heart disease. B. Congestive heart failure. C. Related to atrial fibrillation. 3. History of a fall of undetermined etiology. 4. History of dementia. 5. Hypertension, hypertensive cardiovascular disease. 6. Permanent atrial fibrillation. 7. History of advanced atrioventricular block, status post permanent pacemaker. 8. Status post cerebrovascular accident. 9. History of left ventricular diastolic dysfunction. 10. Systolic murmur compatible with aortic valvular disease, probably aortic sclerosis. RECOMMENDATIONS: 1. Interrogation of permanent pacemaker. 2. Echocardiogram. 3. Consider adding isosorbide mononitrate 30 mg p.o. daily. 4. Lasix 20 mg p.o. daily. 5. Follow up electrolytes. 6. Check blood pressure supine and standing. Further suggestions as necessary. Thank you for your referral. Yours sincerely, DEMETRIA HERRERA M.D. [id number]
[2019-08-06] MEDS: ATORVASTATIN CA 80 MG TABLET (FP) PO SCH (22:52)
[2019-08-06] MEDS: LIDOCAINE PATCH REMOVAL MC SCH (22:52)
[2019-08-07] MEDS: APIXABAN 5 MG TABLET PO SCH ×2 (10:26→22:46)
[2019-08-07] MEDS: ASPIRIN 81 MG CHEWABLE TABLETS PO SCH (10:26)
[2019-08-07] MEDS: metoPROLOL SUCCINATE 25 MG TAB.SR.24H (FP) PO SCH (10:26)
--- NOTE | 2019-08-07 12:10 | PN ---
Progress Note, Physician Chief Complaint: patient seen and examined s/p fall at [facility] - Current Medication List Current Medications: Active Medications Apixaban (Eliquis -) 5 mg PO BID [facility] Last Admin: 08/07/19 10:26 Dose: 5 mg Aspirin (Asa -) 81 mg PO DAILY [facility] Last Admin: 08/07/19 10:26 Dose: 81 mg Atorvastatin Calcium (Lipitor -) 80 mg PO HS [facility] Last Admin: 08/06/19 22:52 Dose: 80 mg Metoprolol Succinate (Toprol Xl -) 25 mg PO DAILY [facility] Last Admin: 08/07/19 10:26 Dose: 25 mg Miscellaneous (Lidoderm Patch Removal) 1 each MC DAILY@2200 [facility] Last Admin: 08/06/19 22:52 Dose: 1 each - Objective Vital Signs: Vital Signs Temperature 98.4 F 08/07/19 09:00 Pulse Rate 60 08/07/19 09:00 Respiratory Rate 15 08/07/19 09:00 Blood Pressure 133/69 08/07/19 09:00 O2 Sat by Pulse Oximetry (%) 98 08/07/19 09:00 Constitutional: Yes: Calm, Thin Cardiovascular: Yes: Regular Rate and Rhythm, S1, S2 Respiratory: Yes: CTA Bilaterally Gastrointestinal: Yes: Normal Bowel Sounds, Soft Edema: No Neurological: Yes: Alert, Oriented Labs: CBC, BMP 08/06/19 06:35 08/06/19 06:35 INR, PTT INR 1.25 (0.83-1.09) H 08/05/19 10:00 Problem List - Problems (1) Bradycardia Assessment/Plan: beta radha on hold Code(s): R00.1 - BRADYCARDIA, UNSPECIFIED (2) Fall Assessment/Plan: cardiology and neurology Code(s): W19.XXXA - UNSPECIFIED FALL, INITIAL ENCOUNTER (3) Alzheimer disease Assessment/Plan: njeurology eval Code(s): G30.9 - ALZHEIMER'S DISEASE, UNSPECIFIED; F02.80 - DEMENTIA IN OTH DISEASES CLASSD ELSWHR W/O BEHAVRL DISTURB (4) Atrial fibrillation Assessment/Plan: eliquis AC monitor HR hold off on B Radha Code(s): I48.91 - UNSPECIFIED ATRIAL FIBRILLATION Qualifiers: Atrial fibrillation type: chronic (5) Bilateral leg weakness Assessment/Plan: neurology b12,rpr,folate PTeval Code(s): M62.81 - MUSCLE WEAKNESS (GENERALIZED) (6) Elevated troponin Assessment/Plan: echo trend troponin aspirin and statin Code(s): R79.89 - OTHER SPECIFIED ABNORMAL FINDINGS OF BLOOD CHEMISTRY
--- NOTE | 2019-08-07 19:00 | PN ---
Progress Note (short form) - Note Progress Note: 78-year-old female with history ofcoronary artery disease, status post PCI, status post CABG,status post permanent pacemaker for advanced AV block, permanent atrial fibrillation, left ventricular diastolic dysfunction, congestive heart failure, hypertension, hypertensive cardiovascular diseaseand COPD. patient was admitted with history of a fall. Workup disclosed elevated troponin levels and BNP. She no real collection why she was admitted. No obvious symptoms have been elicited. Active Medications Apixaban (Eliquis -) 5 mg PO BID [facility] Last Admin: 08/07/19 10:26 Dose: 5 mg Aspirin (Asa -) 81 mg PO DAILY [facility] Last Admin: 08/07/19 10:26 Dose: 81 mg Atorvastatin Calcium (Lipitor -) 80 mg PO HS [facility] Last Admin: 08/06/19 22:52 Dose: 80 mg Miscellaneous (Lidoderm Patch Removal) 1 each MC DAILY@2200 [facility] Last Admin: 08/06/19 22:52 Dose: 1 each 8&-year-old female was confused in time and space, was in noacute distress, no pallor, cyanosis, clubbing or jaundice. Last Vital Signs Temp Pulse Resp BP Pulse Ox 98.0 F 70 16 113/52 L 98 08/07/19 17:00 08/07/19 17:00 08/07/19 17:00 08/07/19 17:00 08/07/19 09:00 Neck: Supple, no jugular venous distention, mildly positive hepatojugular reflux , carotids were 2+, upstrokes were normal, no bruits were heard. Heart: PMI was in the fifth intercostal space, no heaves or thrills, S1 was normal S2 was split, grade 2/6 ejection systolic murmur was heard at the second right and left intercostal space, no diastolic murmur or gallops were heard. Lungs: Clear on auscultation. Abdomen: Soft, protuberant, nontender. No hepatosplenomegaly or palpable masses were felt. Extremities: No calf tenderness or dependent edema. CBC, BMP 08/06/19 06:35 08/06/19 06:35 Impression: 1. Coronary artery disease, status post CABG, history of angina pectoris. 2. Elevated troponins. 3. Left ventricular diastolic dysfunction. 4. History of congestive heart failure 5. Dementia 6. COPD. Recommendations: 1. Lasix 20 mg by mouth daily should be added to the regimen. 2. As mentioned in the initial consultation and isosorbide mononitrate 30 mg by mouth daily. 3. Records need to be obtained from [facility] regarding pacemaker model and serial numbers. 4. Echocardiogram. 5. Daily weights. Dorian Locke MD.
[2019-08-07 22:05] LABS: EPI CELLS 1.7 /HPF (0-5/HPF); HYALINE CASTS 1 /lpf (0-8); URINE APPEARANCE CLEAR; URINE BACTERIA 22.4 /hpf (NEGATIVE); URINE BILIRUBIN NEGATIVE (NEGATIVE); URINE COLOR YELLOW; URINE GLUCOSE (UA) NEGATIVE (NEGATIVE); URINE KETONE NEGATIVE (NEGATIVE); URINE LEUK ESTERASE 1+ (NEGATIVE); URINE NITRITE NEGATIVE (NEGATIVE); URINE PROTEIN NEGATIVE (NEGATIVE); URINE RBC 3 /hpf (0-4); URINE UROBILINOGEN 0.2 mg/dL (0.2-1.0); URINE WBC 12 /hpf (0-5)
--- NOTE | 2019-08-07 22:21 | CONSULT ---
Consult - text type - Consultation Consultation Note: NEUROLOGY CONSULTATION is greatly appreciated: Events reviewed, patient examined. This 78 yo RH English speaking woman has h/o HTN, Chol, ASHD, s/p CABG, AFib and Dementia. Maintained on: Aspirin [ASA -] 81; Atorvastatin; Apixaban 5 mg; and Metoprolol Succinate. Admitted after unwitnessed fall. Patient cannot give useful history regarding prodromal symptoms, head trauma, etc, but reportedly told the ER she "got dizzy " getting OOBed and fell on her buttocks without LOC CT of head (reviewed): Moderately severe, diffuse atrophy, ex vacuo hydrocephalus and severe, diffuse white matter microvasculopathy. CT of C-spine: Degenerative changes without fractures or traumatic changes BP's 113/60 on admission. Metoprolol D/C'ed. Urine WBC=12 LAST: No evidence of head trauma. No bruits. Cor irreg. s/p Sternotomy, s/p B/L TKR's, In diaper. NEURO: Ox "here." Dec. No year. age 67. + Glabella, snout. Fluent speech CN II-XII: Normal without nystagmus Motor: No drift, tremor or cogwheeling. Normal strength, bulk, tone and reflexes. Toes downgoing Coord: No FTN dystaxia Sensory: Romberg - Gait: Shuffling, sl unsteady with turns. IMP: Moderately B/L cerebral dysfunction (OMS/Chronic) most likely Alzheimer's disease. No obvious focality Moderate senile gait dysfunction. Presyncope vs simple fall. 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
[2019-08-07] MEDS: LIDOCAINE PATCH REMOVAL MC SCH (22:46)
[2019-08-07] MEDS: ATORVASTATIN CA 80 MG TABLET (FP) PO SCH (22:46)
[2019-08-08 07:33] LABS: ALBUMIN 3.5 g/dl (3.4-5.0); BILIRUBIN,TOTAL 1.3 mg/dL (0.2-1); BLOOD UREA NITROGEN 15.7 mg/dL (7-18); CALCIUM 9.4 mg/dL (8.5-10.1); CREATININE 0.8 mg/dL (0.55-1.3); POTASSIUM 4.4 mmol/L (3.5-5.1); TOT PROT 6.6 g/dl (6.4-8.2)
[2019-08-08] MEDS: APIXABAN 5 MG TABLET PO SCH ×2 (11:04→22:54)
[2019-08-08] MEDS: ASPIRIN 81 MG CHEWABLE TABLETS PO SCH (11:04)
--- NOTE | 2019-08-08 14:44 | PN ---
Progress Note, Physician Chief Complaint: patient in bed ambulated with PT - Current Medication List Current Medications: Active Medications Apixaban (Eliquis -) 5 mg PO BID [facility] Last Admin: 08/08/19 11:04 Dose: 5 mg Aspirin (Asa -) 81 mg PO DAILY [facility] Last Admin: 08/08/19 11:04 Dose: 81 mg Atorvastatin Calcium (Lipitor -) 80 mg PO HS [facility] Last Admin: 08/07/19 22:46 Dose: 80 mg Miscellaneous (Lidoderm Patch Removal) 1 each MC DAILY@2200 [facility] Last Admin: 08/07/19 22:46 Dose: 1 each - Objective Vital Signs: Vital Signs Temperature 98.8 F 08/08/19 06:00 Pulse Rate 59 L 08/08/19 06:00 Respiratory Rate 18 08/08/19 06:00 Blood Pressure 172/71 H 08/08/19 06:00 O2 Sat by Pulse Oximetry (%) 98 08/07/19 21:00 Constitutional: Yes: Calm Cardiovascular: Yes: Regular Rate and Rhythm, S1, S2 Respiratory: Yes: CTA Bilaterally Gastrointestinal: Yes: Normal Bowel Sounds, Soft Edema: No Neurological: Yes: Alert Labs: CBC, BMP 08/06/19 06:35 08/08/19 05:20 INR, PTT INR 1.25 (0.83-1.09) H 08/05/19 10:00 Problem List - Problems (1) Bradycardia Assessment/Plan: beta radha on hold Code(s): R00.1 - BRADYCARDIA, UNSPECIFIED (2) Fall Assessment/Plan: cardiology and neurology consult appreciate check orthostatics PT eval noted dc to NH in AM Code(s): W19.XXXA - UNSPECIFIED FALL, INITIAL ENCOUNTER (3) Alzheimer disease Assessment/Plan: njeurology eval Code(s): G30.9 - ALZHEIMER'S DISEASE, UNSPECIFIED; F02.80 - DEMENTIA IN OTH DISEASES CLASSD ELSWHR W/O BEHAVRL DISTURB (4) Atrial fibrillation Assessment/Plan: eliquis AC monitor HR hold off on B Radha Code(s): I48.91 - UNSPECIFIED ATRIAL FIBRILLATION Qualifiers: Atrial fibrillation type: chronic (5) Bilateral leg weakness Assessment/Plan: neurology b12,rpr,folate PTeval noted 100 feet Code(s): M62.81 - MUSCLE WEAKNESS (GENERALIZED) (6) Elevated troponin Assessment/Plan: echo trend troponin aspirin and statin Code(s): R79.89 - OTHER SPECIFIED ABNORMAL FINDINGS OF BLOOD CHEMISTRY
--- NOTE | 2019-08-08 18:11 | PN ---
Progress Note (short form) - Note Progress Note: 78-year-old female with history ofcoronary artery disease, status post PCI, status post CABG, permanent atrial fib/ h/o advanced AV block, status post PPM, left ventricular diastolic dysfunction, congestive heart failure, hypertension , hypertensive cardiovascular diseaseand COPD. patient was admitted with history of a fall. Workup disclosed elevated troponin levels and BNP. She no real collection why she was admitted. Patient offers no complaints. Active Medications Generic Name Dose Route Start Last Admin Trade Name Tariq PRN Reason Stop Dose Admin Apixaban 5 mg 08/05/19 22:00 08/08/19 11:04 Eliquis - PO 5 mg BID [facility] Administration Aspirin 81 mg 08/06/19 10:00 08/08/19 11:04 Asa - PO 81 mg DAILY [facility] Administration Atorvastatin Calcium 80 mg 08/05/19 22:00 08/07/19 22:46 Lipitor - PO 80 mg HS [facility]I Administration Miscellaneous 1 each 08/05/19 22:00 08/07/19 22:46 Lidoderm Patch Removal MC 1 each DAILY@2200 [facility] Administration 8&-year-old female was confused in time and space, was in noacute distress, no pallor, cyanosis, clubbing or jaundice. Last Vital Signs Temp Pulse Resp BP Pulse Ox 98.4 F 60 18 132/66 98 08/08/19 14:20 08/08/19 14:20 08/08/19 14:20 08/08/19 14:20 08/08/19 09:00 Neck: Supple, no jugular venous distention, mildly positive hepatojugular reflux , carotids were 2+, upstrokes were normal, no bruits were heard. Heart: PMI was in the fifth intercostal space, no heaves or thrills, S1 was normal S2 was split, grade 2/6 ejection systolic murmur was heard at the second right and left intercostal space, no diastolic murmur or gallops were heard. Lungs: Clear on auscultation. Abdomen: Soft, protuberant, nontender. No hepatosplenomegaly or palpable masses were felt. Extremities: No calf tenderness or dependent edema. CBC, BMP 08/06/19 06:35 08/06/19 06:35 Troponin, BNP 08/08/19 05:20 Troponin I 0.09 H Impression: 1. Coronary artery disease, status post CABG, history of angina pectoris,. 2. Elevated troponins(Please see consult). 3. Left ventricular diastolic dysfunction. 4. History of congestive heart failure 5. Permanent atrial fib. with advanced AV block, s/p PPM 6. COPD. 7. Dementia. Recommendations: 1. Lasix 20 mg by mouth daily should be added to the regimen. 2. As mentioned in the initial consultation add isosorbide mononitrate 30 mg by mouth daily. 3. Records need to be obtained from [facility] regarding pacemaker model and serial numbers. 4. Beta ludmila can be resumed as patient is being paced, provided BP is stabl 5. F/u CK/ tropronin. Dorian Locke MD.
[2019-08-08] MEDS: LIDOCAINE PATCH REMOVAL MC SCH (22:54)
[2019-08-08] MEDS: ATORVASTATIN CA 80 MG TABLET (FP) PO SCH (22:54)
[2019-08-09] MEDS: APIXABAN 5 MG TABLET PO SCH ×2 (09:40→20:59)
[2019-08-09] MEDS: ISOSORBIDE MONONITRATE 30 MG TAB.SR.24H (FP) PO SCH (09:40)
[2019-08-09] MEDS: metoPROLOL SUCCINATE 25 MG TAB.SR.24H (FP) PO SCH (09:40)
[2019-08-09] MEDS: ASPIRIN 81 MG CHEWABLE TABLETS PO SCH (09:40)
--- NOTE | 2019-08-09 10:23 | PN ---
Progress Note, Physician - Current Medication List Current Medications: Active Medications Apixaban (Eliquis -) 5 mg PO BID [facility] Last Admin: 08/09/19 09:40 Dose: 5 mg Aspirin (Asa -) 81 mg PO DAILY [facility] Last Admin: 08/09/19 09:40 Dose: 81 mg Atorvastatin Calcium (Lipitor -) 80 mg PO HS [facility] Last Admin: 08/08/19 22:54 Dose: 80 mg Isosorbide Mononitrate (Imdur -) 30 mg PO DAILY [facility] Last Admin: 08/09/19 09:40 Dose: 30 mg Metoprolol Succinate (Toprol Xl -) 25 mg PO DAILY [facility] Last Admin: 08/09/19 09:40 Dose: 25 mg Miscellaneous (Lidoderm Patch Removal) 1 each MC DAILY@2200 [facility] Last Admin: 08/08/19 22:54 Dose: 1 each - Objective Vital Signs: Vital Signs Temperature 98.8 F 08/09/19 09:46 Pulse Rate 60 08/09/19 09:46 Respiratory Rate 18 08/09/19 09:46 Blood Pressure 188/74 H 08/09/19 09:46 O2 Sat by Pulse Oximetry (%) 98 08/09/19 08:56 Labs: CBC, BMP 08/06/19 06:35 08/08/19 05:20 INR, PTT INR 1.25 (0.83-1.09) H 08/05/19 10:00 Problem List - Problems (1) Alzheimer disease Code(s): G30.9 - ALZHEIMER'S DISEASE, UNSPECIFIED; F02.80 - DEMENTIA IN OTH DISEASES CLASSD ELSWHR W/O BEHAVRL DISTURB (2) Atrial fibrillation Code(s): I48.91 - UNSPECIFIED ATRIAL FIBRILLATION Qualifiers: Atrial fibrillation type: chronic (3) Bilateral leg weakness Code(s): M62.81 - MUSCLE WEAKNESS (GENERALIZED) (4) Foul smelling urine Code(s): R82.90 - UNSPECIFIED ABNORMAL FINDINGS IN URINE (5) HTN (hypertension) Code(s): I10 - ESSENTIAL (PRIMARY) HYPERTENSION Qualifiers: Hypertension type: essential hypertension Qualified Code(s): I10 - Essential (primary) hypertension Assessment/Plan - Problems (1) Bradycardia Assessment/Plan: resume b- radha pt paced Code(s): R00.1 - BRADYCARDIA, UNSPECIFIED (2) Fall Assessment/Plan: cardiology and neurology consult appreciate PT eval noted dc to NH in AM Code(s): W19.XXXA - UNSPECIFIED FALL, INITIAL ENCOUNTER (3) Alzheimer disease Assessment/Plan: njeurology eval Code(s): G30.9 - ALZHEIMER'S DISEASE, UNSPECIFIED; F02.80 - DEMENTIA IN OTH DISEASES CLASSD ELSWHR W/O BEHAVRL DISTURB (4) Atrial fibrillation Assessment/Plan: [employer]al[employer] AC monitor HR hold off on B Radha Code(s): I48.91 - UNSPECIFIED ATRIAL FIBRILLATION Qualifiers: Atrial fibrillation type: chronic (5) Bilateral leg weakness Assessment/Plan: neurology PTeval noted 100 feet Code(s): M62.81 - MUSCLE WEAKNESS (GENERALIZED) (6) Elevated troponin Assessment/Plan: echo trend troponin aspirin and statin cardio noted-add imdur Code(s): R79.89 - OTHER SPECIFIED ABNORMAL FINDINGS OF BLOOD CHEMISTRY
[2019-08-09] MEDS: FUROSEMIDE 20 MG TABLET (FP) PO SCH (10:54)
[2019-08-09] MEDS: ACETAMINOPHEN 325 MG TABLET (FP) PO PRN (20:59)
[2019-08-09] MEDS: ATORVASTATIN CA 80 MG TABLET (FP) PO SCH (20:59)
[2019-08-09] MEDS: LIDOCAINE PATCH REMOVAL MC SCH (21:08)
[2019-08-10] MEDS: ACETAMINOPHEN 325 MG TABLET (FP) PO PRN ×2 (04:04→22:02)
[2019-08-10] MEDS ORDERED: PT OWN MED DRAWER 7, Y5N ONE (08:56)
[2019-08-10] MEDS: ISOSORBIDE MONONITRATE 30 MG TAB.SR.24H (FP) PO SCH (09:02)
[2019-08-10] MEDS: metoPROLOL SUCCINATE 25 MG TAB.SR.24H (FP) PO SCH (09:02)
[2019-08-10] MEDS: APIXABAN 5 MG TABLET PO SCH ×2 (09:02→22:02)
[2019-08-10] MEDS: ASPIRIN 81 MG CHEWABLE TABLETS PO SCH (09:02)
[2019-08-10] MEDS: FUROSEMIDE 20 MG TABLET (FP) PO SCH (09:02)
--- NOTE | 2019-08-10 11:00 | PN ---
Progress Note, Physician - Current Medication List Current Medications: Active Medications Acetaminophen (Tylenol -) 650 mg PO Q6H PRN PRN Reason: PAIN LEVEL 1-5 Last Admin: 08/10/19 04:04 Dose: 650 mg Apixaban (Eliquis -) 5 mg PO BID [facility] Last Admin: 08/10/19 09:02 Dose: 5 mg Aspirin (Asa -) 81 mg PO DAILY [facility] Last Admin: 08/10/19 09:02 Dose: 81 mg Atorvastatin Calcium (Lipitor -) 80 mg PO HS [facility] Last Admin: 08/09/19 20:59 Dose: 80 mg Furosemide (Lasix -) 20 mg PO DAILY [facility] Last Admin: 08/10/19 09:02 Dose: 20 mg Isosorbide Mononitrate (Imdur -) 30 mg PO DAILY [facility] Last Admin: 08/10/19 09:02 Dose: 30 mg Metoprolol Succinate (Toprol Xl -) 25 mg PO DAILY [facility] Last Admin: 08/10/19 09:02 Dose: 25 mg Miscellaneous (Lidoderm Patch Removal) 1 each MC DAILY@2200 [facility] Last Admin: 08/09/19 21:08 Dose: 1 each - Objective Vital Signs: Vital Signs Temperature 98.4 F 08/10/19 10:00 Pulse Rate 60 08/10/19 10:00 Respiratory Rate 20 08/10/19 10:00 Blood Pressure 179/77 H 08/10/19 10:00 O2 Sat by Pulse Oximetry (%) 98 08/10/19 08:36 Cardiovascular: Yes: S1, S2 Respiratory: Yes: Regular, CTA Bilaterally Gastrointestinal: Yes: Normal Bowel Sounds, Soft Labs: CBC, BMP 08/06/19 06:35 08/08/19 05:20 INR, PTT INR 1.25 (0.83-1.09) H 08/05/19 10:00 Problem List - Problems (1) Alzheimer disease Code(s): G30.9 - ALZHEIMER'S DISEASE, UNSPECIFIED; F02.80 - DEMENTIA IN OTH DISEASES CLASSD ELSWHR W/O BEHAVRL DISTURB (2) Atrial fibrillation Code(s): I48.91 - UNSPECIFIED ATRIAL FIBRILLATION Qualifiers: Atrial fibrillation type: chronic (3) Bilateral leg weakness Code(s): M62.81 - MUSCLE WEAKNESS (GENERALIZED) (4) Foul smelling urine Code(s): R82.90 - UNSPECIFIED ABNORMAL FINDINGS IN URINE (5) HTN (hypertension) Code(s): I10 - ESSENTIAL (PRIMARY) HYPERTENSION Qualifiers: Hypertension type: essential hypertension Qualified Code(s): I10 - Essential (primary) hypertension Assessment/Plan - Problems (1) Bradycardia Assessment/Plan: resume b- radha pt paced Code(s): R00.1 - BRADYCARDIA, UNSPECIFIED (2) Fall Assessment/Plan: cardiology and neurology consult appreciate PT eval noted dc to NH in AM Code(s): W19.XXXA - UNSPECIFIED FALL, INITIAL ENCOUNTER (3) Alzheimer disease Assessment/Plan: njeurology eval Code(s): G30.9 - ALZHEIMER'S DISEASE, UNSPECIFIED; F02.80 - DEMENTIA IN OTH DISEASES CLASSD ELSWHR W/O BEHAVRL DISTURB (4) Atrial fibrillation Assessment/Plan: [email or web address] AC monitor HR hold off on B Radha Code(s): I48.91 - UNSPECIFIED ATRIAL FIBRILLATION Qualifiers: Atrial fibrillation type: chronic (5) Bilateral leg weakness Assessment/Plan: neurology PTeval noted 100 feet Code(s): M62.81 - MUSCLE WEAKNESS (GENERALIZED) (6) Elevated troponin Assessment/Plan: echo trend troponin aspirin and statin cardio noted-add imdur Code(s): R79.89 - OTHER SPECIFIED ABNORMAL FINDINGS OF BLOOD CHEMISTRY
[2019-08-10] MEDS: ATORVASTATIN CA 80 MG TABLET (FP) PO SCH (22:02)
[2019-08-10] MEDS: LIDOCAINE PATCH REMOVAL MC SCH (22:07)
[2019-08-11 02:32] VITALS: PULSE 60
[2019-08-11 05:43] VITALS: BP 165/83; TEMP 97.9
--- NOTE | 2019-08-11 09:57 | ECHO ---
Name: JOVAN VERDUGO Exam:Adult Echocardiogram Study Date: 08/11/2019 07:48 AM Age: 78 yrs Reason For Study: LV Function Height: 62 in Weight: 160 lb BSA: 1.7 m2 MMode/2D Measurements & Calculations IVSd: 1.2 cm Ao root diam: 2.8 cm LVIDd: 4.5 cm LA dimension: 4.2 cm LVIDs: 2.5 cm LVPWd: 0.96 cm EDV(Teich): 93.9 ml LVOT diam: 2.0 cm ESV(Teich): 22.1 ml LAV (MOD-bp): 104.0 ml Doppler Measurements & Calculations MV E max mulugeta: 147.0 cm/sec Ao V2 max: 215.8 cm/sec MV A max mulugeta: 60.6 cm/sec Ao max P.6 mmHg MV E/A: 2.4 Ao V2 mean: 127.0 cm/sec MV dec time: 0.17 sec Ao mean P.8 mmHg Ao V2 VTI: 42.9 cm ENA(I,D): 2.2 cm2 ENA(V,D): 1.9 cm2 LV V1 max P.6 mmHg SV(LVOT): 94.1 ml LV V1 mean P.9 mmHg LV V1 max: 138.2 cm/sec LV V1 mean: 90.4 cm/sec LV V1 VTI: 31.2 cm TR max mulugeta: 264.0 cm/sec PA V2 max: 171.0 cm/sec TR max P.9 mmHg PA max P.7 mmHg Med Peak E' Mulugeta: 4.7 cm/sec PI Vmax: 81.4 cm/sec Med E/e': 31.4 Lat Peak E' Mulugeta: 10.3 cm/sec Lat E/e': 14.2 Procedure A complete two-dimensional transthoracic echocardiogram was performed (2D, M-mode, Doppler and color flow Doppler). Left Ventricle The left ventricle is normal in size. There is mild concentric left ventricular hypertrophy. Left vinh tricular systolic function is normal. Ejection Fraction = 65-70%. LV diastology reveals pseudonormal mitral in flow with elevated filling pressure suggests grade II diastolic dysfunction. No regional wall motion abnormalit ies noted. Right Ventricle The right ventricle is normal size. The right ventricular systolic function is normal. Atria The left atrium is mildly dilated. Right atrial size is normal. Mitral Valve There is moderate mitral annular calcification. There is mild mitral valve thickening. There is mild mitral regurgitation. Tricuspid Valve The tricuspid valve is normal in structure and function. There is mild to moderate tricuspid regurgit ation. Pulmonary artery systolic pressure is at least 35 mmHg as RA pressure is assumed 3 mmHg (normal IVC a nd <50% collapse). Aortic Valve There is mild to moderate aortic sclerosis.;. No aortic regurgitation is present. Pulmonic Valve The pulmonic valve is not well visualized. Great Vessels The aortic root is normal size. Pericardium/Pleura There is no pericardial effusion. Interpretation Summary The left ventricle is normal in size. There is mild concentric left ventricular hypertrophy. Left ventricular systolic function is normal. No regional wall motion abnormalities noted. Ejection Fraction = 65-70%. LV diastology reveals pseudonormal mitral inflow with elevated filling pressure suggests grade II lauro stolic dysfunction The right ventricular systolic function is normal. The left atrium is mildly dilated. Right atrial size is normal. There is moderate mitral annular calcification. There is mild mitral valve thickening. There is mild mitral regurgitation. There is mild to moderate tricuspid regurgitation. Pulmonary artery systolic pressure is at least 35 mmHg as RA pressure is assumed 3 mmHg (normal IVC a nd <50% collapse) There is mild to moderate aortic sclerosis.; There is no pericardial effusion. Jm Vargas MD 08/11/2019 09:56 AM
[2019-08-11] MEDS: metoPROLOL SUCCINATE 25 MG TAB.SR.24H (FP) PO SCH (10:50)
[2019-08-11] MEDS: FUROSEMIDE 20 MG TABLET (FP) PO SCH (10:50)
[2019-08-11] MEDS: ASPIRIN 81 MG CHEWABLE TABLETS PO SCH (10:50)
[2019-08-11] MEDS: APIXABAN 5 MG TABLET PO SCH (10:50)
[2019-08-11] MEDS: ISOSORBIDE MONONITRATE 30 MG TAB.SR.24H (FP) PO SCH (10:50)
--- NOTE | 2019-08-11 13:36 | DS ---
Physical Examination Vital Signs: Vital Signs Temperature 97.9 F 08/11/19 05:42 Pulse Rate 60 08/11/19 05:42 Respiratory Rate 20 08/11/19 05:42 Blood Pressure 165/83 08/11/19 05:42 O2 Sat by Pulse Oximetry (%) 97 08/10/19 20:52 Constitutional: Yes: Calm Cardiovascular: Yes: Regular Rate and Rhythm, S1, S2 Respiratory: Yes: CTA Bilaterally Gastrointestinal: Yes: Normal Bowel Sounds, Soft Edema: No Neurological: Yes: Alert, Oriented Labs: CBC, BMP 08/06/19 06:35 08/08/19 05:20 Discharge Summary Problems reviewed: Yes Reason For Visit: PRE SYNCOPE Current Active Problems Dizziness (Acute) Elevated troponin (Acute) Fall (Acute) Hospital Course: 78-year-old female with history of hypertension, CAD/CABG, dementia from [facility] presents brought in by EMS status post fall admitted to telemetry seen by cardiology and neurology UA and urine culture sent asymptomatic bacteruiria Condition: Stable - Instructions Referrals: Alicia Richards MD [Primary Care Provider] - Disposition: SNF FACILITY - Home Medications Comprehensive Discharge Medication List: Ambulatory Orders Aspirin [ASA -] 81 mg PO DAILY #0 tab.chew 08/06/13 Atorvastatin Ca [Lipitor] 80 mg PO HS #30 tablet 09/05/16 Apixaban [Eliquis] 5 mg PO [facility] 11/04/17 Metoprolol Succinate [Toprol XL -] 25 mg PO DAILY 11/04/17
== END 2019-08-11 14:35 | DRG 312 ==
LOC: JER 08:57 → JERBED 13:16 → OBSVTOIN 14:56 → J4W 16:27
PROVIDERS: ADMIT Family Medicine; ATTEND Family Medicine
DX: R55 Syncope and collapse (principal); I48.20 Chronic atrial fibrillation, unspecified; I50.32 Chronic diastolic (congestive) heart failure; I25.10 Atherosclerotic heart disease of native coronary artery without angina pectoris; Z79.01 Long term (current) use of anticoagulants; Z95.1 Presence of aortocoronary bypass graft; E78.5 Hyperlipidemia, unspecified; Z98.61 Coronary angioplasty status; Z87.891 Personal history of nicotine dependence; G30.9 Alzheimer's disease, unspecified; F02.80 Dementia in other diseases classified elsewhere, unspecified severity, without behavioral disturbance, psychotic disturbance, mood disturbance, and anxiety; R00.1 Bradycardia, unspecified; M62.81 Muscle weakness (generalized); R79.89 Other specified abnormal findings of blood chemistry; J44.9 Chronic obstructive pulmonary disease, unspecified; I11.0 Hypertensive heart disease with heart failure; Z95.0 Presence of cardiac pacemaker
CPT/HCPCS: 36415; 70450-TC; 71045-TC-FY; 72125-TC; 80053; 81003; 82550; 82553; 83036; 83735; 83880; 84436; 84443; 84479; 84484; 85025; 85610; 87086; 87186; 93005; 93010; 93306-TC; 97116-GP; 97161-GP; 99283-25; G0378

== ENCOUNTER 2020-09-30 15:55 | Inpatient (IN) | payer OTHER ==
[2020-09-30 16:16] VITALS: BMI 27.8
[2020-09-30] MEDS ORDERED: METOCLOPRAMIDE HCL INJECTION 10 MG/2 ML VIAL IVPB ONE (16:39)
[2020-09-30] MEDS ORDERED: FAMOTIDINE 20 MG/50 ML IVPB 20 MG/50 ML MG IVPB ONE ×2 (16:41→17:51)
[2020-09-30] MEDS ORDERED: MAG HYDROX/AL HYDROX/SIMETH -MYLANTA- ORAL SUSPENSION PO ONE (16:42)
[2020-09-30] MEDS ORDERED: SODIUM CHLORIDE 0.9% 500 ML INFUS.BAG IV ONE (16:43)
[2020-09-30] MEDS ORDERED: MAG HYDROX/AL HYDROX/SIMETH 30 ML UNIT-DOSE CUP ONE (17:51)
[2020-09-30] MEDS ORDERED: METOCLOPRAMIDE HCL INJECTION 10 MG/2 ML VIAL ONE (17:51)
[2020-09-30 18:29] LABS: BASO % 0.6 % (0-2.0); HEMATOCRIT 38.2 % (32.4-45.2); HEMOGLOBIN 12.5 GM/dL (10.7-15.3); MCH 29.1 pg (25.7-33.7); MCHC 32.8 g/dl (32.0-36.0); MEAN PLT VOLUME 11.3 fl (7.5-11.1); MONO % 2.6 % (3.8-10.2); NEUT % 83.8 % (42.8-82.8); PLATELET COUNT 156 K/MM3 (134-434); RDW 14.5 % (11.6-15.6); WHITE BLOOD COUNT 6.5 K/mm3 (4.0-10.0)
[2020-09-30 18:43] LABS: POTASSIUM 3.9 mmol/L (3.5-5.1)
[2020-09-30 18:44] LABS: INR 1.29 (0.83-1.09); PROTHROMBIN TIME (PATIENT) 15.5 SEC (9.7-13.0)
[2020-09-30 18:45] LABS: CALCIUM 9.5 mg/dL (8.5-10.1)
[2020-09-30 18:47] LABS: BLOOD UREA NITROGEN 14.2 mg/dL (7-18)
[2020-09-30 18:49] LABS: CREATININE 0.8 mg/dL (0.55-1.3)
[2020-09-30 18:51] LABS: TOT PROT 7.4 g/dl (6.4-8.2)
[2020-09-30] MEDS ORDERED: ASPIRIN 81 MG CHEWABLE TABLETS PO ONE ×2 (18:59→23:30)
[2020-09-30] MEDS ORDERED: ASPIRIN 81 MG CHEWABLE TABLETS ONE (20:00)
[2020-10-01 01:02] LABS: EPI CELLS 7 /uL (0-25.1); HYALINE CASTS 2 /uL (0-3.1); URINE APPEARANCE Clear; URINE BACTERIA 14 /uL (0-1359); URINE BILIRUBIN Negative (NEGATIVE); URINE COLOR Yellow; URINE GLUCOSE (UA) Negative (NEGATIVE); URINE KETONE Trace (NEGATIVE); URINE LEUK ESTERASE Negative (NEGATIVE); URINE NITRITE Negative (NEGATIVE); URINE PROTEIN TRACE (NEGATIVE); URINE RBC 10 /uL (0-23.9); URINE UROBILINOGEN 0.2 mg/dL (0.2-1.0); URINE WBC 4 /uL (0-25.8)
[2020-10-01 06:54] VITALS: TEMP 98.8
[2020-10-01 07:54] LABS: BASO % 0.5 % (0-2.0); EOS % 0.1 % (0-4.5); HEMATOCRIT 35.4 % (32.4-45.2); HEMOGLOBIN 11.9 GM/dL (10.7-15.3); LYMPH % 25.4 % (8-40); MCH 29.7 pg (25.7-33.7); MCHC 33.5 g/dl (32.0-36.0); MEAN CELL VOLUME 88.6 fl (80-96); MEAN PLT VOLUME 11.8 fl (7.5-11.1); MONO % 8.9 % (3.8-10.2); NEUT % 65.1 % (42.8-82.8); PLATELET COUNT 150 K/MM3 (134-434); RDW 14.2 % (11.6-15.6); WHITE BLOOD COUNT 8.4 K/mm3 (4.0-10.0)
[2020-10-01 07:59] LABS: POTASSIUM 3.5 mmol/L (3.5-5.1)
[2020-10-01 08:03] LABS: ALBUMIN 3.7 g/dl (3.4-5.0); CALCIUM 9.2 mg/dL (8.5-10.1)
[2020-10-01 08:05] LABS: BLOOD UREA NITROGEN 14.2 mg/dL (7-18)
[2020-10-01 08:08] LABS: CREATININE 0.7 mg/dL (0.55-1.3); TOT PROT 6.7 g/dl (6.4-8.2)
[2020-10-01] MEDS ORDERED: ASPIRIN 81 MG CHEWABLE TABLETS PO SCH (10:00)
[2020-10-01] MEDS ORDERED: ASPIRIN 81 MG CHEWABLE TABLETS ONE (10:47)
[2020-10-01 10:58] VITALS: PULSE 60
[2020-10-01] MEDS ORDERED: ACETAMINOPHEN 325 MG TABLET (FP) PO PRN (11:51)
[2020-10-01] MEDS ORDERED: ONDANSETRON 4 MG/2 ML VIAL IVPUSH PRN (11:55)
[2020-10-01] MEDS ORDERED: APIXABAN 5 MG TABLET PO SCH (12:00)
[2020-10-01] MEDS ORDERED: ISOSORBIDE MONONITRATE 30 MG TAB.SR.24H (FP) PO SCH (12:00)
[2020-10-01] MEDS ORDERED: metoPROLOL SUCCINATE 25 MG TAB.SR.24H (FP) ONE (13:12)
[2020-10-01] MEDS ORDERED: APIXABAN 5 MG TABLET ONE (13:13)
[2020-10-01] MEDS ORDERED: PANTOPRAZOLE 40 MG TABLET ONE (13:13)
[2020-10-01] MEDS: PANTOPRAZOLE 40 MG TABLET PO SCH ×2 (14:00→15:10)
[2020-10-01] MEDS: FUROSEMIDE 20 MG TABLET (FP) PO SCH ×2 (14:00→15:10)
[2020-10-01 16:35] VITALS: BP 102/47
[2020-10-01] MEDS ORDERED: ATORVASTATIN CA 80 MG TABLET (FP) PO SCH (22:00)
== END 2020-10-01 18:30 | DRG 303 ==
LOC: JER 15:55 → OBSVTOIN 19:06 → JERBED 19:06 → OBSVTOIN 19:52 → INTOOBSV 19:52
PROVIDERS: ADMIT Hospitalist; ATTEND Family Medicine
DX: I25.10 Atherosclerotic heart disease of native coronary artery without angina pectoris (principal); I50.32 Chronic diastolic (congestive) heart failure; R42 Dizziness and giddiness; I95.1 Orthostatic hypotension; I11.0 Hypertensive heart disease with heart failure; I48.91 Unspecified atrial fibrillation; G30.9 Alzheimer's disease, unspecified; F02.80 Dementia in other diseases classified elsewhere, unspecified severity, without behavioral disturbance, psychotic disturbance, mood disturbance, and anxiety; R11.2 Nausea with vomiting, unspecified; E78.5 Hyperlipidemia, unspecified; J44.9 Chronic obstructive pulmonary disease, unspecified; E11.9 Type 2 diabetes mellitus without complications; I27.20 Pulmonary hypertension, unspecified; Z95.5 Presence of coronary angioplasty implant and graft; Z86.73 Personal history of transient ischemic attack (TIA), and cerebral infarction without residual deficits; Z95.0 Presence of cardiac pacemaker; Z96.653 Presence of artificial knee joint, bilateral
CPT/HCPCS: 36415; 70450-TC; 71045-TC-FY; 80053; 81003; 83690; 83735; 84484; 85025; 85610; 85730; 93005; 93010; 93970-TC; 99285-25; C9803; U0003

== ENCOUNTER 2021-12-24 00:38 | Inpatient (IN) | payer OTHER ==
[2021-12-24 00:49] VITALS: BMI 26.5
[2021-12-24] MEDS ORDERED: ACETAMINOPHEN 1000 MG/100 ML BAG IVPB ONE (01:02)
[2021-12-24] MEDS ORDERED: ACETAMINOPHEN INJECTION 100 ML IVPB ONE (01:18)
[2021-12-24 01:28] LABS: BASO % 0.8 % (0-2.0); EOS % 1.5 % (0-4.5); HEMATOCRIT 22.3 % (32.4-45.2); LYMPH % 21.1 % (8-40); MCH 22.5 pg (25.7-33.7); MCHC 31.1 g/dl (32.0-36.0); MEAN CELL VOLUME 72.3 fl (80-96); MEAN PLT VOLUME 9.8 fl (7.5-11.1); MONO % 14.7 % (3.8-10.2); NEUT % 61.9 % (42.8-82.8); PLATELET COUNT 201 10^3/uL (134-434); RBC 3.09 M/mm3 (3.60-5.2); RDW 17.4 % (11.6-15.6); WHITE BLOOD COUNT 7.2 K/mm3 (4.0-10.0)
[2021-12-24 01:36] LABS: HEMOGLOBIN 6.9 GM/dL (10.7-15.3)
[2021-12-24 01:44] LABS: INR 2.23 (0.83-1.09); PROTHROMBIN TIME (PATIENT) 25.8 SEC (9.7-13.0)
[2021-12-24 01:46] LABS: ACTIVATED PTT 39.4 SECONDS (25.2-36.5); CHLORIDE 108 mmol/L (98-107); SODIUM 141 mmol/L (136-145)
[2021-12-24 01:48] LABS: ALBUMIN 3.5 g/dl (3.4-5.0); ANION GAP 5 MMOL/L (8-16); CALCIUM 8.8 mg/dL (8.5-10.1); CO2 27 mmol/L (21-32); GLUCOSE,RANDOM 144 mg/dL (74-106)
[2021-12-24 01:51] LABS: SGOT/AST 16 U/L (15-37)
[2021-12-24 01:52] LABS: TOT PROT 6.6 g/dl (6.4-8.2)
[2021-12-24 01:53] LABS: BILIRUBIN,TOTAL 0.3 mg/dL (0.2-1)
[2021-12-24 01:54] LABS: ALK PHOS 102 U/L (45-117)
[2021-12-24 01:56] LABS: N-TERMINAL BNP 1600.6 pg/ml (5-450)
[2021-12-24 01:57] LABS: SGPT/ALT 23 U/L (13-61)
[2021-12-24] MEDS ORDERED: MELATONIN 5 MG TABLETS PO ONE (02:45)
[2021-12-24] MEDS ORDERED: HALOPERIDOL LACTATE 5 MG/ML IM ONE (02:48)
[2021-12-24] MEDS ORDERED: HALOPERIDOL LACTATE 5 MG/ML ONE (02:50)
[2021-12-24] MEDS: INSULIN SLIDING SCALE (NOVOLOG) 1 VIAL SQ SCH ×4 (07:39→21:55)
[2021-12-24 10:33] LABS: BASO % 0.9 % (0-2.0); EOS % 2.5 % (0-4.5); HEMATOCRIT 26.2 % (32.4-45.2); HEMOGLOBIN 8.3 GM/dL (10.7-15.3); LYMPH % 24.2 % (8-40); MCH 23.9 pg (25.7-33.7); MCHC 31.7 g/dl (32.0-36.0); MEAN CELL VOLUME 75.3 fl (80-96); MEAN PLT VOLUME 10.4 fl (7.5-11.1); MONO % 12.4 % (3.8-10.2); PLATELET COUNT 204 10^3/uL (134-434); RBC 3.48 M/mm3 (3.60-5.2); RDW 19.5 % (11.6-15.6); WHITE BLOOD COUNT 7.4 K/mm3 (4.0-10.0)
[2021-12-24 10:45] LABS: CHLORIDE 110 mmol/L (98-107); SODIUM 141 mmol/L (136-145)
[2021-12-24 10:49] LABS: ANION GAP 5 MMOL/L (8-16); BLOOD UREA NITROGEN 19.4 mg/dL (7-18); CO2 26 mmol/L (21-32); GLUCOSE,RANDOM 126 mg/dL (74-106); MAGNESIUM 1.9 mg/dL (1.8-2.4)
[2021-12-24 10:51] LABS: CALCIUM 8.8 mg/dL (8.5-10.1)
[2021-12-24] MEDS ORDERED: PANTOPRAZOLE SODIUM 40 MG VIAL ONE (10:51)
[2021-12-24 10:52] LABS: CREATININE 0.8 mg/dL (0.55-1.3)
[2021-12-24] MEDS: PANTOPRAZOLE SODIUM 40 MG VIAL IVPUSH SCH ×2 (10:57→21:55)
[2021-12-24] MEDS: ATORVASTATIN CA 80 MG TABLET (FP) PO SCH (21:55)
[2021-12-25] MEDS: INSULIN SLIDING SCALE (NOVOLOG) 1 VIAL SQ SCH ×4 (06:35→22:16)
[2021-12-25 07:27] LABS: BASO % 0.4 % (0-2.0); HEMATOCRIT 28.2 % (32.4-45.2); HEMOGLOBIN 8.9 GM/dL (10.7-15.3); LYMPH % 18.1 % (8-40); MCH 23.9 pg (25.7-33.7); MCHC 31.6 g/dl (32.0-36.0); MEAN CELL VOLUME 75.6 fl (80-96); MEAN PLT VOLUME 10.4 fl (7.5-11.1); MONO % 10.8 % (3.8-10.2); NEUT % 69.7 % (42.8-82.8); PLATELET COUNT 204 10^3/uL (134-434); RBC 3.73 M/mm3 (3.60-5.2); RDW 19.6 % (11.6-15.6); WHITE BLOOD COUNT 9.9 K/mm3 (4.0-10.0)
[2021-12-25 07:48] LABS: ALBUMIN 3.7 g/dl (3.4-5.0); BLOOD UREA NITROGEN 10.1 mg/dL (7-18)
[2021-12-25 07:51] LABS: CREATININE 0.7 mg/dL (0.55-1.3)
[2021-12-25 07:52] LABS: BILIRUBIN,TOTAL 1.4 mg/dL (0.2-1)
[2021-12-25 07:53] LABS: TOT PROT 6.7 g/dl (6.4-8.2)
[2021-12-25 09:16] LABS: EPI CELLS 2 /uL (0-25.1); HYALINE CASTS 0 /uL (0-3.1); PH,URINE 7.5 (5.0-8.0); URINE APPEARANCE CLOUDY; URINE BACTERIA >9,000 /uL (0-1359); URINE BILIRUBIN NEGATIVE (NEGATIVE); URINE COLOR YELLOW; URINE GLUCOSE (UA) NEGATIVE (NEGATIVE); URINE KETONE NEGATIVE (NEGATIVE); URINE LEUK ESTERASE TRACE (NEGATIVE); URINE NITRITE NEGATIVE (NEGATIVE); URINE PROTEIN NEGATIVE (NEGATIVE); URINE RBC 3 /uL (0-23.9); URINE UROBILINOGEN 0.2 mg/dL (0.2-1.0); URINE WBC 34 /uL (0-25.8)
[2021-12-25] MEDS ORDERED: SERTRALINE HCL 50 MG TABLET (FP) PO SCH (10:00)
[2021-12-25] MEDS ORDERED: metoPROLOL SUCCINATE 25 MG TAB.SR.24H (FP) PO SCH (10:00)
[2021-12-25] MEDS ORDERED: ISOSORBIDE MONONITRATE 30 MG TAB.SR.24H (FP) PO SCH (10:00)
[2021-12-25] MEDS: PANTOPRAZOLE SODIUM 40 MG VIAL IVPUSH SCH ×2 (10:36→22:11)
[2021-12-25] MEDS: amLODIPine BESYLATE 10 MG TABLET (FP) PO SCH (10:36)
[2021-12-25] MEDS: ISOSORBIDE DINITRATE 10 MG TABLET PO SCH (14:57)
[2021-12-25] MEDS: METOPROLOL TARTRATE 25 MG TABLET (FP) PO SCH (22:11)
[2021-12-25] MEDS: ATORVASTATIN CA 80 MG TABLET (FP) PO SCH (22:11)
[2021-12-26] MEDS: INSULIN SLIDING SCALE (NOVOLOG) 1 VIAL SQ SCH ×4 (06:11→22:00)
[2021-12-26 08:01] LABS: BASO % 0.6 % (0-2.0); HEMATOCRIT 30.5 % (32.4-45.2); HEMOGLOBIN 9.5 GM/dL (10.7-15.3); MCHC 31.1 g/dl (32.0-36.0); MEAN PLT VOLUME 10.7 fl (7.5-11.1); NEUT % 65.4 % (42.8-82.8); PLATELET COUNT 224 10^3/uL (134-434); RBC 3.96 M/mm3 (3.60-5.2); RDW 19.7 % (11.6-15.6); WHITE BLOOD COUNT 10.6 K/mm3 (4.0-10.0)
[2021-12-26 08:16] LABS: ALBUMIN 3.6 g/dl (3.4-5.0); BLOOD UREA NITROGEN 8.4 mg/dL (7-18)
[2021-12-26 08:17] LABS: CALCIUM 8.9 mg/dL (8.5-10.1)
[2021-12-26 08:21] LABS: CREATININE 0.6 mg/dL (0.55-1.3)
[2021-12-26 08:22] LABS: BILIRUBIN,TOTAL 1.6 mg/dL (0.2-1); TOT PROT 6.7 g/dl (6.4-8.2)
[2021-12-26] MEDS: ISOSORBIDE DINITRATE 10 MG TABLET PO SCH ×2 (08:25→13:02)
[2021-12-26] MEDS ORDERED: PANTOPRAZOLE SOD 40 MG SUSPENSION PACKET PO SCH (10:00)
[2021-12-26] MEDS: METOPROLOL TARTRATE 25 MG TABLET (FP) PO SCH ×2 (10:13→22:00)
[2021-12-26] MEDS: amLODIPine BESYLATE 10 MG TABLET (FP) PO SCH (10:13)
[2021-12-26] MEDS ORDERED: cefTRIAXone SODIUM 1 GM VIAL ONE (18:33)
[2021-12-26] MEDS ORDERED: DEXTROSE 5%-WATER - 50 ML IVPB ONE (18:33)
[2021-12-26] MEDS: CEFTRIAXONE 1 GM in DEXTROSE 5%-WATER - 50 ML IVPB SCH (18:48)
[2021-12-26] MEDS: ATORVASTATIN CA 80 MG TABLET (FP) PO SCH (22:00)
[2021-12-27] MEDS: INSULIN SLIDING SCALE (NOVOLOG) 1 VIAL SQ SCH ×4 (06:23→21:36)
[2021-12-27 08:14] LABS: BASO % 0.4 % (0-2.0); EOS % 0.1 % (0-4.5); HEMATOCRIT 31.5 % (32.4-45.2); HEMOGLOBIN 9.8 GM/dL (10.7-15.3); LYMPH % 14.5 % (8-40); MCH 23.7 pg (25.7-33.7); MEAN CELL VOLUME 76.3 fl (80-96); MEAN PLT VOLUME 10.6 fl (7.5-11.1); MONO % 15.3 % (3.8-10.2); NEUT % 69.7 % (42.8-82.8); PLATELET COUNT 219 10^3/uL (134-434); RBC 4.12 M/mm3 (3.60-5.2); RDW 21.3 % (11.6-15.6); WHITE BLOOD COUNT 10.9 K/mm3 (4.0-10.0)
[2021-12-27] MEDS: ISOSORBIDE DINITRATE 10 MG TABLET PO SCH ×2 (08:29→12:46)
[2021-12-27 08:30] LABS: ALBUMIN 3.5 g/dl (3.4-5.0); CALCIUM 8.7 mg/dL (8.5-10.1)
[2021-12-27 08:34] LABS: CREATININE 0.7 mg/dL (0.55-1.3)
[2021-12-27 08:36] LABS: BILIRUBIN,TOTAL 1.6 mg/dL (0.2-1); TOT PROT 6.7 g/dl (6.4-8.2)
[2021-12-27] MEDS ORDERED: DEXTROSE 5%-WATER - 50 ML IVPB ONE (10:02)
[2021-12-27] MEDS ORDERED: cefTRIAXone SODIUM 1 GM VIAL ONE (10:02)
[2021-12-27] MEDS: METOPROLOL TARTRATE 25 MG TABLET (FP) PO SCH ×2 (10:04→21:27)
[2021-12-27] MEDS: amLODIPine BESYLATE 10 MG TABLET (FP) PO SCH (10:04)
[2021-12-27] MEDS: PANTOPRAZOLE SOD 40 MG SUSPENSION PACKET PO SCH (10:04)
[2021-12-27] MEDS: POLYETHYLENE GLYCOL (HEALTHYLAX) 3350 17 GM PACKET PO SCH ×2 (10:05→21:25)
[2021-12-27] MEDS: CEFTRIAXONE 1 GM in DEXTROSE 5%-WATER - 50 ML IVPB SCH (10:05)
[2021-12-27 11:57] LABS: INR 1.54 (0.83-1.09); PROTHROMBIN TIME (PATIENT) 17.8 SEC (9.7-13.0)
[2021-12-27] MEDS: ACETAMINOPHEN 325 MG TABLET (FP) PO PRN (14:08)
[2021-12-27] MEDS: ATORVASTATIN CA 80 MG TABLET (FP) PO SCH (21:26)
[2021-12-28] MEDS: INSULIN SLIDING SCALE (NOVOLOG) 1 VIAL SQ SCH ×4 (06:14→22:01)
[2021-12-28] MEDS: ISOSORBIDE DINITRATE 10 MG TABLET PO SCH ×2 (07:55→13:35)
[2021-12-28 08:03] LABS: BASO % 0.7 % (0-2.0); EOS % 1.5 % (0-4.5); HEMATOCRIT 32.1 % (32.4-45.2); HEMOGLOBIN 9.9 GM/dL (10.7-15.3); LYMPH % 23.4 % (8-40); MCH 23.6 pg (25.7-33.7); MCHC 30.8 g/dl (32.0-36.0); MEAN CELL VOLUME 76.6 fl (80-96); MEAN PLT VOLUME 10.7 fl (7.5-11.1); MONO % 14.7 % (3.8-10.2); NEUT % 59.7 % (42.8-82.8); PLATELET COUNT 197 10^3/uL (134-434); RBC 4.18 M/mm3 (3.60-5.2); RDW 23.5 % (11.6-15.6); WHITE BLOOD COUNT 7.5 K/mm3 (4.0-10.0)
[2021-12-28 08:26] LABS: CALCIUM 8.7 mg/dL (8.5-10.1); INR 1.34 (0.83-1.09); PROTHROMBIN TIME (PATIENT) 15.5 SEC (9.7-13.0)
[2021-12-28 08:27] LABS: BLOOD UREA NITROGEN 15.2 mg/dL (7-18)
[2021-12-28 08:30] LABS: CREATININE 0.6 mg/dL (0.55-1.3)
[2021-12-28] MEDS ORDERED: TETRACAINE/BENZOCAINE/BUTAMBEN 20 GM SPR TP ONE (11:46)
[2021-12-28] MEDS: POLYETHYLENE GLYCOL (HEALTHYLAX) 3350 17 GM PACKET PO SCH ×3 (13:35→22:14)
[2021-12-28] MEDS: PANTOPRAZOLE SOD 40 MG SUSPENSION PACKET PO SCH (13:35)
[2021-12-28] MEDS: amLODIPine BESYLATE 10 MG TABLET (FP) PO SCH (13:35)
[2021-12-28] MEDS: METOPROLOL TARTRATE 25 MG TABLET (FP) PO SCH ×3 (13:35→22:14)
[2021-12-28] MEDS: CEFTRIAXONE 1 GM in DEXTROSE 5%-WATER - 50 ML IVPB SCH (13:35)
[2021-12-28] MEDS ORDERED: cefTRIAXone SODIUM 1 GM VIAL ONE (16:31)
[2021-12-28] MEDS ORDERED: DEXTROSE 5%-WATER - 50 ML IVPB ONE (16:31)
[2021-12-28] MEDS: ACETAMINOPHEN 325 MG TABLET (FP) PO PRN (21:56)
[2021-12-28] MEDS: ATORVASTATIN CA 80 MG TABLET (FP) PO SCH (22:01)
[2021-12-29] MEDS: INSULIN SLIDING SCALE (NOVOLOG) 1 VIAL SQ SCH ×4 (06:06→21:21)
[2021-12-29] MEDS ORDERED: cefTRIAXone SODIUM 1 GM VIAL ONE (10:10)
[2021-12-29] MEDS ORDERED: DEXTROSE 5%-WATER - 50 ML IVPB ONE (10:10)
[2021-12-29] MEDS: amLODIPine BESYLATE 10 MG TABLET (FP) PO SCH (10:15)
[2021-12-29] MEDS: METOPROLOL TARTRATE 25 MG TABLET (FP) PO SCH ×2 (10:15→21:20)
[2021-12-29] MEDS: CEFTRIAXONE 1 GM in DEXTROSE 5%-WATER - 50 ML IVPB SCH (10:16)
[2021-12-29] MEDS: PANTOPRAZOLE SOD 40 MG SUSPENSION PACKET PO SCH (10:17)
[2021-12-29] MEDS: POLYETHYLENE GLYCOL (HEALTHYLAX) 3350 17 GM PACKET PO SCH ×2 (10:17→21:20)
[2021-12-29] MEDS: ISOSORBIDE DINITRATE 10 MG TABLET PO SCH ×2 (10:19→13:11)
[2021-12-29] MEDS: APIXABAN 2.5 MG TABLET PO SCH (21:20)
[2021-12-29] MEDS: ATORVASTATIN CA 80 MG TABLET (FP) PO SCH (21:20)
[2021-12-30] MEDS: INSULIN SLIDING SCALE (NOVOLOG) 1 VIAL SQ SCH ×3 (06:06→16:54)
[2021-12-30] MEDS: ISOSORBIDE DINITRATE 10 MG TABLET PO SCH ×2 (08:36→13:02)
[2021-12-30] MEDS ORDERED: cefTRIAXone SODIUM 1 GM VIAL ONE (09:28)
[2021-12-30] MEDS ORDERED: DEXTROSE 5%-WATER - 50 ML IVPB ONE (09:28)
[2021-12-30] MEDS: METOPROLOL TARTRATE 25 MG TABLET (FP) PO SCH (09:31)
[2021-12-30] MEDS: amLODIPine BESYLATE 10 MG TABLET (FP) PO SCH (09:31)
[2021-12-30] MEDS: APIXABAN 2.5 MG TABLET PO SCH (09:31)
[2021-12-30] MEDS: PANTOPRAZOLE SOD 40 MG SUSPENSION PACKET PO SCH (09:31)
[2021-12-30] MEDS: POLYETHYLENE GLYCOL (HEALTHYLAX) 3350 17 GM PACKET PO SCH (09:31)
[2021-12-30] MEDS ORDERED: CEFTRIAXONE 1 GM in DEXTROSE 5%-WATER - 50 ML IVPB SCH (10:00)
[2021-12-30 14:28] VITALS: PULSE 60
[2021-12-30 18:51] VITALS: BP 125/65; TEMP 98.4
== END 2021-12-30 20:35 | DRG 812 ==
LOC: JER 00:38 → JERBED 01:34 → J4S 14:13 → J4W 12-25 15:35 → J4S 12-25 17:03
PROVIDERS: ADMIT Hospitalist; ATTEND Family Medicine
PROC: 2W38X1Z Immobilization of Right Upper Extremity using Splint (ICD-10-PCS; principal; 2021-12-24)
PROC: 0DB98ZX Excision of Duodenum, Via Natural or Artificial Opening Endoscopic, Diagnostic (ICD-10-PCS; 2021-12-28)
PROC: 0DB68ZX Excision of Stomach, Via Natural or Artificial Opening Endoscopic, Diagnostic (ICD-10-PCS; 2021-12-28)
DX: D64.9 Anemia, unspecified (principal); N39.0 Urinary tract infection, site not specified; I48.91 Unspecified atrial fibrillation; I25.10 Atherosclerotic heart disease of native coronary artery without angina pectoris; I10 Essential (primary) hypertension; E78.5 Hyperlipidemia, unspecified; J44.9 Chronic obstructive pulmonary disease, unspecified; G30.9 Alzheimer's disease, unspecified; R01.1 Cardiac murmur, unspecified; M25.531 Pain in right wrist; K44.9 Diaphragmatic hernia without obstruction or gangrene; F02.80 Dementia in other diseases classified elsewhere, unspecified severity, without behavioral disturbance, psychotic disturbance, mood disturbance, and anxiety; R50.9 Fever, unspecified; B96.20 Unspecified Escherichia coli [E. coli] as the cause of diseases classified elsewhere; R29.6 Repeated falls; S62.626A Displaced fracture of middle phalanx of right little finger, initial encounter for closed fracture; W18.39XA Other fall on same level, initial encounter; Y92.098 Other place in other non-institutional residence as the place of occurrence of the external cause; Z86.73 Personal history of transient ischemic attack (TIA), and cerebral infarction without residual deficits; Z95.1 Presence of aortocoronary bypass graft; Z95.0 Presence of cardiac pacemaker; Z96.653 Presence of artificial knee joint, bilateral
CPT/HCPCS: 36415; 36430; 70450-TC; 71045-TC-FY; 72125-TC; 72170-TC-FY; 73090-TC-RT-FY; 73110-TC-RT-FY; 73130-TC-RT-FY; 80048; 80053; 81003; 82272; 82550; 82962; 83735; 83880; 84484; 85025; 85610; 85730; 86850; 86900; 86901; 86922; 87040; 87086; 87186; 88305-TC; 93005; 93010; 93306-TC; 97116-GP; 97161-GP; 99285-25; C9803-CS; P9058; U0003; U0005

== ENCOUNTER 2022-07-10 15:42 | Emergency (ER) | payer OTHER ==
[2022-07-10 16:52] VITALS: TEMP 97.9; BMI 24.7
[2022-07-10 19:18] LABS: CHLORIDE 107 mmol/L (98-107); SODIUM 140 mmol/L (136-145)
[2022-07-10 19:20] LABS: CALCIUM 9.8 mg/dL (8.5-10.1)
[2022-07-10 19:21] LABS: ALBUMIN 3.6 g/dl (3.4-5.0); BLOOD UREA NITROGEN 17.8 mg/dL (7-18); CO2 25 mmol/L (21-32); GLUCOSE,RANDOM 129 mg/dL (74-106)
[2022-07-10 19:24] LABS: CREATININE 0.8 mg/dL (0.55-1.3); HEMATOCRIT 38.6 % (32.4-45.2); HEMOGLOBIN 12.9 GM/dL (10.7-15.3); MCH 28.8 pg (25.7-33.7); MCHC 33.4 g/dl (32.0-36.0); MEAN CELL VOLUME 86.1 fl (80-96); MEAN PLT VOLUME 11.1 fl (7.5-11.1); PLATELET COUNT 218 10^3/uL (134-434); RBC 4.49 M/mm3 (3.60-5.2); RDW 15.4 % (11.6-15.6); SGOT/AST 54 U/L (15-37); SGPT/ALT 23 U/L (13-61)
[2022-07-10 19:25] LABS: BILIRUBIN,TOTAL 0.4 mg/dL (0.2-1)
[2022-07-10 19:26] LABS: TOT PROT 7.4 g/dl (6.4-8.2)
[2022-07-10 19:27] LABS: ALK PHOS 148 U/L (45-117); ANION GAP 8 MMOL/L (8-16)
[2022-07-10] MEDS ORDERED: DIPHTH,PERTUSS(ACELL),TET 0.5 ML DISP.SYRIN IM ONE ×2 (19:27→21:10)
[2022-07-10 20:00] LABS: ANISOCYTOSIS 0; MACROCYTOSIS 0; PLATELET ESTIMATE NORMAL
[2022-07-11 04:00] VITALS: BP 134/77; PULSE 70; RESP 16
== END 2022-07-11 04:02 | disposition home or self-care (01) ==
LOC: JER 15:42
PROC: 0HQ0XZZ Repair Scalp Skin, External Approach (ICD-10-PCS; principal; 2022-07-10)
PROC: 3E0234Z Introduction of Serum, Toxoid and Vaccine into Muscle, Percutaneous Approach (ICD-10-PCS; 2022-07-10)
DX: S62.92XA Unspecified fracture of left hand, initial encounter for closed fracture (principal); S01.91XA Laceration without foreign body of unspecified part of head, initial encounter; W05.0XXA Fall from non-moving wheelchair, initial encounter
CPT/HCPCS: 12001; 36415; 70450-TC; 71045-TC-FY; 72125-TC; 73030-TC-LT-FY; 73060-TC-LT-FY; 73070-TC-LT-FY; 73090-TC-LT-FY; 73110-TC-LT-FY; 73130-TC-LT-FY; 73560-TC-LT-FY; 80053; 84484; 85027; 90471; 90715; 93005; 93010; 99285-25

== ENCOUNTER 2022-08-14 16:57 | Observation (INO) | payer OTHER ==
[2022-08-14 17:08] VITALS: BMI 26.2
[2022-08-14 21:23] LABS: BASO % 0.7 % (0-2.0); EOS % 1.7 % (0-4.5); HEMATOCRIT 39.8 % (32.4-45.2); HEMOGLOBIN 12.9 GM/dL (10.7-15.3); MCH 28.4 pg (25.7-33.7); MCHC 32.3 g/dl (32.0-36.0); MEAN CELL VOLUME 88.2 fl (80-96); MEAN PLT VOLUME 11.3 fl (7.5-11.1); MONO % 10.7 % (3.8-10.2); NEUT % 62.9 % (42.8-82.8); PLATELET COUNT 245 10^3/uL (134-434); RBC 4.52 M/mm3 (3.60-5.2); RDW 14.8 % (11.6-15.6); WHITE BLOOD COUNT 9.9 K/mm3 (4.0-10.0)
[2022-08-14 21:30] LABS: INR 1.42 (0.83-1.09); PROTHROMBIN TIME (PATIENT) 16.4 SEC (9.7-13.0)
[2022-08-14 21:32] LABS: ACTIVATED PTT 37.7 SECONDS (25.2-36.5)
[2022-08-14 21:41] LABS: CHLORIDE 105 mmol/L (98-107); SODIUM 143 mmol/L (136-145)
[2022-08-14 21:43] LABS: ALBUMIN 3.6 g/dl (3.4-5.0); CALCIUM 9.5 mg/dL (8.5-10.1)
[2022-08-14 21:44] LABS: ANION GAP 10 MMOL/L (8-16); BLOOD UREA NITROGEN 19.4 mg/dL (7-18); CO2 28 mmol/L (21-32); GLUCOSE,RANDOM 132 mg/dL (74-106)
[2022-08-14 21:46] LABS: CREATININE 0.8 mg/dL (0.55-1.3); SGOT/AST 14 U/L (15-37)
[2022-08-14 21:47] LABS: SGPT/ALT 17 U/L (13-61)
[2022-08-14 21:48] LABS: BILIRUBIN,TOTAL 0.5 mg/dL (0.2-1); TOT PROT 7.2 g/dl (6.4-8.2)
[2022-08-14 21:49] LABS: ALK PHOS 158 U/L (45-117)
[2022-08-14] MEDS ORDERED: OLANZapine 2.5 MG TABLET PO ONE (22:22)
[2022-08-14] MEDS ORDERED: OLANZapine 10 MG TABLET ONE (22:38)
[2022-08-15] MEDS ORDERED: ACETAMINOPHEN 325 MG TABLET (FP) PO PRN (07:47)
[2022-08-15] MEDS ORDERED: COLCHICINE 0.6 MG CAPSULE PO SCH (10:00)
[2022-08-15 10:13] LABS: BASO % 0.6 % (0-2.0); EOS % 0.6 % (0-4.5); HEMATOCRIT 42.3 % (32.4-45.2); HEMOGLOBIN 13.7 GM/dL (10.7-15.3); LYMPH % 12.5 % (8-40); MCH 28.5 pg (25.7-33.7); MCHC 32.3 g/dl (32.0-36.0); MEAN CELL VOLUME 88.3 fl (80-96); MEAN PLT VOLUME 12.8 fl (7.5-11.1); MONO % 9.6 % (3.8-10.2); NEUT % 76.7 % (42.8-82.8); PLATELET COUNT 260 10^3/uL (134-434); RBC 4.79 M/mm3 (3.60-5.2); RDW 14.9 % (11.6-15.6); WHITE BLOOD COUNT 12.1 K/mm3 (4.0-10.0)
[2022-08-15 10:38] LABS: CHLORIDE 105 mmol/L (98-107); SODIUM 145 mmol/L (136-145)
[2022-08-15 10:43] LABS: GLUCOSE,RANDOM 167 mg/dL (74-106)
[2022-08-15 10:44] LABS: CALCIUM 10.1 mg/dL (8.5-10.1)
[2022-08-15 10:45] LABS: ANION GAP 13 MMOL/L (8-16); BLOOD UREA NITROGEN 14.9 mg/dL (7-18); CO2 28 mmol/L (21-32)
[2022-08-15 10:46] LABS: CHOLESTEROL 140 mg/dL (50-200); CREATININE 0.8 mg/dL (0.55-1.3); HDL CHOLESTEROL 55 mg/dL (40-60); TRIGLYCERIDES 104 mg/dL (0-150)
[2022-08-15 10:47] LABS: LDL CHOLESTEROL (ONLY SJRH) 70 mg/dL (5-100)
[2022-08-15] MEDS ORDERED: amLODIPine BESYLATE 10 MG TABLET (FP) ONE (12:22)
[2022-08-15] MEDS ORDERED: metoPROLOL SUCCINATE 25 MG TAB.SR.24H (FP) PO ONE (12:22)
[2022-08-15] MEDS ORDERED: SERTRALINE HCL 50 MG TABLET (FP) ONE (12:22)
[2022-08-15] MEDS ORDERED: COLCHICINE 0.6 MG TAB ONE (12:22)
[2022-08-15] MEDS ORDERED: APIXABAN 2.5 MG TABLET ONE (12:22)
[2022-08-15] MEDS ORDERED: ISOSORBIDE MONONITRATE 30 MG TAB.SR.24H (FP) PO ONE (12:23)
[2022-08-15] MEDS: APIXABAN 2.5 MG TABLET PO SCH ×2 (15:46→22:03)
[2022-08-15] MEDS: METOPROLOL TARTRATE 25 MG TABLET (FP) PO SCH ×2 (15:46→22:03)
[2022-08-15] MEDS: ISOSORBIDE MONONITRATE 30 MG TAB.SR.24H (FP) PO SCH (15:46)
[2022-08-15] MEDS: SERTRALINE HCL 50 MG TABLET (FP) PO SCH (15:46)
[2022-08-15] MEDS: amLODIPine BESYLATE 10 MG TABLET (FP) PO SCH (15:46)
[2022-08-15 16:31] LABS: EPI CELLS >36 /uL (0-25.1); HYALINE CASTS 0 /uL (0-3.1); URINE APPEARANCE CLOUDY; URINE BACTERIA 1529 /uL (0-1359); URINE BILIRUBIN NEGATIVE (NEGATIVE); URINE COLOR YELLOW; URINE GLUCOSE (UA) NEGATIVE (NEGATIVE); URINE KETONE NEGATIVE (NEGATIVE); URINE LEUK ESTERASE 2+ (NEGATIVE); URINE NITRITE NEGATIVE (NEGATIVE); URINE PROTEIN TRACE (NEGATIVE); URINE RBC 19 /uL (0-23.9); URINE UROBILINOGEN 0.2 mg/dL (0.2-1.0); URINE WBC 1015 /uL (0-25.8)
[2022-08-15] MEDS: ATORVASTATIN CA 40 MG TABLET (FP) PO SCH (22:03)
[2022-08-16] MEDS: amLODIPine BESYLATE 10 MG TABLET (FP) PO SCH (10:15)
[2022-08-16] MEDS: SERTRALINE HCL 50 MG TABLET (FP) PO SCH (10:16)
[2022-08-16] MEDS: APIXABAN 2.5 MG TABLET PO SCH ×2 (10:16→21:23)
[2022-08-16] MEDS: COLCHICINE 0.6 MG TAB PO SCH (10:16)
[2022-08-16] MEDS: METOPROLOL TARTRATE 25 MG TABLET (FP) PO SCH ×2 (10:16→21:24)
[2022-08-16] MEDS: ISOSORBIDE MONONITRATE 30 MG TAB.SR.24H (FP) PO SCH (10:16)
[2022-08-16] MEDS: CEFTRIAXONE 1 GM in DEXTROSE 5%-WATER - 50 ML IVPB SCH (11:02)
[2022-08-16 12:42] LABS: BASO % 0.8 % (0-2.0); EOS % 2.4 % (0-4.5); HEMOGLOBIN 13.1 GM/dL (10.7-15.3); LYMPH % 29.1 % (8-40); MCH 28.3 pg (25.7-33.7); MCHC 31.9 g/dl (32.0-36.0); MEAN CELL VOLUME 88.7 fl (80-96); MEAN PLT VOLUME 11.8 fl (7.5-11.1); MONO % 11.7 % (3.8-10.2); PLATELET COUNT 224 10^3/uL (134-434); RBC 4.63 M/mm3 (3.60-5.2); RDW 15.4 % (11.6-15.6)
[2022-08-16 13:05] LABS: CALCIUM 9.6 mg/dL (8.5-10.1)
[2022-08-16 13:06] LABS: ALBUMIN 3.3 g/dl (3.4-5.0)
[2022-08-16 13:09] LABS: CREATININE 0.8 mg/dL (0.55-1.3)
[2022-08-16 13:10] LABS: BILIRUBIN,TOTAL 0.9 mg/dL (0.2-1); TOT PROT 7.1 g/dl (6.4-8.2)
[2022-08-16] MEDS: DONEPEZIL HCL 5 MG TABLET (FP) PO SCH (15:54)
[2022-08-16] MEDS: ATORVASTATIN CA 40 MG TABLET (FP) PO SCH (21:24)
[2022-08-17] MEDS: COLCHICINE 0.6 MG TAB PO SCH (09:49)
[2022-08-17] MEDS: METOPROLOL TARTRATE 25 MG TABLET (FP) PO SCH (09:49)
[2022-08-17] MEDS: ISOSORBIDE MONONITRATE 30 MG TAB.SR.24H (FP) PO SCH (09:49)
[2022-08-17] MEDS: amLODIPine BESYLATE 10 MG TABLET (FP) PO SCH (09:49)
[2022-08-17] MEDS: CEFTRIAXONE 1 GM in DEXTROSE 5%-WATER - 50 ML IVPB SCH (09:49)
[2022-08-17] MEDS: SERTRALINE HCL 50 MG TABLET (FP) PO SCH (09:49)
[2022-08-17] MEDS: DONEPEZIL HCL 5 MG TABLET (FP) PO SCH (09:49)
[2022-08-17] MEDS: APIXABAN 2.5 MG TABLET PO SCH (09:49)
[2022-08-17 10:38] VITALS: TEMP 97.9
[2022-08-17 12:14] VITALS: BP 136/77; PULSE 60; RESP 18
== END 2022-08-17 16:41 ==
LOC: JER 16:57 → JERBED 20:24 → J4W 08-15 21:33
PROVIDERS: ADMIT Internal Medicine; ATTEND Family Medicine
DX: G30.1 Alzheimer's disease with late onset (principal); I25.10 Atherosclerotic heart disease of native coronary artery without angina pectoris; M19.90 Unspecified osteoarthritis, unspecified site; I48.91 Unspecified atrial fibrillation; Z95.1 Presence of aortocoronary bypass graft; R55 Syncope and collapse; N39.0 Urinary tract infection, site not specified; J44.9 Chronic obstructive pulmonary disease, unspecified; Z87.891 Personal history of nicotine dependence
CPT/HCPCS: 0241U-QW; 36415; 70450-TC; 71045-TC-FY; 72125-TC; 73060-TC-LT-FY; 73090-TC-LT-FY; 73110-TC-LT-FY; 73130-TC-LT-FY; 80048; 80053; 80061; 81003; 84484; 85025; 85610; 85730; 87086; 87186; 93005; 93010; 95816; 96365; 99285-25; G0378

== ENCOUNTER 2025-05-01 10:54 | Inpatient (IN) | payer OTHER ==
[2025-05-01 12:39] LABS: ABSOLUTE IMMATURE GRANULOCYTES 0.05 x10^3/uL (0.0-0.031); BASOPHILS # 0.02 x10^3/uL (0.01-0.08); EOSINOPHIL % 0.0 % (0.7-5.8); EOSINOPHILS # 0.00 x10^3/uL (0.04-0.36); MCHC 31.6 g/dl (32.2-35.5); MEAN CELL VOLUME 97.1 fl (79.4-94.8); MONOCYTE # 0.85 x10^3/uL (0.24-0.86); MONOCYTE % 7.9 % (4.7-12.5); RDW 14.5 % (12.5-17.0)
[2025-05-01 13:06] LABS: EPI CELLS 18 /uL (0-25.1); HYALINE CASTS 1 /uL (0-3.1); URINE APPEARANCE CLOUDY; URINE BACTERIA >9,000 /uL (0-1359); URINE BILIRUBIN NEGATIVE (NEGATIVE); URINE COLOR DK YELLOW; URINE GLUCOSE (UA) NEGATIVE (NEGATIVE); URINE KETONE TRACE (NEGATIVE); URINE LEUK ESTERASE 2+ (NEGATIVE); URINE NITRITE NEGATIVE (NEGATIVE); URINE PROTEIN 1+ (NEGATIVE); URINE UROBILINOGEN 1.0 mg/dL (0.2-1.0); URINE WBC 1058 /uL (0-25.8)
[2025-05-01 13:08] LABS: GLUCOSE,RANDOM 173.0 mg/dL (74-106); TOT PROT 6.8 g/dl (6.4-8.2)
[2025-05-01 13:09] LABS: CO2 21.0 mmol/L (21-32)
[2025-05-01 13:09] LABS: URINE RBC 31.5 /uL (0-23.9)
[2025-05-01 13:11] LABS: ALK PHOS 139.0 U/L (40-150)
[2025-05-01 13:14] LABS: CREATININE 0.73 mg/dL (0.55-1.3); SGOT/AST 25.0 U/L (5-34); SGPT/ALT 13.0 U/L (0-55)
[2025-05-01 13:31] LABS: HCV DIAGNOSTIC IN-HOUSE W/RFLX NON-REACTIVE (NONREACTIVE)
[2025-05-01 13:32] LABS: HIV INTERPRETATION NEGATIVE (NEGATIVE)
[2025-05-01] MEDS ORDERED: CEFTRIAXONE 1 GM/50 ML BAG ONE (14:25)
[2025-05-01] MEDS: CEFTRIAXONE 1 GM in DEXTROSE 5%-WATER - 100 ML IVPB ONE (14:29)
[2025-05-02 00:57] VITALS: BMI 25.9
[2025-05-02] MEDS ORDERED: [UNRECOGNIZED DRUG - OTHER] PO SCH (01:30)
[2025-05-02] MEDS ORDERED: CHOLECALCIFEROL 1250 MCG PO SCH (01:30)
[2025-05-02] MEDS: FUROSEMIDE 40 MG/4 ML INJECTABLE VIAL IVPUSH ONE (01:36)
[2025-05-02] MEDS: MAGNESIUM 1GM/D5W - 1 GM/100 ML IVPB IVPB ONE (01:36)
[2025-05-02] MEDS: methylPREDNISolone NA SUCC 40 MG/1 ML VIAL IVPUSH SCH (02:52)
[2025-05-02] MEDS ORDERED: DIVALPROEX SODIUM 250 MG TABLET E.C. PO SCH (06:00)
[2025-05-02] MEDS: VALPROATE SODIUM 250 MG/5 ML UNIT DOSE CUP PO SCH (06:55)
[2025-05-02 08:00] LABS: N-TERMINAL BNP 5642.1 pg/mL (0-299.9)
[2025-05-02] MEDS: ALBUTEROL SO4 2.5/IPRATROPIUM 0.5 INH SOL 3 ML VIAL.NEB. NEB SCH (08:15)
[2025-05-02] MEDS ORDERED: methylPREDNISolone NA SUCC 40 MG/1 ML VIAL IVPUSH SCH (10:00)
[2025-05-02] MEDS ORDERED: amLODIPine BESYLATE 10 MG TABLET (FP) PO SCH (10:00)
[2025-05-02] MEDS ORDERED: FUROSEMIDE 40 MG/4 ML INJECTABLE VIAL IVPUSH SCH (10:00)
[2025-05-02] MEDS: CEFTRIAXONE 1 GM in DEXTROSE 5%-WATER - 50 ML IVPB SCH (10:21)
[2025-05-02] MEDS: MEMANTINE HCL 10 MG TABLET (FP) PO SCH (10:22)
[2025-05-02] MEDS: ALLOPURINOL 100 MG TABLET (FP) PO SCH (10:22)
[2025-05-02] MEDS: APIXABAN 2.5 MG TABLET PO SCH (10:22)
[2025-05-02] MEDS: ACETAMINOPHEN 500 MG TABLET (FP) PO SCH (10:22)
[2025-05-02] MEDS: METOPROLOL TARTRATE 25 MG TABLET (FP) PO SCH (10:23)
[2025-05-02] MEDS: ISOSORBIDE DINITRATE 10 MG TABLET PO SCH (10:24)
[2025-05-02] MEDS: ASPIRIN COATED 81 MG TABLET.EC PO SCH (10:30)
[2025-05-02 17:06] LABS: ABSOLUTE IMMATURE GRANULOCYTES 0.02 x10^3/uL (0.0-0.031); BASOPHILS # 0.00 x10^3/uL (0.01-0.08); EOSINOPHIL % 0.0 % (0.7-5.8); EOSINOPHILS # 0.00 x10^3/uL (0.04-0.36); MCHC 32.8 g/dl (32.2-35.5); MEAN CELL VOLUME 93.5 fl (79.4-94.8); MEAN PLT VOLUME 12.9 fl (9.4-12.3); MONOCYTE # 0.16 x10^3/uL (0.24-0.86); MONOCYTE % 2.9 % (4.7-12.5); RDW 14.6 % (12.5-17.0)
[2025-05-02 17:24] LABS: GLUCOSE,RANDOM 184.0 mg/dL (74-106)
[2025-05-02 17:25] LABS: TOT PROT 6.5 g/dl (6.4-8.2)
[2025-05-02 17:26] LABS: CO2 26.0 mmol/L (21-32)
[2025-05-02 17:28] LABS: ALK PHOS 127.0 U/L (40-150)
[2025-05-02 17:30] LABS: CREATININE 0.64 mg/dL (0.55-1.3); SGOT/AST 21.0 U/L (5-34); SGPT/ALT 13.0 U/L (0-55)
[2025-05-02] MEDS: SENNOSIDES 8.6MG TABLET (FP) PO SCH (21:41)
[2025-05-02] MEDS: ATORVASTATIN CA 40 MG TABLET (FP) PO SCH (21:41)
[2025-05-03 08:00] LABS: MCHC 32.4 g/dl (32.2-35.5); MEAN CELL VOLUME 93.2 fl (79.4-94.8); RDW 14.6 % (12.5-17.0)
[2025-05-03 08:43] LABS: BG HCT 38.0 % (32.4-45.2); VENOUS BASE EXCESS 4.0 mmol/L (-2-2); VENOUS O2 SATURATION 97.1 % (70-80); VENOUS PCO2 33.4 mmHg (38-52); VENOUS PH 7.519 (7.310-7.410)
[2025-05-03 09:10] LABS: GLUCOSE,RANDOM 107.0 mg/dL (74-106); TOT PROT 6.5 g/dl (6.4-8.2)
[2025-05-03 09:11] LABS: CO2 24.0 mmol/L (21-32)
[2025-05-03 09:13] LABS: ALK PHOS 120.0 U/L (40-150)
[2025-05-03 09:15] LABS: SGOT/AST 19.0 U/L (5-34); SGPT/ALT 13.0 U/L (0-55)
[2025-05-03 09:16] LABS: CREATININE 0.61 mg/dL (0.55-1.3)
[2025-05-03] MEDS: CEFTRIAXONE 1 GM in DEXTROSE 5%-WATER - 50 ML IVPB SCH (19:58)
[2025-05-03] MEDS ORDERED: ALBUTEROL SO4 2.5/IPRATROPIUM 0.5 INH SOL 3 ML VIAL.NEB. NEB PRN (21:35)
[2025-05-03 22:44] LABS: ARTERIAL BLD GAS O2 SATURATION 95.4 % (95-98); ARTERIAL BLOOD GAS BASE EXCESS 3.1 mmol/L (-2-2); ARTERIAL BLOOD GAS PCO2 39.30 mmHg (35-45); ARTERIAL BLOOD GAS PO2 73.0 mmHg (80-100); BG HCT 37.0 % (32.4-45.2); O2 CONTENT 1.67 % vol
[2025-05-03 22:52] LABS: ALLENS TEST POSITIVE
[2025-05-04 08:46] LABS: ABSOLUTE IMMATURE GRANULOCYTES 0.03 x10^3/uL (0.0-0.031); BASOPHILS # 0.03 x10^3/uL (0.01-0.08); EOSINOPHIL % 0.4 % (0.7-5.8); EOSINOPHILS # 0.03 x10^3/uL (0.04-0.36); MCHC 32.1 g/dl (32.2-35.5); MEAN CELL VOLUME 94.7 fl (79.4-94.8); MEAN PLT VOLUME 13.1 fl (9.4-12.3); MONOCYTE # 0.77 x10^3/uL (0.24-0.86); MONOCYTE % 9.7 % (4.7-12.5); RDW 14.8 % (12.5-17.0)
[2025-05-04 09:22] LABS: GLUCOSE,RANDOM 89.0 mg/dL (74-106)
[2025-05-04 09:23] LABS: TOT PROT 5.4 g/dl (6.4-8.2)
[2025-05-04 09:24] LABS: CO2 31.0 mmol/L (21-32)
[2025-05-04 09:25] LABS: ALK PHOS 105.0 U/L (40-150)
[2025-05-04 09:28] LABS: CREATININE 0.54 mg/dL (0.55-1.3); SGOT/AST 17.0 U/L (5-34); SGPT/ALT 14.0 U/L (0-55)
[2025-05-04 09:32] LABS: N-TERMINAL BNP 3904.7 pg/mL (0-299.9)
[2025-05-04] MEDS ORDERED: FUROSEMIDE 40 MG/4 ML INJECTABLE VIAL IVPUSH SCH (10:00)
[2025-05-04] MEDS: FUROSEMIDE 40 MG/4 ML INJECTABLE VIAL IVPUSH SCH (10:00)
[2025-05-04] MEDS ORDERED: ACETAMINOPHEN 1000 MG/100 ML BAG IVPB PRN (11:08)
[2025-05-04 11:48] LABS: ARTERIAL BLD GAS O2 SATURATION 94.6 % (95-98); ARTERIAL BLOOD GAS BASE EXCESS 0 mmol/L (-2-2); ARTERIAL BLOOD GAS PCO2 39.30 mmHg (35-45); ARTERIAL BLOOD GAS PO2 71.4 mmHg (80-100); BG HCT 35.0 % (32.4-45.2)
[2025-05-04 11:49] LABS: ALLENS TEST POSITIVE
[2025-05-04] MEDS: APIXABAN 5 MG TABLET PO SCH (22:19)
[2025-05-05 08:04] LABS: ABSOLUTE IMMATURE GRANULOCYTES 0.02 x10^3/uL (0.0-0.031); BASOPHILS # 0.04 x10^3/uL (0.01-0.08); EOSINOPHIL % 0.9 % (0.7-5.8); EOSINOPHILS # 0.07 x10^3/uL (0.04-0.36); MCHC 31.8 g/dl (32.2-35.5); MEAN CELL VOLUME 94.4 fl (79.4-94.8); MEAN PLT VOLUME 13.7 fl (9.4-12.3); MONOCYTE # 0.88 x10^3/uL (0.24-0.86); MONOCYTE % 11.5 % (4.7-12.5); RDW 14.6 % (12.5-17.0)
[2025-05-05 08:47] LABS: GLUCOSE,RANDOM 106.0 mg/dL (74-106); TOT PROT 5.9 g/dl (6.4-8.2)
[2025-05-05 08:48] LABS: CO2 29.0 mmol/L (21-32)
[2025-05-05 08:50] LABS: ALK PHOS 106.0 U/L (40-150)
[2025-05-05 08:52] LABS: SGOT/AST 18.0 U/L (5-34); SGPT/ALT 10.0 U/L (0-55)
[2025-05-05 08:53] LABS: CREATININE 0.46 mg/dL (0.55-1.3)
[2025-05-05] MEDS: MAGNESIUM SULFATE IN WATER 2 GM/50 ML IVPB IVPB ONE (10:07)
[2025-05-06 08:59] LABS: ABSOLUTE IMMATURE GRANULOCYTES 0.03 x10^3/uL (0.0-0.031); BASOPHILS # 0.02 x10^3/uL (0.01-0.08); EOSINOPHIL % 1.5 % (0.7-5.8); EOSINOPHILS # 0.11 x10^3/uL (0.04-0.36); MCHC 31.6 g/dl (32.2-35.5); MEAN CELL VOLUME 94.7 fl (79.4-94.8); MEAN PLT VOLUME 13.6 fl (9.4-12.3); MONOCYTE # 0.82 x10^3/uL (0.24-0.86); MONOCYTE % 10.8 % (4.7-12.5); RDW 14.6 % (12.5-17.0)
[2025-05-06 10:10] LABS: GLUCOSE,RANDOM 110.0 mg/dL (74-106); TOT PROT 6.0 g/dl (6.4-8.2)
[2025-05-06 10:12] LABS: CO2 27.0 mmol/L (21-32)
[2025-05-06 10:13] LABS: ALK PHOS 107.0 U/L (40-150)
[2025-05-06 10:16] LABS: CREATININE 0.48 mg/dL (0.55-1.3); SGOT/AST 18.0 U/L (5-34); SGPT/ALT 9.0 U/L (0-55)
[2025-05-06] MEDS: FUROSEMIDE 40 MG TABLET (FP) PO SCH (10:22)
[2025-05-06 13:11] VITALS: RESP 17
[2025-05-06] MEDS: NAPH,MB-DB/K PH,MBDB POWDER PACKET PO ONE (13:44)
[2025-05-06 15:45] VITALS: BP 116/66; PULSE 59; TEMP 98.1
== END 2025-05-06 17:45 | DRG 291 ==
LOC: JER 10:54 → JERBED 14:47 → J4S 18:26 → OBSVTOIN 05-02 08:34
PROVIDERS: ADMIT Student in an Organized Health Care Education/Training Program
DX: I11.0 Hypertensive heart disease with heart failure (principal); G93.41 Metabolic encephalopathy; I50.33 Acute on chronic diastolic (congestive) heart failure; J96.21 Acute and chronic respiratory failure with hypoxia; N39.0 Urinary tract infection, site not specified; E78.5 Hyperlipidemia, unspecified; I27.20 Pulmonary hypertension, unspecified; I25.10 Atherosclerotic heart disease of native coronary artery without angina pectoris; I48.91 Unspecified atrial fibrillation; G30.9 Alzheimer's disease, unspecified; F02.80 Dementia in other diseases classified elsewhere, unspecified severity, without behavioral disturbance, psychotic disturbance, mood disturbance, and anxiety; F32.A Depression, unspecified; I69.391 Dysphagia following cerebral infarction; I69.320 Aphasia following cerebral infarction; Z95.0 Presence of cardiac pacemaker; Z66 Do not resuscitate
CPT/HCPCS: 36415; 36600; 71045-TC-FY; 71250-TC; 80053; 80164; 81003; 82140; 82803; 83735; 83880; 84100; 84443; 84484; 85025; 85027; 86803; 87040; 87086; 87389; 87637-QW; 87899; 93005; 93010; 93306-TC; 94640; 94761; 99285-25; G0378